=== PATIENT | female | born 1955 | race Caucasian/White ===

== ENCOUNTER → 2016-08-31 | Outpatient (CLI) | payer MEDICARE, OTHER ==
[2016-08-31 11:14] LABS: APPEARANCE,URINE SLIGHTLY-CLOUDY; BILIRUBIN,URINE NEGATIVE (NEGATIVE); GLUCOSE, URINE NEGATIVE (NEGATIVE); KETONES,URINE NEGATIVE (NEGATIVE); LEUKOCYTE ESTERASE,URINE NEGATIVE (NEGATIVE); NITRITE,URINE NEGATIVE (NEGATIVE); PROTEIN,URINE NEGATIVE (NEGATIVE); URINE SPECIFIC GRAVITY 1.025; UROBILINOGEN,URINE NEGATIVE mg/dL (<2.0)
--- NOTE | 2016-08-31 11:18 | EKG REPORT ---
SEVERITY:- NORMAL ECG - SINUS RHYTHM : Confirmed by: Ree Chacon 31-Aug-2016 11:17:39
[2016-08-31 11:36] LABS: ABSOLUTE BASOPHILS # (AUTO) 0.1 10^3/uL (0.0-0.2); ABSOLUTE EOSINOPHILS # (AUTO) 0.1 10^3/uL (0.0-0.6); ABSOLUTE LYMPHOCYTES (AUTO) 1.8 10^3/uL (0.5-4.7); ABSOLUTE MONOCYTES (AUTO) 0.6 10^3/uL (0.1-1.4); ABSOLUTE NEUT (AUTO) 3.6 10^3/uL (1.7-8.2); BASOPHILS % (AUTO) 0.9 % (0-2); HEMATOCRIT 46.4 % (36.0-47.0); HEMOGLOBIN 15.5 g/dL (12.0-15.5); HGB HCT DIFFERENCE 0.1; LYMPHOCYTES % (AUTO) 28.9 % (13-45); MEAN CORPUSCULAR HEMOGLOBIN 31.4 pg (27.0-33.4); MEAN CORPUSCULAR HGB CONC 33.5 g/dL (32.0-36.0); MEAN CORPUSCULAR VOLUME 94 fl (80-97); MONOCYTES % (AUTO) 9.1 % (3-13); RED BLOOD COUNT 4.95 10^6/uL (3.72-5.28); RED CELL DISTRIBUTION WIDTH 13.5 % (11.5-14.0); SEGMENTED NEUTROPHILS % (AUTO) 59.1 % (42-78); WHITE BLOOD COUNT 6.1 10^3/uL (4.0-10.5)
[2016-08-31 12:02] LABS: ANION GAP 9 (5-19); BLOOD UREA NITROGEN 18 mg/dL (7-20); CALCIUM 10.1 mg/dL (8.4-10.2); CARBON DIOXIDE 24 mmol/L (22-30); CHLORIDE 105 mmol/L (98-107); CREATININE RESULT 0.72 mg/dL (0.52-1.25); GLUCOSE 97 mg/dL (75-110); POTASSIUM 4.6 mmol/L (3.6-5.0)
[2016-08-31 12:04] LABS: C-REACTIVE PROTEIN < 5.0 mg/L (<10.0)
[2016-08-31 12:13] LABS: ERYTHROCYTE SEDIMENTATION RATE 11 mm/hr (0-30)
== END ==
LOC: OD 09:44
PROVIDERS: ATTEND Orthopaedic Surgery
DX: Z01.810 Encounter for preprocedural cardiovascular examination (principal); Z01.811 Encounter for preprocedural respiratory examination; Z01.818 Encounter for other preprocedural examination; Z79.899 Other long term (current) drug therapy; R70.0 Elevated erythrocyte sedimentation rate; R79.82 Elevated C-reactive protein (CRP); T84.498A Other mechanical complication of other internal orthopedic devices, implants and grafts, initial encounter
CPT/HCPCS: 36415; 71020; 80048; 81001; 85025; 85652; 86140; 93005; 93010

== ENCOUNTER 2016-09-06 22:16 | Emergency (ER) | payer MEDICARE, OTHER ==
[2016-09-06 22:24] VITALS: BP 142/68
[2016-09-06] MEDS ORDERED: ONDANSETRON 4 MG TAB.RAPDIS PO ONE (22:43)
[2016-09-06] MEDS ORDERED: ACETAMINOPHEN 325 MG TABLET PO ONE (22:43)
--- NOTE | 2016-09-06 22:43 | ER Document Report ---
ED Medical Screen (RME) - General Stated Complaint: FALL/HEAD, NECK, RIGHT SHOULDER PAIN Time seen by provider: 22:40 Mode of Arrival: Ambulatory Information source: Patient Notes: 61-year-old female presents to ED for headache right shoulder and arm pain and neck pain after falling around 2-3 PM today from a standing position anymore hardpacked dirt. She denies any loss of consciousness vomiting or change in orientation. She does have some dizziness and some nausea. She states she took ar Zanaflex 4 mg around 3 is not had any Tylenol. I have greeted and performed a rapid initial assessment of this patient. A comprehensive ED assessment and evaluation of the patient, analysis of test results and completion of medical decision making process will be conducted by an additional ED providers. TRAVEL OUTSIDE OF THE [place] IN LAST 30 DAYS: No - Related Data Allergies/Adverse Reactions: Penicillins Allergy (Severe, Verified 05/29/16 10:20) hives,throat swellling Iodinated Contrast Media - Oral and [IV Dye, Iodine Containing] Allergy (Unknown , Verified 05/29/16 10:20) Anaphylaxis adhesive tape Adverse Reaction (Intermediate, Verified 05/29/16 10:20) Generalized rash Past Medical History - Past Medical History Cardiac Medical History: Reports: Hx Hypercholesterolemia, Hx Hypertension Denies: Hx Coronary Artery Disease, Hx Heart Attack Pulmonary Medical History: Denies: Hx Asthma, Hx Bronchitis, Hx COPD, Hx Pneumonia Neurological Medical History: Denies: Hx Cerebrovascular Accident, Hx Seizures Endocrine Medical History: Reports: Hx Hypothyroidism Musculoskeltal Medical History: Reports Hx Arthritis Psychiatric Medical History: Reports: Hx Depression Past Surgical History: Reports: Hx Abdominal Surgery - hernia repair, bypass, Hx Breast Surgery - biopsy, Hx Cholecystectomy, Hx Hysterectomy, Hx Nose Surgery , Hx Orthopedic Surgery - multp - Immunizations Hx Diphtheria, Pertussis, Tetanus Vaccination: Yes Physical Exam - Vital signs Vitals: Temp Pulse Resp BP Pulse Ox 97.4 F 69 16 142/68 H 97 09/06/16 22:21 09/06/16 22:21 09/06/16 22:21 09/06/16 22:21 09/06/16 22:21 Course - Vital Signs Vital signs: Temp Pulse Resp BP Pulse Ox 97.4 F 69 16 142/68 H 97 09/06/16 22:21 09/06/16 22:21 09/06/16 22:21 09/06/16 22:21 09/06/16 22:21
== END 2016-09-07 02:31 | disposition left against medical advice (07) ==
LOC: ER 22:16
DX: Z53.9 Procedure and treatment not carried out, unspecified reason (principal); R51 Headache; M25.511 Pain in right shoulder; M79.601 Pain in right arm; R42 Dizziness and giddiness; R11.0 Nausea; Z79.899 Other long term (current) drug therapy
CPT/HCPCS: 99281; 73030; 70450; 72125; A9270 ×2; S0119

== ENCOUNTER 2016-09-25 06:35 | Inpatient (IN) | payer MEDICARE, OTHER ==
[~2016-09-25 06:35] MED LIST: BUPIVACAINE INJ/PF LIPOSOME/PF 266 MG/20 ML SDV IJ PRN; CLINDAMYCIN 600 MG/D5W RTU 600 MG/50 ML RTUPB IV PRN; IBUPROFEN 800 MG/NS 250 ML IV PRN; LACTATED RINGERS 1000 ML IV PRN; LANSOPRAZOLE 15 MG TAB.RAP.DR PO PRN; LIDOCAINE 0.5% INJ-PF (5 MG/ML) 50 ML SDV SUBCUT PRN; OXYCODONE HCL SR 10 MG TABLET PO PRN; SCOPOLAMINE HYDROBROMIDE 1.5 MG PATCH.TD72 TOP PRN; VANCOMYCIN HCL 1,000 MG in DEXTROSE 5%-WATER 250 ML IV PRN
[2016-09-25] MEDS ORDERED: THROMBIN (BOVINE) TOPICAL 20000 UNIT VIAL ONE (07:24)
[2016-09-25] MEDS ORDERED: THROMBIN (BOVINE) 5000 UNIT EPITAXIS KIT ONE (07:24)
[2016-09-25] MEDS ORDERED: BUPIVACAINE INJ/PF LIPOSOME/PF 266 MG/20 ML SDV ONE (07:25)
[2016-09-25] MEDS ORDERED: MIDAZOLAM 2 MG/2 ML INJ ONE (07:32)
[2016-09-25] MEDS ORDERED: FENTANYL CITRATE INJ/PF 100 MCG/2 ML AMPUL ONE ×2 (07:32→11:38)
[2016-09-25] MEDS ORDERED: PROPOFOL INJ 200 MG/20 ML VIAL IV ONE (07:33)
[2016-09-25] MEDS ORDERED: DEXMEDETOMIDINE INJ 80 MCG/20 ML VIAL IV ONE (07:33)
[2016-09-25] MEDS ORDERED: TRANEXAMIC ACID INJ/PF 1,000 MG/10 ML SDV IV ONE ×2 (07:44→12:30)
[2016-09-25] MEDS ORDERED: EPHEDRINE SULFATE INJ 50 MG/1 ML AMPULE ONE (09:26)
[2016-09-25] MEDS ORDERED: MORPHINE SULFATE 10 MG/ML INJ IV PRN ×3 (09:47→10:48)
[2016-09-25] MEDS ORDERED: DIPHENHYDRAMINE HCL 50 MG/ML VIAL IV PRN ×2 (09:47→10:48)
[2016-09-25] MEDS ORDERED: PROMETHAZINE HCL INJ 25 MG/1 ML VIAL IV PRN (09:47)
[2016-09-25] MEDS ORDERED: FENTANYL CITRATE INJ/PF 100 MCG/2 ML AMPUL IV PRN ×3 (09:47)
--- NOTE | 2016-09-25 10:46 | Operative Report ---
Operative Report DATE OF SURGERY: 09/25/16 PREOPERATIVE DIAGNOSIS: Unstable right knee arthroplasty OPERATION: Right revision knee arthroplasty SURGEON: MICHAELA BRAR ANESTHESIA: Spinal TISSUE REMOVED OR ALTERED: Cultures to microbiology, implant to pathology ESTIMATED BLOOD LOSS: 100 PROCEDURE: Implants used: Junior willis TS #4 femur., 19 x 100 mm stem, 5 mm posterior augments #3 tibia, 16 x 100 mm stem 13 mm TS insert Procedure with the patient supine on the operative table the right looks terms prepped and draped in sterile fashion. Limb was elevated for exsanguination tourniquet inflated 280 torr. A standard midline incision is made. There didn' t been a previous patellectomy and there were residual Ethibond sutures that were used to determine the previous retinacular exposure and this was used again. Once entering the capsule cultures were obtained and sent for culture and sensitivity. Clinical suspicion for infection slow. Using comminution of TPS saw and a disimpacted. The femoral component is removed with minimal bone loss. Likewise, the tibia was addressed through a TPS saw and then stacked osteotomes with removal and essentially no bone loss. The tibial canal was then reamed to 16 mm and the intramedullary reamer is then used for the proximal tibia recut measuring approximately 2 mm. Summary the femoral canal is reamed until 19 mm and this is used for the recut as well as for the TS box cut. A trial reduction was performed with the above implants and stability seems excellent. The trials were removed. The wound is lupe. Pulsed lavage. Polymethyl methacrylate is mixed and used to cement the above implants in place. Following adequate curing the cement excess cement was removed the wound is irrigated. The tourniquet was deflated. Hemostasis obtained. The final 13 mm TS insert is impacted into the tibia. Bone wax was used to seal off the anterior femoral surface with cancellus bone was exposed and bleeding. The wound is then closed in layers interrupted Vicryl followed by merna.
[2016-09-25] MEDS ORDERED: ZOLPIDEM TARTRATE 5 MG TABLET PO PRN (10:48)
[2016-09-25] MEDS ORDERED: ONDANSETRON HCL INJ/PF 4 MG/2 ML SDV IV PRN (10:48)
[2016-09-25] MEDS ORDERED: RINGERS SOLUTION,LACTATED 1,000 ML IV PRN (10:48)
[2016-09-25] MEDS ORDERED: MAG HYDROX/AL HYDROX/SIMETH SUSP 30 ML UDCUP PO PRN (10:48)
[2016-09-25] MEDS ORDERED: TIZANIDINE HCL 4 MG TABLET PO ONE (12:00)
[2016-09-25] MEDS ORDERED: LANSOPRAZOLE 30 MG TAB.RAP.DR PO ONE (13:00)
[2016-09-25] MEDS ORDERED: CHOLECALCIFEROL (D3) 1,000 UNIT TABLET PO ONE (13:00)
[2016-09-25] MEDS ORDERED: CALCIUM CARBONATE 500 MG TABLET PO ONE (13:00)
[2016-09-25] MEDS ORDERED: LEVOTHYROXINE SODIUM 0.05 MG TABLET PO ONE (13:00)
[2016-09-25] MEDS ORDERED: CYANOCOBALAMIN (VITAMIN B-12) 1,000 MCG TABLET PO ONE (13:00)
[2016-09-25] MEDS ORDERED: HYDROCHLOROTHIAZIDE 25 MG TABLET PO ONE (13:00)
[2016-09-25] MEDS: MORPHINE SULFATE 10 MG/ML INJ IV PRN ×3 (13:20→21:11)
[2016-09-25] MEDS ORDERED: ONDANSETRON HCL INJ/PF 4 MG/2 ML SDV ONE (13:29)
[2016-09-25] MEDS ORDERED: LIDOCAINE 2% INJ-PF (20 MG/ML) 10 ML AMPUL ONE (13:29)
[2016-09-25] MEDS ORDERED: DEXAMETHASONE SOD PHOSPHATE INJ 4 MG/1 ML VIAL ONE (13:29)
[2016-09-25] MEDS ORDERED: DULOXETINE HCL 20 MG CAPSULE.DR PO SCH (14:00)
[2016-09-25] MEDS ORDERED: LISINOPRIL 10 MG TABLET PO ONE (14:00)
[2016-09-25] MEDS: DULOXETINE HCL 30 MG CAPSULE.DR PO SCH ×3 (14:14→22:51)
[2016-09-25] MEDS: GABAPENTIN 300 MG CAPSULE PO SCH ×3 (14:14→22:52)
[2016-09-25] MEDS: ONDANSETRON 4 MG TAB.RAPDIS PO PRN (14:39)
[2016-09-25] MEDS: OXYCODONE HCL IR 5 MG TABLET PO PRN (16:20)
[2016-09-25] MEDS ORDERED: (PENDING PHARMACY ID) (Tizanidine Hcl [Zanaflex] 4 MG) PO SCH (18:00)
[2016-09-25] MEDS: IBUPROFEN 800 MG in NORMAL SALINE 250 ML IV SCH (19:40)
[2016-09-25] MEDS: SIMVASTATIN 40 MG TABLET PO SCH (19:41)
[2016-09-25] MEDS: TRAZODONE HCL 50 MG TABLET PO SCH (19:42)
[2016-09-25] MEDS: SENNOSIDES/DOCUSATE 8.6-50 MG 1 EACH TABLET PO SCH (19:42)
[2016-09-25] MEDS: RIVAROXABAN 10 MG TABLET PO SCH (22:51)
[2016-09-25] MEDS: TIZANIDINE HCL 4 MG TABLET PO SCH (22:51)
[2016-09-25] MEDS: OXYCODONE HCL SR 10 MG TABLET PO SCH (22:52)
[2016-09-25] MEDS: LORAZEPAM 0.5 MG TABLET PO SCH (22:52)
[2016-09-25] MEDS ORDERED: VANCOMYCIN HCL 1,000 MG in DEXTROSE 5%-WATER 250 ML IV ONE (23:00)
[2016-09-26] MEDS: MORPHINE SULFATE 10 MG/ML INJ IV PRN ×4 (00:09→07:34)
[2016-09-26] MEDS: IBUPROFEN 800 MG in NORMAL SALINE 250 ML IV SCH ×2 (01:40→11:04)
[2016-09-26] MEDS: LANSOPRAZOLE 30 MG TAB.RAP.DR PO SCH (05:28)
[2016-09-26] MEDS: DULOXETINE HCL 30 MG CAPSULE.DR PO SCH ×3 (05:28→21:11)
[2016-09-26] MEDS: GABAPENTIN 300 MG CAPSULE PO SCH ×3 (05:28→21:11)
[2016-09-26 06:27] LABS: HEMATOCRIT 37.7 % (36.0-47.0); HEMOGLOBIN 12.8 g/dL (12.0-15.5); HGB HCT DIFFERENCE 0.7; MEAN CORPUSCULAR HEMOGLOBIN 31.5 pg (27.0-33.4); MEAN CORPUSCULAR HGB CONC 33.8 g/dL (32.0-36.0); MEAN CORPUSCULAR VOLUME 93 fl (80-97); RED BLOOD COUNT 4.05 10^6/uL (3.72-5.28); RED CELL DISTRIBUTION WIDTH 13.4 % (11.5-14.0); WHITE BLOOD COUNT 11.6 10^3/uL (4.0-10.5)
[2016-09-26 06:53] LABS: ANION GAP 9 (5-19); BLOOD UREA NITROGEN 15 mg/dL (7-20); CALCIUM 9.7 mg/dL (8.4-10.2); CARBON DIOXIDE 27 mmol/L (22-30); CHLORIDE 98 mmol/L (98-107); CREATININE RESULT 0.69 mg/dL (0.52-1.25); GLUCOSE 104 mg/dL (75-110); POTASSIUM 3.8 mmol/L (3.6-5.0)
[2016-09-26] MEDS ORDERED: (PENDING PHARMACY ID) (Calcium Carbonate [Calcium] 1,200 MG) PO SCH (08:00)
[2016-09-26] MEDS ORDERED: LEVOTHYROXINE SODIUM 0.025 MG TABLET PO SCH (08:00)
[2016-09-26] MEDS: OXYCODONE HCL IR 5 MG TABLET PO PRN ×2 (08:33→15:26)
[2016-09-26] MEDS: ONDANSETRON 4 MG TAB.RAPDIS PO PRN (08:33)
[2016-09-26] MEDS: TIZANIDINE HCL 4 MG TABLET PO SCH ×2 (11:05→21:09)
[2016-09-26] MEDS: OXYCODONE HCL SR 10 MG TABLET PO SCH ×2 (11:06→21:11)
[2016-09-26] MEDS: HYDROCHLOROTHIAZIDE 25 MG TABLET PO SCH (11:07)
[2016-09-26] MEDS: SENNOSIDES/DOCUSATE 8.6-50 MG 1 EACH TABLET PO SCH ×2 (11:07→18:37)
[2016-09-26] MEDS: CALCIUM CARBONATE 500 MG TABLET PO SCH (11:08)
[2016-09-26] MEDS: LEVOTHYROXINE SODIUM 0.05 MG TABLET PO SCH (11:09)
[2016-09-26] MEDS: LORAZEPAM 0.5 MG TABLET PO SCH ×2 (11:09→21:11)
[2016-09-26] MEDS: PRENATAL VITAMIN W-O CA NO5/FE FUMARATE/FA CAPSULE PO SCH (11:09)
[2016-09-26] MEDS: LISINOPRIL 10 MG TABLET PO SCH (11:12)
[2016-09-26] MEDS: CYANOCOBALAMIN (VITAMIN B-12) 1,000 MCG TABLET PO SCH (11:15)
[2016-09-26] MEDS: CHOLECALCIFEROL (D3) 1,000 UNIT TABLET PO SCH (11:15)
[2016-09-26] MEDS: SIMVASTATIN 40 MG TABLET PO SCH (18:37)
[2016-09-26] MEDS: TRAZODONE HCL 50 MG TABLET PO SCH (18:37)
[2016-09-26] MEDS: RIVAROXABAN 10 MG TABLET PO SCH (21:12)
[2016-09-27] MEDS: OXYCODONE HCL IR 5 MG TABLET PO PRN ×3 (02:00→17:07)
[2016-09-27 05:40] LABS: HEMATOCRIT 33.2 % (36.0-47.0); HEMOGLOBIN 11.2 g/dL (12.0-15.5); HGB HCT DIFFERENCE 0.4; MEAN CORPUSCULAR HEMOGLOBIN 31.9 pg (27.0-33.4); MEAN CORPUSCULAR HGB CONC 33.8 g/dL (32.0-36.0); MEAN CORPUSCULAR VOLUME 95 fl (80-97); RED BLOOD COUNT 3.51 10^6/uL (3.72-5.28); WHITE BLOOD COUNT 8.4 10^3/uL (4.0-10.5)
[2016-09-27] MEDS: GABAPENTIN 300 MG CAPSULE PO SCH ×3 (06:07→21:09)
[2016-09-27] MEDS: DULOXETINE HCL 30 MG CAPSULE.DR PO SCH ×3 (06:07→21:09)
[2016-09-27] MEDS: LANSOPRAZOLE 30 MG TAB.RAP.DR PO SCH (06:07)
--- NOTE | 2016-09-27 07:22 | PDOC PROGRESS REPORT ---
Subjective Progress Note for:: 09/27/16 Subjective:: Patient states that she had good rest last night Physical Exam Vital Signs: Temp Pulse Resp BP Pulse Ox 37.3 C 68 18 94/49 L 94 09/26/16 23:00 09/26/16 23:00 09/26/16 23:00 09/26/16 23:00 09/26/16 23:00 Intake & Output 09/26/16 09/27/16 09/28/16 06:59 06:59 06:59 Intake Total 4388 1515 Output Total 4050 Balance 338 1515 Weight 104 kg General appearance: PRESENT: no acute distress Head exam: PRESENT: normocephalic Eye exam: PRESENT: EOMI Respiratory exam: PRESENT: unlabored Cardiovascular exam: PRESENT: RRR Pulses: PRESENT: +1 pedal pulses bilateral Vascular exam: PRESENT: normal capillary refill GI/Abdominal exam: PRESENT: soft Rectal exam: PRESENT: deferred Extremities exam: PRESENT: other - Right lower extremity dressing clean dry and intact. Distal neurovascular examinations intact. This minimal pedal edema. Neurological exam: PRESENT: alert, awake, oriented to person, oriented to place , oriented to time, oriented to situation, CN II-XII grossly intact. ABSENT: motor sensory deficit Psychiatric exam: PRESENT: appropriate affect, normal mood. ABSENT: homicidal ideation, suicidal ideation Skin exam: PRESENT: dry, intact, warm. ABSENT: cyanosis, rash Results Laboratory Results: 09/27/16 05:05 09/26/16 06:00 09/27/16 05:05 WBC 8.4 RBC 3.51 L Hgb 11.2 L Hct 33.2 L MCV 95 MCH 31.9 MCHC 33.8 RDW 13.0 Plt Count 224 Impressions: Knee X-Ray 09/25/16 10:49 IMPRESSION: SATISFACTORY POSTOPERATIVE RIGHT KNEE. Status: Imported from PACS Assessment & Plan - Diagnosis (1) Mechanical complication due to implant Is this a current diagnosis for this admission?: YesPlan: 61-year-old white female status post revision right knee arthroplasty for instability status post patellectomy . Patient made minimal progress with physical therapy yesterday. Presumably because of oversedation. Plan will be to decrease the patient's analgesic medications today. We'll continue physical therapy. Anticipate discharge home tomorrow with home health nursing and home health physical therapy. - Time Time Spent with patient: 15-24 minutes Anticipated discharge: Home with Homehealth Within: within 24 hours
[2016-09-27] MEDS: CYANOCOBALAMIN (VITAMIN B-12) 1,000 MCG TABLET PO SCH (09:35)
[2016-09-27] MEDS: CALCIUM CARBONATE 500 MG TABLET PO SCH (09:36)
[2016-09-27] MEDS: CHOLECALCIFEROL (D3) 1,000 UNIT TABLET PO SCH (09:36)
[2016-09-27] MEDS: PRENATAL VITAMIN W-O CA NO5/FE FUMARATE/FA CAPSULE PO SCH (09:36)
[2016-09-27] MEDS: SENNOSIDES/DOCUSATE 8.6-50 MG 1 EACH TABLET PO SCH ×2 (09:36→17:07)
[2016-09-27] MEDS: LEVOTHYROXINE SODIUM 0.05 MG TABLET PO SCH (09:37)
[2016-09-27] MEDS: LISINOPRIL 10 MG TABLET PO SCH (09:38)
[2016-09-27] MEDS: LORAZEPAM 0.5 MG TABLET PO SCH ×2 (09:38→21:09)
[2016-09-27] MEDS: HYDROCHLOROTHIAZIDE 25 MG TABLET PO SCH (09:38)
[2016-09-27] MEDS: TIZANIDINE HCL 4 MG TABLET PO SCH ×2 (09:38→21:09)
[2016-09-27] MEDS: MORPHINE SULFATE 10 MG/ML INJ IM PRN ×2 (11:59→21:09)
[2016-09-27] MEDS: ACETAMINOPHEN 325 MG TABLET PO PRN (14:36)
[2016-09-27] MEDS: SIMVASTATIN 40 MG TABLET PO SCH (17:07)
[2016-09-27] MEDS: TRAZODONE HCL 50 MG TABLET PO SCH (17:08)
[2016-09-27] MEDS: RIVAROXABAN 10 MG TABLET PO SCH (21:09)
[2016-09-28] MEDS: ACETAMINOPHEN 325 MG TABLET PO PRN (04:49)
[2016-09-28 06:05] LABS: HEMATOCRIT 30.4 % (36.0-47.0); HEMOGLOBIN 10.7 g/dL (12.0-15.5); HGB HCT DIFFERENCE 1.7; MEAN CORPUSCULAR HEMOGLOBIN 32.2 pg (27.0-33.4); MEAN CORPUSCULAR HGB CONC 35.1 g/dL (32.0-36.0); MEAN CORPUSCULAR VOLUME 92 fl (80-97); RED BLOOD COUNT 3.32 10^6/uL (3.72-5.28); WHITE BLOOD COUNT 5.1 10^3/uL (4.0-10.5)
[2016-09-28] MEDS: LANSOPRAZOLE 30 MG TAB.RAP.DR PO SCH (06:18)
[2016-09-28] MEDS: GABAPENTIN 300 MG CAPSULE PO SCH (06:19)
[2016-09-28] MEDS: DULOXETINE HCL 30 MG CAPSULE.DR PO SCH (06:19)
--- NOTE | 2016-09-28 07:01 | PDOC DISCHARGE SUMMARY ---
General - Admit/Disc Date/PCP Admission Date/Primary Care Provider: 09/25/16 06:35 MIGUEL FRYE, Discharge Date: 09/28/16 - Discharge Diagnosis (1) Mechanical complication due to implant Is this a current diagnosis for this admission?: YesSummary: 61-year-old white female status post right knee arthroplasty and subsequent patellectomy many with residual instability - Additional Information Resuscitation Status: Full Code Discharge Diet: As Tolerated, Regular Discharge Activity: Activity As Tolerated, Balance Activity w/Rest Home Medications: Calcium Carbonate [Calcium] 1,200 mg PO QAM 02/07/14 Hydrochlorothiazide [Hydrodiuril 25 mg Tablet] 25 mg PO QAM 02/07/14 Levothyroxine Sodium 50 mcg PO QAM 02/07/14 Lisinopril [Zestril] 10 mg PO QAM 02/07/14 Simvastatin 20 mg PO QPM 02/07/14 Trazodone HCl [Desyrel 50 mg Tablet] 50 mg PO QPM 02/07/14 Gabapentin [Neurontin 300 mg Capsule] 600 mg PO TID 09/09/14 Fluticasone Propionate [Flonase Nasal [place] 50 Mcg/[place] 16 gm] 1 spray NS DAILY 09/29/14 Cholecalciferol (Vitamin D3) [Vitamin D3 5000 unit Capsule] 5,000 unit PO QAM Lorazepam [Ativan 0.5 mg Tablet] 0.5 mg PO BID 05/23/16 Tizanidine HCl [Zanaflex] 4 mg PO BID 05/23/16 Cyanocobalamin (Vitamin B-12) [B-12] 1,000 mcg PO QAM 09/12/16 Duloxetine HCl [Cymbalta 20 mg Capsule.dr] 30 mg PO TID 09/12/16 Naproxen 500 mg PO BID 09/12/16 Rivaroxaban [Xarelto 10 mg Tablet] 10 mg PO QHS #0 tablet 09/28/16 History of Present Illness Patient complains of: Increasing right knee pain and giving way History of Present Illness: ANDREW ROJAS is a 61 year old female Hospital Course Hospital Course: Patient's admitted through the operating room where she undergoes uncomplicated revision knee arthroplasty. She's returned to floor in satisfactory condition. Analgesic medication has been problematic throughout her admission because of a hypersensitivity in her part. Analgesic medication was decreased several times during her stay. She makes excellent progress with physical therapy as analgesics are reduced. Physical Exam Vital Signs: Temp Pulse Resp BP Pulse Ox 36.8 C 73 19 115/50 L 97 09/28/16 03:00 09/28/16 03:00 09/28/16 03:00 09/28/16 03:00 09/28/16 03:00 Intake & Output 09/26/16 09/27/16 09/28/16 06:59 06:59 06:59 Intake Total 4388 1515 1385 Output Total 4050 4000 Balance 338 1515 -2615 Weight 104 kg 102.5 kg General appearance: PRESENT: no acute distress, well-developed, well-nourished Head exam: PRESENT: normocephalic Eye exam: PRESENT: EOMI Respiratory exam: PRESENT: unlabored Cardiovascular exam: PRESENT: RRR Pulses: PRESENT: +1 pedal pulses bilateral Vascular exam: PRESENT: normal capillary refill GI/Abdominal exam: PRESENT: soft Rectal exam: PRESENT: deferred Extremities exam: PRESENT: other - Right lower extremity dressing intact. Distal neurovascular examinations intact. There is minimal pedal edema. Neurological exam: PRESENT: alert, awake, oriented to person, oriented to place , oriented to time, oriented to situation, CN II-XII grossly intact. ABSENT: motor sensory deficit Psychiatric exam: PRESENT: appropriate affect, normal mood. ABSENT: homicidal ideation, suicidal ideation Skin exam: PRESENT: dry, intact, warm. ABSENT: cyanosis, rash Results Laboratory Results: 09/28/16 05:37 09/26/16 06:00 09/28/16 05:37 WBC 5.1 RBC 3.32 L Hgb 10.7 L Hct 30.4 L MCV 92 MCH 32.2 MCHC 35.1 RDW 13.0 Plt Count 212 Impressions: Knee X-Ray 09/25/16 10:49 IMPRESSION: SATISFACTORY POSTOPERATIVE RIGHT KNEE. Status: Imported from PACS Plan Discharge Plan: Patient be discharged home with home health nursing, home health physical therapy, we'll Walker, bedside commode. Discharge medications include Vicodin as opposed to oxycodone because of her sensitivity. Visiting nurse service to change her right lower extremity cleo dressing on postop day #7. Follow-up with Dr. Avila in the [facility] for surgery in 2 weeks for staple removal. Time Spent: Less than 30 Minutes
[2016-09-28] MEDS ORDERED: HYDROCODONE/ACETAMINOPHEN 5-325 MG TABLET PO PRN (08:16)
[2016-09-28 09:36] VITALS: BP 115/50
[2016-09-28] MEDS: TIZANIDINE HCL 4 MG TABLET PO SCH (09:46)
[2016-09-28] MEDS: SENNOSIDES/DOCUSATE 8.6-50 MG 1 EACH TABLET PO SCH (09:47)
[2016-09-28] MEDS: LORAZEPAM 0.5 MG TABLET PO SCH (09:47)
[2016-09-28] MEDS: PRENATAL VITAMIN W-O CA NO5/FE FUMARATE/FA CAPSULE PO SCH (09:48)
[2016-09-28] MEDS: LEVOTHYROXINE SODIUM 0.05 MG TABLET PO SCH (09:48)
[2016-09-28] MEDS: CALCIUM CARBONATE 500 MG TABLET PO SCH (09:48)
[2016-09-28] MEDS: HYDROCHLOROTHIAZIDE 25 MG TABLET PO SCH (09:48)
[2016-09-28] MEDS: CHOLECALCIFEROL (D3) 1,000 UNIT TABLET PO SCH (09:49)
[2016-09-28] MEDS: CYANOCOBALAMIN (VITAMIN B-12) 1,000 MCG TABLET PO SCH (09:49)
[2016-09-28] MEDS: LISINOPRIL 10 MG TABLET PO SCH (09:49)
== END 2016-09-28 10:20 | disposition home health service (06) | DRG 468 ==
LOC: INOR 06:35 → 4S 12:36
PROVIDERS: ADMIT Orthopaedic Surgery; ATTEND Orthopaedic Surgery
PROC: 0SPC09Z Removal of Liner from Right Knee Joint, Open Approach (ICD-10-PCS; 2016-09-25)
PROC: 0SPC0JZ Removal of Synthetic Substitute from Right Knee Joint, Open Approach (ICD-10-PCS; 2016-09-25)
PROC: 0SUC09Z Supplement Right Knee Joint with Liner, Open Approach (ICD-10-PCS; 2016-09-25)
PROC: 0SRC0J9 Replacement of Right Knee Joint with Synthetic Substitute, Cemented, Open Approach (ICD-10-PCS; principal; 2016-09-25 08:45)
DX: T84.89XA Other specified complication of internal orthopedic prosthetic devices, implants and grafts, initial encounter (principal); M23.51 Chronic instability of knee, right knee; M25.561 Pain in right knee; E03.9 Hypothyroidism, unspecified; E78.5 Hyperlipidemia, unspecified; F32.9 Major depressive disorder, single episode, unspecified; G89.4 Chronic pain syndrome; I10 Essential (primary) hypertension; M54.5 Low back pain; Z96.651 Presence of right artificial knee joint; Z88.0 Allergy status to penicillin; Z91.041 Radiographic dye allergy status; Z98.84 Bariatric surgery status
CPT/HCPCS: 01402; 36415; 80048; 84132; 85027; 87070; 87075; 87205; 94799; C9290; G8978-GP; G8979-GP; J1100; J1741; J2250; J2270; J2405; J2704; J3010; J3370; J3490; J7050; J7060; S0119

== ENCOUNTER 2016-10-23 10:13 | Emergency (ER) | payer MEDICARE, OTHER ==
[2016-10-23] MEDS ORDERED: OXYCODONE-ACETAMINOPHEN 5-325 MG TABLET PO ONE (10:49)
--- NOTE | 2016-10-23 10:58 | ER Document Report ---
HPI - HPI Patient complains to provider of: knee pain Pain Level: 5 Context: patient is a 61 year old female p/w knee pain. Patient is within post op week three after right TKA by Dr. Brar. She states yesterday she was in her bedroom cleaning when she almost tripped walking backwards and was startled. She states she twisted her right knee with immeiadte swelling and pain. She has been taking tramadol 50 mg q6h and 200mg motrin q6h for pain. She states her pain is not well controlled on this regimen after she hurt her knee yesterday. She has difficulty bearing weight fully on her right leg and difficulty ambulating. She is able to bend her knee but not past 90 degrees. She was previously bending past 90 in PT. Patient has a history of multiple knee surgeries on her right knee from a previous soft ball injury. She states she has underlying chronic pain previous to her surgery. She has been been complaint with PT and post op follow up. PMH: HTN, HLD, depression - CARDIOVASCULAR Cardiovascular: DENIES: Chest pain - REPRODUCTIVE Reproductive: DENIES: : - DERM Skin Color: Normal Past Medical History - Social History Smoking Status: Never Smoker Chew tobacco use (# tins/day): No Frequency of alcohol use: None Drug Abuse: None Family History: Reviewed & Not Pertinent Patient has suicidal ideation: No Patient has homicidal ideation: No - Past Medical History Cardiac Medical History: Reports: Hx Hypercholesterolemia - takes meds, Hx Hypertension - since 1982 (off and on) takes meds Denies: Hx Atrial Fibrillation, Hx Congestive Heart Failure, Hx Coronary Artery Disease, Hx Heart Attack, Hx Peripheral Vascular Disease, Hx Pulmonary Embolism, Hx Heart Murmur Pulmonary Medical History: Reports: Hx Bronchitis - 8-10 years ago/wheezing Denies: Hx Asthma, Hx COPD, Hx Pneumonia, Hx Respiratory Failure, Hx Sleep Apnea, Hx Tuberculosis Neurological Medical History: Denies: Hx Cerebrovascular Accident, Hx Seizures Endocrine Medical History: Reports: Hx Hypothyroidism. Denies: Hx Graves' Disease, Hx Hyperthyroidism Renal/ Medical History: Denies: Hx End Stage Renal Disease, Hx Kidney Stones, Hx Ovarian Cysts, Hx Peritoneal Dialysis, Hx Pelvic Inflammatory Disease Malignancy Medical History: Denies: Hx Breast Cancer, Hx Cervical Cancer, Hx Lung Cancer, Hx Ovarian Cancer GI Medical History: Reports: Hx Gastroesophageal Reflux Disease - rare. Denies : Hx Crohn's Disease, Hx Hiatal Hernia, Hx Irritable Bowel, Hx Liver Failure, Hx Ulcer Musculoskeltal Medical History: Reports Hx Arthritis, Reports Hx Fibromyalgia, Denies Hx Multiple Sclerosis, Denies Hx Muscular Dystrophy Psychiatric Medical History: Reports: Hx Depression Denies: Hx Bipolar Disorder, Hx Dementia, Hx Post Traumatic Stress Disorder, Hx Schizophrenia Traumatic Medical History: Reports: Hx Fractures - right wrist/right elbow r/t fall Past Surgical History: Reports: Hx Abdominal Surgery - hernia repair, bypass, Hx Breast Surgery - biopsy, Hx Cholecystectomy, Hx Gastric Bypass Surgery, Hx Herniorrhaphy - unbilical x2, Hx Hysterectomy, Hx Nose Surgery, Hx Orthopedic Surgery - multp. Denies: Hx Appendectomy, Hx Bowel Surgery, Hx Section , Hx Colostomy, Hx Coronary Artery Bypass Graft, Hx Mastectomy, Hx Pacemaker, Hx Tonsillectomy, Hx Tubal Ligation - Immunizations Hx Diphtheria, Pertussis, Tetanus Vaccination: Yes Hx Pneumococcal Vaccination: 07/16/16 Vertical Provider Document - CONSTITUTIONAL Agree With Documented VS: Yes Exam Limitations: No Limitations General Appearance: WD/WN, Mild Distress Notes: PHYSICAL EXAM GENERAL: Alert, interacts well. HEAD: Normocephalic, atraumatic. EYES: Pupils equal, round, and reactive to light. Extraocular movements intact. ENT: Oral mucosa moist, tongue midline. NECK: Full range of motion. Supple. Trachea midline. LUNGS: Clear to auscultation bilaterally, no wheezes, rales, or rhonchi. No respiratory distress. HEART: Regular rate and rhythm. No murmurs, gallops, or rubs. ABDOMEN: Soft, nondistended, nontender. No guarding, rebound, or rigidity.. Bowel sounds present in all 4 quadrants. EXTREMITIES: Moves all 4 extremities spontaneously with guarding in the right lower extremity. Patient able to flex her knee to about 45 with onset of pain. Pain on the medial aspect of the knee on the tibia. No pitting edema. No erythema. No evidence of a septic joint. dorsalis pedis pulses 2/4 bilaterally. No cyanosis. NEUROLOGICAL: Alert and oriented x4. Normal speech. PSYCH: Normal affect, normal mood. SKIN: Warm, dry, normal turgor. No rashes or lesions noted. - INFECTION CONTROL TRAVEL OUTSIDE OF THE [place] IN LAST 30 DAYS: No - RESPIRATORY O2 Sat by Pulse Oximetry: 94 Course - Re-evaluation Re-evalutation: 10/23/16 17:29 Patient is a 61-year-old female who presents emergency Department complaining of acute knee pain. Pain is consistent with a muscle strain around in a postop knee in the postop setting. Low index for suspicion for any evidence of septic joint, knee dislocation or unstable knee. Discussed with her that we can give her a few pain medications to tide her over until she follows up with Dr. Brar tomorrow. - Vital Signs Vital signs: Temp Pulse Resp BP Pulse Ox 98.2 F 86 18 112/83 94 10/23/16 10:15 10/23/16 10:15 10/23/16 10:15 10/23/16 10:15 10/23/16 10:15 - Diagnostic Test Radiology reviewed: Image reviewed, Reports reviewed Discharge - Discharge Clinical Impression: Knee pain, acute Condition: Good Disposition: HOME, SELF-CARE Instructions: Use of Crutches ([facility]), Ice & Elevation ([facility]), Oral Narcotic Medication ([facility]) Referrals: MIGUEL FRYE DO [Primary Care Provider] - Follow up as needed MICHAELA BRAR MD [ACTIVE STAFF] - Follow up tomorrow
[2016-10-23] MEDS ORDERED: HYDROCODONE/ACETAMINOPHEN 5-325 MG 6 TAB/DSPK PO PRN (11:36)
[2016-10-23 12:07] VITALS: BP 121/73
== END 2016-10-23 12:07 | disposition home or self-care (01) ==
LOC: ER 10:13
DX: M25.561 Pain in right knee (principal); Z98.890 Other specified postprocedural states; E78.00 Pure hypercholesterolemia, unspecified; I10 Essential (primary) hypertension; E03.9 Hypothyroidism, unspecified; K21.9 Gastro-esophageal reflux disease without esophagitis; Z95.1 Presence of aortocoronary bypass graft; Z90.49 Acquired absence of other specified parts of digestive tract; Z98.84 Bariatric surgery status
CPT/HCPCS: 99283; 73560; A9270 ×2

== ENCOUNTER → 2016-11-14 | Outpatient (CLI) | payer MEDICARE, OTHER ==
[2016-11-14 16:13] LABS: ABSOLUTE EOSINOPHILS # (AUTO) 0.1 10^3/uL (0.0-0.6); ABSOLUTE MONOCYTES (AUTO) 0.5 10^3/uL (0.1-1.4); ABSOLUTE NEUT (AUTO) 3.8 10^3/uL (1.7-8.2); BASOPHILS % (AUTO) 0.7 % (0-2); EOSINOPHILS % (AUTO) 2.1 % (0-6); HEMATOCRIT 41.9 % (36.0-47.0); HEMOGLOBIN 14.3 g/dL (12.0-15.5); LYMPHOCYTES % (AUTO) 31.2 % (13-45); MEAN CORPUSCULAR HEMOGLOBIN 31.1 pg (27.0-33.4); MEAN CORPUSCULAR HGB CONC 34.2 g/dL (32.0-36.0); MEAN CORPUSCULAR VOLUME 91 fl (80-97); MONOCYTES % (AUTO) 8.2 % (3-13); RED BLOOD COUNT 4.61 10^6/uL (3.72-5.28); RED CELL DISTRIBUTION WIDTH 13.5 % (11.5-14.0); SEGMENTED NEUTROPHILS % (AUTO) 57.8 % (42-78); WHITE BLOOD COUNT 6.5 10^3/uL (4.0-10.5)
[2016-11-14 16:40] LABS: ANION GAP 14 (5-19); BLOOD UREA NITROGEN 17 mg/dL (7-20); CALCIUM 9.8 mg/dL (8.4-10.2); CARBON DIOXIDE 25 mmol/L (22-30); CHLORIDE 103 mmol/L (98-107); CREATININE RESULT 0.85 mg/dL (0.52-1.25); GLUCOSE 155 mg/dL (75-110); POTASSIUM 4.1 mmol/L (3.6-5.0); SODIUM 141.8 mmol/L (137-145)
[2016-11-14 16:47] LABS: C-REACTIVE PROTEIN < 5.0 mg/L (<10.0); ERYTHROCYTE SEDIMENTATION RATE 18 mm/hr (0-30)
== END ==
LOC: OD 15:26
PROVIDERS: ATTEND Orthopaedic Surgery
DX: T84.53XA Infection and inflammatory reaction due to internal right knee prosthesis, initial encounter (principal)
CPT/HCPCS: 36415; 80048; 85025; 85652; 86140

== ENCOUNTER 2016-12-03 11:15 | Inpatient (IN) | payer MEDICARE, OTHER ==
[2016-12-03] MEDS ORDERED: NITROGLYCERIN 0.4 MG/TAB 25 TAB/BOTTLE SL PRN ×2 (12:06→15:53)
--- NOTE | 2016-12-03 12:06 | ER Document Report ---
ED Medical Screen (RME) - General Chief Complaint: Chest Pain Stated Complaint: CHEST PAIN, Time Seen by Provider: 12/03/16 11:53 Notes: Patient is a 61-year-old female, past medical history hypertension, presents with 20 minutes of substernal chest tightness and pressure without radiation. Also with SOB. Never had this before. Right knee surgery 1 month ago. PE: Uncomfortable, diaphoretic, strong distal pulses I have greeted and performed a rapid initial assessment of this patient. A comprehensive ED assessment and evaluation of the patient, analysis of test results and completion of the medical decision making process will be conducted by additional ED providers. TRAVEL OUTSIDE OF THE [place] IN LAST 30 DAYS: No - Related Data Allergies/Adverse Reactions: Penicillins Allergy (Severe, Verified 12/03/16 11:27) hives,throat swellling Iodinated Contrast Media - Oral and [IV Dye, Iodine Containing] Allergy (Unknown , Verified 12/03/16 11:27) Anaphylaxis adhesive tape Adverse Reaction (Intermediate, Verified 12/03/16 11:27) Generalized rash Past Medical History - Past Medical History Cardiac Medical History: Reports: Hx Hypercholesterolemia - takes meds, Hx Hypertension - since 1982 (off and on) takes meds Denies: Hx Atrial Fibrillation, Hx Congestive Heart Failure, Hx Coronary Artery Disease, Hx Heart Attack, Hx Peripheral Vascular Disease, Hx Pulmonary Embolism, Hx Heart Murmur Pulmonary Medical History: Reports: Hx Bronchitis - 8-10 years ago/wheezing Denies: Hx Asthma, Hx COPD, Hx Pneumonia, Hx Respiratory Failure, Hx Sleep Apnea, Hx Tuberculosis Neurological Medical History: Denies: Hx Cerebrovascular Accident, Hx Seizures Endocrine Medical History: Reports: Hx Hypothyroidism. Denies: Hx Graves' Disease, Hx Hyperthyroidism Renal/ Medical History: Denies: Hx End Stage Renal Disease, Hx Kidney Stones, Hx Ovarian Cysts, Hx Peritoneal Dialysis, Hx Pelvic Inflammatory Disease Malignancy Medical History: Denies: Hx Breast Cancer, Hx Cervical Cancer, Hx Lung Cancer, Hx Ovarian Cancer GI Medical History: Reports: Hx Gastroesophageal Reflux Disease - rare. Denies : Hx Crohn's Disease, Hx Hiatal Hernia, Hx Irritable Bowel, Hx Liver Failure, Hx Ulcer Musculoskeltal Medical History: Reports Hx Arthritis, Reports Hx Fibromyalgia, Denies Hx Multiple Sclerosis, Denies Hx Muscular Dystrophy Psychiatric Medical History: Reports: Hx Depression Denies: Hx Bipolar Disorder, Hx Dementia, Hx Post Traumatic Stress Disorder, Hx Schizophrenia Traumatic Medical History: Reports: Hx Fractures - right wrist/right elbow r/t fall Past Surgical History: Reports: Hx Abdominal Surgery - hernia repair, bypass, Hx Breast Surgery - biopsy, Hx Cholecystectomy, Hx Gastric Bypass Surgery, Hx Gynecologic Surgery - D&Cx4,, Hx Herniorrhaphy - unbilical x2, Hx Hysterectomy, Hx Nose Surgery, Hx Orthopedic Surgery - multp. Denies: Hx Appendectomy, Hx Bowel Surgery, Hx Section, Hx Colostomy, Hx Coronary Artery Bypass Graft, Hx Mastectomy, Hx Pacemaker, Hx Tonsillectomy, Hx Tubal Ligation - Immunizations Hx Diphtheria, Pertussis, Tetanus Vaccination: Yes Physical Exam - Vital signs Vitals: Temp Pulse Resp BP Pulse Ox 97.7 F 93 24 H 122/66 97 12/03/16 11:26 12/03/16 11:26 12/03/16 11:12/03/16 11:12/03/16 11:26 Course - Vital Signs Vital signs: Temp Pulse Resp BP Pulse Ox 97.7 F 93 24 H 122/66 97 12/03/16 11:26 12/03/16 11:26 12/03/16 11:26 12/03/16 11:12/03/16 11:26
[2016-12-03 12:33] LABS: ABSOLUTE EOSINOPHILS # (AUTO) 0.1 10^3/uL (0.0-0.6); ABSOLUTE LYMPHOCYTES (AUTO) 1.4 10^3/uL (0.5-4.7); ABSOLUTE MONOCYTES (AUTO) 0.3 10^3/uL (0.1-1.4); ABSOLUTE NEUT (AUTO) 2.6 10^3/uL (1.7-8.2); BASOPHILS % (AUTO) 0.9 % (0-2); EOSINOPHILS % (AUTO) 1.8 % (0-6); HEMATOCRIT 44.7 % (36.0-47.0); HEMOGLOBIN 14.9 g/dL (12.0-15.5); LYMPHOCYTES % (AUTO) 30.8 % (13-45); MEAN CORPUSCULAR HEMOGLOBIN 30.4 pg (27.0-33.4); MEAN CORPUSCULAR HGB CONC 33.4 g/dL (32.0-36.0); MEAN CORPUSCULAR VOLUME 91 fl (80-97); MONOCYTES % (AUTO) 7.4 % (3-13); RED BLOOD COUNT 4.91 10^6/uL (3.72-5.28); RED CELL DISTRIBUTION WIDTH 13.5 % (11.5-14.0); SEGMENTED NEUTROPHILS % (AUTO) 59.1 % (42-78); WHITE BLOOD COUNT 4.5 10^3/uL (4.0-10.5)
[2016-12-03] MEDS ORDERED: ASPIRIN 81 MG TABLET, CHEWABLE PO ONE (12:51)
[2016-12-03] MEDS ORDERED: ACETAMINOPHEN 325 MG TABLET PO ONE (12:51)
[2016-12-03 12:52] LABS: ALANINE AMINOTRANSFERASE 26 U/L (9-52); ALBUMIN 4.4 g/dL (3.5-5.0); ALKALINE PHOSPHATASE 115 U/L (38-126); ANION GAP 11 (5-19); ASPARTATE AMINO TRANSFERASE 24 U/L (14-36); BILIRUBIN,DIRECT 0.3 mg/dL (0.0-0.4); BILIRUBIN,TOTAL 0.6 mg/dL (0.2-1.3); BLOOD UREA NITROGEN 27 mg/dL (7-20); CALCIUM 10.5 mg/dL (8.4-10.2); CARBON DIOXIDE 25 mmol/L (22-30); CHLORIDE 106 mmol/L (98-107); CREATINE KINASE 64 U/L (30-135); CREATININE RESULT 0.77 mg/dL (0.52-1.25); GLUCOSE 91 mg/dL (75-110); LIPASE 73.8 U/L (23-300); POTASSIUM 4.2 mmol/L (3.6-5.0); TOTAL PROTEIN 7.3 g/dL (6.3-8.2)
[2016-12-03 13:06] LABS: TROPONIN I < 0.012 ng/mL
[2016-12-03] MEDS ORDERED: NITROGLYCERIN 0.4 MG/TAB 25 TAB/BOTTLE SL ONE (13:15)
[2016-12-03] MEDS ORDERED: LORAZEPAM INJ 2 MG/1 ML VIAL IV ONE (13:17)
[2016-12-03] MEDS ORDERED: NORMAL SALINE 500 ML IV ONE (13:17)
--- NOTE | 2016-12-03 13:24 | ER Document Report ---
ED General - General Chief Complaint: Chest Pain Stated Complaint: CHEST PAIN, Time Seen by Provider: 12/03/16 11:53 Mode of Arrival: Ambulatory Information source: Patient Notes: This is a 61-year-old female who presents to the ER for complaints of chest pain. She states that about 30 minutes prior to her arrival she was bathing her dog and she developed substernal chest pain which she describes as a "squeezing and clenching". This was associated with nausea and diaphoresis. She was also short of breath. No radiation of the pain. She states that she has never had similar symptoms before. This episode scared her and she drove herself to the ER. She received ASA and SL NTG by the provider in triage and she says she has had some relief of chest pain, but still reports 6/10 pain. Of note she states she has been under increased stress at home both financially and secondary to husbands recent CA diagnosis and medical bills, as well as marital strife. She becomes tearful when discussing this stress. No stress test in the past at least 7 years, although she believes she had a heart cath in [place] about 8 years ago, no stents. TRAVEL OUTSIDE OF THE [place] IN LAST 30 DAYS: No - Related Data Allergies/Adverse Reactions: Penicillins Allergy (Severe, Verified 12/03/16 11:27) hives,throat swellling Iodinated Contrast Media - Oral and [IV Dye, Iodine Containing] Allergy (Unknown , Verified 12/03/16 11:27) Anaphylaxis adhesive tape Adverse Reaction (Intermediate, Verified 12/03/16 11:27) Generalized rash Past Medical History - General Information source: Patient - Social History Smoking Status: Never Smoker Chew tobacco use (# tins/day): No Frequency of alcohol use: Rare Drug Abuse: None Family History: Reviewed & Not Pertinent Patient has suicidal ideation: No Patient has homicidal ideation: No - Past Medical History Cardiac Medical History: Reports: Hx Hypercholesterolemia - takes meds, Hx Hypertension - since 1982 (off and on) takes meds Denies: Hx Atrial Fibrillation, Hx Congestive Heart Failure, Hx Coronary Artery Disease, Hx Heart Attack, Hx Peripheral Vascular Disease, Hx Pulmonary Embolism, Hx Heart Murmur Pulmonary Medical History: Reports: Hx Bronchitis - 8-10 years ago/wheezing Denies: Hx Asthma, Hx COPD, Hx Pneumonia, Hx Respiratory Failure, Hx Sleep Apnea, Hx Tuberculosis Neurological Medical History: Denies: Hx Cerebrovascular Accident, Hx Seizures Endocrine Medical History: Reports: Hx Hypothyroidism. Denies: Hx Graves' Disease, Hx Hyperthyroidism Renal/ Medical History: Denies: Hx End Stage Renal Disease, Hx Kidney Stones, Hx Ovarian Cysts, Hx Peritoneal Dialysis, Hx Pelvic Inflammatory Disease Malignancy Medical History: Denies: Hx Breast Cancer, Hx Cervical Cancer, Hx Lung Cancer, Hx Ovarian Cancer GI Medical History: Reports: Hx Gastroesophageal Reflux Disease - rare. Denies : Hx Crohn's Disease, Hx Hiatal Hernia, Hx Irritable Bowel, Hx Liver Failure, Hx Ulcer Musculoskeltal Medical History: Reports Hx Arthritis, Reports Hx Fibromyalgia, Denies Hx Multiple Sclerosis, Denies Hx Muscular Dystrophy Psychiatric Medical History: Reports: Hx Depression Denies: Hx Bipolar Disorder, Hx Dementia, Hx Post Traumatic Stress Disorder, Hx Schizophrenia Traumatic Medical History: Reports: Hx Fractures - right wrist/right elbow r/t fall Past Surgical History: Reports: Hx Abdominal Surgery - hernia repair, bypass, Hx Breast Surgery - biopsy, Hx Cholecystectomy, Hx Gastric Bypass Surgery, Hx Gynecologic Surgery - D&Cx4,, Hx Herniorrhaphy - unbilical x2, Hx Hysterectomy, Hx Nose Surgery, Hx Orthopedic Surgery - multp. Denies: Hx Appendectomy, Hx Bowel Surgery, Hx Section, Hx Colostomy, Hx Coronary Artery Bypass Graft, Hx Mastectomy, Hx Pacemaker, Hx Tonsillectomy, Hx Tubal Ligation - Immunizations Hx Diphtheria, Pertussis, Tetanus Vaccination: Yes Hx Pneumococcal Vaccination: 07/16/16 Review of Systems - Review of Systems Constitutional: No symptoms reported. denies: Chills, Fever, Recent illness EENT: No symptoms reported Cardiovascular: See HPI Respiratory: See HPI. denies: Cough, Hurts to breathe Gastrointestinal: See HPI, Nausea. denies: Abdominal pain, Diarrhea, Vomiting Genitourinary: No symptoms reported Musculoskeletal: No symptoms reported Skin: No symptoms reported Hematologic/Lymphatic: No symptoms reported Neurological/Psychological: See HPI. denies: Headaches Physical Exam - Vital signs Vitals: Temp Pulse Resp BP Pulse Ox 97.7 F 93 24 H 122/66 97 12/03/16 11:26 12/03/16 11:26 12/03/16 11:26 12/03/16 11:26 12/03/16 11:26 - Notes Notes: PHYSICAL EXAMINATION: GENERAL: Well-appearing, well-nourished and in no acute distress, somewhat anxious affect. HEAD: Atraumatic, normocephalic. EYES: Pupils equal round and reactive to light, extraocular movements intact, sclera anicteric, conjunctiva are normal. ENT: nares patent, oropharynx clear without exudates. Moist mucous membranes. NECK: Normal range of motion, supple without lymphadenopathy LUNGS: Breath sounds clear to auscultation bilaterally and equal. No wheezes rales or rhonchi. HEART: Regular rate and rhythm without murmurs ABDOMEN: Soft, nontender, normoactive bowel sounds. No guarding, no rebound. No masses appreciated. EXTREMITIES: Normal range of motion, no pitting or edema. No cyanosis. NEUROLOGICAL: Cranial nerves grossly intact. Normal speech. No gross focal motor or sensory deficits appreciated PSYCH: Normal mood, somewhat anxious affect, at times tearful.. SKIN: Warm, Dry, normal turgor, no rashes or lesions noted. Course - Re-evaluation Re-evalutation: 12/03/16 14:32 Patient with chest pain relief after SL NTG x3, Morphine 2 mg,a nd Ativan 0.5 mg. Although I suspect some component of anxiety, pt does have risk factors and has a HEART score of 4. Will admit OBS TELE for chest pain. Patient comfortable with plan, questions answered. - Vital Signs Vital signs: Temp Pulse Resp BP Pulse Ox 97.7 F 93 15 115/67 98 12/03/16 11:26 12/03/16 11:26 12/03/16 13:01 12/03/16 13:00 12/03/16 13:01 - Laboratory Result Diagrams: 12/03/16 12:04 12/03/16 12:04 Laboratory results interpreted by me: 12/03/16 12:04 BUN 27 H Calcium 10.5 H - Diagnostic Test Radiology reviewed: Reports reviewed - cxr no acute process - EKG Interpretation by Ut EKG shows normal: Sinus rhythm Rate: Normal Rhythm: NSR [place]/QRS: Right axis deviation Discharge - Discharge Clinical Impression: Chest pain Qualifiers: Chest pain type: unspecified Qualified Code(s): R07.9 - Chest pain, unspecified Condition: Stable Disposition: ADMITTED OBSERVATION Admitting Provider: Hospitalist - Dr. Stevens Unit Admitted: Telemetry Referrals: OPOLINA LUI MD [Primary Care Provider] - Follow up as needed
[2016-12-03] MEDS ORDERED: ONDANSETRON HCL INJ/PF 4 MG/2 ML SDV IV ONE (14:00)
[2016-12-03] MEDS ORDERED: MORPHINE SULFATE 10 MG/ML INJ IV ONE (14:00)
[2016-12-03] MEDS ORDERED: ACETAMINOPHEN 325 MG TABLET PO PRN (15:11)
[2016-12-03] MEDS ORDERED: OXYCODONE-ACETAMINOPHEN 5-325 MG TABLET PO PRN (15:11)
[2016-12-03] MEDS ORDERED: MAGNESIUM HYDROXIDE SUSP 30 ML UDCUP PO PRN (15:11)
[2016-12-03] MEDS ORDERED: ATROPINE SULFATE INJ 1 MG/1 ML VIAL ONE (15:39)
[2016-12-03] MEDS ORDERED: NORMAL SALINE 1000 ML 1,000 ML IV ONE (15:53)
[2016-12-03] MEDS ORDERED: LANSOPRAZOLE 30 MG TAB.RAP.DR PO ONE (16:00)
[2016-12-03 16:03] LABS: PROTHROMBIN TIME 13.2 SEC (11.4-15.4)
[2016-12-03 16:05] LABS: D-DIMER 1.06 ug/mL (0.00-0.50)
[2016-12-03 16:25] LABS: CREATINE KINASE MB 0.38 ng/mL (<4.55)
[2016-12-03 16:30] LABS: TROPONIN I < 0.012 ng/mL
[2016-12-03] MEDS ORDERED: ENOXAPARIN SODIUM INJ 100 MG/1 ML DISP.SYRIN SUBCUT ONE (16:30)
[2016-12-03] MEDS: MORPHINE SULFATE 10 MG/ML INJ IV PRN ×2 (16:48→23:50)
--- NOTE | 2016-12-03 16:55 | PDOC H&P ---
History of Present Illness Admission Date/PCP: 12/03/16 14:46 POLINA MILLS MD Patient complains of: chest pain History of Present Illness: ANDREW ROJAS is a 61 year old female presents to the ED from home with sudden onset of stabbing, gripping substernal chest pain, non radiating and asct 'd with diaphoresis, weakness, dread, shaking chills but no fevers. she reports a great deal of stress in her life. she doesn't take ASA daily and has never smoked. she takes Rx for cholesterol and has strong family hx of CAD early in her parents. she's never had anything like this before but did have chest tightness about 8 years ago and underwent heart cath at that time but no lesions or obstructions identified. she's never had echo. she reports recent "major knee surgery" on the Rt in 09/2016 but denies swelling of her legs or calf pain or claudication and didn't become SOA until the chest pain started this afternoon. she is, however, sedentary due to severity of her arthritides. shortly after I completed my initial evaluation and had left the room she suddenly c/o sharp, stabbing chest pain, substernal as before then quickly became unresponsive witnessed by the EMT performing her ekg at the time. she was out only minutes but HR dropped steadily into the 30's before she aroused. by the time i returned to the ED she was awake, alert and oriented x3 and still c/o substernal chest pressure but HR now sinus yary with rate 60, BP 128/63 and O2 sat >95%. ekg during the episode seems to show a complete heart block, no ST elevation and no TWI. follow up 12 lead rhythm strip when I arrived shows just sinus yary. eval in ED otherwise unrevealing, cxr wnl, initial ecg shows NSR and enzymes negative. We are asked to admit for further eval and management. Past Medical History Cardiac Medical History: Reports: Hyperlipidema - takes meds, Hypertension - since 1982 (off and on) takes meds Denies: Atrial Fibrillation, Congestive Heart Failure, Coronary Artery Disease, Myocardial Infarction, Peripheral Vascular Disease, Pulmonary Embolism , Heart Murmur Pulmonary Medical History: Reports: Bronchitis - 8-10 years ago/wheezing Denies: Asthma, Chronic Obstructive Pulmonary Disease (COPD), Pneumonia, Respiratory Failure, Sleep Apnea, Tuberculosis Neurological Medical History: Denies: Seizures Endocrine Medical History: Reports: Hypothyroidism Denies: Hyperthyroidism Renal/ Medical History: Denies: End Stage Renal Disease Malignancy Medical History: Denies: Breast Cancer, Cervical Cancer, Lung Cancer, Ovarian Cancer GI Medical History: Reports: Gastroesophageal Reflux Disease - rare Denies: Crohn's Disease, Hiatal Hernia Musculoskeltal Medical History: Reports: Arthritis, Fibromyalgia Psychiatric Medical History: Reports: Depression Denies: Bipolar Disorder, Dementia, Post Traumatic Stress Disorder Hematology: Past Surgical History Past Surgical History: Reports: Cholecystectomy, Gastric Bypass Surgery, Herniorrhaphy - unbilical x2, Hysterectomy, Orthopedic Surgery - multp Denies: Amputation, Appendectomy, Section, Colostomy, Coronary Artery Bypass Graft, Mastectomy, Pacemaker, Tonsillectomy, Tubal Ligation Social History Information Source: Patient Smoking Status: Never Smoker Frequency of Alcohol Use: None Hx Recreational Drug Use: No Hx Prescription Drug Abuse: No - Advance Directive Resuscitation Status: Full Code Family History Family History: CAD - mom and dad in their 50-60's with AMI Parental Family History Reviewed: Yes Children Family History Reviewed: Yes Sibling(s) Family History Reviewed.: Yes Medication/Allergy Home Medications: Calcium Carbonate [Calcium] 1,200 mg PO DAILY 12/03/16 Cholecalciferol (Vitamin D3) [Vitamin D3 5000 unit Capsule] 5,000 unit PO DAILY 12/03/16 Cyanocobalamin (Vitamin B-12) [Vitamin B-12 1000 mcg Tablet] 1,000 mcg PO DAILY 12/03/16 Duloxetine HCl 30 mg PO TID 12/03/16 Fluticasone Propionate [Flonase Nasal [place] 50 Mcg/[place] 16 gm] 2 spray NASL DAILY 12/03/16 Gabapentin [Neurontin] 600 mg PO TID 12/03/16 Hydrochlorothiazide 25 mg PO DAILY 12/03/16 Levothyroxine Sodium [Synthroid 0.05 mg Tablet] 0.05 mg PO DAILY 12/03/16 Lisinopril [Prinivil 10 mg Tablet] 10 mg PO DAILY 12/03/16 Lorazepam [Ativan 0.5 mg Tablet] 0.5 mg PO Q12 12/03/16 Naproxen 500 mg PO DAILY 12/03/16 Simvastatin [Zocor 20 mg Tablet] 20 mg PO QHS 12/03/16 Tizanidine HCl [Zanaflex 4 mg Tablet] 4 mg PO Q12 12/03/16 Trazodone HCl [Desyrel 50 mg Tablet] 50 mg PO QHS 12/03/16 Allergies/Adverse Reactions: Penicillins Allergy (Severe, Verified 12/03/16 11:27) hives,throat swellling Iodinated Contrast Media - Oral and [IV Dye, Iodine Containing] Allergy (Unknown , Verified 12/03/16 11:27) Anaphylaxis adhesive tape Adverse Reaction (Intermediate, Verified 12/03/16 11:27) Generalized rash Review of Systems Constitutional: ABSENT: chills, fever(s), headache(s), weight gain, weight loss Eyes: ABSENT: visual disturbances Ears: ABSENT: hearing changes Cardiovascular: PRESENT: as per HPI, chest pain. ABSENT: edema, orthropnea, palpitations Respiratory: PRESENT: dyspnea. ABSENT: cough, hemoptysis Gastrointestinal: ABSENT: abdominal pain, constipation, diarrhea, hematemesis, hematochezia, nausea, vomiting Genitourinary: ABSENT: dysuria, hematuria Musculoskeletal: ABSENT: joint swelling Integumentary: ABSENT: rash, wounds Neurological: ABSENT: abnormal gait, abnormal speech, confusion, dizziness, focal weakness, syncope Psychiatric: ABSENT: anxiety, depression, homidical ideation, suicidal ideation Endocrine: ABSENT: cold intolerance, heat intolerance, polydipsia, polyuria Hematologic/Lymphatic: ABSENT: easy bleeding, easy bruising Physical Exam Vital Signs: Temp Pulse Resp BP Pulse Ox 97.7 F 93 15 115/67 98 12/03/16 11:26 12/03/16 11:26 12/03/16 13:01 12/03/16 13:00 12/03/16 13:01 General appearance: PRESENT: mild distress, obese, well-developed, well- nourished Head exam: PRESENT: atraumatic, normocephalic Eye exam: PRESENT: EOMI. ABSENT: conjunctival injection, scleral icterus Mouth exam: PRESENT: moist, neck supple Neck exam: ABSENT: carotid bruit, JVD, tenderness Respiratory exam: PRESENT: clear to auscultation rei. ABSENT: accessory muscle use, tachypnea, unlabored Cardiovascular exam: PRESENT: bradycardia. ABSENT: systolic murmur Pulses: PRESENT: normal carotid pulses, normal radial pulses Vascular exam: PRESENT: normal capillary refill GI/Abdominal exam: PRESENT: normal bowel sounds, soft. ABSENT: tenderness Extremities exam: ABSENT: calf tenderness, pedal edema Musculoskeletal exam: PRESENT: ambulatory, full ROM Neurological exam: PRESENT: alert, awake, oriented to person, oriented to time, oriented to situation Psychiatric exam: PRESENT: appropriate affect, normal mood Skin exam: PRESENT: normal color, warm Results Laboratory Results: labs reviewed, CMP, CBC, lipase, TpI, BNP, INR, CBC all normal; dimer elevated EKG Comments: initial ecg NSR nl QTc 456; repeat ecg during episode shows complete HB, QTc 405 and axis 45 Impressions: Chest X-Ray 12/03/16 11:29 IMPRESSION: NO SIGNIFICANT RADIOGRAPHIC FINDING IN THE CHEST. Status: Image reviewed by me Assessment & Plan - Diagnosis (2) Chest pain Qualifiers: Chest pain type: unspecified Qualified Code(s): R07.9 - Chest pain, unspecified Is this a current diagnosis for this admission?: YesPlan: possibly related to the above, other possibility is thromboembolic disease given recent orthopedic surgery, obesity and sedentary lifestyle. ck dopplers BLE and tx with full dose empiric lovenox. can't get CTA due to contrast allergy causing anaphylaxis. consider VQ scan but hold for now as she might need nuclear stress test. (3) Transient complete heart block Is this a current diagnosis for this admission?: YesPlan: admit to ICU for very close hemodynamic monitoring, cardiology consult, serial enzymes, stat echo, empiric full dose lovenox, ASA, high dose statin and hold beta gideon obviously; very concerning for acute ischemia. IVFs after bolus. ck Mg, Phos, ABG and repeat labs in am. case d/w dr mishra (4) HTN (hypertension) Qualifiers: Hypertension type: essential hypertension Qualified Code(s): I10 - Essential (primary) hypertension Is this a current diagnosis for this admission?: YesPlan: she isn't on any kwesi blocking agents, hold antiHTN for now until we can sort her out. (5) Hyperlipidemia Qualifiers: Hyperlipidemia type: unspecified Qualified Code(s): E78.5 - Hyperlipidemia, unspecified Is this a current diagnosis for this admission?: YesPlan: ck am lipid panel; empiric high dose steroids (6) D-dimer, elevated Is this a current diagnosis for this admission?: YesPlan: unclear etiology; treat with empiric full dose lovenox until workup completed as above - Time Time Spent: 50 to 70 Minutes Critical Time spent with patient: 25-34 minutes Medications reviewed and adjusted accordingly: Yes - Inpatient Certification Based on my medical assessment, after consideration of the patient's comorbidities, presenting symptoms, or acuity I expect that the services needed warrant INPATIENT care.: Yes I certify that my determination is in accordance with my understanding of Medicare's requirements for reasonable and necessary INPATIENT services [42 CFR 412.3e].: Yes Medical Necessity: Significant Comorbidiites Make Outpatient Treatment Too Risky , Need Close Monitoring Due to Risk of Patient Decompensation, Need For IV Fluids, Need For Continuous Telemetry Monitoring, Risk of Complication if Not Cared For in Hospital
[2016-12-03 16:57] LABS: PHOSPHORUS 2.7 mg/dL (2.5-4.5)
--- NOTE | 2016-12-03 17:10 | EKG REPORT ---
SEVERITY:- OTHERWISE NORMAL ECG - SINUS RHYTHM BORDERLINE RIGHT AXIS DEVIATION : Confirmed by: Daisy Major MD 03-Dec-2016 17:09:29
--- NOTE | 2016-12-03 17:10 | EKG REPORT ---
SEVERITY:- ABNORMAL ECG - ATRIAL FIBRILLATION BORDERLINE T ABNORMALITIES, ANT-LAT LEADS : Confirmed by: Daisy Major MD 03-Dec-2016 17:09:25
[2016-12-03 17:39] LABS: ARTERIAL BLOOD BASE EXCESS -1.3 mmol/L; ARTERIAL BLOOD O2 SATURATION 98.2 % (94-98)
--- NOTE | 2016-12-03 18:06 | PDOC CONSULTATION ---
Consultation Consult Date: 12/03/16 Attending physician:: CLEMENTE BARR Consult reason:: Chest pain and severe bradycardia History of Present Illness Admission Date/PCP: 12/03/16 16:03 POLINA MILLS MD Patient complains of: Chest pain History of Present Illness: ANDREW ROJAS is a 61 year old female presents to the ED from home with sudden onset of stabbing, gripping substernal chest pain, non radiating and asct 'd with diaphoresis, weakness, dread, shaking chills but no fevers. she reports a great deal of stress in her life. she doesn't take ASA daily and has never smoked. she takes Rx for cholesterol and has strong family hx of CAD early in her parents. she's never had anything like this before but did have chest tightness about 8 years ago and underwent heart cath at that time but no lesions or obstructions identified. she's never had echo. she reports recent "major knee surgery" on the knee month of September/2016 but denies swelling of her legs or calf pain or claudication. Patient activity is somewhat limited because of this. Patient denied any exertional component to the chest pain. Patient had a brief episode of chest pain on Mother's Day about 2 weeks ago but she claims this was related to anxiety. she is, however, sedentary due to severity of her arthritides. In the ER, patient suddenly c/o sharp, stabbing chest pain, substernal as before then quickly became unresponsive witnessed by the EMT performing her ekg at the time. she was out only minutes but HR dropped steadily into the 30's before she aroused. by the time Dr. Barr returned to the ED she was awake, alert and oriented x3 and still c/o substernal chest pressure but HR now sinus yary with rate 60, BP 128/63 and O2 sat >95%. ekg during the episode seems to show a kwesi escape rhythm and severe underlying bradycardia, no ST elevation and no TWI. follow up 12 lead rhythm strip when I arrived shows just sinus yary. eval in ED otherwise unrevealing, cxr wnl, initial ecg shows NSR and enzymes negative. This history was confirmed. This was also supplemented by talking to patient's . Patient does have allergy to IV contrast agent by way of having hives and respiratory difficulty but this was approximately 20 years ago.. Past Medical History Cardiac Medical History: Reports: Hyperlipidema - takes meds, Hypertension - since 1982 (off and on) takes meds Denies: Atrial Fibrillation, Congestive Heart Failure, Coronary Artery Disease, Myocardial Infarction, Peripheral Vascular Disease, Pulmonary Embolism , Heart Murmur Pulmonary Medical History: Reports: Bronchitis - 8-10 years ago/wheezing Denies: Asthma, Chronic Obstructive Pulmonary Disease (COPD), Pneumonia, Respiratory Failure, Sleep Apnea, Tuberculosis Neurological Medical History: Denies: Seizures Endocrine Medical History: Reports: Hypothyroidism Denies: Hyperthyroidism Renal/ Medical History: Denies: End Stage Renal Disease Malignancy Medical History: Denies: Breast Cancer, Cervical Cancer, Lung Cancer, Ovarian Cancer GI Medical History: Reports: Gastroesophageal Reflux Disease - rare Denies: Crohn's Disease, Hiatal Hernia Musculoskeltal Medical History: Reports: Arthritis, Fibromyalgia Psychiatric Medical History: Reports: Depression Denies: Bipolar Disorder, Dementia, Post Traumatic Stress Disorder Hematology: Past Surgical History Past Surgical History: Reports: Cholecystectomy, Gastric Bypass Surgery, Herniorrhaphy - unbilical x2, Hysterectomy, Orthopedic Surgery - multp Denies: Amputation, Appendectomy, Section, Colostomy, Coronary Artery Bypass Graft, Mastectomy, Pacemaker, Tonsillectomy, Tubal Ligation Social History Information Source: Patient Smoking Status: Never Smoker Frequency of Alcohol Use: None Hx Recreational Drug Use: No Hx Prescription Drug Abuse: No - Advance Directive Resuscitation Status: Full Code Surrogate healthcare decision maker:: Patient's is a surrogate decision maker Family History Family History: CAD - mom and dad in their 50-60's with AMI Parental Family History Reviewed: Yes Children Family History Reviewed: Yes Sibling(s) Family History Reviewed.: Yes Medication/Allergy Home Medications: Calcium Carbonate [Calcium] 1,200 mg PO DAILY 12/03/16 Cholecalciferol (Vitamin D3) [Vitamin D3 5000 unit Capsule] 5,000 unit PO DAILY 12/03/16 Cyanocobalamin (Vitamin B-12) [Vitamin B-12 1000 mcg Tablet] 1,000 mcg PO DAILY 12/03/16 Duloxetine HCl 30 mg PO TID 12/03/16 Fluticasone Propionate [Flonase Nasal [place] 50 Mcg/[place] 16 gm] 2 spray NASL DAILY 12/03/16 Gabapentin [Neurontin] 600 mg PO TID 12/03/16 Hydrochlorothiazide 25 mg PO DAILY 12/03/16 Levothyroxine Sodium [Synthroid 0.05 mg Tablet] 0.05 mg PO DAILY 12/03/16 Lisinopril [Prinivil 10 mg Tablet] 10 mg PO DAILY 12/03/16 Lorazepam [Ativan 0.5 mg Tablet] 0.5 mg PO Q12 12/03/16 Naproxen 500 mg PO DAILY 12/03/16 Simvastatin [Zocor 20 mg Tablet] 20 mg PO QHS 12/03/16 Tizanidine HCl [Zanaflex 4 mg Tablet] 4 mg PO Q12 12/03/16 Trazodone HCl [Desyrel 50 mg Tablet] 50 mg PO QHS 12/03/16 Allergies/Adverse Reactions: Penicillins Allergy (Severe, Verified 12/03/16 11:27) hives,throat swellling Iodinated Contrast Media - Oral and [IV Dye, Iodine Containing] Allergy (Unknown , Verified 12/03/16 11:27) Anaphylaxis adhesive tape Adverse Reaction (Intermediate, Verified 12/03/16 11:27) Generalized rash Review of Systems Review of Systems: Please see history of present illness and past medical history as wall. Constitutional: No fever or chills reported. Head : No recent chronic headaches, recent head injury. Eyes: No recent eye pain, diplopia, redness, discharge, acute visual changes. Ears: No recent chronic ear pain, acute hearing loss, ear discharge. Oral cavity: No recent ulcerations, bleeding, oral cavity discomfort. Neck: No recent acute neck pain reported. Hematologic: No recent easy bruising or bleeding or hematologic malignancy reported. Lymphatic: No recent lymphatic malignancy, chronic lymphadenopathy reported yet Cardiovascular system review: See history of present illness. Respiratory system review: No recent chronic cough, hemoptysis, blood clots in the lungs reported. Mild Shortness of breath on exertion Gastrointestinal system review: Negative for any recent acute or chronic abdominal pain, hematemesis, melena, recent change in bowel habits. History of acid reflux. Genitourinary system review: No recent acute or chronic hematuria, flank pain, UTI etc. reported. Skin system review: Negative for any recent abnormal bruising, no rash, no pruritus reported. Neurologic: No prior history of strokes, mini strokes, seizure disorder. Psychologic: No history of major psychosis or major depression reported. History of minor depression and anxiety problems Musculoskeletal: Minor aches and pains reported. No acute joint swelling reported. Chronic right knee swelling after knee replacement surgery. Endocrine: No recent polyuria, polydipsia, recent heat or cold intolerance. Physical Exam Vital Signs: Temp Pulse Resp BP Pulse Ox 97.7 F 93 16 114/59 L 98 12/03/16 11:26 12/03/16 11:26 12/03/16 17:16 12/03/16 17:16 12/03/16 13:01 Exam: GENERAL: well-nourished and in no acute distress. Alert and oriented x3 HEAD: Atraumatic, normocephalic. EYES: Pupils equal round and reactive to light, extraocular movements intact, sclera anicteric, conjunctiva are normal. ENT: TMs normal, nares patent, oropharynx clear without exudates. Moist mucous membranes. No oral ulcerations or bleeding gums noted NECK: supple without lymphadenopathy. Trachea is central. No cervical or axillary lymphadenopathy noted. Carotids are 2+, JVD WNL LUNGS: Respiration seems nonlabored, no significant accessory muscle action noted. Breath sounds clear to auscultation bilaterally and equal noted. No wheezes rales or rhonchi noted. No significant dullness noted on percussion. CHEST: Palpation of the chest wall shows no significant chest wall tenderness. No other significant abnormalities noted. HEART: [place] [employer], No PSH, 1/6 BRENDA aortic area, 1/6 ramey systolic murmur mitral area, no rubs, no gallops. ABDOMEN: Soft, no significant tenderness appreciated, normoactive bowel sounds. No guarding, no rebound. No rigidity noted . No masses appreciated. EXTREMITIES: Pedal pulses are 1-2+, no calf tenderness noted. No clubbing or cyanosis.trace to 1+ pedal edema noted NEUROLOGICAL: Focused neurological exam showed no significant neurologic deficit. Normal speech, no focal weakness appreciated. PSYCH: Normal mood, normal affect. Judgment and insight within normal limits. SKIN: No significant ecchymosis, rash, ulcerations or signs of pruritus noted. MUSCULOSKELETAL EXAM: No significant joint swelling noted. Mild swelling of the right knee noted. Results Laboratory Results: 12/03/16 17:04 Carbonic Acid 1.34 HCO3/H2CO3 Ratio 18:1 ABG pH 7.36 ABG pCO2 44.4 ABG pO2 119.6 H ABG HCO3 24.4 ABG O2 Saturation 98.2 H ABG Base Excess -1.3 FiO2 2L EKG Comments: Sinus arrest with kwesi escape and underlying severe sinus bradycardia at times Impressions: Venous Doppler Study 12/03/16 00:00 IMPRESSION: NO EVIDENCE DVT OR SVT IN EITHER LEG. Chest X-Ray 12/03/16 11:29 IMPRESSION: NO SIGNIFICANT RADIOGRAPHIC FINDING IN THE CHEST. Assessment & Plan - Diagnosis (1) Symptomatic bradycardia Is this a current diagnosis for this admission?: Yes (2) Chest pain Qualifiers: Chest pain type: unspecified Qualified Code(s): R07.9 - Chest pain, unspecified Is this a current diagnosis for this admission?: Yes (3) Sinus arrest Is this a current diagnosis for this admission?: Yes (4) HTN (hypertension) Qualifiers: Hypertension type: essential hypertension Qualified Code(s): I10 - Essential (primary) hypertension Is this a current diagnosis for this admission?: Yes (5) Hyperlipidemia Qualifiers: Hyperlipidemia type: unspecified Qualified Code(s): E78.5 - Hyperlipidemia, unspecified Is this a current diagnosis for this admission?: Yes - Notes Notes: Symptomatic bradycardia: Patient was noted to have severe symptomatic bradycardia with syncope. This was in response to intense chest pain therefore could well be a vagal stimulation. At this point agreed that patient would need to be closely monitored for further episodes. Agree with monitoring patient in the cardiac intensive care unit. Chest pain: There are multiple differential diagnosis. This includes cardiac ischemia, pulmonary embolism, esophageal spasm, gallbladder colic etc. Recommend ultrasound of the abdomen, VQ scan etc. Sinus arrest: This probably represent vagal stimulation patient may have underlying sick sinus syndrome. Need to be observed closely. Patient may need to react monitoring as an outpatient. Hypertension: Blood pressure currently stable. Dyslipidemia: Continue with statin therapy antilipid therapy. Patient will benefit from a stress testing. However I feel that ruling out pulmonary embolism take precedence. In this regard agree with scheduling VQ scan. Patient cardiac enzymes remain negative and also if EKG remain unremarkable without any ST segment changes, patient can have the stress test performed later on in the admission or as an outpatient. - Time Time Spent: 50 to 70 Minutes - CODE STATUS was discussed, patient remains full code. Surrogate decision-maker unchanged. Multiple medical problems were addressed. More than 50% of the time spent coordinating care, discussing management plans with involved caregivers. Management plans discussed with involved personnels. Medical decision making was of moderate to high complexity , patient's has multiple comorbidities. Medications reviewed and adjusted accordingly: Yes
[2016-12-03] MEDS ORDERED: ISOSORBIDE MONONITRATE 30 MG TAB.ER.24H PO ONE (18:15)
[2016-12-03 18:46] LABS: CREATINE KINASE MB 0.36 ng/mL (<4.55)
[2016-12-03 18:51] LABS: TROPONIN I < 0.012 ng/mL
--- NOTE | 2016-12-03 19:57 | XCELERA REPORT ---
[address] [address] Transthoracic Echocardiogram Report Name: ANDREW ROJAS Age: 61 yrs Gender: Female : 1955 Patient Status: Inpatient Patient Location: \S\17\S\A Study Date: 12/03/2016 04:01 PM Height: 68 in Weight: 215 lb BSA: 2.1 m2 Procedure: A complete two-dimensional transthoracic echocardiogram was performed (2D, M-mode, spectral and color flow Doppler). The study was technically difficult with many images being suboptimal in quality. Reason For Study: new bradycardia, chest pain Ordering Physician: CLEMENTE BARR Performed By: Amy Moise Interpretation Summary The left ventricular ejection fraction is normal. Doppler measurements suggest normal left ventricular diastolic function There is borderline concentric left ventricular hypertrophy. The left ventricle is grossly normal size. No regional wall motion abnormalities noted. The right ventricle is mildly dilated. The right ventricular systolic function is normal. The right atrium is normal. The left atrium is mildly dilated. There is no mitral valve stenosis. There is a trace to mild amount of mitral regurgitation There is no aortic valve stenosis No aortic regurgitation is present. There is a trace or physiologic amount of tricuspid regurgitation Right ventricular systolic pressure is at the upper limits of normal The aortic root is not well visualized but is probably normal size. The inferior vena cava was not well visualized There is no pericardial effusion. MMode/2D Measurements \T\ Calculations RVDd: 2.5 cm LVIDd: 4.3 cm FS: 31.9 % Ao root diam: 3.2 cm IVSd: 0.98 cm LVIDs: 2.9 cm EDV(Teich): 84.3 ml LVPWd: 1.00 cmESV(Teich): 33.5 ml Ao root area: 8.0 cm2 EF(Teich): 60.3 % LA dimension: 4.0 cm LVOT diam: 2.2 cm LVOT area: 3.8 cm2 Doppler Measurements \T\ Calculations MV E max alexander: MV P1/2t max alexander: Ao V2 max: LV V1 max P.0 cm/sec 86.7 cm/sec 141.2 cm/sec 7.0 mmHg MV A max alexander: MV P1/2t: 66.5 msec Ao max PG: LV V1 max: 70.6 cm/sec MVA(P1/2t): 3.3 cm2 8.0 mmHg 132.1 cm/sec MV E/A: 1.2 MV dec slope: FRAN(V,D): 3.5 cm2 381.8 cm/sec2 PA V2 max: TR max alexander: 66.2 cm/sec 229.8 cm/sec PA max PG: TR max P.1 mmHg 1.8 mmHg Left Ventricle The left ventricle is grossly normal size. There is borderline concentric left ventricular hypertrophy. The left ventricular ejection fraction is normal. Doppler measurements suggest normal left ventricular diastolic function. No regional wall motion abnormalities noted. Right Ventricle The right ventricle is mildly dilated. There is normal right ventricular wall thickness. The right ventricular systolic function is normal. Atria The right atrium is normal. The left atrium is mildly dilated. Interarterial septum not well visualized and not well dopplered. Cannot comment on ASD/PFO presence. Mitral Valve The mitral valve is grossly normal. There is no mitral valve stenosis. There is a trace to mild amount of mitral regurgitation. Aortic Valve The aortic valve is grossly normal. There is no aortic valve stenosis. No aortic regurgitation is present. Tricuspid Valve The tricuspid valve is not well visualized, but is grossly normal. There is no tricuspid stenosis. There is a trace or physiologic amount of tricuspid regurgitation. Right ventricular systolic pressure is at the upper limits of normal. Pulmonic Valve The pulmonic valve is not well visualized. Great Vessels The aortic root is not well visualized but is probably normal size. The inferior vena cava was not well visualized. Effusions There is no pericardial effusion. : CLEMENTE BARR > Ree Chacon
[2016-12-03] MEDS: NORMAL SALINE 1000 ML 1,000 ML IV PRN (20:46)
[2016-12-03] MEDS ORDERED: ATORVASTATIN CALCIUM 80 MG TABLET PO SCH (22:00)
[2016-12-03] MEDS: ENOXAPARIN SODIUM INJ 100 MG/1 ML DISP.SYRIN SUBCUT SCH (23:48)
[2016-12-04 00:55] LABS: CREATINE KINASE MB 0.31 ng/mL (<4.55)
[2016-12-04 01:09] LABS: TROPONIN I < 0.012 ng/mL
[2016-12-04] MEDS: MORPHINE SULFATE 10 MG/ML INJ IV PRN (04:33)
[2016-12-04 04:44] LABS: HEMATOCRIT 34.3 % (36.0-47.0); HGB HCT DIFFERENCE 0.8; MEAN CORPUSCULAR HEMOGLOBIN 31.3 pg (27.0-33.4); MEAN CORPUSCULAR HGB CONC 34.1 g/dL (32.0-36.0); MEAN CORPUSCULAR VOLUME 92 fl (80-97); RED BLOOD COUNT 3.74 10^6/uL (3.72-5.28); RED CELL DISTRIBUTION WIDTH 13.3 % (11.5-14.0); WHITE BLOOD COUNT 3.2 10^3/uL (4.0-10.5)
[2016-12-04 04:57] LABS: HEMOGLOBIN 11.7 g/dL (12.0-15.5)
[2016-12-04 05:04] LABS: CHOLESTEROL 142.19 mg/dL (0-200); Direct HDL 57 mg/dL (>40); TRIGLYCERIDES 61 mg/dL (<150)
[2016-12-04 05:15] LABS: DIRECT LDL 61 mg/dL (<100)
[2016-12-04] MEDS ORDERED: LANSOPRAZOLE 30 MG TAB.RAP.DR PO SCH ×2 (06:00)
[2016-12-04] MEDS: ONDANSETRON HCL INJ/PF 4 MG/2 ML SDV IV PRN ×2 (08:00→12:07)
[2016-12-04] MEDS ORDERED: ENOXAPARIN SODIUM INJ 40 MG/0.4 ML DISP.SYRIN SUBCUT SCH (08:00)
[2016-12-04] MEDS ORDERED: NORMAL SALINE 1000 ML 2,000 ML IV ONE (08:27)
[2016-12-04] MEDS ORDERED: NITROGLYCERIN/D5W 250 ML IV PRN (08:28)
--- NOTE | 2016-12-04 08:52 | PDOC TRANSFER SUMMARY ---
General Admission Date/PCP: 12/03/16 16:03 POLINA MILLS MD Accepting Facility: [facility] Accepting Physician: Dr Jones, cardio Resuscitation Status: Full Code - Transfer Diagnosis (1) Unstable angina Is this a current diagnosis for this admission?: YesDiagnosis Summary: Ruled out for acute PE with negative VQ scan (has anaphylaxis to IV contrast so no CTA), negative dopplers of lower extremities and no significant Aa gradient on ABG; ruled out for STEMI/NSTEMI with negative cardiac enzymes x4 and no ST segment changes on ECG x3. However, has persistent classic substernal chest pain associated with nausea and diaphoresis with no other GI complaints or GI history and is s/p remote cholecystectomy with normal LFTs and negative lipase. Her cardiac risk factors include female over 50, strong family hx of AMI in both parents ages 50-60's, HTN and hyperlipidemia and mild obesity. Treated with ASA, full dose lovenox, high dose statin, SL NTG and now NTG gtt awaiting transfer to [facility] for interventional cardio evaluation, Dr Jones accepting MD. she is stable for transfer at this time. (2) Symptomatic bradycardia Is this a current diagnosis for this admission?: YesDiagnosis Summary: experienced single witnessed syncopal episode 2/2 HR falling into 30's and possible complete heart block noted on ECG while hospitalized; no recurrence and remains in sinus yary with rate in 50's through the night and at present. BP's stable >100/60. echo report on chart but no significant wall motion or valvular abnls noted per DR Chacon. no beta gideon used at home or while hospitalized, no other kwesi blocking agents used at home or here. Awaiting invasive cardio evaluation at [facility]. (3) Transient complete heart block Is this a current diagnosis for this admission?: YesDiagnosis Summary: stable without recurrence, see treatment plan above (4) HTN (hypertension) Is this a current diagnosis for this admission?: YesDiagnosis Summary: treated only with ACEi at home, borderline hypotensive while here. see treatment plan noted above (5) Hyperlipidemia Is this a current diagnosis for this admission?: YesDiagnosis Summary: effectively treated as outpt with simvastatin, see lab reports. continue high dose statin awaiting further cardiac evaluation at [facility]. (6) D-dimer, elevated Is this a current diagnosis for this admission?: YesDiagnosis Summary: ruled out for DVT and PE with negative u/s dopplers of BLEs and negative VQ scan ; possibly related to the above. - Transfer Medications Home Medications: Calcium Carbonate [Calcium] 1,200 mg PO DAILY 12/03/16 Cholecalciferol (Vitamin D3) [Vitamin D3 5000 unit Capsule] 5,000 unit PO DAILY 12/03/16 Cyanocobalamin (Vitamin B-12) [Vitamin B-12 1000 mcg Tablet] 1,000 mcg PO DAILY 12/03/16 Duloxetine HCl 30 mg PO TID 12/03/16 Fluticasone Propionate [Flonase Nasal [place] 50 Mcg/[place] 16 gm] 2 spray NASL DAILY 12/03/16 Gabapentin [Neurontin] 600 mg PO TID 12/03/16 Hydrochlorothiazide 25 mg PO DAILY 12/03/16 Levothyroxine Sodium [Synthroid 0.05 mg Tablet] 0.05 mg PO DAILY 12/03/16 Lisinopril [Prinivil 10 mg Tablet] 10 mg PO DAILY 12/03/16 Lorazepam [Ativan 0.5 mg Tablet] 0.5 mg PO Q12 12/03/16 Naproxen 500 mg PO DAILY 12/03/16 Simvastatin [Zocor 20 mg Tablet] 20 mg PO QHS 12/03/16 Tizanidine HCl [Zanaflex 4 mg Tablet] 4 mg PO Q12 12/03/16 Trazodone HCl [Desyrel 50 mg Tablet] 50 mg PO QHS 12/03/16 Transfer Medications: Current Medications Acetaminophen (Tylenol 325 Mg Tablet) 650 mg PO Q4HP PRN PRN Reason: FOR PAIN OR TEMP Stop: 01/02/17 15:10 Aspirin (Ecotrin 325 Mg Ec Tablet) 325 mg PO DAILY [facility] Stop: 01/03/17 09:59 Atorvastatin Calcium (Lipitor 80 Mg Tablet) 80 mg PO QHS [facility] Stop: 01/02/17 21:59 Last Admin: 12/03/16 23:49 Dose: 80 mg Docusate Sodium (Colace 100 Mg Capsule) 100 mg PO DAILY [facility] Stop: 01/03/17 09:59 Enoxaparin Sodium (Lovenox Inj 100 Mg/1 Ml Disp.Syrin) 100 mg SUBCUT Q12 [facility] Stop: 01/02/17 21:59 Last Admin: 12/03/16 23:48 Dose: 100 mg Sodium Chloride (Nacl 0.9% 1000 Ml Iv Soln) 1,000 mls @ 150 mls/hr IV CONTINUOUS PRN PRN Reason: THIS MED IS NOT "PRN" Stop: 01/02/17 16:14 Last Admin: 12/03/16 20:46 Dose: 1,000 ml Sodium Chloride (Nacl 0.9% 1000 Ml Iv Soln) 2,000 mls @ 0 mls/hr IV BOLUS ONE PRN Reason: Wide Open Stop: 12/04/16 08:28 Nitroglycerin/Dextrose (Ntg Rtu 50 Mg/D5w 250 Ml Iv Premix Bottle) 250 mls @ 0 mls/hr IV CONTINUOUS PRN; Protocol; Titrate PRN Reason: THIS MED IS NOT "PRN" Stop: 01/03/17 08:27 Isosorbide Mononitrate (Imdur 30 Mg Tablet.Er) 30 mg PO DAILY CH[facility]IS Stop: 01/03/17 09:59 Magnesium Hydroxide (Milk Of Magnesia 30 Ml Udcup) 30 ml PO HSP PRN PRN Reason: FOR CONSTIPATION Stop: 01/02/17 15:10 Morphine Sulfate (Morphine 10 Mg/Ml Inj) 2 mg IV Q4HP PRN PRN Reason: FOR PAIN SCALE 4-5 Stop: 12/10/16 15:18 Last Admin: 12/04/16 04:33 Dose: 2 mg Nitroglycerin (Nitrostat 0.4 Mg (1/150 Gr) Tabs 25/Bottle) 1 tab SL ASDIR PRN Stop: 12/04/16 12:07 Last Admin: 12/03/16 12:57 Dose: 1 tab Nitroglycerin (Nitrostat 0.4 Mg (1/150 Gr) Tabs 25/Bottle) 1 tab SL Q5MP PRN PRN Reason: chest pain Stop: 12/05/16 15:54 Ondansetron HCl (Zofran Inj/Pf 4 Mg/2 Ml Sdv) 4 mg IV Q4HP PRN PRN Reason: FOR NAUSEA/VOMITING Stop: 01/02/17 15:10 Last Admin: 12/04/16 08:00 Dose: 4 mg Oxycodone/Acetaminophen (Percocet 5-325 Mg Tablet) 1 tab PO Q4HP PRN PRN Reason: FOR PAIN SCALE 2-3 Stop: 12/10/16 15:10 Pantoprazole Sodium (Protonix Iv Inj 40 Mg Vial) 40 mg IV Q12 [facility] Stop: 12/07/16 09:59 Sodium Chloride (Saline Flush 2.5 Ml Monoject Prefil Syrin) 2.5 ml IV Q8 [facility] Stop: 01/02/17 21:59 Last Admin: 12/04/16 06:18 Dose: Not Given - Allergies Allergies/Adverse Reactions: Penicillins Allergy (Severe, Verified 12/03/16 11:27) hives,throat swellling Iodinated Contrast Media - Oral and [IV Dye, Iodine Containing] Allergy (Unknown , Verified 12/03/16 11:27) Anaphylaxis adhesive tape Adverse Reaction (Intermediate, Verified 12/03/16 11:27) Generalized rash - Diet/Activity Discharge Diet: Other (Comments) - CLEAR LIQUID Hospital Course Hospital Course: ANDREW ROJAS is a 61 year old female presents to the ED from home with sudden onset of stabbing, gripping substernal chest pain, non radiating and asct 'd with diaphoresis, weakness, dread, shaking chills but no fevers. she reports a great deal of stress in her life. she doesn't take ASA daily and has never smoked. she takes Rx for cholesterol and has strong family hx of CAD early in her parents. she's never had anything like this before but did have chest tightness about 8 years ago and underwent heart cath at that time but no lesions or obstructions identified. she's never had echo. she reports recent "major knee surgery" on the Rt in 09/2016 but denies swelling of her legs or calf pain or claudication and didn't become SOA until the chest pain started this afternoon. she is, however, sedentary due to severity of her arthritides. shortly after I completed my initial evaluation and had left the room she suddenly c/o sharp, stabbing chest pain, substernal as before then quickly became unresponsive witnessed by the EMT performing her ekg at the time. she was out only minutes but HR dropped steadily into the 30's before she aroused. by the time i returned to the ED she was awake, alert and oriented x3 and still c/o substernal chest pressure but HR now sinus yary with rate 60, BP 128/63 and O2 sat >95%. ekg during the episode seems to show a complete heart block, no ST elevation and no TWI. follow up 12 lead rhythm strip when I arrived shows just sinus yary. eval in ED otherwise unrevealing, cxr wnl, initial ecg shows NSR and enzymes negative. We are asked to admit for further eval and management. she remained stable through the night without recurrence in her symptoms though she is still bradycardic it is sinus with rate in the 50's. she ruled out for acute ischemia with negative enzymes and no ST segment changes noted but her symptoms persist this morning with 3/5 substernal chest pain asct'd with nausea and diaphoresis. Given her risk factors, and after discussion with Dr Chacon cardiology, a call placed to [facility] who graciously accepted the patient in transfer pending bed availability to Dr Jones's service for further evaluation and management. She is currently hemodynamically stable for discharge on IVFs and appropriate cardiac meds including NTG gtt. she is agreeable to transfer at this time. Physical Exam Vital Signs: Temp Pulse Resp BP Pulse Ox 97.6 F 58 L 12 98/51 L 95 12/03/16 23:27 12/03/16 23:27 12/04/16 06:08 12/04/16 06:08 12/04/16 06:08 Intake & Output 12/03/16 12/04/16 12/05/16 06:59 06:59 06:59 Intake Total 525 Output Total 1700 Balance -1175 Weight 96.9 kg General appearance: PRESENT: mild distress, well-developed, well-nourished Head exam: PRESENT: atraumatic, normocephalic Eye exam: PRESENT: EOMI. ABSENT: conjunctival injection, scleral icterus Mouth exam: PRESENT: moist, neck supple Neck exam: ABSENT: carotid bruit, JVD, tenderness, tracheal deviation Respiratory exam: PRESENT: clear to auscultation rei. ABSENT: accessory muscle use, unlabored Cardiovascular exam: PRESENT: bradycardia. ABSENT: systolic murmur Pulses: PRESENT: normal carotid pulses, normal radial pulses, normal dorsalis pedis pul Vascular exam: PRESENT: normal capillary refill GI/Abdominal exam: PRESENT: normal bowel sounds, soft. ABSENT: distended, guarding, rebound, rigid, tenderness Extremities exam: ABSENT: calf tenderness - no palpable cords, pedal edema, tenderness Musculoskeletal exam: PRESENT: ambulatory, full ROM Neurological exam: PRESENT: alert, awake, oriented to person, oriented to place , oriented to time, oriented to situation Psychiatric exam: PRESENT: appropriate affect, normal mood Skin exam: PRESENT: warm. ABSENT: dry Results Laboratory Results: 12/04/16 04:31 12/03/16 12/04/16 12/04/16 17:04 04:31 04:31 WBC 3.2 L RBC 3.74 Hgb 11.7 L D Hct 34.3 L MCV 92 MCH 31.3 MCHC 34.1 RDW 13.3 Plt Count 193 Carbonic Acid 1.34 HCO3/H2CO3 Ratio 18:1 ABG pH 7.36 ABG pCO2 44.4 ABG pO2 119.6 H ABG HCO3 24.4 ABG O2 Saturation 98.2 H ABG Base Excess -1.3 FiO2 2L Triglycerides 61 Cholesterol 142.19 LDL Cholesterol Direct 61 VLDL Cholesterol 12.0 HDL Cholesterol 57 12/03/16 12/03/16 12/04/16 17:56 17:56 00:18 Creatine Kinase 53 41 CK-MB (CK-2) 0.36 Troponin I < 0.012 12/04/16 00:18 Creatine Kinase CK-MB (CK-2) 0.31 Troponin I < 0.012 Impressions: Venous Doppler Study 12/03/16 00:00 IMPRESSION: NO EVIDENCE DVT OR SVT IN EITHER LEG. Chest X-Ray 12/03/16 11:29 IMPRESSION: NO SIGNIFICANT RADIOGRAPHIC FINDING IN THE CHEST. [facility] 12/03/16 19:42 IMPRESSION: NORMAL VENTILATION-PERFUSION LUNG SCAN. NEGATIVE FOR PULMONARY EMBOLI. Plan Discharge Plan: transfer for interventional cardio evaluation Time Spent: Greater than 30 Minutes - case discussed with dr chacon and cardio fellow at [facility], and her son
--- NOTE | 2016-12-04 08:57 | EKG REPORT ---
SEVERITY:- NORMAL ECG - SINUS RHYTHM : Confirmed by: Kranthi Barbour MD 04-Dec-2016 08:56:11
[2016-12-04] MEDS: ENOXAPARIN SODIUM INJ 100 MG/1 ML DISP.SYRIN SUBCUT SCH (09:19)
[2016-12-04] MEDS ORDERED: DOCUSATE SODIUM 100 MG CAPSULE PO SCH (10:00)
[2016-12-04] MEDS ORDERED: ASPIRIN 325 MG TABLET, ENT COATED PO SCH (10:00)
[2016-12-04] MEDS ORDERED: ISOSORBIDE MONONITRATE 30 MG TAB.ER.24H PO SCH (10:00)
[2016-12-04] MEDS ORDERED: PANTOPRAZOLE SODIUM 40 MG VIAL IV SCH (10:00)
[2016-12-04 10:27] VITALS: BP 96/53
[2016-12-04] MEDS: NORMAL SALINE 1000 ML 1,000 ML IV PRN (11:27)
--- NOTE | 2016-12-04 13:44 | PDOC PROGRESS REPORT ---
Subjective Progress Note for:: 12/04/16 Subjective:: Patient was seen on morning rounds at around 9 AM. Patient continues with intermittent squeezing discomfort in the lower chest area associated with some nausea. Patient noted to have intermittent bradycardia. However there was no recurrence of sinus arrest or heart block or junctional rhythm. Patient has history of cholecystectomy. So far cardiac enzymes and EKGs have been negative. Patient has been treated with double dose proton pump inhibitor. Patient does give history of anxiety disorder and remote history of panic disorder. Patient also has difficulty falling asleep, staying asleep and feels fatigued and tired during the day. Exact etiology of chest pain not clear but in view of continuing chest pain without any cause, feel that patient will benefit from a heart catheterization. In this regard I agree with hospitalist decision for tertiary care transfer for heart catheterization. Physical Exam Vital Signs: Temp Pulse Resp BP Pulse Ox 97.4 F 65 15 96/53 L 95 12/04/16 10:00 12/04/16 07:22 12/04/16 10:08 12/04/16 10:08 12/04/16 10:08 Intake & Output 12/03/16 12/04/16 12/05/16 06:59 06:59 06:59 Intake Total 525 Output Total 1700 300 Balance -1175 -300 Weight 96.9 kg Exam: GENERAL: well-nourished and in no acute distress. Alert and oriented x3 HEAD: Atraumatic, normocephalic. EYES: Pupils equal round and reactive to light, extraocular movements intact, sclera anicteric, conjunctiva are normal. ENT: TMs normal, nares patent, oropharynx clear without exudates. Moist mucous membranes. No oral ulcerations or bleeding gums noted NECK: supple without lymphadenopathy. Trachea is central. No cervical or axillary lymphadenopathy noted. Carotids are 2+, JVD WNL LUNGS: Respiration seems nonlabored, no significant accessory muscle action noted. Breath sounds clear to auscultation bilaterally and equal noted. No wheezes rales or rhonchi noted. No significant dullness noted on percussion. CHEST: Palpation of the chest wall shows no significant chest wall tenderness. No other significant abnormalities noted. 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 ABDOMEN: Soft, no significant tenderness appreciated, normoactive bowel sounds. No guarding, no rebound. No rigidity noted . No masses appreciated. EXTREMITIES: Pedal pulses are 1-2+, no calf tenderness noted. No clubbing or cyanosis.trace to 1+ pedal edema noted NEUROLOGICAL: Focused neurological exam showed no significant neurologic deficit. Normal speech, no focal weakness appreciated. PSYCH: Normal mood, normal affect. Judgment and insight within normal limits. SKIN: No significant ecchymosis, rash, ulcerations or signs of pruritus noted. MUSCULOSKELETAL EXAM: No significant joint swelling noted. Results Laboratory Results: 12/04/16 04:31 12/03/16 12/04/16 12/04/16 17:04 04:31 04:31 WBC 3.2 L RBC 3.74 Hgb 11.7 L D Hct 34.3 L MCV 92 MCH 31.3 MCHC 34.1 RDW 13.3 Plt Count 193 Carbonic Acid 1.34 HCO3/H2CO3 Ratio 18:1 ABG pH 7.36 ABG pCO2 44.4 ABG pO2 119.6 H ABG HCO3 24.4 ABG O2 Saturation 98.2 H ABG Base Excess -1.3 FiO2 2L Triglycerides 61 Cholesterol 142.19 LDL Cholesterol Direct 61 VLDL Cholesterol 12.0 HDL Cholesterol 57 12/03/16 12/03/16 12/04/16 17:56 17:56 00:18 Creatine Kinase 53 41 CK-MB (CK-2) 0.36 Troponin I < 0.012 12/04/16 00:18 Creatine Kinase CK-MB (CK-2) 0.31 Troponin I < 0.012 EKG Comments: Sinus rhythm, no acute ST-T wave changes are noted. Impressions: Venous Doppler Study 12/03/16 00:00 IMPRESSION: NO EVIDENCE DVT OR SVT IN EITHER LEG. Chest X-Ray 12/03/16 11:29 IMPRESSION: NO SIGNIFICANT RADIOGRAPHIC FINDING IN THE CHEST. Lung Scan-[facility] 12/03/16 19:42 IMPRESSION: NORMAL VENTILATION-PERFUSION LUNG SCAN. NEGATIVE FOR PULMONARY EMBOLI. Assessment & Plan - Diagnosis (1) Symptomatic bradycardia Is this a current diagnosis for this admission?: Yes (2) Chest pain Qualifiers: Chest pain type: unspecified Qualified Code(s): R07.9 - Chest pain, unspecified Is this a current diagnosis for this admission?: Yes (3) Sinus arrest Is this a current diagnosis for this admission?: Yes (4) HTN (hypertension) Qualifiers: Hypertension type: essential hypertension Qualified Code(s): I10 - Essential (primary) hypertension Is this a current diagnosis for this admission?: Yes (5) Hyperlipidemia Qualifiers: Hyperlipidemia type: unspecified Qualified Code(s): E78.5 - Hyperlipidemia, unspecified Is this a current diagnosis for this admission?: Yes - Notes Notes: Symptomatic bradycardia: Improved patient still bradycardic but no symptoms related to bradycardia. Possible vagal stimulation causing sinus arrest, junctional rhythm but patient is at age where she can have sick sinus syndrome. Chest pain: So far cardiac enzymes and EKGs as well as further evaluation including ventilation/perfusion scan has been negative. Agree that patient will benefit from heart catheterization. Sinus arrest: No recurrence. Hypertension: Blood pressure on the low side but stable. Hyperlipidemia: LDL goal is less than 70. Recommend statin therapy at least intermediate or high dose, of high potency status. Periodic lipid panel and liver panel is indicated. Patient to report any significant muscle discomfort or other side effects. Anxiety/panic disorder: Patient has a history of it. Discussed that patient may need to get on some medications. Sleep disorder: Patient has possible insomnia as well as sleep apnea. Discussed that such an evaluation can be completed as an outpatient. Long discussion entered with patient's and patient. Approximately 40 minutes spent. Patient agreeable to follow-up with me as an outpatient. - Time Time with patient: Greater than 35 minutes - CODE STATUS was discussed, patient remains full code. Surrogate decision-maker unchanged. Multiple medical problems were addressed. More than 50% of the time spent coordinating care, discussing management plans with involved caregivers. Management plans discussed with involved personnels. Medical decision making was of moderate to high complexity, patient's has multiple comorbidities. Medications reviewed and adjusted accordingly: Yes
== END 2016-12-04 12:50 | disposition short-term general hospital (02) | DRG 311 ==
LOC: ER 11:15 → UNDOADMOB 14:46 → EH 14:46 → UNDOADMOB 15:21 → EH 15:21 → OBSVTOIN 16:03 → ICU 23:05
PROVIDERS: ADMIT Internal Medicine; ATTEND Internal Medicine
DX: I20.0 Unstable angina (principal); I44.2 Atrioventricular block, complete; F41.9 Anxiety disorder, unspecified; E66.9 Obesity, unspecified; R00.1 Bradycardia, unspecified; G47.00 Insomnia, unspecified; G47.30 Sleep apnea, unspecified; R79.1 Abnormal coagulation profile; I10 Essential (primary) hypertension; E78.2 Mixed hyperlipidemia; Z90.49 Acquired absence of other specified parts of digestive tract; Z98.84 Bariatric surgery status; Z79.899 Other long term (current) drug therapy; Z88.0 Allergy status to penicillin; Z91.041 Radiographic dye allergy status; Z82.49 Family history of ischemic heart disease and other diseases of the circulatory system
CPT/HCPCS: 36415; 71020; 78582; 80053; 80061; 82550; 82553; 82803; 83690; 83735; 83880; 84100; 84484; 85025; 85027; 85379; 85610; 93005; 93010; 93306; 93970; 96361; 96374; 96375; 99285; A9540; A9567; J1650; J2060; J2270; J2405; J3490; J7030; J7040; Q9969; S0164

== ENCOUNTER 2017-01-10 06:57 | Emergency (ER) | payer MEDICARE, OTHER ==
[2017-01-10] MEDS ORDERED: ASPIRIN 81 MG TABLET, CHEWABLE PO ONE (07:54)
--- NOTE | 2017-01-10 08:36 | ER Document Report ---
ED Cardiac - General Chief Complaint: Breathing Difficulty Stated Complaint: TROUBLE BREATHING Time Seen by Provider: 01/10/17 07:42 TRAVEL OUTSIDE OF THE [place] IN LAST 30 DAYS: No - HPI Notes: Pt is a 61yo female who presents to the ED c/o dry cough, fatigue, and chest heaviness x1-2 days. Pt c/o swelling to her feet, ankles, legs, and hands x5 days. Pt notes feeling a raspiness when she lays supine and finds that the position makes it hardest for breathing. Pt denies any 'pain.' She is still eating and drinking with no problems. Pt reports having a pacemaker placed 1mo ago by [facility] in [place]. Denies any headaches, dizziness, fever, changes in vision/speech/mentation, URI, sore throat, ear pain, dysphagia, palpitations, syncope, wheezing, abd pain, n/v/d, dysuria, hematuria, muscle weakness/ paralysis, numbness/tingling, or rash. - Related Data Allergies/Adverse Reactions: Penicillins Allergy (Severe, Verified 12/03/16 11:27) hives,throat swellling Iodinated Contrast- Oral and IV Dye [IV Dye, Iodine Containing] Allergy (Unknown , Verified 12/03/16 11:27) Anaphylaxis adhesive tape Adverse Reaction (Intermediate, Verified 12/03/16 11:27) Generalized rash Past Medical History - Social History Smoking Status: Former Smoker Chew tobacco use (# tins/day): No Frequency of alcohol use: None Drug Abuse: None Family History: Reviewed & Not Pertinent Patient has suicidal ideation: No Patient has homicidal ideation: No - Past Medical History Cardiac Medical History: Reports: Hx Hypercholesterolemia - takes meds, Hx Hypertension - since 1982 (off and on) takes meds Denies: Hx Atrial Fibrillation, Hx Congestive Heart Failure, Hx Coronary Artery Disease, Hx Heart Attack, Hx Peripheral Vascular Disease, Hx Pulmonary Embolism, Hx Heart Murmur Pulmonary Medical History: Reports: Hx Bronchitis - 8-10 years ago/wheezing Denies: Hx Asthma, Hx COPD, Hx Pneumonia, Hx Respiratory Failure, Hx Sleep Apnea, Hx Tuberculosis Neurological Medical History: Denies: Hx Cerebrovascular Accident, Hx Seizures Endocrine Medical History: Reports: Hx Hypothyroidism. Denies: Hx Graves' Disease, Hx Hyperthyroidism Renal/ Medical History: Denies: Hx End Stage Renal Disease, Hx Kidney Stones, Hx Ovarian Cysts, Hx Peritoneal Dialysis, Hx Pelvic Inflammatory Disease Malignancy Medical History: Denies: Hx Breast Cancer, Hx Cervical Cancer, Hx Lung Cancer, Hx Ovarian Cancer GI Medical History: Reports: Hx Gastroesophageal Reflux Disease - rare. Denies : Hx Crohn's Disease, Hx Hiatal Hernia, Hx Irritable Bowel, Hx Liver Failure, Hx Ulcer Musculoskeltal Medical History: Reports Hx Arthritis, Reports Hx Fibromyalgia, Denies Hx Multiple Sclerosis, Denies Hx Muscular Dystrophy Psychiatric Medical History: Reports: Hx Anxiety, Hx Depression Denies: Hx Bipolar Disorder, Hx Dementia, Hx Post Traumatic Stress Disorder, Hx Schizophrenia Traumatic Medical History: Reports: Hx Fractures - right wrist/right elbow r/t fall Past Surgical History: Reports: Hx Abdominal Surgery - hernia repair, bypass, Hx Breast Surgery - biopsy, Hx Cardiac Surgery - pacemaker, Hx Cholecystectomy, Hx Gastric Bypass Surgery, Hx Gynecologic Surgery - D&Cx4,, Hx Herniorrhaphy - unbilical x2, Hx Hysterectomy, Hx Nose Surgery, Hx Orthopedic Surgery - multp. Denies: Hx Appendectomy, Hx Bowel Surgery, Hx Section, Hx Colostomy, Hx Coronary Artery Bypass Graft, Hx Mastectomy, Hx Pacemaker, Hx Tonsillectomy, Hx Tubal Ligation - Immunizations Hx Diphtheria, Pertussis, Tetanus Vaccination: Yes Hx Pneumococcal Vaccination: 07/16/16 Review of Systems - Review of Systems Notes: REVIEW OF SYSTEMS: CONSTITUTIONAL : Denies fever, chills, or sweats. Denies recent illness. EENT: Denies eye, ear, throat, or mouth pain or symptoms. Denies nasal or sinus congestion or discharge. Denies throat, tongue, or mouth swelling or difficulty swallowing. CARDIOVASCULAR: see hpi RESPIRATORY: see hpi GASTROINTESTINAL: Denies abdominal pain or distention. Denies nausea, vomiting , or diarrhea. Denies blood in vomitus, stools, or per rectum. Denies black, tarry stools. Denies constipation. GENITOURINARY: Denies difficulty urinating, painful urination, burning, frequency, blood in urine, or discharge. MUSCULOSKELETAL: Denies back or neck pain or stiffness. Denies joint pain or swelling. SKIN: Denies rash, lesions or sores. HEMATOLOGIC : Denies easy bruising or bleeding. NEUROLOGICAL: Denies confusion or altered mental status. Denies passing out or loss of consciousness. Denies dizziness or lightheadedness. Denies headache. Denies weakness or paralysis or loss of use of either side. Denies problems with gait or speech. Denies sensory loss, numbness, or tingling. Denies seizures. ALL OTHER SYSTEMS REVIEWED AND NEGATIVE. Dictation was performed using [employer] voice recognition software Physical Exam - Vital signs Vitals: Temp Pulse Resp BP Pulse Ox 97.9 F 76 18 147/74 H 99 01/10/17 07:04 01/10/17 07:04 01/10/17 07:04 01/10/17 07:04 01/10/17 07:04 Notes: PHYSICAL EXAMINATION: GENERAL: Well-appearing, well-nourished and in no acute distress. HEAD: Atraumatic, normocephalic. EYES: Pupils round and reactive to light, extraocular movements intact, sclera anicteric, conjunctiva are normal. Left pupil slightly larger than Rt, known condition by patient (reports she had lasik and it has been that way ever since) . ENT: EAC clear b/l. TM's intact b/l without erythema, fluid, or perforation. Nares patent and without discharge. oropharynx clear without exudates. No tonsilar hypertrophy or erythema. Moist mucous membranes. No sinus tenderness. NECK: Normal range of motion, supple without lymphadenopathy. No rigidity/ meningismus. LUNGS: Breath sounds clear to auscultation bilaterally and equal. No wheezes rales or rhonchi. HEART: Regular rate and rhythm without murmurs, rubs, gallops. ABDOMEN: Soft, nontender, nondistended abdomen. No guarding, no rebound. No masses appreciated. Normal bowel sounds present. No CVA tenderness bilaterally. Musculoskeletal: FROM to passive/active. Strength 5+/5. No deficits noted Extremities: No cyanosis, clubbing, or pitting edema b/l. Peripheral pulses 2+ . Capillary refill less than 3 seconds. NEUROLOGICAL: Cranial nerves grossly intact. Normal speech, normal gait. Normal sensory, motor exams. reflexes 2+ peripherally. PSYCH: Normal mood, normal affect. SKIN: Warm, Dry, normal turgor, no rashes or lesions noted. Course - Re-evaluation Re-evalutation: 01/10/17 10:35 Patient is an afebrile, well-hydrated, 61yo female who presents with suspected pneumonia LLL on CXR. Reviewed case with Dr. Varghese. Vitals are stable (143/73, 61p, 15rr, 95% RA). CXR showed "borderline heart size with mild pulmonary vascular congestion but no ricardo CHF. Limited infiltrate in the left lower lobe cannot be ruled out." CBC unremarkable. CMP unremarkable. Cardiac enzymes negative. EKG with no acute changes from previous. BNP elevated at 1470 with no previous history of CHF. BNP was 449 1mo ago. Duoneb given today. Pt reports improvement in her overall symptoms since arrival. Pt does have a group home manager through [facility] and a new one starting in January she is to see through her PCM's [facility]. Her PCM is Dr. Frye ([facility]). She called while in the office today and is scheduled for a f/u tomorrow morning at 0830. Lasix 80mg given IV today. I will be sending her home with doxycycline 100mg PO BID x10 days and albuterol inhaler. Pt will also schedule a consult with her group home manager as soon as she is able. Return to the ED with any worsening symptoms or concerning symptoms otherwise. Pt in agreement. Low suspicion for any ACS, PE, Pneumothorax, dissection, pericarditis. - Vital Signs Vital signs: Temp Pulse Resp BP Pulse Ox 97.9 F 76 22 H 133/65 H 97 01/10/17 07:04 01/10/17 07:04 01/10/17 09:01 01/10/17 09:01 01/10/17 09:01 - Laboratory Result Diagrams: 01/10/17 08:30 01/10/17 08:30 Laboratory results interpreted by me: 01/10/17 01/10/17 01/10/17 08:30 08:30 08:30 RDW 14.3 H Chloride 110 H AST 44 H NT-Pro-B Natriuret Pep 1470 H Total Protein 5.8 L Albumin 3.3 L Discharge - Discharge Clinical Impression: Pneumonia Qualifiers: Pneumonia type: due to unspecified organism Laterality: left Lung location: lower lobe of lung Qualified Code(s): J18.1 - Lobar pneumonia, unspecified organism CHF (congestive heart failure) Qualifiers: Congestive heart failure type: unspecified congestive heart failure type Congestive heart failure chronicity: acute Qualified Code(s): I50.9 - Heart failure, unspecified Condition: Stable Disposition: HOME, SELF-CARE Additional Instructions: Take medications as directed Monitor BP at least twice daily and keep a log Use inhaler as needed Daily weight checks Recheck with your PCM as scheduled tomorrow morning. Schedule a f/u with your group home manager as soon as you are able Return to the ED with any worsening symptoms and/or development of fever, headache, chest pain, palpitations, syncope, shortness of breath, trouble breathing, abdominal pain, n/v/d, blood in stool/urine, urinary retention, muscle weakness/paralysis, or other worsening symptoms that are concerning to you. Pneumonia Your examination indicates that you have pneumonia. This is an infection of the lung tissue, usually caused by bacteria or a virus. Symptoms include cough, fever, shaking chills, chest pain, shortness of breath, and coughing up bloody sputum. Treatment for bacterial pneumonia includes rest, antibiotics for 10 to 14 days, increasing your clear liquid intake, a cool mist humidifier at your bedside, and fever medication. Often, a repeat chest X-ray is performed in a few weeks--even if you feel better--to ascertain whether the infection has completely resolved and no underlying lung problem is present. You should call the physician if you develop persistent vomiting, high fever that does not respond to fever medication, increasing shortness of breath , confusion, or lethargy. Also, failure to improve within two to three days is an indication for re-examination. Congestive Heart Failure You have been diagnosed as having congestive heart failure (CHF). CHF occurs when the heart is unable to pump blood efficiently, leading to fluid buildup in the veins and lungs. Typical symptoms are swelling of the legs, shortness of breath on minor exertion, and fatigue. CHF is treated with salt restriction, medicine to eliminate excess water and salt from the body, and medication to help the heart contract more efficiently. Eliminate added salt and salty foods in your diet. Decrease your activity until excess fluid has been eliminated. It will also be helpful to raise the head of your bed so you can sleep more easily. Keep a daily record of your weight. This will help your physician monitor your progress. Once extra water has been eliminated, light aerobic exercise daily -- such as walking -- will be helpful (unless your physician has told you to restrict activity for other reasons). Be sure to follow up with the physician as instructed. Contact the doctor at once if you worsen in any way. Prescriptions: Albuterol Sulfate [Proair HFA Inhalation Aerosol 8.5 gm MDI] 2 puff IH Q4H PRN # 1 mdi PRN Reason: Doxycycline Hyclate 100 mg PO BID #20 capsule Referrals: MIGUEL FRYE DO [Primary Care Provider] - Follow up as needed
--- NOTE | 2017-01-10 08:38 | RADIOLOGY REPORT (SQ) ---
EXAM DESCRIPTION: CHEST SINGLE VIEW COMPLETED DATE/TIME: 01/10/2017 8:18 am REASON FOR STUDY: cough, chest heaviness COMPARISON: 12/03/2016 EXAM PARAMETERS: NUMBER OF VIEWS: One view. TECHNIQUE: Single frontal radiographic view of the chest acquired. RADIATION DOSE: NA LIMITATIONS: None. FINDINGS: LUNGS AND PLEURA: There is slight haziness the left lung base. MEDIASTINUM AND HILAR STRUCTURES: No masses. Contour normal. HEART AND VASCULAR STRUCTURES: The heart size is larger. There is mild pulmonary vascular congestion . There is no ricardo pulmonary edema. BONES: No acute findings. HARDWARE: Pacemaker on the left. OTHER: No other significant finding. IMPRESSION: 1. Borderline heart size with mild pulmonary vascular congestion but no ricardo CHF. 2. A limited infiltrate in the left lower lobe cannot be ruled out. TECHNICAL DOCUMENTATION: JOB ID: [id number]
[2017-01-10] MEDS ORDERED: IPRATROPIUM/ALBUTEROL 0.5-2.5 MG/3 ML AMPUL NEB ONE (08:45)
--- NOTE | 2017-01-10 08:50 | EKG REPORT ---
SEVERITY:- ABNORMAL ECG - ATRIAL-PACED RHYTHM : Confirmed by: Ree Chacon 10-Jan-2017 08:49:38
[2017-01-10 08:53] LABS: ABSOLUTE EOSINOPHILS # (AUTO) 0.3 10^3/uL (0.0-0.6); ABSOLUTE LYMPHOCYTES (AUTO) 1.1 10^3/uL (0.5-4.7); ABSOLUTE MONOCYTES (AUTO) 0.5 10^3/uL (0.1-1.4); ABSOLUTE NEUT (AUTO) 2.7 10^3/uL (1.7-8.2); BASOPHILS % (AUTO) 0.7 % (0-2); EOSINOPHILS % (AUTO) 5.7 % (0-6); HEMATOCRIT 37.2 % (36.0-47.0); HEMOGLOBIN 12.2 g/dL (12.0-15.5); HGB HCT DIFFERENCE -0.6; LYMPHOCYTES % (AUTO) 23.6 % (13-45); MEAN CORPUSCULAR HEMOGLOBIN 30.5 pg (27.0-33.4); MEAN CORPUSCULAR HGB CONC 32.9 g/dL (32.0-36.0); MEAN CORPUSCULAR VOLUME 93 fl (80-97); MONOCYTES % (AUTO) 10.3 % (3-13); RED BLOOD COUNT 4.01 10^6/uL (3.72-5.28); RED CELL DISTRIBUTION WIDTH 14.3 % (11.5-14.0); SEGMENTED NEUTROPHILS % (AUTO) 59.7 % (42-78); WHITE BLOOD COUNT 4.5 10^3/uL (4.0-10.5)
[2017-01-10 09:10] LABS: ALANINE AMINOTRANSFERASE 44 U/L (9-52); ALBUMIN 3.3 g/dL (3.5-5.0); ALKALINE PHOSPHATASE 99 U/L (38-126); ANION GAP 7 (5-19); ASPARTATE AMINO TRANSFERASE 44 U/L (14-36); BILIRUBIN,DIRECT 0.4 mg/dL (0.0-0.4); BILIRUBIN,TOTAL 0.6 mg/dL (0.2-1.3); BLOOD UREA NITROGEN 16 mg/dL (7-20); CALCIUM 8.6 mg/dL (8.4-10.2); CARBON DIOXIDE 27 mmol/L (22-30); CHLORIDE 110 mmol/L (98-107); CREATINE KINASE 93 U/L (30-135); CREATININE RESULT 0.72 mg/dL (0.52-1.25); GLUCOSE 85 mg/dL (75-110); POTASSIUM 4.4 mmol/L (3.6-5.0); SODIUM 143.7 mmol/L (137-145); TOTAL PROTEIN 5.8 g/dL (6.3-8.2)
[2017-01-10 09:23] LABS: TROPONIN I < 0.012 ng/mL
[2017-01-10] MEDS ORDERED: FUROSEMIDE INJ/PF 40 MG/4 ML SDV IV ONE (09:54)
[2017-01-10 10:30] LABS: APPEARANCE,URINE CLEAR; BILIRUBIN,URINE NEGATIVE (NEGATIVE); GLUCOSE, URINE NEGATIVE (NEGATIVE); KETONES,URINE NEGATIVE (NEGATIVE); LEUKOCYTE ESTERASE,URINE NEGATIVE (NEGATIVE); NITRITE,URINE NEGATIVE (NEGATIVE); PROTEIN,URINE NEGATIVE (NEGATIVE); UROBILINOGEN,URINE NEGATIVE mg/dL (<2.0)
[2017-01-10 11:04] VITALS: BP 138/81
== END 2017-01-10 11:04 | disposition home or self-care (01) ==
LOC: ER 06:57
DX: J18.1 Lobar pneumonia, unspecified organism (principal); I50.9 Heart failure, unspecified; R06.02 Shortness of breath; R05 Cough; R53.83 Other fatigue; R07.9 Chest pain, unspecified; M79.89 Other specified soft tissue disorders
CPT/HCPCS: 93005; 94640; 99285; 96374; 36415; 82553; 82550; 85025; 80053; 81001; 84484; 83880; 71010; 93010; A9270 ×2; J1940; J7620

== ENCOUNTER → 2017-01-25 | Outpatient (CLI) | payer MEDICARE, OTHER ==
--- NOTE | 2017-01-25 13:39 | RADIOLOGY REPORT (SQ) ---
EXAM DESCRIPTION: CHEST PA/LATERAL COMPLETED DATE/TIME: 01/25/2017 1:23 pm REASON FOR STUDY: PNEUMONIA, UNSPECIFIED ORGANISM COMPARISON: None. EXAM PARAMETERS: NUMBER OF VIEWS: two views TECHNIQUE: Digital Frontal and Lateral radiographic views of the chest acquired. RADIATION DOSE: NA LIMITATIONS: none FINDINGS: LUNGS AND PLEURA: No opacities, masses or pneumothorax. No pleural effusion. MEDIASTINUM AND HILAR STRUCTURES: No masses or contour abnormalities. HEART AND VASCULAR STRUCTURES: Heart normal size. No evidence for failure. BONES: No acute findings. HARDWARE: Dual chamber transvenous pacemaker is unchanged in position OTHER: No other significant finding. IMPRESSION: NO SIGNIFICANT RADIOGRAPHIC FINDING IN THE CHEST. TECHNICAL DOCUMENTATION: JOB ID: [id number] [employer]- All Rights Reserved
== END ==
LOC: OD 13:11
PROVIDERS: ATTEND Student in an Organized Health Care Education/Training Program
DX: J18.9 Pneumonia, unspecified organism (principal)
CPT/HCPCS: 71020

== ENCOUNTER 2017-02-05 15:15 | Emergency (ER) | payer MEDICARE, OTHER ==
[2017-02-05] MEDS ORDERED: DIPHENHYDRAMINE HCL 50 MG/ML VIAL ONE (15:31)
[2017-02-05] MEDS ORDERED: FAMOTIDINE INJ/PF 20 MG/2 ML SDV IV ONE (15:32)
[2017-02-05] MEDS ORDERED: METHYLPREDNISOLONE INJ 125 MG/2 ML SDV ONE (15:32)
--- NOTE | 2017-02-05 15:32 | ER Document Report ---
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 Sudden onset. Severe. Partially relieved with epinephrine pen which she gave herself about 25 minutes ago. No trouble swallowing voice change or tongue or oral swelling. Denies true chest pain. No rash. TRAVEL OUTSIDE OF THE [place] IN LAST 30 DAYS: No - Related Data Allergies/Adverse Reactions: Penicillins Allergy (Severe, Verified 02/05/17 15:17) hives,throat swellling Iodinated Contrast- Oral and IV Dye [IV Dye, Iodine Containing] Allergy (Unknown , Verified 02/05/17 15:17) Anaphylaxis bee venom protein (honey bee) Allergy (Verified 02/05/17 15:17) adhesive tape Adverse Reaction (Intermediate, Verified 02/05/17 15:17) Generalized rash Past Medical History - General Information source: Patient - Social History Smoking Status: Never Smoker Family History: Reviewed & Not Pertinent - Past Medical History Cardiac Medical History: Reports: Hx Hypercholesterolemia - takes meds, Hx Hypertension - since 1982 (off and on) takes meds Denies: Hx Atrial Fibrillation, Hx Congestive Heart Failure, Hx Coronary Artery Disease, Hx Heart Attack, Hx Peripheral Vascular Disease, Hx Pulmonary Embolism, Hx Heart Murmur Pulmonary Medical History: Reports: Hx Bronchitis - 8-10 years ago/wheezing Denies: Hx Asthma, Hx COPD, Hx Pneumonia, Hx Respiratory Failure, Hx Sleep Apnea, Hx Tuberculosis Neurological Medical History: Denies: Hx Cerebrovascular Accident, Hx Seizures Endocrine Medical History: Reports: Hx Hypothyroidism. Denies: Hx Graves' Disease, Hx Hyperthyroidism Renal/ Medical History: Denies: Hx End Stage Renal Disease, Hx Kidney Stones, Hx Ovarian Cysts, Hx Peritoneal Dialysis, Hx Pelvic Inflammatory Disease Malignancy Medical History: Denies: Hx Breast Cancer, Hx Cervical Cancer, Hx Lung Cancer, Hx Ovarian Cancer GI Medical History: Reports: Hx Gastroesophageal Reflux Disease - rare. Denies : Hx Crohn's Disease, Hx Hiatal Hernia, Hx Irritable Bowel, Hx Liver Failure, Hx Ulcer Musculoskeltal Medical History: Reports Hx Arthritis, Reports Hx Fibromyalgia, Denies Hx Multiple Sclerosis, Denies Hx Muscular Dystrophy Psychiatric Medical History: Reports: Hx Anxiety, Hx Depression Denies: Hx Bipolar Disorder, Hx Dementia, Hx Post Traumatic Stress Disorder, Hx Schizophrenia Traumatic Medical History: Reports: Hx Fractures - right wrist/right elbow r/t fall Past Surgical History: Reports: Hx Abdominal Surgery - hernia repair, bypass, Hx Breast Surgery - biopsy, Hx Cardiac Surgery - pacemaker, Hx Cholecystectomy, Hx Gastric Bypass Surgery, Hx Gynecologic Surgery - D&Cx4,, Hx Herniorrhaphy - unbilical x2, Hx Hysterectomy, Hx Nose Surgery, Hx Orthopedic Surgery - multp. Denies: Hx Appendectomy, Hx Bowel Surgery, Hx Section, Hx Colostomy, Hx Coronary Artery Bypass Graft, Hx Mastectomy, Hx Pacemaker, Hx Tonsillectomy, Hx Tubal Ligation - Immunizations Hx Diphtheria, Pertussis, Tetanus Vaccination: Yes Hx Pneumococcal Vaccination: 07/16/16 Review of Systems - Review of Systems Notes: REVIEW OF SYSTEMS GEN: Denies fever, chills, weight loss ENT: Denies sore throat, nasal discharge, ear pain EYES: Denies blurry vision, eye pain, discharge CV: Denies chest pain, palpitations, edema RESP: This of breath GI: Denies abdominal pain, nausea, vomiting, diarrhea MSK: Denies joint pain/swelling, edema, SKIN: Denies rash, skin lesions LYMPH: Denies swollen glands/lymph nodes NEURO: Denies headache, focal weakness or numbness, dizziness PSYCH: Denies depression, suicidal or homicidal ideation PHYSICAL EXAMINATION General: No acute distress, well-nourished Head: Atraumatic, normocephalic ENT: Mouth normal, oropharynx moist, no exudates or tonsillar enlargement oral swelling. Normal voice. Eyes: Conjunctiva normal, pupils equal, lids normal Neck: No JVD, supple, no guarding CVS: Normal rate, regular rhythm, no murmurs Resp: No resp distress, tachypnea, equal and normal breath sounds bilaterally GI: Nondistended, soft, no tenderness to palpation, no rebound or guarding Ext: No deformities, no edema, normal range of motion in upper and lower ext Back: No CVA or midline TTP Skin: No rash, warm Lymphatic: No lymphadeopathy noted Neuro: Awake, alert. Face symmetric. GCS 15. Physical Exam - Vital signs Vitals: Temp Pulse Resp BP Pulse Ox 97.4 F 84 20 131/66 H 99 02/05/17 15:17 02/05/17 15:17 02/05/17 15:17 02/05/17 15:17 02/05/17 15:17 Course - Re-evaluation Re-evalutation: 02/05/17 15:31 Patient presents with signs and symptoms of anaphylaxis, treated with epinephrine prior to arrival but still moderate in severity. She is awake alert protecting her airway, and though is she is tachypneic she overall looks well. I will supplement her epinephrine with the rest of the anaphylaxis cocktail of medications including Benadryl Pepcid and steroid, give her a liter of fluid, and carefully observe her for signs of worsening anaphylaxis at which point I would reduce her with epinephrine. 02/05/17 16:44 Reassessed at 4:30 PM. Still has mild shortness of breath and feels "out of sorts but is not as dizzy has no oral swelling in her vitals are normal. I likely think that this is secondary to the medications rather than recurrent anaphylaxis I will continue to observe her up until the 4 hour bennie at which point she will be discharged with steroids [id number] Benadryl and Pepcid and follow-up with primary care as well as be given a refill on her EpiPen. Discharge I have discussed with the patient there likely diagnosis, aftercare plan, follow-up plans and my usual and customary return precautions. They verbalized understanding of this. 02/05/17 17:46 Patient feeling much better and asking to be discharged. She tolerated p.o. and will be discharged with medication as follows. - Vital Signs Vital signs: Temp Pulse Resp BP Pulse Ox 97.4 F 84 20 128/74 H 99 02/05/17 15:17 02/05/17 15:17 02/05/17 16:01 02/05/17 16:01 02/05/17 16:01 - Laboratory Result Diagrams: 02/05/17 16:28 02/05/17 16:28 Laboratory results interpreted by me: 02/05/17 16:28 AST 38 H Critical Care Note - Critical Care Note Total time excluding time spent on procedures (mins): 32 - The above patient is critically ill. Not including procedures, but including direct re-evaluations, speaking with patient and/or consultants, interpreting results, and documenting , I spent the total amount of minute listed listed above on critical care time Discharge - Discharge Clinical Impression: Anaphylaxis Qualifiers: Encounter type: initial encounter Qualified Code(s): T78.2XXA - Anaphylactic shock, unspecified, initial encounter Condition: Good Disposition: HOME, SELF-CARE Instructions: Anaphylaxis Kit ([facility]) Prescriptions: Diphenhydramine HCl [Benadryl Allergy] 25 mg PO Q6 #8 tablet Epinephrine [Epipen 2-Kayode] 0.3 mg IM ONCE PRN #2 ml PRN Reason: Prednisone [Deltasone 20 mg Tablet] 40 mg PO DAILY #10 tablet
[2017-02-05 16:41] LABS: ABSOLUTE BASOPHILS # (AUTO) 0.1 10^3/uL (0.0-0.2); ABSOLUTE EOSINOPHILS # (AUTO) 0.2 10^3/uL (0.0-0.6); ABSOLUTE LYMPHOCYTES (AUTO) 1.8 10^3/uL (0.5-4.7); ABSOLUTE MONOCYTES (AUTO) 0.5 10^3/uL (0.1-1.4); ABSOLUTE NEUT (AUTO) 2.2 10^3/uL (1.7-8.2); BASOPHILS % (AUTO) 1.1 % (0-2); EOSINOPHILS % (AUTO) 4.2 % (0-6); HEMOGLOBIN 13.8 g/dL (12.0-15.5); HGB HCT DIFFERENCE 0.4; LYMPHOCYTES % (AUTO) 38.4 % (13-45); MEAN CORPUSCULAR HEMOGLOBIN 30.6 pg (27.0-33.4); MEAN CORPUSCULAR HGB CONC 33.6 g/dL (32.0-36.0); MEAN CORPUSCULAR VOLUME 91 fl (80-97); MONOCYTES % (AUTO) 9.6 % (3-13); RED BLOOD COUNT 4.51 10^6/uL (3.72-5.28); RED CELL DISTRIBUTION WIDTH 13.7 % (11.5-14.0); SEGMENTED NEUTROPHILS % (AUTO) 46.7 % (42-78); WHITE BLOOD COUNT 4.7 10^3/uL (4.0-10.5)
[2017-02-05 16:51] LABS: ALANINE AMINOTRANSFERASE 32 U/L (9-52); ALBUMIN 3.8 g/dL (3.5-5.0); ALKALINE PHOSPHATASE 102 U/L (38-126); ANION GAP 7 (5-19); ASPARTATE AMINO TRANSFERASE 38 U/L (14-36); BILIRUBIN,DIRECT 0.3 mg/dL (0.0-0.4); BILIRUBIN,TOTAL 0.5 mg/dL (0.2-1.3); BLOOD UREA NITROGEN 20 mg/dL (7-20); CALCIUM 8.8 mg/dL (8.4-10.2); CARBON DIOXIDE 27 mmol/L (22-30); CHLORIDE 104 mmol/L (98-107); CREATININE RESULT 0.78 mg/dL (0.52-1.25); GLUCOSE 95 mg/dL (75-110); POTASSIUM 3.7 mmol/L (3.6-5.0); SODIUM 138.1 mmol/L (137-145); TOTAL PROTEIN 6.4 g/dL (6.3-8.2)
[2017-02-05 18:01] VITALS: BP 113/48
== END 2017-02-05 18:02 | disposition home or self-care (01) ==
LOC: ER 15:15
DX: T78.2XXA Anaphylactic shock, unspecified, initial encounter (principal); R07.89 Other chest pain; R06.02 Shortness of breath; R06.2 Wheezing; R42 Dizziness and giddiness; I10 Essential (primary) hypertension; Z95.0 Presence of cardiac pacemaker; Z88.0 Allergy status to penicillin; Z91.041 Radiographic dye allergy status; Z87.892 Personal history of anaphylaxis; Z91.030 Bee allergy status
CPT/HCPCS: 99291; 96374; 96375; 36415; 85025; 80053; J1200; J2930; S0028

== ENCOUNTER → 2017-02-14 | Outpatient (CLI) | payer MEDICARE, OTHER ==
[~2017-02-14] MED LIST changes: +AMINOPHYLLINE INJ/PF 250 MG/10 ML SDV IV ONE; -BUPIVACAINE INJ/PF LIPOSOME/PF 266 MG/20 ML SDV IJ PRN; -CLINDAMYCIN 600 MG/D5W RTU 600 MG/50 ML RTUPB IV PRN; -IBUPROFEN 800 MG/NS 250 ML IV PRN; -LACTATED RINGERS 1000 ML IV PRN; -LANSOPRAZOLE 15 MG TAB.RAP.DR PO PRN; -LIDOCAINE 0.5% INJ-PF (5 MG/ML) 50 ML SDV SUBCUT PRN; -OXYCODONE HCL SR 10 MG TABLET PO PRN; +REGADENOSON INJ 0.4 MG/5 ML DISP.SYRIN IV ONE; -SCOPOLAMINE HYDROBROMIDE 1.5 MG PATCH.TD72 TOP PRN; -VANCOMYCIN HCL 1,000 MG in DEXTROSE 5%-WATER 250 ML IV PRN
--- NOTE | 2017-02-14 13:00 | DRAGON STRESS TEST REPORT ---
INTRAVENOUS LEXISCAN CARDIOLITE STRESS TEST USING SINGLE PHOTON EMMISION COMPUTERIZED TOMOGRAPHIC. DATE OF PROCEDURE: February 14, 2017 INDICATION : Chest pain CARDIAC RISK FACTORS: Dyslipidemia, hypertension, family history of heart disease. RESTING EKG: Sinus rhythm without any baseline ST-T wave changes. STRESS EKG: No significant changes noted with LexiScan bolus REASON FOR TERMINATION: Protocol. PROCEDURE REPORT: Baseline heart rate 89 beats per minute with blood pressure of 121/72. Patient had no significant complaints. Heart rate at 2 minutes post bolus 122 with a blood pressure of 99/59. 3 minutes post bolus heart rate 106 with blood pressure of 120/62. No significant EKG changes were noted. Patient had no significant complaints during the procedure or postprocedure. Patient injected with Aminophyllin 75 mg at 3 minutes or later after Lexiscan bolus. CONCLUSIONS: Normal EKG and hemodynamic response to IV LexiScan. NUCLEAR DATA: At rest the patient was given 14.51 millicuries of technetium 99 sestamibi injected intravenously. As per protocol rest gated SPECT images were obtained. Subsequently the patient was given intravenous LexiScan at a dose of 0.4 mg in 5 mL intravenously, followed by flush with normal saline. Subsequently the stress dose of 40.7 millicuries of technetium 99 sestamibi was injected intravenously. As per protocol stress gated images were obtained. NUCLEAR INTERPRETATION: Both raw and processed data were used for interpretation. Visual, qualitative, computer-generated quantitative data was used. There was good myocardial uptake of technetium compound. Motion artifact and soft tissue attenuations were noted. Increased visceral uptake was noted. No definitive areas of transient perfusion defect noted. No definitive areas of fixed perfusion defect or scars noted. EKG gated imaging showed LV EF at 63 %, rest and stress gated EF similar visually. T. I D. ratio was 0.96. Lung heart ratio noted to be within normal limits 0.24. No significant extracardiac and abnormal radiotracer activities were noted. RV free wall uptake was noted to be []. IMPRESSION: Also refer to comments under nuclear interpretation. Also test results needs to be interpreted in the context of pretest probability. 1. There is no definitive scintigraphic evidence of LexiScan induced myocardial ischemia. 2. There is no definitive scintigraphic evidence of myocardial infarction/scar. 3. EKG gated imaging shows left ejection fraction of approximately 63 %. 4. Clinical correlation requested as occasionally single vessel disease or balanced ischemia could be missed. In approximately 10% of the cases Lexiscan may not cause adequate vasodilatory stress. RECOMMENDATIONS: Aggressive risk factor modification, medical therapy. Clinical correlation with echocardiogram derived ejection fraction. Inability to exercise by itself can lead to increased cardiovascular event risks. Consider cardiology consultation and or follow-up if clinically indicated. I AM AVAILABLE FOR CARDIOLOGY CONSULTATION AND FOLLOWUP IF REQUESTED BY PMD Ree Chacon M.D., [employer] Machine Operator port captain, Board certified in cardiovascular diseases, Nuclear cardiology, Echocardiography Cardiac CT and cardiac MRI Ph. [phone] [facility]
== END ==
LOC: RAD 06:40
PROVIDERS: ATTEND Hospitalist
DX: R07.9 Chest pain, unspecified (principal); I10 Essential (primary) hypertension; E78.5 Hyperlipidemia, unspecified
CPT/HCPCS: 93017; 78452; A9500; J2785; J0280; Q9969

== ENCOUNTER 2017-03-21 11:51 | Emergency (ER) | payer MEDICARE, OTHER ==
--- NOTE | 2017-03-21 12:25 | ER Document Report ---
ED Skin Rash/Insect Bite/Abscs - General Chief Complaint: Rash Stated Complaint: RASH/ITCHING, BURNING Time Seen by Provider: 03/21/17 12:14 Notes: 61 yo female c/o rash x 2 days. denies new contacts. no difficulty breathing or swallowing TRAVEL OUTSIDE OF THE [place] IN LAST 30 DAYS: No - HPI Patient complains to provider of: Skin rash/lesion Onset: Yesterday Onset/Duration: Sudden Skin Character: Rash Skin Temperature: Warm Quality of rash: Itchy Similar symptoms previously: No Recently seen / treated by doctor: No - Related Data Allergies/Adverse Reactions: Penicillins Allergy (Severe, Verified 03/21/17 12:00) hives,throat swellling Iodinated Contrast- Oral and IV Dye [IV Dye, Iodine Containing] Allergy (Unknown , Verified 03/21/17 12:00) Anaphylaxis bee venom protein (honey bee) Allergy (Verified 03/21/17 12:00) adhesive tape Adverse Reaction (Intermediate, Verified 03/21/17 12:00) Generalized rash Past Medical History - General Information source: Patient - Social History Smoking Status: Never Smoker Frequency of alcohol use: None Drug Abuse: None Lives with: Family Family History: Reviewed & Not Pertinent Patient has suicidal ideation: No Patient has homicidal ideation: No - Past Medical History Cardiac Medical History: Reports: Hx Hypercholesterolemia - takes meds, Hx Hypertension - since 1982 (off and on) takes meds Denies: Hx Atrial Fibrillation, Hx Congestive Heart Failure, Hx Coronary Artery Disease, Hx Heart Attack, Hx Peripheral Vascular Disease, Hx Pulmonary Embolism, Hx Heart Murmur Pulmonary Medical History: Reports: Hx Bronchitis - 8-10 years ago/wheezing Denies: Hx Asthma, Hx COPD, Hx Pneumonia, Hx Respiratory Failure, Hx Sleep Apnea, Hx Tuberculosis Neurological Medical History: Denies: Hx Cerebrovascular Accident, Hx Seizures Endocrine Medical History: Reports: Hx Hypothyroidism. Denies: Hx Graves' Disease, Hx Hyperthyroidism Renal/ Medical History: Denies: Hx End Stage Renal Disease, Hx Kidney Stones, Hx Ovarian Cysts, Hx Peritoneal Dialysis, Hx Pelvic Inflammatory Disease Malignancy Medical History: Denies: Hx Breast Cancer, Hx Cervical Cancer, Hx Lung Cancer, Hx Ovarian Cancer GI Medical History: Reports: Hx Gastroesophageal Reflux Disease - rare. Denies : Hx Crohn's Disease, Hx Hiatal Hernia, Hx Irritable Bowel, Hx Liver Failure, Hx Ulcer Musculoskeltal Medical History: Reports Hx Arthritis, Reports Hx Fibromyalgia, Denies Hx Multiple Sclerosis, Denies Hx Muscular Dystrophy Psychiatric Medical History: Reports: Hx Anxiety, Hx Depression Denies: Hx Bipolar Disorder, Hx Dementia, Hx Post Traumatic Stress Disorder, Hx Schizophrenia Traumatic Medical History: Reports: Hx Fractures - right wrist/right elbow r/t fall Past Surgical History: Reports: Hx Abdominal Surgery - hernia repair, bypass, Hx Breast Surgery - biopsy, Hx Cardiac Surgery - pacemaker, Hx Cholecystectomy, Hx Gastric Bypass Surgery, Hx Gynecologic Surgery - D&Cx4,, Hx Herniorrhaphy - unbilical x2, Hx Hysterectomy, Hx Nose Surgery, Hx Orthopedic Surgery - multp. Denies: Hx Appendectomy, Hx Bowel Surgery, Hx Section, Hx Colostomy, Hx Coronary Artery Bypass Graft, Hx Mastectomy, Hx Pacemaker, Hx Tonsillectomy, Hx Tubal Ligation - Immunizations Hx Diphtheria, Pertussis, Tetanus Vaccination: Yes Hx Pneumococcal Vaccination: 07/16/16 Review of Systems - Review of Systems Constitutional: No symptoms reported EENT: No symptoms reported Cardiovascular: No symptoms reported Respiratory: No symptoms reported Gastrointestinal: No symptoms reported Genitourinary: No symptoms reported Female Genitourinary: No symptoms reported Musculoskeletal: No symptoms reported Skin: See HPI, Rash Hematologic/Lymphatic: No symptoms reported Neurological/Psychological: No symptoms reported -: Yes All other systems reviewed and negative Physical Exam - Vital signs Interpretation: Normal - General General appearance: Appears well, Alert - HEENT Head: Normocephalic, Atraumatic Eyes: Normal Pupils: PERRL - Respiratory Respiratory status: No respiratory distress Chest status: Nontender Breath sounds: Normal Chest palpation: Normal - Cardiovascular Rhythm: Regular Heart sounds: Normal auscultation Murmur: No - Abdominal Inspection: Normal Distension: No distension Bowel sounds: Normal Tenderness: Nontender Organomegaly: No organomegaly - Back Back: Normal, Nontender - Extremities General upper extremity: Normal inspection, Nontender, Normal color, Normal ROM , Normal temperature General lower extremity: Normal inspection, Nontender, Normal color, Normal ROM , Normal temperature, Normal weight bearing. No: Gem's sign - Neurological Neuro grossly intact: Yes Cognition: Normal Orientation: AAOx4 [place] Coma Scale Eye Opening: Spontaneous [place] Coma Scale Verbal: Oriented [place] Coma Scale Motor: Obeys Commands [place] Coma Scale Total: 15 Speech: Normal Motor strength normal: LUE, RUE, LLE, RLE Sensory: Normal - Psychological Associated symptoms: Normal affect, Normal mood - Skin Skin Temperature: Warm Skin Moisture: Dry Skin Color: Normal Skin irregularity: Rash Location of irregularity: Face, Neck, Extremities Character of irregularity: Maculopapular, Erythematous Irregularity with: negative: Scaling, Crusting, Weeping Course - Re-evaluation Re-evalutation: 03/21/17 12:23 H&P c/w contact dermatitis. no petechia, no signs hernandez-pramod. pt stable for discharge Discharge - Discharge Clinical Impression: Rash Condition: Stable Disposition: HOME, SELF-CARE Instructions: Contact Dermatitis ([facility]), Topical Steroid Cream or Ointment ([facility]) , Steroid Medication Injection, Antihistamines ([facility]) Additional Instructions: Your history and physical are consistant with a contact dermatitis Make cool compress with [place]ome[place]'s solution, apply to affected area x 10-15min, then apply steroid cream Take antihistamine as prescribed Follow up with primary care if symptoms persist or worsen Prescriptions: Calcium Acetate/Aluminum Sulf [[place] Packet] 1 each TP TID #30 packet Hydroxyzine HCl [Atarax 25 mg Tablet] 1 - 2 tab PO QID PRN #20 tablet PRN Reason: Triamcinolone Acetonide [Aristocort 0.1% Ointment] 1 applic TP BID #30 gm
[2017-03-21] MEDS ORDERED: DEXAMETHASONE SOD PHOS INJ 10 MG/1 ML VIAL IM ONE (12:30)
[2017-03-21 12:36] VITALS: BP 116/96
== END 2017-03-21 12:45 | disposition home or self-care (01) ==
LOC: ER 11:51
DX: R21 Rash and other nonspecific skin eruption (principal)
CPT/HCPCS: 99282; 96372; J1100

== ENCOUNTER → 2017-03-22 | Outpatient (CLI) | payer MEDICARE, OTHER ==
--- NOTE | 2017-03-22 09:22 | WOMENS IMAGING REPORT ---
EXAM DESCRIPTION: BILAT SCREENING MAMMO W/CAD COMPLETED DATE/TIME: 03/22/2017 9:00 am REASON FOR STUDY: SCREENING MAMMO Z12.31 ENCNTR SCREEN MAMMOGRAM FOR MALIGNANT NEOPLASM OF VICKY COMPARISON: 03/21/2016 TECHNIQUE: Standard craniocaudal and mediolateral oblique views of each breast recorded using [employer] acquisition. LIMITATIONS: None. FINDINGS: Findings present which are benign by mammographic criteria. No suspicious masses, calcifi cations or architectural distortion. Pertinent benign findings: Benign right breast parenchymal calcifications Read with the assistance of CAD. .[facility] - R2 Cenova Version 1.3 .[facility] - R2 Cenova Version 1.3 .[facility] - R2 Cenova Version 2.4 .[facility] - R2 Cenova Version 2.4 .[facility] - R2 Anesthesiologist Physician Version 9.2 Benign mammographic findings may include one or more of the following: Smooth masses, popcorn/rim/co arse calcifications, asymmetries, post-procedure changes, and lesions with long-standing stability. IMPRESSION: BENIGN MAMMOGRAPHIC FINDINGS. BIRADS 2 BREAST DENSITY: c. The breasts are heterogeneously dense, which may obscure small masses. BIRAD: 2 BENIGN FINDING(S) RECOMMENDATION: ROUTINE SCREENING Please consider yearly bilateral screening tomosynthesis, given heterogeneously dense tissue COMMENT: The patient has been notified of the results by letter per SA requirements. Additional no tification policies are in place for contacting patient with suspicious or incomplete findings. Quality ID #[id number]: The [employer] recommends an annual screening mammogram for women aged 40 years or over. This facility utilizes a reminder system to ensure that all patients receive reminder letters, and/or direct phone calls for appointments. This includes reminders for routine scr eening mammograms, diagnostic mammograms, or other Breast Imaging Interventions when appropriate. Th is patient will be placed in the appropriate reminder system. The [employer] (ACR) has developed recommendations for screening MRI of the breast s in certain patient populations, to be used in conjunction with mammography. Breast MRI surveillanc e may be appropriate for women with more than 20% lifetime risk of developing breast cancer as deter mined by genetic testing, significant family history of the disease, or history of mantle radiation f or Hodgkins Disease. ACR Practice Guidelines 2008. TECHNICAL DOCUMENTATION: FINDING NUMBER: (1) ASSESSMENT: (1) JOB ID: [id number] [employer]- All Rights Reserved
== END ==
LOC: WI 08:00
PROVIDERS: ATTEND Student in an Organized Health Care Education/Training Program
DX: Z12.31 Encounter for screening mammogram for malignant neoplasm of breast (principal)
CPT/HCPCS: 77067; G0202

== ENCOUNTER 2017-04-15 03:39 | Emergency (ER) | payer MEDICARE, OTHER ==
[2017-04-15] MEDS ORDERED: FAMOTIDINE 20 MG TABLET PO ONE (04:28)
[2017-04-15] MEDS ORDERED: DIPHENHYDRAMINE HCL 50 MG CAPSULE PO ONE (04:28)
[2017-04-15] MEDS ORDERED: METHYLPREDNISOLONE INJ 40 MG/1 ML SDV IM ONE (04:28)
--- NOTE | 2017-04-15 04:30 | ER Document Report ---
HPI - HPI Patient complains to provider of: insect bite Onset: Just prior to arrival Onset/Duration: Sudden Quality of pain: Throbbing Pain Level: 4 Associated Symptoms: Other - swelling and redness of the left index finger Relieved by: Other - mild improvement with benadryl ointment Similar symptoms previously: No Recently seen / treated by doctor: No - REPRODUCTIVE Reproductive: DENIES: : - DERM Skin Color: Normal Past Medical History - Social History Smoking Status: Unknown if Ever Smoked Family History: Reviewed & Not Pertinent - Past Medical History Cardiac Medical History: Reports: Hx Hypercholesterolemia - takes meds, Hx Hypertension - since 1982 (off and on) takes meds Denies: Hx Atrial Fibrillation, Hx Congestive Heart Failure, Hx Coronary Artery Disease, Hx Heart Attack, Hx Peripheral Vascular Disease, Hx Pulmonary Embolism, Hx Heart Murmur Pulmonary Medical History: Reports: Hx Bronchitis - 8-10 years ago/wheezing Denies: Hx Asthma, Hx COPD, Hx Pneumonia, Hx Respiratory Failure, Hx Sleep Apnea, Hx Tuberculosis Neurological Medical History: Denies: Hx Cerebrovascular Accident, Hx Seizures Endocrine Medical History: Reports: Hx Hypothyroidism. Denies: Hx Graves' Disease, Hx Hyperthyroidism Renal/ Medical History: Denies: Hx End Stage Renal Disease, Hx Kidney Stones, Hx Ovarian Cysts, Hx Peritoneal Dialysis, Hx Pelvic Inflammatory Disease Malignancy Medical History: Denies: Hx Breast Cancer, Hx Cervical Cancer, Hx Lung Cancer, Hx Ovarian Cancer GI Medical History: Reports: Hx Gastroesophageal Reflux Disease - rare. Denies : Hx Crohn's Disease, Hx Hiatal Hernia, Hx Irritable Bowel, Hx Liver Failure, Hx Ulcer Musculoskeltal Medical History: Reports Hx Arthritis, Reports Hx Fibromyalgia, Denies Hx Multiple Sclerosis, Denies Hx Muscular Dystrophy Psychiatric Medical History: Reports: Hx Anxiety, Hx Depression Denies: Hx Bipolar Disorder, Hx Dementia, Hx Post Traumatic Stress Disorder, Hx Schizophrenia Traumatic Medical History: Reports: Hx Fractures - right wrist/right elbow r/t fall Past Surgical History: Reports: Hx Abdominal Surgery - hernia repair, bypass, Hx Breast Surgery - biopsy, Hx Cardiac Surgery - pacemaker, Hx Cholecystectomy, Hx Gastric Bypass Surgery, Hx Gynecologic Surgery - D&Cx4,, Hx Herniorrhaphy - unbilical x2, Hx Hysterectomy, Hx Nose Surgery, Hx Orthopedic Surgery - multp. Denies: Hx Appendectomy, Hx Bowel Surgery, Hx Section, Hx Colostomy, Hx Coronary Artery Bypass Graft, Hx Mastectomy, Hx Pacemaker, Hx Tonsillectomy, Hx Tubal Ligation - Immunizations Hx Diphtheria, Pertussis, Tetanus Vaccination: Yes Hx Pneumococcal Vaccination: 07/16/16 Vertical Provider Document - CONSTITUTIONAL Agree With Documented VS: Yes Exam Limitations: No Limitations General Appearance: WD/WN, No Apparent Distress - INFECTION CONTROL TRAVEL OUTSIDE OF THE [place] IN LAST 30 DAYS: No - RESPIRATORY O2 Sat by Pulse Oximetry: 98 - CARDIOVASCULAR Notes: capillary refill < 2 seconds - MUSCULOSKELETAL/EXTREMETIES Musculoskeletal/Extremeties: MAEW, FROM, Tender - over metacarpal and phalanx joint, Edema. negative: Eccymosis - NEURO Level of Consciousness: Awake, Alert, Appropriate Motor/Sensory: No Motor Deficit, No Sensory Deficit - DERM Integumentary: Warm, Dry, No Rash Notes: mild erythema and swelling of the left index finger Course - Re-evaluation Re-evalutation: 04/15/17 04:30 Patient is a 61-year-old female who was seen in stable, no acute distress and afebrile. Presentation is consistent with irritation from an insect bite of the left index finger. Patient otherwise does not show any signs of anaphylaxis , respiratory distress. Full range of motion of the joint without any concerns for infection at this time. Vital signs stable. Patient received antihistamines and steroids and stable for discharge home. - Vital Signs Vital signs: Temp Pulse Resp BP Pulse Ox 97.5 F 95 17 143/81 H 98 04/15/17 03:43 04/15/17 03:43 04/15/17 03:43 04/15/17 03:43 04/15/17 03:43 Discharge - Discharge Clinical Impression: Insect bite Qualifiers: Encounter type: initial encounter Qualified Code(s): W57.XXXA - Bitten or stung by nonvenomous insect and other nonvenomous arthropods, initial encounter Condition: Good Disposition: HOME, SELF-CARE Instructions: OTC Antihistamines ([facility]), Swollen Insect Bite or Sting ([facility]) Prescriptions: Methylprednisolone [Medrol Dosepack (4 mg/Tab) 21 Tab/Dosepak] 4 mg PO ASDIR PRN #21 tab.ds.pk PRN Reason: Referrals: MIGUEL FRYE DO [Primary Care Provider] - Follow up as needed
[2017-04-15 04:45] VITALS: BP 138/88
== END 2017-04-15 04:42 | disposition home or self-care (01) ==
LOC: ER 03:39
DX: S60.461A Insect bite (nonvenomous) of left index finger, initial encounter (principal); W57.XXXA Bitten or stung by nonvenomous insect and other nonvenomous arthropods, initial encounter; E78.00 Pure hypercholesterolemia, unspecified; I10 Essential (primary) hypertension; E03.9 Hypothyroidism, unspecified; Z95.1 Presence of aortocoronary bypass graft; Z90.49 Acquired absence of other specified parts of digestive tract; Z98.84 Bariatric surgery status
CPT/HCPCS: 99281; 96372; A9270 ×2; J2920

== ENCOUNTER 2017-06-17 08:38 | Emergency (ER) | payer MEDICARE, OTHER ==
[2017-06-17] MEDS ORDERED: HYDROCODONE/ACETAMINOPHEN 7.5-325 MG TABLET PO ONE (09:09)
--- NOTE | 2017-06-17 09:16 | ER Document Report ---
ED Fall - General Chief Complaint: Fall Stated Complaint: FALL/BACK PAIN Time Seen by Provider: 06/17/17 08:53 Mode of Arrival: Ambulatory Information source: Patient Notes: Patient is a 61-year-old morbidly obese white female comes emergency room today complaining of a fall. Patient states she was standing in her backyard last night and her dog came up behind her and a full run and hit her in the back of her knees. This caused patient's knees to buckle and she went into a sitting position on hard ground and then fell backwards onto her back. Patient has had multiple surgeries on her knees and the course it took to knock her down was minimal. She is complaining of severe low lumbar spine pain as well as sacral pain and bilateral hip pain. She also states his pain is running down both legs to the back of her knees. Patient denies any other injuries she did not hit her head so no loss of consciousness. She denies any abdominal pain or chest pain. TRAVEL OUTSIDE OF THE [place] IN LAST 30 DAYS: No - HPI Patient complains to provider of: Low back pain and bilateral hip pain with radiation down legs Occurred: Other - Last evening about 7 PM Where: Home Context: Fell from standing Associated symptoms: None Location of injury/pain: Back, Buttocks, Hip, Pelvic, Lower extremity Quality of pain: Achy, Sharp Severity: Moderate Pain Level: 3 - Related data Allergies/Adverse Reactions: Penicillins Allergy (Severe, Verified 04/15/17 03:43) hives,throat swellling Iodinated Contrast- Oral and IV Dye [IV Dye, Iodine Containing] Allergy (Unknown , Verified 04/15/17 03:43) Anaphylaxis bee venom protein (honey bee) Allergy (Verified 04/15/17 03:43) adhesive tape Adverse Reaction (Intermediate, Verified 04/15/17 03:43) Generalized rash Past Medical History - General Information source: Patient - Social History Smoking Status: Never Smoker Chew tobacco use (# tins/day): No Smoking Education Provided: No Frequency of alcohol use: None Drug Abuse: None Occupation: Retired Lives with: Spouse/Significant other Family History: Reviewed & Not Pertinent Patient has suicidal ideation: No Patient has homicidal ideation: No - Past Medical History Cardiac Medical History: Reports: Hx Hypercholesterolemia - takes meds, Hx Hypertension - since 1982 (off and on) takes meds Denies: Hx Atrial Fibrillation, Hx Congestive Heart Failure, Hx Coronary Artery Disease, Hx Heart Attack, Hx Peripheral Vascular Disease, Hx Pulmonary Embolism, Hx Heart Murmur Pulmonary Medical History: Reports: Hx Bronchitis - 8-10 years ago/wheezing Denies: Hx Asthma, Hx COPD, Hx Pneumonia, Hx Respiratory Failure, Hx Sleep Apnea, Hx Tuberculosis Neurological Medical History: Denies: Hx Cerebrovascular Accident, Hx Seizures Endocrine Medical History: Reports: Hx Hypothyroidism. Denies: Hx Graves' Disease, Hx Hyperthyroidism Renal/ Medical History: Denies: Hx End Stage Renal Disease, Hx Kidney Stones, Hx Ovarian Cysts, Hx Peritoneal Dialysis, Hx Pelvic Inflammatory Disease Malignancy Medical History: Denies: Hx Breast Cancer, Hx Cervical Cancer, Hx Lung Cancer, Hx Ovarian Cancer GI Medical History: Reports: Hx Gastroesophageal Reflux Disease - rare. Denies : Hx Crohn's Disease, Hx Hiatal Hernia, Hx Irritable Bowel, Hx Liver Failure, Hx Pancreatitis, Hx Ulcer Musculoskeltal Medical History: Reports Hx Arthritis, Reports Hx Fibromyalgia, Denies Hx Multiple Sclerosis, Denies Hx Muscular Dystrophy Psychiatric Medical History: Reports: Hx Anxiety, Hx Depression Denies: Hx Bipolar Disorder, Hx Dementia, Hx Post Traumatic Stress Disorder, Hx Schizophrenia Traumatic Medical History: Reports: Hx Fractures - right wrist/right elbow r/t fall Past Surgical History: Reports: Hx Abdominal Surgery - hernia repair, bypass, Hx Breast Surgery - biopsy, Hx Cardiac Surgery - pacemaker, Hx Cholecystectomy, Hx Gastric Bypass Surgery, Hx Gynecologic Surgery - D&Cx4,, Hx Herniorrhaphy - unbilical x2, Hx Hysterectomy, Hx Nose Surgery, Hx Orthopedic Surgery - multp. Denies: Hx Appendectomy, Hx Bowel Surgery, Hx Section, Hx Colostomy, Hx Coronary Artery Bypass Graft, Hx Mastectomy, Hx Pacemaker, Hx Tonsillectomy, Hx Tubal Ligation - Immunizations Hx Diphtheria, Pertussis, Tetanus Vaccination: Yes Hx Pneumococcal Vaccination: 07/16/16 Review of Systems - Review of Systems Constitutional: No symptoms reported EENT: No symptoms reported Cardiovascular: No symptoms reported Respiratory: No symptoms reported Gastrointestinal: No symptoms reported Genitourinary: No symptoms reported Female Genitourinary: No symptoms reported Musculoskeletal: Back pain, Joint pain, Muscle pain Skin: No symptoms reported Hematologic/Lymphatic: No symptoms reported Neurological/Psychological: No symptoms reported -: Yes All other systems reviewed and negative Physical Exam - Vital signs Vitals: Temp Pulse Resp BP Pulse Ox 97.5 F 89 18 136/72 H 99 06/17/17 08:44 06/17/17 08:44 06/17/17 08:44 06/17/17 08:44 06/17/17 08:44 Interpretation: Hypertensive - General General appearance: Alert, Other - Uncomfortable appearing, obvious pain In distress: Mild - Respiratory Respiratory status: No respiratory distress Chest status: Nontender Breath sounds: Normal Chest palpation: Normal - Cardiovascular Rhythm: Regular Heart sounds: Normal auscultation Murmur: No - Abdominal Inspection: Normal Distension: No distension Bowel sounds: Normal Tenderness: Nontender - Back Back: Tender, Vertebra tenderness, Other - Examination patient's area of complaint and pain focuses around the lower lumbar spine from about L2 through sacrum. There is moderate discomfort to palpation bilateral sides of the lumbar spine. There is increased pain and discomfort with pressure applied to the sacrum. Patient has increased discomfort with rotation of her hips at the lumbar spine area. There is no visual deformity no crepitus felt. Examination of the hips shows bilateral tenderness anteriorly in the groin area to palpation. There is no internal or external rotation of the feet and the legs while being examined and there is no shortening of one side versus the other. Patient displays good vascular examination with dorsalis pedis bilaterally 2+ she also displays good strength with her lower extremities against resistance.. No: Normal, Nontender, Deformity/step-off, CVA tenderness, Scars, Scoliosis, Wounds - Extremities General upper extremity: Normal inspection, Normal ROM General lower extremity: Normal strength Hip: Tender, Pain with ROM. No: Normal, Nontender, Abrasion, Deformity, Dislocation, Ecchymosis, Instability, Laceration, Unable to bear weight, Other Thigh: Normal - Neurological Neuro grossly intact: Yes Cognition: Normal Orientation: AAOx4 [place] Coma Scale Eye Opening: Spontaneous [place] Coma Scale Verbal: Oriented [place] Coma Scale Motor: Obeys Commands [place] Coma Scale Total: 15 Speech: Normal Course - Vital Signs Vital signs: Temp Pulse Resp BP Pulse Ox 97.5 F 89 18 136/72 H 99 06/17/17 08:44 06/17/17 08:44 06/17/17 08:44 06/17/17 08:44 06/17/17 08:44 - Transfer of Care Notes: 06/17/17 12:01 Patient fared well during her stay here at the emergency room. Pain was controlled somewhat with the hydrocodone. CT of the lumbar spine and x-rays of the hips were negative for any acute findings. There is an old transverse process fracture on the lumbar spine at L1. No other acute findings were seen no. She will be discharged home for follow-up with her primary care provider and possible referral for MRI if pain continues. Discharge - Discharge Clinical Impression: Sciatica Contusion of sacrum Qualifiers: Encounter type: initial encounter Qualified Code(s): S30.0XXA - Contusion of lower back and pelvis, initial encounter Condition: Good Disposition: HOME, SELF-CARE Instructions: Contusion ([facility]), Sciatica ([facility]) Additional Instructions: Home and rest. As we discussed ice 3 times a day for the next 48 hours and then after that you may use moist heat alternating with ice. He may also take Mason for pain greater than 5 out of 10. You may also take the steroid taper for 6 days as directed. As we discussed you may pain continues follow-up with her primary care for possible MRI however you must check to see if you can do that with a pacer. If he should have any concerns or problems if you start to have loss of urine or stool or any concerns at all return to ER for recheck. Prescriptions: Hydrocodone/Acetaminophen [Mason 7.5-325 Tablet] 1 each PO Q4A #15 tablet Methylprednisolone [Medrol Dosepack (4 mg/Tab) 21 Tab/Dosepak] 4 mg PO ASDIR PRN #21 tab.ds.pk PRN Reason: Forms: Elevated Blood Pressure
--- NOTE | 2017-06-17 10:16 | RADIOLOGY REPORT (SQ) ---
EXAM DESCRIPTION: HIP BILATERAL COMPLETED DATE/TIME: 06/17/2017 9:38 am REASON FOR STUDY: fall/ NEED PELIS VIEW COMPARISON: None. NUMBER OF VIEWS: Four views. TECHNIQUE: AP pelvis and additional frog-leg view of the right and left hip. LIMITATIONS: None. FINDINGS: MINERALIZATION: Normal. PRIMARY HIP: No fracture or dislocation. No worrisome bone lesions. OPPOSITE HIP: No fracture or dislocation. No worrisome bone lesions. PUBIS AND ISCHIUM: No fracture. PELVIS: No fracture. SACRUM: No fracture or dislocation. No worrisome bone lesions. LOWER LUMBAR SPINE: No fracture or dislocation. No worrisome bone lesions. No significant disc disea se. SOFT TISSUES: No findings. OTHER: No other significant finding. IMPRESSION: No fracture. TECHNICAL DOCUMENTATION: JOB ID: [id number] [employer]- All Rights Reserved
--- NOTE | 2017-06-17 11:41 | RADIOLOGY REPORT (SQ) ---
EXAM DESCRIPTION: CT LUMBAR SPINE WITHOUT COMPLETED DATE/TIME: 06/17/2017 9:57 am REASON FOR STUDY: fall/ very tender and sacrum very painful COMPARISON: None. TECHNIQUE: Axial images acquired through the lumbar spine without intravenous contrast. Images revi ewed with lung, soft tissue and bone windows. Reconstructed coronal and sagittal MPR images reviewed . All images stored on PACS. All CT scanners at this facility use dose modulation, iterative reconstruction, and/or weight based d osing when appropriate to reduce radiation dose to as low as reasonably achievable (ALARA). [facility]: Dose Right [facility]: CareDose [facility]: Dose Right [facility]: Teradose 4D [facility]: [employer] RADIATION DOSE: mGy. LIMITATIONS: None. FINDINGS: Bones are osteopenic. There is an old fracture of the right L1 transverse process. No ac [place] fracture is identified. Facet arthropathy. Mild spondylosis. Alignment is anatomic. IMPRESSION: No acute findings. TECHNICAL DOCUMENTATION: JOB ID: [id number] Quality ID # [id number]: Final reports with documentation of one or more dose reduction techniques (e.g., Au tomated exposure control, adjustment of the mA and/or kV according to patient size, use of iterative reconstruction technique) 2010 [employer]- All Rights Reserved
[2017-06-17 12:31] VITALS: BP 134/70
== END 2017-06-17 12:30 | disposition home or self-care (01) ==
LOC: ER 08:38
DX: S30.0XXA Contusion of lower back and pelvis, initial encounter (principal); M54.30 Sciatica, unspecified side; E66.01 Morbid (severe) obesity due to excess calories; M25.551 Pain in right hip; M25.552 Pain in left hip; M79.604 Pain in right leg; M79.605 Pain in left leg; W18.00XA Striking against unspecified object with subsequent fall, initial encounter
CPT/HCPCS: 99284; 73522; 72131; A9270

== ENCOUNTER → 2017-07-17 | Outpatient (CLI) | payer MEDICARE, OTHER ==
--- NOTE | 2017-07-17 12:21 | WOMENS IMAGING REPORT ---
EXAM DESCRIPTION: BONE DENSITY HIP/SPINE COMPLETED DATE/TIME: 07/17/2017 9:37 am REASON FOR STUDY: MISORDER OF BONE; M85.9 M85.9 DISORDER OF BONE DENSITY AND STRUCTURE, UNSPECIFIED COMPARISON: 05/13/2015. TECHNIQUE: Dual-Energy X-ray Absorptiometry (DEXA) of the AP Spine and Hip. LIMITATIONS: None. FINDINGS: LUMBAR SPINE: The bone mineral density (BMD) measured from L1-L4 in the AP projection correlates with a T-score of -2.0, which is osteopenia as defined by the World Health Organization. HIP: The bone mineral density (BMD) measured in the left hip correlates with a T-score of -2.3, which is o steopenia as defined by the World Health Organization. IMPRESSION: 1. LUMBAR SPINE: OSTEOPENIA. 2. HIP: OSTEOPENIA. COMMENT: The World Health Organization defines low BMD as follows: T-score: Normal: Greater than -1.0 Osteopenia: Between -1.0 and -2.5 Osteoporosis: Less than -2.5 without fractures Established osteoporosis: Less than -2.5 with fractures In general, you may wish to consider: Diagnosis Treatment Follow-up DEXA Normal BMD Prevention 2-3 years Osteopenia Prevention/Therapy 1-2 years Osteoporosis Therapy Yearly TECHNICAL DOCUMENTATION: JOB ID: [id number] [employer]- All Rights Reserved
== END ==
LOC: WI 09:17
PROVIDERS: ATTEND Student in an Organized Health Care Education/Training Program
DX: M85.88 Other specified disorders of bone density and structure, other site (principal)
CPT/HCPCS: 77080

== ENCOUNTER 2017-07-30 10:40 | Emergency (ER) | payer MEDICARE, OTHER ==
[2017-07-30] MEDS ORDERED: DEXAMETHASONE SOD PHOS INJ 10 MG/1 ML VIAL IM ONE (12:02)
[2017-07-30] MEDS ORDERED: LIDOCAINE 5% (700 MG) TRANSDERMAL ADH..PATCH TP ONE (12:03)
--- NOTE | 2017-07-30 12:08 | ER Document Report ---
ED Neck/Back Problem - General Chief Complaint: Back Pain Stated Complaint: BACK PAIN Time Seen by Provider: 07/30/17 11:41 Mode of Arrival: Ambulatory Information source: Patient Notes: 61-year-old female presented to ED for severe low back pain radiating to the right across the buttocks into the hip. She states she fell in June. She states she has had chronic back pain since 83. States she is on Eliquis so she cannot take ibuprofen TRAVEL OUTSIDE OF THE [place] IN LAST 30 DAYS: No - HPI Patient complains to provider of: Pain, Lower back. No: Injury Onset: Other - Worse for the last several weeks Onset: Chronic Timing: Waxing and waning Quality of pain: Burning, Sharp Severity: Severe Pain Level: 5 Context: Turning Recent injury: No Associated symptoms: Like prior neck/back pain, Radiation to leg, Lower back pain. denies: Constipation, Fever, Incontinence, Motor loss, Numbness/tingling , Sensory loss, Sweaty, Unable to urinate Exacerbated by: Sitting position, Other - Walking Relieved by: Nothing Similar symptoms previously: Yes Recently seen / treated by doctor: Yes - Related Data Allergies/Adverse Reactions: Penicillins Allergy (Severe, Verified 04/15/17 03:43) hives,throat swellling Iodinated Contrast- Oral and IV Dye [IV Dye, Iodine Containing] Allergy (Unknown , Verified 04/15/17 03:43) Anaphylaxis bee venom protein (honey bee) Allergy (Verified 04/15/17 03:43) adhesive tape Adverse Reaction (Intermediate, Verified 04/15/17 03:43) Generalized rash Past Medical History - General Information source: Patient - Social History Smoking Status: Never Smoker Cigarette use (# per day): No Chew tobacco use (# tins/day): No Smoking Education Provided: No Frequency of alcohol use: None Drug Abuse: None Occupation: Disabled Lives with: Family Family History: Arthritis, CAD, Hyperlipidemia, Hypertension, Malignancy, Thyroid Disfunction. 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 Pulmonary Medical History: Reports: Hx Bronchitis - 8-10 years ago/wheezing EENT Medical History: Reports: None Neurological Medical History: Reports: None Endocrine Medical History: Reports: Hx Hypothyroidism Renal/ Medical History: Reports: Hx Ovarian Cysts Malignancy Medical History: Reports: None GI Medical History: Reports: Hx Gastroesophageal Reflux Disease - rare, Hx Colonoscopy Musculoskeltal Medical History: Reports Hx Arthritis, Reports Hx Fibromyalgia, Reports Hx Musculoskeletal Deformity, Reports Hx Musculoskeletal Trauma Skin Medical History: Reports Hx Cellulitis, Reports Hx MRSA Psychiatric Medical History: Reports: Hx Anxiety, Hx Depression Traumatic Medical History: Reports: Hx Fractures - right wrist/right elbow r/t fall Infectious Medical History: Reports: Hx MRSA Past Surgical History: Reports: Hx Breast Surgery - biopsy, Hx Cholecystectomy, Hx Dilation and Curettage, Hx Gastric Bypass Surgery, Hx Hysterectomy, Hx Nose Surgery, Hx Orthopedic Surgery - multp, Hx Pacemaker, Hx Umbilical Hernia - Umbilical and incisional hernia - Immunizations Hx Diphtheria, Pertussis, Tetanus Vaccination: Yes Hx Pneumococcal Vaccination: 07/16/16 Review of Systems - Review of Systems Constitutional: No symptoms reported EENT: No symptoms reported Cardiovascular: No symptoms reported Respiratory: No symptoms reported Gastrointestinal: No symptoms reported Genitourinary: No symptoms reported Female Genitourinary: No symptoms reported Musculoskeletal: Back pain, Muscle pain, Muscle stiffness Skin: No symptoms reported Hematologic/Lymphatic: No symptoms reported Neurological/Psychological: No symptoms reported -: Yes All other systems reviewed and negative Physical Exam - Vital signs Vitals: Temp Pulse Resp BP Pulse Ox 98.0 F 80 14 105/61 97 07/30/17 11:26 07/30/17 11:26 07/30/17 11:26 07/30/17 11:26 07/30/17 11:26 Interpretation: Normal - General General appearance: Appears well, Alert - HEENT Head: Normocephalic, Atraumatic Eyes: Normal Pupils: PERRL - Respiratory Respiratory status: No respiratory distress Chest status: Nontender Breath sounds: Normal Chest palpation: Normal - Cardiovascular Rhythm: Regular Heart sounds: Normal auscultation Murmur: No - Abdominal Inspection: Healed incision Distension: No distension Bowel sounds: Normal Tenderness: Nontender Organomegaly: No organomegaly - Back Back: Normal, Tender, Vertebra tenderness - Sacral area. No: Deformity/step-off , CVA tenderness, Scars, Scoliosis, Wounds, Other Notes: Patient denies any signs or symptoms of cauda equina, denies any loss of sensation to th perineum, denies any loss of sensation to the legs, denies any loss of control of bowel bladder, denies any loss control of lower extremities. - Extremities General upper extremity: Normal inspection, Nontender, Normal color, Normal ROM , Normal temperature General lower extremity: Normal inspection, Nontender, Normal color, Normal ROM , Normal temperature, Normal weight bearing. No: Gem's sign - Neurological Neuro grossly intact: Yes Cognition: Normal Orientation: AAOx4 [place] Coma Scale Eye Opening: Spontaneous [place] Coma Scale Verbal: Oriented [place] Coma Scale Motor: Obeys Commands [place] Coma Scale Total: 15 Speech: Normal Motor strength normal: LUE, RUE, LLE, RLE Sensory: Normal - Psychological Associated symptoms: Normal affect, Normal mood - Skin Skin Temperature: Warm Skin Moisture: Dry Skin Color: Normal Course - Re-evaluation Re-evalutation: 07/30/17 12:09 Have ordered a low back x-ray, Decadron injection, and Lidoderm patch to the back. Will reassess after x-rays are back. 07/30/17 13:00 X-ray report discussed with patient and written report given to patient for follow-up with a spinal doctor. Patient was given a recommendation for with name and number for a spinal doctor. 07/30/17 21:03 - Vital Signs Vital signs: Temp Pulse Resp BP Pulse Ox 97.8 F 78 16 120/73 97 07/30/17 13:05 07/30/17 13:05 07/30/17 13:05 07/30/17 13:05 07/30/17 13:05 - Diagnostic Test Radiology reviewed: Image reviewed, Reports reviewed Discharge - Discharge Clinical Impression: Exacerbation of chronic back pain Condition: Stable Disposition: HOME, SELF-CARE Additional Instructions: Chronic Back Pain Chronic back pain (pain persisting longer than three months) is a common problem. A medical evaluation can look for herniated disc, arthritis, osteoporosis, tumors, and infections. But at least half the time, there's no obvious treatable cause. Anxiety and depression tend to worsen back pain. Ibuprofen or other anti-inflammatory medicine can help. A heating pad, used for 15-20 minutes at a time, can ease pain. For this type of back pain, narcotic medicines should be avoided. Muscle relaxers are rarely helpful unless you're having spasms. Activity is important. Find an aerobic exercise program that your back can tolerate. Too much rest makes back pain worse. Specific back exercises are usually prescribed to strengthen the back and abdominal muscles. Often, a physical therapist can help. Avoid heavy lifting, working while bent over, or standing with both knees straight. Most back pain patients do better with a firm mattress. If new symptoms of a "herniated disc" (radiation of pain, numbness, or tingling down the back of the leg or weakness in the leg) occur, you should be re-examined. Sciatica Your symptoms suggest "sciatica." The pain of sciatica typically radiates down the leg. Numbness in the foot or calf may also occur. Sciatica is caused by irritation of the sciatic nerve or its branches. The irritation can be due to a herniated disk in the spine, swelling and inflammation in the muscles surrounding the sciatic nerve, or direct injury of the nerve itself. Most cases of sciatica will resolve with medical treatment. Bed rest is usually recommended initially. Surgery is only necessary when the condition will not improve with rest and antiinflammatory medication. Muscle relaxers are often given if muscle soreness is present. A CAT scan of the back may be performed if a herniated disk is suspected. Re-examination is necessary if you develop increasing numbness, localized weakness in the foot or ankle, or if the pain does not respond to rest. Stretching Exercises for the Back The physician has recommended that you begin stretching exercises for your back. These are often used even while the back is painful. However, you should notify the physician if the activities seem to increase your pain. PELVIC TILT: Lie flat on your back with knees bent. Tighten your stomach and buttock muscles so it flattens your lower back against the floor. Hold 10 seconds. Repeat 10 times, twice daily. KNEE RAISE: Lying on the back with knees bent, raise one knee to your chest, then the other. Hold both knees against the chest 10 seconds, then lower one knee at a time. Repeat 10 times, twice daily. PARTIAL TRUNK RAISE: Lie face down, arms at your sides. Keeping your waist on the floor, use your arms raise your chest up. Support yourself on your elbows for 30 seconds. Repeat twice daily, increasing the time to two minutes as you recover. STEROID MEDICATION: You have been given an injection of medicine of the cortisone/steroid class. This medication is used to control inflammation or allergy. It is often continued as a pill for a short period of time, until the acute process subsides. There are usually no side effects from short-term use of cortisone-like medications. Some persons feel an increased sense of well-being and are not sleepy at bedtime. Long-term use of cortisone medications is best avoided, unless required for a severe condition. If your condition does not remit, or relapses after the course of corticosteroid medication, you should consult your physician. ICE PACKS: Apply ice packs frequently against the painful area. Many different schedules are recommended, such as "20 minutes on, 20 minutes off" or "one hour ice, two hours rest." If you need to work, you may need to go longer between ice treatments. You should plan to have the area ice packed AT LEAST one fourth of the time. The ice should be applied over the wrap, tape, or splint, or over a layer of cloth -- not directly against the skin. Some ice bags have a built-in cloth and can be put directly on the skin. WARM PACKS: After approximately two days, apply gentle heat (such as a heating pad or hot water bottle) for about 20 to 30 minutes about every two hours -- at least four times daily. Warmth and elevation will help you make a more rapid recovery , and will ease the pain considerably. Do not use HOT heat, and never apply heat for longer than 30 minutes. The continuous heat can invisibly damage skin and muscles -- even when no burn is seen on the surface. Damaged muscles can make you MORE sore. FOLLOW-UP CARE: If you have been referred to a physician for follow-up care, call the physician s office for an appointment as you were instructed or within the next two days. If you experience worsening or a significant change in your symptoms, notify the physician immediately or return to the Emergency Department at any time for re-evaluation. Referrals: MIGUEL FRYE DO [Primary Care Provider] - Follow up as needed ANA ALMEIDA MD [ASSOCIATE] - Follow up as needed
--- NOTE | 2017-07-30 12:44 | RADIOLOGY REPORT (SQ) ---
EXAM DESCRIPTION: L SPINE WHOLE COMPLETED DATE/TIME: 07/30/2017 12:32 pm REASON FOR STUDY: low back pian with radiation to right getting wors COMPARISON: 06/07/2015 NUMBER OF VIEWS: Five views including obliques. TECHNIQUE: AP, lateral, oblique, and sacral radiographic images acquired of the lumbar spine. LIMITATIONS: None. FINDINGS: MINERALIZATION: Normal. SEGMENTATION: Normal. ALIGNMENT: Stable alignment and curvature. VERTEBRAE: Maintained height. No fracture or worrisome bone lesion. DISCS: Multilevel disc space narrowing with osteophytes. POSTERIOR ELEMENTS: Pedicles and facets are intact. No pars defect or posterior arch defects. Facet arthropathy is present. HARDWARE: None in the spine. PARASPINAL SOFT TISSUES: Vascular calcifications. PELVIS: Intact as visualized. No fractures or worrisome bone lesions. SI joints intact. OTHER: No other significant finding. IMPRESSION: NO ACUTE OSSEOUS ABNORMALITY. NO SIGNIFICANT CHANGE FROM PRIOR STUDY. TECHNICAL DOCUMENTATION: JOB ID: [id number] [employer]- All Rights Reserved
[2017-07-30 13:05] VITALS: BP 120/73
== END 2017-07-30 13:10 | disposition home or self-care (01) ==
LOC: ER 10:40
DX: G89.29 Other chronic pain (principal); M54.5 Low back pain; I10 Essential (primary) hypertension; Z79.01 Long term (current) use of anticoagulants; Z88.0 Allergy status to penicillin; Z91.041 Radiographic dye allergy status; Z91.030 Bee allergy status; Z95.0 Presence of cardiac pacemaker; Z98.84 Bariatric surgery status
CPT/HCPCS: 99283; 96372; 72110; J1100

== ENCOUNTER 2017-12-19 11:13 | Emergency (ER) | payer MEDICARE, OTHER ==
[2017-12-19] MEDS ORDERED: EPINEPHRINE INJ/PF 1 MG/1 ML AMPULE IM PRN (11:19)
[2017-12-19] MEDS ORDERED: METHYLPREDNISOLONE INJ 125 MG/2 ML SDV IV ONE (11:20)
[2017-12-19] MEDS ORDERED: DIPHENHYDRAMINE HCL 50 MG/ML VIAL IV ONE (11:20)
[2017-12-19] MEDS ORDERED: FAMOTIDINE INJ/PF 20 MG/2 ML SDV IV ONE (11:20)
[2017-12-19] MEDS ORDERED: MAGNESIUM SULFATE/D5W 1 GM/100 ML RTUPB IV ONE (11:21)
--- NOTE | 2017-12-19 11:29 | ER Document Report ---
ED Medical Screen (RME) - General Mode of Arrival: Ambulatory Information source: Patient TRAVEL OUTSIDE OF THE [place] 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 Patient was out in the garden gardening when the bee sting occurred. Patient's has had epinephrine in the past and did not have any EpiPen with her because of cost. She denies any shortness of breath at this time but again she has a sensation around the throat. Past medical history: Symptomatic bradycardia with pacemaker, hypertension, chronic neck and back pain Medications: Coumadin, gabapentin, simvastatin, hydrochlorothiazide, metoprolol , trazodone and levothyroxine Allergies: Penicillin, IV dye and bee stings (RODRIGUEZ MENDOZA) - Related Data Allergies/Adverse Reactions: Penicillins Allergy (Severe, Verified 12/19/17 11:15) hives,throat swellling Iodinated Contrast- Oral and IV Dye [IV Dye, Iodine Containing] Allergy (Unknown , Verified 12/19/17 11:15) Anaphylaxis bee venom protein (honey bee) Allergy (Verified 12/19/17 11:15) adhesive tape Adverse Reaction (Intermediate, Verified 12/19/17 11:15) Generalized rash Past Medical History - Past Medical History Cardiac Medical History: Reports: Hx Hypercholesterolemia - takes meds, Hx Hypertension - since 1982 (off and on) takes meds Denies: Hx Atrial Fibrillation, Hx Congestive Heart Failure, Hx Heart Attack Pulmonary Medical History: Reports: Hx Bronchitis - 8-10 years ago/wheezing Denies: Hx Asthma, Hx COPD, Hx Pneumonia, Hx Tuberculosis Neurological Medical History: Denies: Hx Seizures Endocrine Medical History: Reports: Hx Hypothyroidism Renal/ Medical History: Reports: Hx Ovarian Cysts. Denies: Hx End Stage Renal Disease, Hx Kidney Stones, Hx Peritoneal Dialysis GI Medical History: Reports: Hx Gastroesophageal Reflux Disease - rare, Hx Colonoscopy. Denies: Hx Hiatal Hernia, Hx Ulcer Musculoskeltal Medical History: Reports Hx Arthritis, Reports Hx Fibromyalgia, Reports Hx Musculoskeletal Deformity, Reports Hx Musculoskeletal Trauma Skin Medical History: Reports Hx Cellulitis, Reports Hx MRSA Psychiatric Medical History: Reports: Hx Anxiety, Hx Depression Denies: Hx Bipolar Disorder, Hx Schizophrenia Traumatic Medical History: Reports: Hx Fractures - right wrist/right elbow r/t fall Infectious Medical History: Reports: Hx MRSA Past Surgical History: Reports: Hx Abdominal Surgery - hernia repair, bypass, Hx Breast Surgery - biopsy, Hx Cardiac Surgery - pacemaker, Hx Cholecystectomy, Hx Dilation and Curettage, Hx Gastric Bypass Surgery, Hx Gynecologic Surgery - D &Cx4,, Hx Hysterectomy, Hx Nose Surgery, Hx Orthopedic Surgery - multp, Hx Pacemaker, Hx Umbilical Hernia - Umbilical and incisional hernia. Denies: Hx Appendectomy, Hx Bowel Surgery, Hx Section, Hx Mastectomy, Hx Tonsillectomy, Hx Tubal Ligation - Immunizations Hx Diphtheria, Pertussis, Tetanus Vaccination: Yes Doctor's Discharge - Discharge Clinical Impression: Bee sting, Allergic reaction to bee sting Condition: Stable Additional Instructions: Insect Sting You've been stung by an insect. The venom can cause pain, redness, and swelling. Right after the sting, we sometimes use adrenaline to reduce the reaction to the venom. This also stops any allergic reaction. You should apply cold compresses, rest and elevate the affected part, and take antihistamines. A more severe, itchy red swelling sometimes develops the next day. This is a local allergic reaction to the venom. This local allergy isn't dangerous. We treat it with cortisone-type medicine and antihistamines. Sometimes we use antibiotics if we're worried about infection. If you develop a fever, chills, a red streak, or swollen glands in the area of the bite, infection may be starting. Return at once. Insect stings from the bee and hornet family may cause a severe allergic reaction. Symptoms include hoarseness, shortness of breath, general redness of the skin, general itching, or lightheadedness. If any of these symptoms occur, you'll be treated with adrenalin and cortisone-like steroids. You should carry an "Anaphylaxis Kit" with you in the summer months so you can administer these medications to yourself before getting emergency medical care. ACUTE ALLERGIC REACTION: Your symptoms are due to an allergic reaction. Allergy can cause hives, swelling of the hands, feet, and face, hoarseness, and difficulty swallowing or breathing. It may be due to exposure to medication, animal dander, foods, infection, or insect bites. Medication is a common cause, even when prior use of this same medication caused no problems. Acute treatment may include adrenalin and antihistamines. Usually, the specific allergic agent can't be identified unless repeated episodes occur. Home treatment includes the following: (1) Stop any suspicious medications. This will be discussed with you. (2) Oral antihistamines for the next four to five days. Example, diphenhydramine (Benadryl) every four hours. (3) You may also use cimetidine (Tagamet), ranitidine (Zantac), or famotidine ( Pepcid) every four hours if diphenhydramine is not controlling itching and hives. (4) Avoid aspirin until the hives completely disappear. (5) Avoid hot baths or showers until the hives are completely gone. Call the doctor if faintness, difficulty swallowing, tightness in the chest , or wheezing occurs. EPINEPHRINE: An injection of epinephrine (also called adrenalin) is used to treat allergic reactions, asthma, and some other medical conditions. It is a stimulant medication that consticts blood vessels, relaxes smooth muscles such as in the bronchioles of the lung, elevates blood pressure, and increases heart rate. It can temporarily make you feel very nervous and shakey, but it's affects last only a short time, about 15 to 30 minutes at most. STEROID MEDICATION INJECTION: You have been given an injection of medicine of the cortisone/steroid class. This medication is used to control inflammation or allergy. It is often continued as a pill for a short period of time, until the acute process subsides. There are usually no side effects from short-term use of cortisone-like medications. Some persons feel an increased sense of well-being and are not sleepy at bedtime. Long-term use of cortisone medications is best avoided, unless required for a severe condition. If your condition does not remit, or relapses after the course of corticosteroid medication, you should consult your physician. ACID-SUPPRESSING MEDICATION: You have a prescription for medicine which reduces the stomach's secretion of acid. Examples include Zantac, Tagament, and Pepcid. These drugs are often used to allow healing of ulcers or esophagitis. They may be needed to prevent recurrence of ulcers in some patients, or to prevent damage from acid reflux in the esophagus. Take all medication as prescribed, even after the pain is gone. Regular antacids may be added as needed if you have symptoms while taking this medicine. These medications sometimes are prescribed for allergic reactions because they have anti-histaminic effects and relieve the rash and itching of the reaction. There are usually no side effects from this medication. But, in rare cases and particularly in the elderly, serious problems can occur. Contact your doctor if there is fever, rash, hallucinations, confusion, or unusual bruising. Contact your doctor at once if you develop lightheadedness, black or bloody stool, or bloody vomitus. ANTIHISTAMINES: An antihistamine has been given and/or prescribed to control your symptoms. Antihistamines are used for many reasons, including itching, watering eyes, runny nose, allergic swelling, hives, and insect stings. Antihistamines may cause drowsiness, especially with the first dose. Do not operate machinery or drive while under the effects of the medication. Other common side effects include dry mouth and eyes. In older persons, antihistamines can occasionally cause urinary retention, constipation, and trouble focusing the eyes. Do not combine the medication with alcohol, or with any other medication without talking to your doctor. USE OF DIPHENHYDRAMINE: The use of diphenhydramine (Benadryl) has been recommended to control allergic symptoms. The 25 mg strength is available over- the-counter, as well as the elixir. This antihistamine is used for many symptoms. It's useful for itching, watering eyes and nose, allergic swelling, hives, and insect stings. The medication can be repeated four times daily. Age Elixir (12.5 mg/tsp) 25 mg pill adult 1-2 tabs Antihistamines may cause drowsiness, especially with the first dose. Do not operate machinery or drive while under the effects of the medication. Do not combine the medication with alcohol, or with any other medication without talking to your doctor. FOLLOW-UP CARE: If you have been referred to a physician for follow-up care, call the physician s office for an appointment as you were instructed or within the next two days. If you experience worsening or a significant change in your symptoms, notify the physician immediately or return to the Emergency Department at any time for re-evaluation. Referrals: MIGUEL FRYE, [Primary Care Provider] - Follow up as needed
[2017-12-19] MEDS ORDERED: ONDANSETRON HCL INJ/PF 4 MG/2 ML SDV IV ONE (11:51)
[2017-12-19 13:27] VITALS: BP 119/67
--- NOTE | 2017-12-19 18:58 | ER Document Report ---
ED General - General Chief Complaint: Bee Sting Stated Complaint: POSSIBLE BEE STING Time Seen by Provider: 12/19/17 11:18 Mode of Arrival: Ambulatory Notes: Patient was stung on her left ring finger about 11 AM today by a yellow jacket. She was only stung once. She did not develop a rash or itching, but she did feel some mild shortness of breath and nausea, but no wheezes and did not vomit.. She has had a history of anaphylactic reaction to bee stings. She usually has an EpiPen, but they have become too expensive for her to keep one handy. TRAVEL OUTSIDE OF THE [place] IN LAST 30 DAYS: No - Related Data Allergies/Adverse Reactions: Penicillins Allergy (Severe, Verified 12/19/17 11:15) hives,throat swellling Iodinated Contrast- Oral and IV Dye [IV Dye, Iodine Containing] Allergy (Unknown , Verified 12/19/17 11:15) Anaphylaxis bee venom protein (honey bee) Allergy (Verified 12/19/17 11:15) adhesive tape Adverse Reaction (Intermediate, Verified 12/19/17 11:15) Generalized rash Past Medical History - General Information source: Patient - Social History Smoking Status: Unknown if Ever Smoked Chew tobacco use (# tins/day): No Frequency of alcohol use: None Drug Abuse: None Family History: Arthritis, CAD, Hyperlipidemia, Hypertension, Malignancy, Thyroid Disfunction. denies: COPD, CVA, DM Patient has suicidal ideation: No Patient has homicidal ideation: No - Past Medical History Cardiac Medical History: Reports: Hx Hypercholesterolemia - takes meds, Hx Hypertension - since 1982 (off and on) takes meds Pulmonary Medical History: Reports: Hx Bronchitis - 8-10 years ago/wheezing Endocrine Medical History: Reports: Hx Hypothyroidism Renal/ Medical History: Reports: Hx Ovarian Cysts GI Medical History: Reports: Hx Gastroesophageal Reflux Disease - rare, Hx Colonoscopy Musculoskeltal Medical History: Reports Hx Arthritis, Reports Hx Fibromyalgia, Reports Hx Musculoskeletal Deformity, Reports Hx Musculoskeletal Trauma Skin Medical History: Reports Hx Cellulitis, Reports Hx MRSA Psychiatric Medical History: Reports: Hx Anxiety, Hx Depression Traumatic Medical History: Reports: Hx Fractures - right wrist/right elbow r/t fall Infectious Medical History: Reports: Hx MRSA Past Surgical History: Reports: Hx Abdominal Surgery - hernia repair, bypass, Hx Breast Surgery - biopsy, Hx Cardiac Surgery - pacemaker, Hx Cholecystectomy, Hx Dilation and Curettage, Hx Gastric Bypass Surgery, Hx Gynecologic Surgery - D &Cx4,, Hx Hysterectomy, Hx Nose Surgery, Hx Orthopedic Surgery - multp, Hx Pacemaker, Hx Umbilical Hernia - Umbilical and incisional hernia - Immunizations Hx Diphtheria, Pertussis, Tetanus Vaccination: Yes Hx Pneumococcal Vaccination: 07/16/16 Review of Systems - Review of Systems Notes: REVIEW OF SYSTEMS: CONSTITUTIONAL : Denies fever. EENT: Denies eye, ear, nose or mouth or throat pain or other symptoms. CARDIOVASCULAR: Denies chest pain. RESPIRATORY: See HPI. GASTROINTESTINAL: Nauseated, but denies abdominal pain or vomiting or diarrhea. GENITOURINARY: Denies difficulty or painful urinating, urinary frequency, blood in urine. MUSCULOSKELETAL: Denies back or neck pain. Denies joint pain or swelling. SKIN: Denies rash or skin lesions. Some swelling and slight tenderness of the proximal left ring finger where the bee stung the patient. NEUROLOGICAL: Denies LOC or altered mental status. Denies headache. Denies sensory loss or motor deficits. ALL OTHER SYSTEMS REVIEWED AND NEGATIVE. Physical Exam - Vital signs Vitals: Resp Pulse Ox 16 100 12/19/17 11:41 12/19/17 11:41 Interpretation: Normal - Notes Notes: PHYSICAL EXAMINATION: GENERAL: Well-appearing, in no acute distress. Anxious. Vital signs are all normal. HEAD: Atraumatic, normocephalic. EYES: Pupils equal round and reactive to light, extraocular movements intact. ENT: oropharynx clear without exudates. Moist mucous membranes. NECK: Normal range of motion, supple. LUNGS: Breath sounds clear and equal bilaterally. HEART: Regular rate and rhythm without murmurs. ABDOMEN: Soft, nontender. No guarding or rebound. No masses. BACK: No tenderness throughout entire back. EXTREMITIES: Normal range of motion without pain. Very slight swelling and tenderness of the proximal left fourth finger. NEUROLOGICAL: Normal speech, normal gait. Normal sensory, motor, and reflex exams. Awake, alert, and oriented x3. Cranial nerves normal. PSYCH: Normal mood, normal affect. SKIN: Warm, dry, no rashes. Course - Re-evaluation Re-evalutation: 12/19/17 19:04 Patient was given usual meds for allergic reaction. She was observed for over an hour without any recurrence or progression of symptoms. [place] much better and was discharged home. - Vital Signs Vital signs: Temp Pulse Resp BP Pulse Ox 15 119/67 99 12/19/17 13:22 12/19/17 13:23 12/19/17 13:23 Discharge - Discharge Clinical Impression: Bee sting, Allergic reaction to bee sting Condition: Stable Disposition: HOME, SELF-CARE Additional Instructions: Insect Sting You've been stung by an insect. The venom can cause pain, redness, and swelling. Right after the sting, we sometimes use adrenaline to reduce the reaction to the venom. This also stops any allergic reaction. You should apply cold compresses, rest and elevate the affected part, and take antihistamines. A more severe, itchy red swelling sometimes develops the next day. This is a local allergic reaction to the venom. This local allergy isn't dangerous. We treat it with cortisone-type medicine and antihistamines. Sometimes we use antibiotics if we're worried about infection. If you develop a fever, chills, a red streak, or swollen glands in the area of the bite, infection may be starting. Return at once. Insect stings from the bee and hornet family may cause a severe allergic reaction. Symptoms include hoarseness, shortness of breath, general redness of the skin, general itching, or lightheadedness. If any of these symptoms occur, you'll be treated with adrenalin and cortisone-like steroids. You should carry an "Anaphylaxis Kit" with you in the summer months so you can administer these medications to yourself before getting emergency medical care. ACUTE ALLERGIC REACTION: Your symptoms are due to an allergic reaction. Allergy can cause hives, swelling of the hands, feet, and face, hoarseness, and difficulty swallowing or breathing. It may be due to exposure to medication, animal dander, foods, infection, or insect bites. Medication is a common cause, even when prior use of this same medication caused no problems. Acute treatment may include adrenalin and antihistamines. Usually, the specific allergic agent can't be identified unless repeated episodes occur. Home treatment includes the following: (1) Stop any suspicious medications. This will be discussed with you. (2) Oral antihistamines for the next four to five days. Example, diphenhydramine (Benadryl) every four hours. (3) You may also use cimetidine (Tagamet), ranitidine (Zantac), or famotidine ( Pepcid) every four hours if diphenhydramine is not controlling itching and hives. (4) Avoid aspirin until the hives completely disappear. (5) Avoid hot baths or showers until the hives are completely gone. Call the doctor if faintness, difficulty swallowing, tightness in the chest , or wheezing occurs. EPINEPHRINE: An injection of epinephrine (also called adrenalin) is used to treat allergic reactions, asthma, and some other medical conditions. It is a stimulant medication that consticts blood vessels, relaxes smooth muscles such as in the bronchioles of the lung, elevates blood pressure, and increases heart rate. It can temporarily make you feel very nervous and shakey, but it's affects last only a short time, about 15 to 30 minutes at most. STEROID MEDICATION INJECTION: You have been given an injection of medicine of the cortisone/steroid class. This medication is used to control inflammation or allergy. It is often continued as a pill for a short period of time, until the acute process subsides. There are usually no side effects from short-term use of cortisone-like medications. Some persons feel an increased sense of well-being and are not sleepy at bedtime. Long-term use of cortisone medications is best avoided, unless required for a severe condition. If your condition does not remit, or relapses after the course of corticosteroid medication, you should consult your physician. ACID-SUPPRESSING MEDICATION: You have a prescription for medicine which reduces the stomach's secretion of acid. Examples include Zantac, Tagament, and Pepcid. These drugs are often used to allow healing of ulcers or esophagitis. They may be needed to prevent recurrence of ulcers in some patients, or to prevent damage from acid reflux in the esophagus. Take all medication as prescribed, even after the pain is gone. Regular antacids may be added as needed if you have symptoms while taking this medicine. These medications sometimes are prescribed for allergic reactions because they have anti-histaminic effects and relieve the rash and itching of the reaction. There are usually no side effects from this medication. But, in rare cases and particularly in the elderly, serious problems can occur. Contact your doctor if there is fever, rash, hallucinations, confusion, or unusual bruising. Contact your doctor at once if you develop lightheadedness, black or bloody stool, or bloody vomitus. ANTIHISTAMINES: An antihistamine has been given and/or prescribed to control your symptoms. Antihistamines are used for many reasons, including itching, watering eyes, runny nose, allergic swelling, hives, and insect stings. Antihistamines may cause drowsiness, especially with the first dose. Do not operate machinery or drive while under the effects of the medication. Other common side effects include dry mouth and eyes. In older persons, antihistamines can occasionally cause urinary retention, constipation, and trouble focusing the eyes. Do not combine the medication with alcohol, or with any other medication without talking to your doctor. USE OF DIPHENHYDRAMINE: The use of diphenhydramine (Benadryl) has been recommended to control allergic symptoms. The 25 mg strength is available over- the-counter, as well as the elixir. This antihistamine is used for many symptoms. It's useful for itching, watering eyes and nose, allergic swelling, hives, and insect stings. The medication can be repeated four times daily. Age Elixir (12.5 mg/tsp) 25 mg pill adult 1-2 tabs Antihistamines may cause drowsiness, especially with the first dose. Do not operate machinery or drive while under the effects of the medication. Do not combine the medication with alcohol, or with any other medication without talking to your doctor. FOLLOW-UP CARE: If you have been referred to a physician for follow-up care, call the physician s office for an appointment as you were instructed or within the next two days. If you experience worsening or a significant change in your symptoms, notify the physician immediately or return to the Emergency Department at any time for re-evaluation. Referrals: MIGUEL FRYE, [Primary Care Provider] - Follow up as needed
== END 2017-12-19 13:27 | disposition home or self-care (01) ==
LOC: ER 11:13
DX: T63.441A Toxic effect of venom of bees, accidental (unintentional), initial encounter (principal); R11.0 Nausea; R06.02 Shortness of breath; X58.XXXA Exposure to other specified factors, initial encounter; E78.00 Pure hypercholesterolemia, unspecified; I10 Essential (primary) hypertension; E03.9 Hypothyroidism, unspecified; Z88.0 Allergy status to penicillin; Z86.14 Personal history of Methicillin resistant Staphylococcus aureus infection; Z95.1 Presence of aortocoronary bypass graft; Z95.0 Presence of cardiac pacemaker; Z90.710 Acquired absence of both cervix and uterus; Z98.84 Bariatric surgery status
CPT/HCPCS: 99282; 96372; 96375; 96365; J1200; J0171; J2930; J3475; J2405; S0028

== ENCOUNTER 2018-03-08 07:45 | Emergency (ER) | payer MEDICARE, OTHER ==
--- NOTE | 2018-03-08 08:09 | ER Document Report ---
HPI - HPI Pain Level: 0 Notes: Patient is a 62-year-old female with a history of pacemaker placement, osteopenia, on Coumadin who presents to the ED complaining of right-sided body pain status post fall in the hospital hallway about 20 minutes ago. Patient states that she is walking when she tripped and landed on her knee, right arm, and right side of her chest/shoulder. Patient states that she has pain to these areas of the pain does not radiate. Patient states that it feels more like bruising and an actual fracture. Patient states that she has not noticed any bruise to her skin. She was on her way to the lab to get her PT/INR drawn. Patient states that she did not hit her head or lose consciousness. She otherwise feels well. She has been eating and drinking normally. She has been urinating normally and having normal bowel movements. She has no other concerns or complaints at this time. Denies any headache, fever, head injury, neck pain, changes in vision/speech/mentation/hearing, URI, sore throat, palpitations, syncope, cough, shortness of breath, wheeze, dyspnea, abdominal pain, nausea/vomiting/diarrhea, urinary retention, dysuria, hematuria, loss of control of bowel or bladder, numbness/tingling, saddle anesthesia, muscle paralysis/weakness, or rash. - ROS Systems Reviewed and Negative: Yes All other systems reviewed and negative - REPRODUCTIVE Reproductive: DENIES: : - DERM Skin Color: Normal, [place] Past Medical History - Social History Smoking Status: Unknown if Ever Smoked Family History: Arthritis, CAD, Hyperlipidemia, Hypertension, Malignancy, Thyroid Disfunction. denies: COPD, CVA, DM Patient has suicidal ideation: No Patient has homicidal ideation: No - Past Medical History Cardiac Medical History: Reports: Hx Hypercholesterolemia - takes meds, Hx Hypertension - since 1982 (off and on) takes meds Denies: Hx Atrial Fibrillation, Hx Congestive Heart Failure, Hx Heart Attack Pulmonary Medical History: Reports: Hx Bronchitis - 8-10 years ago/wheezing Denies: Hx Asthma, Hx COPD, Hx Pneumonia, Hx Tuberculosis Neurological Medical History: Denies: Hx Seizures Endocrine Medical History: Reports: Hx Hypothyroidism Renal/ Medical History: Reports: Hx Ovarian Cysts. Denies: Hx End Stage Renal Disease, Hx Kidney Stones, Hx Peritoneal Dialysis GI Medical History: Reports: Hx Gastroesophageal Reflux Disease - rare, Hx Colonoscopy. Denies: Hx Hiatal Hernia, Hx Ulcer Musculoskeletal Medical History: Reports Hx Arthritis, Reports Hx Fibromyalgia, Reports Hx Musculoskeletal Deformity, Reports Hx Musculoskeletal Trauma Skin Medical History: Reports Hx Cellulitis, Reports Hx MRSA Psychiatric Medical History: Reports: Hx Anxiety, Hx Depression Denies: Hx Bipolar Disorder, Hx Schizophrenia Traumatic Medical History: Reports: Hx Fractures - right wrist/right elbow r/t fall Infectious Medical History: Reports: Hx MRSA Past Surgical History: Reports: Hx Abdominal Surgery - hernia repair, bypass, Hx Breast Surgery - biopsy, Hx Cardiac Surgery - pacemaker, Hx Cholecystectomy, Hx Dilation and Curettage, Hx Gastric Bypass Surgery, Hx Gynecologic Surgery - D &Cx4,, Hx Hysterectomy, Hx Nose Surgery, Hx Orthopedic Surgery - multp, Hx Pacemaker, Hx Umbilical Hernia - Umbilical and incisional hernia. Denies: Hx Appendectomy, Hx Bowel Surgery, Hx Section, Hx Mastectomy, Hx Tonsillectomy, Hx Tubal Ligation - Immunizations Hx Diphtheria, Pertussis, Tetanus Vaccination: Yes Hx Pneumococcal Vaccination: 07/16/16 Vertical Provider Document - CONSTITUTIONAL Agree With Documented VS: Yes Notes: PHYSICAL EXAMINATION: GENERAL: Well-appearing, well-nourished and in no acute distress. A&Ox4. Answers questions appropriately. HEAD: Atraumatic, normocephalic. Non-tender. No rendon sign. No hematoma or bogginess. EYES: Pupils equal round and reactive to light, extraocular movements intact, sclera anicteric, conjunctiva are normal. No raccoon eyes/entrapment ENT: EAC clear b/l. TM's intact b/l without erythema, fluid, or perforation. Nares patent and without discharge. oropharynx clear without exudates. No tonsilar hypertrophy or erythema. Moist mucous membranes. No sinus tenderness. No hemotympanum/CSF discharge. NECK: Normal range of motion, supple without lymphadenopathy. No rigidity. No midline tenderness. Spurling negative. NEXUS negative. Chest: No ecchymosis or deformity. No flail chest. equal rise/fall. + mild tenderness to the rt lateral chest wall/ribs. LUNGS: Breath sounds clear to auscultation bilaterally and equal. No wheezes rales or rhonchi. HEART: Regular rate and rhythm without murmurs, rubs, gallops. ABDOMEN: Soft, nontender, nondistended abdomen. No guarding, no rebound. No masses appreciated. Normal bowel sounds present. No CVA tenderness bilaterally. No ecchymosis. Musculoskeletal: Ext b/l: FROM to passive/active. Strength 5+/5. No deficits noted. + tenderness to the rt shoulder anteriorly, rt knee anteromedially, and to the rt wrist. No obvious deformity, dislocation, or ecchymosis noted. Back: FROM to passive/active. Strength 5+/5. No vertebral point tenderness, stepoffs, or deformities. No other bony tenderness or ecchymosis. Extremities: No cyanosis, clubbing, or edema b/l. Peripheral pulses 2+. Capillary refill less than 2 seconds. NEUROLOGICAL: NIH 0. GCS 15. Cranial nerves grossly intact. Normal speech. Normal sensory, motor exams. Reflexes 2+ b/l. MADDIE's negative. Pronator drift negative. PSYCH: Normal mood, normal affect. SKIN: Warm, Dry, normal turgor, no rashes or lesions noted. - INFECTION CONTROL TRAVEL OUTSIDE OF THE [place] IN LAST 30 DAYS: No Course - Re-evaluation Re-evalutation: 03/08/18 09:54 Patient is an afebrile, well-hydrated, 62-year-old female who presents to the ED with Rt elbow, shoulder, rib, knee pain which I suspect to be mild contusions at this time. Vitals are acceptable without any significant tachycardia, tachypnea, or hypoxia. PE is otherwise unremarkable for any neurovascular compromise, obvious tendon/ligament rupture, obvious fracture/ dislocation, septic joint. X-ray's were unremarkable for any acute pathology. Pt given tylenol PO. Patient is nontoxic-appearing. Patient is able to ambulate and weight-bear w/o any difficulty. No other labs or imaging warranted at this time based on H&P. Conservative measures otherwise for symptoms. Recheck with your PCM in 3-5 days. Consider consult orthopedics. Return to the ED with any worsening/concerning symptoms otherwise as reviewed in discharge. Patient is in agreement. - Vital Signs Vital signs: Temp Pulse Resp BP Pulse Ox 97.3 F 71 18 118/49 L 03/08/18 07:54 03/08/18 07:54 03/08/18 07:54 03/08/18 07:54 Discharge - Discharge Clinical Impression: Pain of right side of body Fall Qualifiers: Encounter type: initial encounter Qualified Code(s): W19.XXXA - Unspecified fall, initial encounter Condition: Stable Disposition: HOME, SELF-CARE Additional Instructions: Rest, Ice, Compression, Elevation Tylenol/ibuprofen as needed Light stretches daily Strength exercises as able Moist heat and massage may help F/u with your PCP in 3-5 days for a recheck Consider consult(s) with Orthopedics/physical therapy for ongoing/worsening symptoms Return to the ED with any worsening symptoms and/or development of fever, headache, chest pain, palpitations, syncope, shortness of breath, trouble breathing, abdominal pain, n/v/d, muscle weakness/paralysis, numbness/tingling, swelling, redness, or other worsening symptoms that are concerning to you. Call your PCM and notify them about your PTINR test that was drawn in the ED. Referrals: MIGUEL FRYE DO [Primary Care Provider] - Follow up in 3-5 days [facility] [Provider Group] - Follow up as needed
[2018-03-08] MEDS ORDERED: ACETAMINOPHEN 325 MG TABLET PO ONE (08:40)
--- NOTE | 2018-03-08 08:46 | RADIOLOGY REPORT (SQ) ---
EXAM DESCRIPTION: ELBOW RIGHT OVER 2 VIEWS COMPLETED DATE/TIME: 03/08/2018 8:32 am REASON FOR STUDY: Rt side pain s/p fall in hallway COMPARISON: None. NUMBER OF VIEWS: Four views. TECHNIQUE: AP, lateral, and both oblique radiographic images acquired of the right elbow. LIMITATIONS: None. FINDINGS: MINERALIZATION: Normal. BONES: No acute fracture or dislocation. No worrisome bone lesions. JOINT: No effusion. SOFT TISSUES: No soft tissue swelling. No foreign body. OTHER: No other significant finding. IMPRESSION: NEGATIVE STUDY OF THE RIGHT ELBOW. NO RADIOGRAPHIC EVIDENCE OF ACUTE INJURY. TECHNICAL DOCUMENTATION: JOB ID: [id number] [employer]- All Rights Reserved Reading location - IP/workstation name: [email or web address]
--- NOTE | 2018-03-08 08:48 | RADIOLOGY REPORT (SQ) ---
EXAM DESCRIPTION: WRIST RIGHT 3 VIEWS COMPLETED DATE/TIME: 03/08/2018 8:32 am REASON FOR STUDY: Rt side pain s/p fall in hallway COMPARISON: 04/17/2016 NUMBER OF VIEWS: Three views. TECHNIQUE: AP, lateral, and oblique radiographic images acquired of the right wrist. LIMITATIONS: None. FINDINGS: MINERALIZATION: Normal. BONES: No acute fracture or dislocation. No worrisome bone lesions. Normal alignment. SOFT TISSUES: No soft tissue swelling. No foreign body. OTHER: No other significant finding. IMPRESSION: NEGATIVE STUDY OF THE RIGHT WRIST. NO RADIOGRAPHIC EVIDENCE OF ACUTE INJURY. TECHNICAL DOCUMENTATION: JOB ID: [id number] [employer]- All Rights Reserved Reading location - IP/workstation name: [email or web address]
--- NOTE | 2018-03-08 08:50 | RADIOLOGY REPORT (SQ) ---
EXAM DESCRIPTION: KNEE RIGHT 3 VIEWS COMPLETED DATE/TIME: 03/08/2018 8:32 am REASON FOR STUDY: Rt side pain s/p fall in hallway COMPARISON: None. NUMBER OF VIEWS: 10/23/2016 TECHNIQUE: AP, lateral, and sunrise patella radiographic images acquired of the right knee. LIMITATIONS: None. FINDINGS: Intact knee arthroplasty. No fracture identified. No effusion. IMPRESSION: Intact knee arthroplasty. TECHNICAL DOCUMENTATION: JOB ID: [id number] [employer]- All Rights Reserved Reading location - IP/workstation name: [email or web address]
--- NOTE | 2018-03-08 08:51 | RADIOLOGY REPORT (SQ) ---
EXAM DESCRIPTION: SHOULDER RIGHT 2 OR MORE VIEWS COMPLETED DATE/TIME: 03/08/2018 8:32 am REASON FOR STUDY: Rt side pain s/p fall in hallway COMPARISON: 09/07/2016 NUMBER OF VIEWS: Three views. TECHNIQUE: Internal rotation, external rotation, and Y view images acquired of the right shoulder. LIMITATIONS: None. FINDINGS: MINERALIZATION: Normal. BONES: No acute fracture or dislocation. No worrisome bone lesions. JOINTS: No dislocation. VISUALIZED LUNGS AND RIBS: No pneumothorax. No rib fracture. SOFT TISSUES: No radiopaque foreign body. OTHER: No other significant finding. IMPRESSION: NEGATIVE STUDY OF THE RIGHT SHOULDER. NO RADIOGRAPHIC EVIDENCE OF ACUTE INJURY. TECHNICAL DOCUMENTATION: JOB ID: [id number] [email or web address]- All Rights Reserved Reading location - IP/workstation name: [email or web address]
[2018-03-08 09:36] LABS: INTERNATIONAL RATION (INR) 1.58; PARTIAL THROMBOPLASTIN TIME 30.4 SEC (23.5-35.8); PROTHROMBIN TIME 19.6 SEC (11.4-15.4)
--- NOTE | 2018-03-08 09:43 | RADIOLOGY REPORT (SQ) ---
EXAM DESCRIPTION: RIBS RIGHT W/PA CHEST COMPLETED DATE/TIME: 03/08/2018 8:32 am REASON FOR STUDY: Rt side pain s/p fall in hallway COMPARISON: None. TECHNIQUE: Frontal view of the chest and additional views of the right ribs acquired. NUMBER OF VIEWS: Three view. LIMITATIONS: None. FINDINGS: FRONTAL CXR: No pneumothorax. No pleural effusion. No atelectasis or infiltrates. RIBS: No displaced rib fractures. No lytic or blastic bony lesions. OTHER: No other significant finding. IMPRESSION: NO PNEUMOTHORAX. NO DISPLACED RIB FRACTURES. COMMENT: SITE OF TRAUMA/COMPLAINT MARKED/STAMP COMPLETED: NO. TECHNICAL DOCUMENTATION: JOB ID: [id number] [employer]- All Rights Reserved Reading location - IP/workstation name: [email or web address]
[2018-03-08 10:04] VITALS: BP 137/65
== END 2018-03-08 10:04 | disposition home or self-care (01) ==
LOC: ER 07:45
DX: M25.561 Pain in right knee (principal); M25.521 Pain in right elbow; M25.511 Pain in right shoulder; M79.601 Pain in right arm; R07.9 Chest pain, unspecified; W19.XXXA Unspecified fall, initial encounter; Y93.89 Activity, other specified; Y92.238 Other place in hospital as the place of occurrence of the external cause; I10 Essential (primary) hypertension; Z95.0 Presence of cardiac pacemaker; Z79.01 Long term (current) use of anticoagulants
CPT/HCPCS: 99284; 36415; 82962; 85610; 85730; 73080; 73562; 71101; 73030; 73110; A9270

== ENCOUNTER 2018-04-01 06:40 | Emergency (ER) | payer MEDICARE, OTHER ==
--- NOTE | 2018-04-01 08:49 | RADIOLOGY REPORT (SQ) ---
EXAM DESCRIPTION: KNEE RIGHT 2 VIEWS COMPLETED DATE/TIME: 04/01/2018 8:33 am REASON FOR STUDY: pain in right leg COMPARISON: None. NUMBER OF VIEWS: Two views. TECHNIQUE: AP and lateral radiographic images acquired of the right knee. LIMITATIONS: None. FINDINGS: MINERALIZATION: Normal. BONES: No acute fracture or dislocation. No worrisome bone lesions. JOINT: There has been a total joint replacement. SOFT TISSUES: No soft tissue swelling. No radio-opaque foreign body. OTHER: No other significant finding. IMPRESSION: Postsurgical changes. Degenerative changes. No acute findings. TECHNICAL DOCUMENTATION: JOB ID: [id number] [email or web address]- All Rights Reserved Reading location - IP/workstation name: [email or web address]
[2018-04-01 09:10] LABS: INTERNATIONAL RATION (INR) 1.26; PROTHROMBIN TIME 16.4 SEC (11.4-15.4)
[2018-04-01] MEDS ORDERED: OXYCODONE HCL IR 5 MG TABLET PO ONE (09:22)
[2018-04-01] MEDS ORDERED: HYDROCODONE/ACETAMINOPHEN 10-325 MG TABLET PO ONE (10:26)
--- NOTE | 2018-04-01 12:31 | RADIOLOGY REPORT (SQ) ---
EXAM DESCRIPTION: VENOUS UNILATERAL LOWER COMPLETED DATE/TIME: 04/01/2018 12:20 pm REASON FOR STUDY: query clot COMPARISON: None. TECHNIQUE: Dynamic and static warner scale and color images acquired of the right leg venous system. S elected spectral images acquired with additional compression and augmentation maneuvers. The contrala teral common femoral vein and saphenofemoral junction were also imaged. Images stored on PACS. LIMITATIONS: None. FINDINGS: COMMON FEMORAL: Normal phasicity, compression and augmentation. No visualized echogenic ma terial on warner scale. No defects on color images. FEMORAL: Normal compression and augmentation. No visualized echogenic material on warner scale. No defe cts on color images. POPLITEAL: Normal compression, augmentation. No visualized echogenic material on warner scale. No defec ts on color images. CALF VESSELS: Normal compression, augmentation. No visualized echogenic material on warner scale. No de fects on color images. GSV and SSV: Normal compression, augmentation. No visualized echogenic material on warner scale. No def ects on color images. ANY DEEP VENOUS INSUFFICIENCY: Not evaluated. ANY EVIDENCE OF POPLITEAL CYST: No. OTHER: No other significant finding. CONTRALATERAL COMMON FEMORAL VEIN AND SAPHENOFEMORAL JUNCTION: Normal phasicity, compression and augmentation. No visualized echogenic material on warner scale. No de fects on color images. IMPRESSION: NO EVIDENCE DVT OR SVT IN THE RIGHT LEG. TECHNICAL DOCUMENTATION: JOB ID: [id number] [employer]- All Rights Reserved Reading location - IP/workstation name: [email or web address]
--- NOTE | 2018-04-01 12:45 | ER Document Report ---
ED Extremity Problem, Lower - General Chief Complaint: Knee Pain Stated Complaint: KNEE AND LEG PAIN Time Seen by Provider: 04/01/18 07:48 TRAVEL OUTSIDE OF THE [place] IN LAST 30 DAYS: No - HPI Patient complains to provider of: Other - 62-year-old female presents for evaluation of right leg pain which developed over the last day after attempting to step down a stair, notes that there is pain behind the right knee where she has had a fixation in the past as a result of a chronically subluxing patella. Denies any fevers or chills shortness of breath chest pain abdominal pain diarrhea constipation dysuria rashes, she is currently on a blood thinner for a previous DVT which she had she was concerned that this may represent a DVT. She denies any recent prolonged immobility or other injuries to this area. - Related Data Allergies/Adverse Reactions: Penicillins Allergy (Severe, Verified 04/01/18 06:41) hives,throat swellling Iodinated Contrast- Oral and IV Dye [IV Dye, Iodine Containing] Allergy (Unknown , Verified 04/01/18 06:41) Anaphylaxis bee venom protein (honey bee) Allergy (Verified 04/01/18 06:41) adhesive tape Adverse Reaction (Intermediate, Verified 04/01/18 06:41) Generalized rash Past Medical History - General Information source: Patient - Social History Smoking Status: Never Smoker Chew tobacco use (# tins/day): No Frequency of alcohol use: None Drug Abuse: None Family History: Arthritis, CAD, Hyperlipidemia, Hypertension, Malignancy, Thyroid Disfunction. denies: COPD, CVA, DM Patient has suicidal ideation: No Patient has homicidal ideation: No - Past Medical History Cardiac Medical History: Reports: Hx Hypercholesterolemia - takes meds, Hx Hypertension - since 1982 (off and on) takes meds Denies: Hx Atrial Fibrillation, Hx Congestive Heart Failure, Hx Heart Attack Pulmonary Medical History: Reports: Hx Bronchitis - 8-10 years ago/wheezing Denies: Hx Asthma, Hx COPD, Hx Pneumonia, Hx Tuberculosis Neurological Medical History: Denies: Hx Seizures Endocrine Medical History: Reports: Hx Hypothyroidism Renal/ Medical History: Reports: Hx Ovarian Cysts. Denies: Hx End Stage Renal Disease, Hx Kidney Stones, Hx Peritoneal Dialysis GI Medical History: Reports: Hx Gastroesophageal Reflux Disease - rare, Hx Colonoscopy. Denies: Hx Hiatal Hernia, Hx Ulcer Musculoskeletal Medical History: Reports Hx Arthritis, Reports Hx Fibromyalgia, Reports Hx Musculoskeletal Deformity, Reports Hx Musculoskeletal Trauma Skin Medical History: Reports Hx Cellulitis, Reports Hx MRSA Psychiatric Medical History: Reports: Hx Anxiety, Hx Depression Denies: Hx Bipolar Disorder, Hx Schizophrenia Traumatic Medical History: Reports: Hx Fractures - right wrist/right elbow r/t fall Infectious Medical History: Reports: Hx MRSA Past Surgical History: Reports: Hx Abdominal Surgery - hernia repair, bypass, Hx Breast Surgery - biopsy, Hx Cardiac Surgery - pacemaker, Hx Cholecystectomy, Hx Dilation and Curettage, Hx Gastric Bypass Surgery, Hx Gynecologic Surgery - D &Cx4,, Hx Hysterectomy, Hx Nose Surgery, Hx Orthopedic Surgery - multp, Hx Pacemaker, Hx Umbilical Hernia - Umbilical and incisional hernia. Denies: Hx Appendectomy, Hx Bowel Surgery, Hx Section, Hx Mastectomy, Hx Tonsillectomy, Hx Tubal Ligation - Immunizations Hx Diphtheria, Pertussis, Tetanus Vaccination: Yes Hx Pneumococcal Vaccination: 07/16/16 Review of Systems - Review of Systems -: Yes All other systems reviewed and negative Physical Exam - Vital signs Vitals: Temp Pulse Resp BP Pulse Ox 98.7 F 91 16 97/59 L 94 04/01/18 06:55 04/01/18 06:55 04/01/18 06:55 04/01/18 06:55 04/01/18 06:55 - General General appearance: Appears well In distress: None - HEENT Head: Normocephalic Eyes: Normal Conjunctiva: Normal Cornea: Normal Extraocular movements intact: Yes - Respiratory Respiratory status: No respiratory distress Chest status: Nontender Breath sounds: Normal Chest palpation: Normal - Cardiovascular Rhythm: Regular Heart sounds: Normal auscultation Murmur: No - Abdominal Inspection: Normal Distension: No distension Tenderness: Nontender - Back Back: Normal - Extremities General upper extremity: Normal inspection, Nontender, Normal ROM, Normal strength General lower extremity: Other - right knee demonstrates a scar from previous fixation, normal ROM bilaterally, stable, no effusions, no appreciable swelling or erythema - Neurological Neuro grossly intact: Yes Cognition: Normal Orientation: AAOx4 [place] Coma Scale Eye Opening: Spontaneous [place] Coma Scale Verbal: Oriented [place] Coma Scale Motor: Obeys Commands [place] Coma Scale Total: 15 Speech: Normal Cranial nerves: Normal Cerebellar coordination: Normal Motor strength normal: LUE, RUE, LLE, RLE - Psychological Associated symptoms: Normal affect Course - Re-evaluation Re-evalutation: 04/02/18 17:34 62-year-old female with pain in the right knee, is atraumatic while she was stepping down stairs, she does have a fixation in this knee in the past. We will obtain a PVL as well as an x-ray of the knee. X-ray PVL do not demonstrate any obvious acute abnormality in the pain and tenderness over the pedis anserine in the right knee suggestive of possible hamstring strain. We will administer analgesia and encouraged the use of crutches as needed. - Vital Signs Vital signs: Temp Pulse Resp BP Pulse Ox 98.1 F 61 18 102/49 L 97 04/01/18 12:55 04/01/18 12:55 04/01/18 12:55 04/01/18 12:55 04/01/18 12:55 - Laboratory Laboratory results interpreted by me: 04/01/18 08:50 PT 16.4 H Discharge - Discharge Clinical Impression: Arthritis Leg pain Qualifiers: Laterality: right Qualified Code(s): M79.604 - Pain in right leg Condition: Good Disposition: HOME, SELF-CARE Instructions: Use of Crutches ([facility]) Additional Instructions: You were seen today in the emergency department for your pain in the leg. You had an evaluation including an ultrasound as well as an x-ray, the ultrasound did not show a blood clot, the x-ray showed arthritis but no obvious fracture. Use the crutches as necessary to help to get around, uses pain medication only as needed for pain. Call your doctor tomorrow for an appointment related to today's visit. In case of worsening pain inability to walk davila shortness of breath please return to the emergency room as it may be a more serious condition. Prescriptions: Hydrocodone/Acetaminophen [Plato 5-325 mg Tablet] 1 tab PO Q6H PRN #8 tablet PRN Reason: Referrals: JANA WHITEHEAD MD [Primary Care Provider] - Follow up as needed
[2018-04-01] MEDS ORDERED: HYDROCODONE/ACETAMINOPHEN 5-325 MG (6 TAB/ER DISP) PO PRN (12:46)
[2018-04-01 12:56] VITALS: BP 102/49
== END 2018-04-01 13:13 | disposition home or self-care (01) ==
LOC: ER 06:40
DX: M79.604 Pain in right leg (principal)
CPT/HCPCS: 99284; 36415; 85610; 93971; 73560; A9270 ×3

== ENCOUNTER → 2018-04-18 | Outpatient (CLI) | payer MEDICARE, OTHER ==
[2018-04-18 10:19] LABS: INTERNATIONAL RATION (INR) 1.28; PROTHROMBIN TIME 16.6 SEC (11.4-15.4)
== END ==
LOC: LAB 09:57
PROVIDERS: ATTEND Family Medicine
DX: Z51.81 Encounter for therapeutic drug level monitoring (principal); Z79.01 Long term (current) use of anticoagulants
CPT/HCPCS: 36415; 85610

== ENCOUNTER → 2018-04-29 | Outpatient (CLI) | payer MEDICARE, OTHER ==
[2018-04-29 09:57] LABS: INTERNATIONAL RATION (INR) 2.34; PROTHROMBIN TIME 26.8 SEC (11.4-15.4)
== END ==
LOC: LAB 09:13
PROVIDERS: ATTEND Family Medicine
DX: D68.9 Coagulation defect, unspecified (principal); Z79.01 Long term (current) use of anticoagulants
CPT/HCPCS: 36415; 85610

== ENCOUNTER → 2018-05-13 | Outpatient (CLI) | payer MEDICARE, OTHER ==
[2018-05-13 14:33] LABS: INTERNATIONAL RATION (INR) 2.45; PROTHROMBIN TIME 27.7 SEC (11.4-15.4)
== END ==
LOC: LAB 14:12
PROVIDERS: ATTEND Family Medicine
DX: Z51.81 Encounter for therapeutic drug level monitoring (principal); Z79.01 Long term (current) use of anticoagulants
CPT/HCPCS: 36415; 85610

== ENCOUNTER → 2018-06-04 | Outpatient (CLI) | payer MEDICARE, OTHER ==
[2018-06-04 09:41] LABS: INTERNATIONAL RATION (INR) 3.35; PROTHROMBIN TIME 35.5 SEC (11.4-15.4)
== END ==
LOC: LAB 08:22
PROVIDERS: ATTEND Family Medicine
DX: D68.9 Coagulation defect, unspecified (principal)
CPT/HCPCS: 36415; 85610

== ENCOUNTER → 2018-06-17 | Outpatient (CLI) | payer MEDICARE, OTHER ==
[2018-06-17 11:34] LABS: INTERNATIONAL RATION (INR) 1.25; PROTHROMBIN TIME 16.4 SEC (11.4-15.4)
== END ==
LOC: LAB 11:04
PROVIDERS: ATTEND Family Medicine
DX: D68.9 Coagulation defect, unspecified (principal)
CPT/HCPCS: 36415; 85610

== ENCOUNTER → 2018-07-01 | Outpatient (CLI) | payer MEDICARE, OTHER ==
[2018-07-01 13:32] LABS: PROTHROMBIN TIME 29.9 SEC (11.4-15.4)
== END ==
LOC: OD 12:54
PROVIDERS: ATTEND Family Medicine
DX: Z51.81 Encounter for therapeutic drug level monitoring (principal); Z79.01 Long term (current) use of anticoagulants
CPT/HCPCS: 36415; 85610

== ENCOUNTER → 2018-07-15 | Outpatient (CLI) | payer MEDICARE, OTHER ==
[2018-07-15 10:07] LABS: INTERNATIONAL RATION (INR) 1.81; PROTHROMBIN TIME 21.9 SEC (11.4-15.4)
== END ==
LOC: OD 08:29
PROVIDERS: ATTEND Family Medicine
DX: D68.9 Coagulation defect, unspecified (principal)
CPT/HCPCS: 36415; 85610

== ENCOUNTER 2018-07-16 08:09 | Emergency (ER) | payer MEDICARE, OTHER ==
[2018-07-16] MEDS ORDERED: HYDROCODONE/ACETAMINOPHEN 5-325 MG TABLET PO ONE (08:38)
--- NOTE | 2018-07-16 09:27 | RADIOLOGY REPORT (SQ) ---
EXAM DESCRIPTION: FOREARM RIGHT COMPLETED DATE/TIME: 07/16/2018 9:01 am REASON FOR STUDY: fall injury COMPARISON: None. NUMBER OF VIEWS: Two views. TECHNIQUE: Two radiographic images acquired of the right forearm, including elbow and wrist in at le ast one projection. LIMITATIONS: None. FINDINGS: MINERALIZATION: Normal. BONES: No acute fracture. No worrisome bone lesions. SOFT TISSUES: No obvious swelling or foreign body. OTHER: No other significant finding. IMPRESSION: NEGATIVE STUDY OF THE RIGHT FOREARM. NO RADIOGRAPHIC EVIDENCE OF ACUTE INJURY. TECHNICAL DOCUMENTATION: JOB ID: [id number] [employer]- All Rights Reserved Reading location - IP/workstation name: [email or web address]
--- NOTE | 2018-07-16 09:35 | RADIOLOGY REPORT (SQ) ---
EXAM DESCRIPTION: HIP RIGHT AP/LATERAL COMPLETED DATE/TIME: 07/16/2018 9:01 am REASON FOR STUDY: fall injury COMPARISON: None. NUMBER OF VIEWS: Two views. TECHNIQUE: AP pelvis and additional frog-leg view of the right hip. LIMITATIONS: None. FINDINGS: MINERALIZATION: Normal. RIGHT HIP: No fracture or dislocation. No worrisome bone lesions. LEFT HIP: No fracture or dislocation. No worrisome bone lesions. PUBIS AND ISCHIUM: No fracture. PELVIS: No fracture. SACRUM: No fracture or dislocation. No worrisome bone lesions. LOWER LUMBAR SPINE: No fracture or dislocation. No worrisome bone lesions. No significant disc disea se. SOFT TISSUES: No findings. OTHER: No other significant finding. IMPRESSION: NEGATIVE STUDY OF THE RIGHT HIP. NO RADIOGRAPHIC EVIDENCE OF ACUTE INJURY. TECHNICAL DOCUMENTATION: JOB ID: [id number] [employer]- All Rights Reserved Reading location - IP/workstation name: [email or web address]
--- NOTE | 2018-07-16 09:37 | RADIOLOGY REPORT (SQ) ---
EXAM DESCRIPTION: KNEE RIGHT 4 VIEWS COMPLETED DATE/TIME: 07/16/2018 9:01 am REASON FOR STUDY: fall injury COMPARISON: None. NUMBER OF VIEWS: Four views. TECHNIQUE: AP, lateral, and both oblique radiographic images acquired of the right knee. LIMITATIONS: None. FINDINGS: MINERALIZATION: Normal. BONES: No acute fracture or dislocation. No worrisome bone lesions. JOINT: Status post articulating total knee arthroplasty. SOFT TISSUES: No soft tissue swelling. No radio-opaque foreign body. OTHER: No other significant finding. IMPRESSION: NEGATIVE STUDY OF THE RIGHT KNEE. NO RADIOGRAPHIC EVIDENCE OF ACUTE INJURY. TECHNICAL DOCUMENTATION: JOB ID: [id number] [employer]- All Rights Reserved Reading location - IP/workstation name: [email or web address]
--- NOTE | 2018-07-16 09:59 | ER Document Report ---
HPI - HPI Time Seen by Provider: 07/16/18 08:24 Pain Level: 3 Notes: Patient is a 62-year-old female presenting with chief complaint of fall injury. Patient reports she has a history of multiple knee surgeries and her knee gives out from time to time. She reports that at 3 AM this morning she fell after her knee buckled. She states she landed onto a hardwood floor. She reports pain to her right knee, right forearm and right hip. She is able to ambulate with a steady gait. She denies striking her head denies any loss of consciousness. - REPRODUCTIVE Reproductive: DENIES: : - MUSCULOSKELETAL Musculoskeletal: REPORTS: Extremity pain Past Medical History - General Information source: Patient - Social History Smoking Status: Never Smoker Frequency of alcohol use: None Drug Abuse: None Family History: Arthritis, CAD, Hyperlipidemia, Hypertension, Malignancy, Thyroid Disfunction. denies: COPD, CVA, DM Patient has suicidal ideation: No Patient has homicidal ideation: No - Past Medical History Cardiac Medical History: Reports: Hx Hypercholesterolemia, Hx Hypertension Denies: Hx Atrial Fibrillation, Hx Congestive Heart Failure, Hx Heart Attack Pulmonary Medical History: Reports: Hx Bronchitis Denies: Hx Asthma, Hx COPD, Hx Pneumonia, Hx Tuberculosis Neurological Medical History: Denies: Hx Seizures Endocrine Medical History: Reports: Hx Hypothyroidism Renal/ Medical History: Reports: Hx Ovarian Cysts. Denies: Hx End Stage Renal Disease, Hx Kidney Stones, Hx Peritoneal Dialysis GI Medical History: Reports: Hx Gastroesophageal Reflux Disease, Hx Colonoscopy. Denies: Hx Hiatal Hernia, Hx Ulcer Musculoskeletal Medical History: Reports Hx Arthritis, Reports Hx Fibromyalgia, Reports Hx Musculoskeletal Deformity, Reports Hx Musculoskeletal Trauma Skin Medical History: Reports Hx Cellulitis, Reports Hx MRSA Psychiatric Medical History: Reports: Hx Anxiety, Hx Depression Denies: Hx Bipolar Disorder, Hx Schizophrenia Traumatic Medical History: Reports: Hx Fractures - right wrist/right elbow r/t fall Infectious Medical History: Reports: Hx MRSA Past Surgical History: Reports: Hx Abdominal Surgery, Hx Breast Surgery, Hx Cardiac Surgery, Hx Cholecystectomy, Hx Dilation and Curettage, Hx Gastric Bypass Surgery, Hx Gynecologic Surgery, Hx Hysterectomy, Hx Nose Surgery, Hx Orthopedic Surgery, Hx Pacemaker, Hx Umbilical Hernia - Umbilical and incisional hernia. Denies: Hx Appendectomy, Hx Bowel Surgery, Hx Section, Hx Mastectomy, Hx Tonsillectomy, Hx Tubal Ligation - Immunizations Hx Diphtheria, Pertussis, Tetanus Vaccination: Yes Hx Pneumococcal Vaccination: 07/16/16 Vertical Provider Document - CONSTITUTIONAL Notes: PHYSICAL EXAMINATION: GENERAL: Well-appearing, well-nourished and in no acute distress. HEAD: Atraumatic, normocephalic. EYES: Pupils equal round and reactive to light, extraocular movements intact, conjunctiva are normal. ENT: Nares patent, oropharynx clear without exudates. Moist mucous membranes. NECK: Normal range of motion, supple without lymphadenopathy LUNGS: Breath sounds clear to auscultation bilaterally and equal. No wheezes rales or rhonchi. HEART: Regular rate and rhythm without murmurs ABDOMEN: Soft, nontender, nondistended abdomen. No guarding, no rebound. No masses appreciated. Female : deferred Musculoskeletal: Normal range of motion, no pitting or edema. No cyanosis. Abrasion noted to right knee, no swelling, erythema or ecchymosis noted. Normal pulses, motor and sensation to right arm, no erythema or ecchymosis noted. NEUROLOGICAL: Cranial nerves grossly intact. Normal speech, normal gait. Normal sensory, motor exams PSYCH: Normal mood, normal affect. SKIN: Warm, Dry, normal turgor, no rashes or lesions noted. - INFECTION CONTROL TRAVEL OUTSIDE OF THE [place] IN LAST 30 DAYS: No Course - Re-evaluation Re-evalutation: All x-rays are negative for any acute findings. Patient reports improvement of her symptoms after administration of medications in the emergency department. Patient is stable for discharge at this time. Follow-up with her primary care provider. - Vital Signs Vital signs: Temp Pulse Resp BP Pulse Ox 97.7 F 88 18 132/78 H 96 07/16/18 08:14 07/16/18 08:14 07/16/18 08:14 07/16/18 08:14 07/16/18 08:14 Discharge - Discharge Clinical Impression: Fall Condition: Stable Disposition: HOME, SELF-CARE Additional Instructions: Your x-rays today were negative for any acute findings. The pain you are experiencing is most likely being caused by bruising and contusions. Please ice the areas of concern in a couple of days switch to heat on the areas. Take ibuprofen 600 mg every 6 hours for pain and inflammation. Take the prescribed pain medication as directed for severe pain only. Please follow-up with your primary care provider if your pain is not improving over the next 3-5 days. Prescriptions: Hydrocodone Bit/Acetaminophen [Hydrocodon-Acetaminophen 5-325] 1 each PO Q4H #10 tablet Lidocaine [Lidoderm 5% (700 mg) Transdermal Patch] 1 patch TP DAILY #30 adh..patch Referrals: JANA WHITEHEAD MD [Primary Care Provider] - Follow up as needed
[2018-07-16 10:13] VITALS: BP 107/76
== END 2018-07-16 09:59 | disposition home or self-care (01) ==
LOC: ER 08:09
DX: S80.211A Abrasion, right knee, initial encounter (principal); M25.561 Pain in right knee; M79.631 Pain in right forearm; M25.551 Pain in right hip; W19.XXXA Unspecified fall, initial encounter; I10 Essential (primary) hypertension; Z96.651 Presence of right artificial knee joint; Z98.84 Bariatric surgery status
CPT/HCPCS: 99283; 73090; 73502; 73564; A9270

== ENCOUNTER → 2018-07-29 | Outpatient (CLI) | payer MEDICARE, OTHER ==
[2018-07-29 11:05] LABS: INTERNATIONAL RATION (INR) 2.32; PROTHROMBIN TIME 26.6 SEC (11.4-15.4)
== END ==
LOC: OD 09:59
PROVIDERS: ATTEND Family Medicine
DX: D68.9 Coagulation defect, unspecified (principal)
CPT/HCPCS: 36415; 85610

== ENCOUNTER → 2018-07-31 | Outpatient (CLI) | payer MEDICARE, OTHER ==
--- NOTE | 2018-07-31 10:05 | RADIOLOGY REPORT (SQ) ---
EXAM DESCRIPTION: SACROILIAC JOINTS 3 OR MORE COMPLETED DATE/TIME: 07/31/2018 8:35 am REASON FOR STUDY: LOW BACK PAIN COMPARISON: None. FINDINGS: Three views SI joints. Mild sclerosis along both SI joints, left greater than right. No ankylosis or aggressive erosions. Perhaps lower lumbar spondylosis. TECHNICAL DOCUMENTATION: JOB ID: [id number] Reading location - IP/workstation name: [email or web address]
--- NOTE | 2018-07-31 10:19 | RADIOLOGY REPORT (SQ) ---
EXAM DESCRIPTION: L SPINE WHOLE COMPLETED DATE/TIME: 07/31/2018 8:35 am REASON FOR STUDY: LOW BACK PAIN M54.5 LOW BACK PAIN COMPARISON: 2018. NUMBER OF VIEWS: Five views including obliques. TECHNIQUE: AP, lateral, oblique, and sacral radiographic images acquired of the lumbar spine. LIMITATIONS: None. FINDINGS: MINERALIZATION: Osteopenia. SEGMENTATION: Normal. No transitional anatomy. ALIGNMENT: Slight scoliosis. Grade 1 listhesis at L4-5. VERTEBRAE: Maintained height. No fracture or worrisome bone lesion. DISCS: Mild disc disease at multiple levels. No bulky osteophytes. POSTERIOR ELEMENTS: No pars defect. Mild facet arthropathy. HARDWARE: None in the spine. PARASPINAL SOFT TISSUES: Normal. PELVIS: Intact as visualized. No fractures or worrisome bone lesions. SI joints intact. OTHER: No other significant finding. IMPRESSION: Osteopenic. Spondylosis. No fracture or bone lesion. TECHNICAL DOCUMENTATION: JOB ID: [id number] [employer]- All Rights Reserved Reading location - IP/workstation name: [email or web address]
== END ==
LOC: RAD 08:11
PROVIDERS: ATTEND Pain Medicine Pain Medicine
DX: M54.5 Low back pain (principal); M47.896 Other spondylosis, lumbar region
CPT/HCPCS: 72110; 72202

== ENCOUNTER → 2018-08-12 | Outpatient (CLI) | payer MEDICARE, OTHER ==
[2018-08-12 09:53] LABS: INTERNATIONAL RATION (INR) 2.43; PROTHROMBIN TIME 27.6 SEC (11.4-15.4)
== END ==
LOC: OD 08:30
PROVIDERS: ATTEND Family Medicine
DX: D68.9 Coagulation defect, unspecified (principal)
CPT/HCPCS: 36415; 85610

== ENCOUNTER 2018-08-18 07:02 | Emergency (ER) | payer MEDICARE, OTHER ==
[2018-08-18] MEDS ORDERED: ACETAMINOPHEN 325 MG TABLET PO ONE (08:37)
--- NOTE | 2018-08-18 08:39 | ER Document Report ---
HPI - HPI Time Seen by Provider: 08/18/18 08:02 Pain Level: 5 Notes: Patient is a 62-year-old female with a history of pacemaker placement and on Coumadin who presents to the emergency department complaining of left upper arm pain status post fall last night. Patient states that she was going to sit down on her recliner when she missed and hit the chair with her left arm and then fell on the floor on that left arm. Patient states that she has had pain since then and it hurts worse when she moves it. The pain will radiate to the top of her shoulder and down towards her elbow, but the primary point of pain is to the left humerus. She has not noticed any obvious bruising or swelling. She is eating and drinking without difficulty. She did not hit her head or lose conscious. Patient is ambulating without difficulty. No other concerns or complaints. Denies any headache, fever, neck pain, changes in vision/speech/mentation/hearing, URI, sore throat, chest pain, palpitations, syncope, cough, shortness of breath, wheeze, dyspnea, abdominal pain, nausea/ vomiting/diarrhea, urinary retention, dysuria, hematuria, loss of control of bowel or bladder, numbness/tingling, saddle anesthesia, muscle paralysis, or rash. - ROS Systems Reviewed and Negative: Yes All other systems reviewed and negative - REPRODUCTIVE Reproductive: DENIES: : Past Medical History - Social History Smoking Status: Never Smoker Family History: Arthritis, CAD, Hyperlipidemia, Hypertension, Malignancy, Th yroid Disfunction. denies: COPD, CVA, DM - Past Medical History Cardiac Medical History: Reports: Hx Hypercholesterolemia, Hx Hypertension Denies: Hx Atrial Fibrillation, Hx Congestive Heart Failure, Hx Heart Attack Pulmonary Medical History: Reports: Hx Bronchitis Denies: Hx Asthma, Hx COPD, Hx Pneumonia, Hx Tuberculosis Neurological Medical History: Denies: Hx Seizures Endocrine Medical History: Reports: Hx Hypothyroidism Renal/ Medical History: Reports: Hx Ovarian Cysts. Denies: Hx End Stage Renal Disease, Hx Kidney Stones, Hx Peritoneal Dialysis GI Medical History: Reports: Hx Gastroesophageal Reflux Disease, Hx Colonoscopy. Denies: Hx Hiatal Hernia, Hx Ulcer Musculoskeletal Medical History: Reports Hx Arthritis, Reports Hx Fibromyalgia, Reports Hx Musculoskeletal Deformity, Reports Hx Musculoskeletal Trauma Skin Medical History: Reports Hx Cellulitis, Reports Hx MRSA Psychiatric Medical History: Reports: Hx Anxiety, Hx Depression Denies: Hx Bipolar Disorder, Hx Schizophrenia Traumatic Medical History: Reports: Hx Fractures - right wrist/right elbow r/t fall Infectious Medical History: Reports: Hx MRSA Past Surgical History: Reports: Hx Abdominal Surgery, Hx Breast Surgery, Hx Cardiac Surgery, Hx Cholecystectomy, Hx Dilation and Curettage, Hx Gastric Byp ass Surgery, Hx Gynecologic Surgery, Hx Hysterectomy, Hx Nose Surgery, Hx Orthopedic Surgery, Hx Pacemaker, Hx Umbilical Hernia - Umbilical and incisional hernia. Denies: Hx Appendectomy, Hx Bowel Surgery, Hx Section, Hx Mastectomy, Hx Tonsillectomy, Hx Tubal Ligation - Immunizations Hx Diphtheria, Pertussis, Tetanus Vaccination: Yes Hx Pneumococcal Vaccination: 07/16/16 Vertical Provider Document - CONSTITUTIONAL Agree With Documented VS: Yes Notes: PHYSICAL EXAMINATION: GENERAL: Well-appearing, well-nourished and in no acute distress. HEAD: Atraumatic, normocephalic. EYES: Pupils equal round and reactive to light, extraocular movements intact, sclera anicteric, conjunctiva are normal. ENT: EAC clear b/l. TM's intact b/l without erythema, fluid, or perforation. Nares patent and without discharge. oropharynx clear without exudates. No tonsilar hypertrophy or erythema. Moist mucous membranes. No sinus tenderness. NECK: Normal range of motion, supple without lymphadenopathy. No midline tenderness. LUNGS: Breath sounds clear to auscultation bilaterally and equal. No wheezes rales or rhonchi. HEART: Regular rate and rhythm without murmurs, rubs, gallops. ABDOMEN: Soft, nontender, nondistended abdomen. No guarding, no rebound. No masses appreciated. Normal bowel sounds present. No CVA tenderness bilaterally. no ecchymosis. Musculoskeletal: Lt arm: + tenderness to the left humerus midshaft/prox. LROM to passive/active. Strength 4+/5 due to pain. N/V intact distal. No obvious swelling, ecchymosis, erythema, warmth, or deformity. Extremities: No cyanosis, clubbing, or edema b/l. Peripheral pulses 2+. Capillary refill less than 3 seconds. NEUROLOGICAL: Cranial nerves grossly intact. Normal speech, normal gait. Normal sensory, motor exams PSYCH: Normal mood, normal affect. SKIN: Warm, Dry, normal turgor, no rashes or lesions noted. - INFECTION CONTROL TRAVEL OUTSIDE OF THE [place] IN LAST 30 DAYS: No Course - Re-evaluation Re-evalutation: 08/18/18 09:20 Patient is an afebrile, well-hydrated, 62-year-old female who presents to the ED with left arm pain which I suspect to be contusion. Vitals are acceptable without any significant tachycardia, tachypnea, or hypoxia. PE is otherwise unremarkable for any neurovascular compromise, obvious tendon/ligament rupture, obvious fracture/dislocation, septic joint. X-ray was unremarkable for any acute pathology. Sling provided today. Tylenol given PO. Patient is nontoxic- appearing. No other labs or imaging warranted at this time based on H&P. Conservative measures otherwise for symptoms. Recheck with your PCM in 3-5 days. Consider consult orthopedics. Return to the ED with any worsening/concerning symptoms otherwise as reviewed in discharge. Patient is in agreement. - Vital Signs Vital signs: Temp Pulse Resp BP Pulse Ox 97.6 F 70 16 139/79 H 98 08/18/18 07:19 08/18/18 07:19 08/18/18 07:19 08/18/18 07:19 08/18/18 07:19 Discharge - Discharge Clinical Impression: Left arm pain Condition: Stable Disposition: HOME, SELF-CARE Additional Instructions: Rest, Ice, Compression, Elevation Use sling as directed Tylenol/ibuprofen as needed Light stretches daily Strength exercises as able Moist heat and massage may help F/u with your PCP in 3-5 days for a recheck Consider consult(s) with Orthopedics/physical therapy for ongoing/worsening symptoms Return to the ED with any worsening symptoms and/or development of fever, headache, chest pain, palpitations, syncope, shortness of breath, trouble giovanna athing, abdominal pain, n/v/d, muscle weakness/paralysis, numbness/tingling, swelling, redness, or other worsening symptoms that are concerning to you. Forms: Elevated Blood Pressure Referrals: JANA WHITEHEAD MD [Primary Care Provider] - Follow up as needed [facility] [Provider Group] - Follow up as needed
[2018-08-18] MEDS ORDERED: HYDROCODONE/ACETAMINOPHEN 5-325 MG (6 TAB/ER DISP) PO PRN (09:17)
--- NOTE | 2018-08-18 09:24 | RADIOLOGY REPORT (SQ) ---
EXAM DESCRIPTION: HUMERUS LEFT COMPLETED DATE/TIME: 08/18/2018 9:11 am REASON FOR STUDY: pain s/p fall COMPARISON: None. NUMBER OF VIEWS: Two views. TECHNIQUE: Two radiographic images were acquired of the left humerus to include elbow and shoulder i n at least one projection. LIMITATIONS: None. FINDINGS: MINERALIZATION: Normal. BONES: No acute fracture or dislocation. No worrisome bone lesions. SOFT TISSUES: No obvious swelling or foreign body. OTHER: No other significant finding. IMPRESSION: NEGATIVE STUDY OF THE LEFT HUMERUS. NO RADIOGRAPHIC EVIDENCE OF ACUTE INJURY. TECHNICAL DOCUMENTATION: JOB ID: [id number] [employer]- All Rights Reserved Reading location - IP/workstation name: [email or web address]
[2018-08-18 09:51] VITALS: BP 107/53
== END 2018-08-18 09:58 | disposition home or self-care (01) ==
LOC: ER 07:02
DX: M79.622 Pain in left upper arm (principal); W07.XXXA Fall from chair, initial encounter; Y92.009 Unspecified place in unspecified non-institutional (private) residence as the place of occurrence of the external cause; E03.9 Hypothyroidism, unspecified; E78.00 Pure hypercholesterolemia, unspecified; I10 Essential (primary) hypertension; Z86.14 Personal history of Methicillin resistant Staphylococcus aureus infection; Z90.49 Acquired absence of other specified parts of digestive tract; Z98.84 Bariatric surgery status; Z95.0 Presence of cardiac pacemaker
CPT/HCPCS: 99283; 73060; A9270 ×2

== ENCOUNTER → 2018-08-26 | Outpatient (CLI) | payer MEDICARE, OTHER ==
[2018-08-26 12:53] LABS: INTERNATIONAL RATION (INR) 3.13; PROTHROMBIN TIME 33.7 SEC (11.4-15.4)
== END ==
LOC: OD 11:04
PROVIDERS: ATTEND Family Medicine
DX: Z51.81 Encounter for therapeutic drug level monitoring (principal); Z79.01 Long term (current) use of anticoagulants
CPT/HCPCS: 36415; 85610

== ENCOUNTER → 2018-09-09 | Outpatient (CLI) | payer MEDICARE, OTHER | LOC: OD 09:00 | PROVIDERS: ATTEND Family Medicine | DX: D68.9 Coagulation defect, unspecified (principal); Z53.8 Procedure and treatment not carried out for other reasons ==

== ENCOUNTER → 2018-09-16 | Outpatient (CLI) | payer MEDICARE, OTHER ==
[2018-09-16 12:51] LABS: INTERNATIONAL RATION (INR) 1.11; PROTHROMBIN TIME 14.9 SEC (11.4-15.4)
== END ==
LOC: OD 11:53
PROVIDERS: ATTEND Family Medicine
DX: D68.9 Coagulation defect, unspecified (principal)
CPT/HCPCS: 36415; 85610

== ENCOUNTER → 2018-09-20 | Day surgery (SDC) | payer MEDICARE, OTHER ==
--- NOTE | 2018-09-20 14:45 | RADIOLOGY REPORT (SQ) ---
EXAM DESCRIPTION: CT LT UPPER EXTREMITY WITH COMPLETED DATE/TIME: 09/20/2018 2:08 pm REASON FOR STUDY: PAIN IN LEFT SHOULDER M25.512 PAIN IN LEFT SHOULDER COMPARISON: None. TECHNIQUE: Axial imaging performed through the leftshoulder with reformatted oblique coronal and obl ique sagittal imaging windowed for bone and soft tissues. All CT scanners at this facility use dose modulation, iterative reconstruction, and/or weight based d osing when appropriate to reduce radiation dose to as low as reasonably achievable (ALARA). [facility]: Dose Right [facility]: CareDose [facility]: Dose Right [facility]: Teradose 4D [facility]: Audiam RADIATION DOSE: CT Rad equipment meets quality standard of care and radiation dose reduction techniq ues were employed. CTDIvol: 11.4 mGy. DLP: 281 mGy-cm. mGy. LIMITATIONS: None. FINDINGS: SOFT TISSUES: No soft tissue nodules or axillary adenopathy. Pacemaker present on the lef t. Left lung apex clear. BONY ARCHITECTURE: Normal bone density. No lytic or blastic lesions. Small subcortical cyst anterio r left humeral head axial image 23. GLENOHUMERAL JOINT: Normal alignment. Normal cartilage thickness ACROMION AND AC JOINT: Type 2 acromion with very mild acromioclavicular joint bony spurring and very mild narrowing of the subacromial space. ROTATOR CUFF: Normal supra and infraspinatus tendon thickness. No leakage of contrast into the subac romial/ subdeltoid bursa. GLENOID, LABRUM AND BICEPS: Intact OTHER: No other significant finding. IMPRESSION: Mild acromioclavicular joint hypertrophy. Otherwise unremarkable study TECHNICAL DOCUMENTATION: JOB ID: [id number] Quality ID # [id number]: Final reports with documentation of one or more dose reduction techniques (e.g., Au tomated exposure control, adjustment of the mA and/or kV according to patient size, use of iterative reconstruction technique) 2010 [employer]- All Rights Reserved Reading location - IP/workstation name: [email or web address]
--- NOTE | 2018-09-20 14:48 | RADIOLOGY REPORT (SQ) ---
EXAM DESCRIPTION: ARTHRO SHOULDER INJECTION; FLUORO/NEEDLE PLACEMENT COMPLETED DATE/TIME: 09/20/2018 2:14 pm REASON FOR STUDY: PAIN IN LEFT SHOULDER M25.512 PAIN IN LEFT SHOULDER COMPARISON: None. FLUOROSCOPY TIME: 13 seconds 1 digital fluoroscopic image saved to PACS. LIMITATIONS: None. PROCEDURE: Procedure, risks, benefits and alternative explained to patient who then gave written con sent. The posterior left knee humeral joint at the shoulder was marked and a time-out was called for correct marking verification. Posterior entry site marked using fluoroscopic guidance. Shoulder pr epped and draped using CHLORAPREP sterile technique. Local anesthesia achieved using 10 mL of 1% lid ocaine injection. 22 gauge spinal needle introduced into the joint space under direct fluoroscopic vi sualization. Gadolinium contrast instilled to confirm intra-articular position. Additional 10 mL of gadolinium contrast instilled. Needle removed and entry site covered with sterile bandage. No imme diate complications noted. TECHNIQUE: Digital images acquired during fluoroscopy and stored on PACS. Patient immediately take n to the CT suite for additional imaging. INJECTION LOCATION: Posterior left glenohumeral joint CONTRAST TYPE AND AMOUNT: 10 mL of Dotarem gadolinium IMPRESSION: SUCCESSFUL NEEDLE PLACEMENT AND INJECTION FOR LEFT SHOULDER CT ARTHROGRAM USING POSTERIO R APPROACH. IODINE ALLERGY, DOTAREM GADOLINIUM WAS USED FOR CONTRAST COMMENT: Quality ID [id number]: Final reports for procedures using fluoroscopy that document radiation exp osure indices, or exposure time and number of fluorographic images (if radiation exposure indices are not available) TECHNICAL DOCUMENTATION: JOB ID: [id number] [employer]- All Rights Reserved Reading location - IP/workstation name: [email or web address]
== END ==
LOC: RAD 13:05
PROVIDERS: ATTEND Orthopaedic Surgery
DX: M25.512 Pain in left shoulder (principal)
CPT/HCPCS: 77002; 23350; 73201; A9576

== ENCOUNTER 2018-09-21 10:06 | Emergency (ER) | payer MEDICARE, OTHER ==
[2018-09-21] MEDS ORDERED: ASPIRIN 81 MG TABLET, CHEWABLE PO ONE ×2 (10:08→13:00)
--- NOTE | 2018-09-21 10:33 | ER Document Report ---
ED Dizziness/Weakness - General Chief Complaint: Dizziness Stated Complaint: DIZINESS Time Seen by Provider: 09/21/18 10:25 Primary Care Provider: MICHAELA BRAR MD [ACTIVE STAFF] - Follow up as needed Mode of Arrival: Ambulatory Information source: Patient Notes: Patient is a 63-year-old female with a pacemaker who presents to the ER today for waking up this morning, getting up out of the bed and feeling lightheaded like she was going to pass out. She states that this was not a dizzy feeling but more of just a weak feeling all over. She denies any chest pain until just prior to arrival when she started having some "mild discomfort" under her left breast. Patient has a pacemaker due to a heart block, has not had a heart attack or stroke. She denies any shortness of breath, nausea, vomiting, sick symptoms lately. TRAVEL OUTSIDE OF THE [place] IN LAST 30 DAYS: No - Related Data Allergies/Adverse Reactions: Penicillins Allergy (Severe, Verified 04/01/18 06:41) hives,throat swellling Iodinated Contrast- Oral and IV Dye [IV Dye, Iodine Containing] Allergy (Unknown, Verified 04/01/18 06:41) Anaphylaxis bee venom protein (honey bee) Allergy (Verified 04/01/18 06:41) adhesive tape Adverse Reaction (Intermediate, Verified 04/01/18 06:41) Generalized rash Past Medical History - General Information source: Patient - Social History Smoking Status: Never Smoker Chew tobacco use (# tins/day): No Frequency of alcohol use: None Drug Abuse: None Family History: Arthritis, CAD, Hyperlipidemia, Hypertension, Malignancy, Thyroid Disfunction. denies: COPD, CVA, DM Patient has suicidal ideation: No Patient has homicidal ideation: No - Past Medical History Cardiac Medical History: Reports: Hx Hypercholesterolemia, Hx Hypertension Denies: Hx Atrial Fibrillation, Hx Congestive Heart Failure, Hx Heart Attack Pulmonary Medical History: Reports: Hx Bronchitis Denies: Hx Asthma, Hx COPD, Hx Pneumonia, Hx Tuberculosis Neurological Medical History: Denies: Hx Seizures Endocrine Medical History: Reports: Hx Hypothyroidism Renal/ Medical History: Reports: Hx Ovarian Cysts. Denies: Hx End Stage Renal Disease, Hx Kidney Stones, Hx Peritoneal Dialysis GI Medical History: Reports: Hx Gastroesophageal Reflux Disease, Hx Colonoscopy. Denies: Hx Hiatal Hernia, Hx Ulcer Musculoskeletal Medical History: Reports Hx Arthritis, Reports Hx Fibromyalgia, Reports Hx Musculoskeletal Deformity, Reports Hx Musculoskeletal Trauma Skin Medical History: Reports Hx Cellulitis, Reports Hx MRSA Psychiatric Medical History: Reports: Hx Anxiety, Hx Depression Denies: Hx Bipolar Disorder, Hx Schizophrenia Traumatic Medical History: Reports: Hx Fractures - right wrist/right elbow r/t fall Infectious Medical History: Reports: Hx MRSA Past Surgical History: Reports: Hx Abdominal Surgery, Hx Breast Surgery, Hx Cardiac Surgery, Hx Cholecystectomy, Hx Dilation and Curettage, Hx Gastric Bypass Surgery, Hx Gynecologic Surgery, Hx Hysterectomy, Hx Nose Surgery, Hx Orthopedic Surgery, Hx Pacemaker, Hx Umbilical Hernia - Umbilical and incisional hernia. Denies: Hx Appendectomy, Hx Bowel Surgery, Hx Section, Hx Mastectomy, Hx Tonsillectomy, Hx Tubal Ligation - Immunizations Hx Diphtheria, Pertussis, Tetanus Vaccination: Yes Hx Pneumococcal Vaccination: 07/16/16 Review of Systems - Review of Systems Constitutional: No symptoms reported EENT: No symptoms reported Cardiovascular: See HPI Respiratory: No symptoms reported Gastrointestinal: No symptoms reported Genitourinary: No symptoms reported Female Genitourinary: No symptoms reported Musculoskeletal: No symptoms reported Skin: No symptoms reported Hematologic/Lymphatic: No symptoms reported Neurological/Psychological: See HPI Physical Exam - Vital signs Vitals: Resp 11 L 09/21/18 10:18 - Notes Notes: PHYSICAL EXAMINATION: GENERAL: Well-appearing and in no acute distress. HEAD: Atraumatic, normocephalic. EYES: Pupils equal round and reactive to light, extraocular movements intact, sclera anicteric, conjunctiva are normal. ENT: ear canals without erythema or foreign body, TMs pearly jaramillo with good bony landmarks, nares patent, oropharynx clear without exudates. Moist mucous membranes. NECK: Normal range of motion, supple without lymphadenopathy LUNGS: CTAB and equal. No wheezes rales or rhonchi. HEART: Regular rate and rhythm without murmurs ABDOMEN: Soft, no tenderness. No guarding, no rebound BACK: no vertebral tenderness, normal ROM GI/: no CVA tenderness EXTREMITIES: Normal range of motion, no pitting edema. No cyanosis. NEUROLOGICAL: Cranial nerves grossly intact. Normal sensory/motor exams. PSYCH: Normal mood, normal affect. SKIN: Warm, Dry, normal turgor, no rashes or lesions noted Course - Re-evaluation Re-evalutation: 09/21/18 19:16 Patient has positive orthostatic vital signs, her lightheadedness and generalized weakness did improve after IV fluids, patient admits that she drinks nothing but sweet tea at home. Patient is no longer having chest pain during ER visit here, 2 troponins more than 3 hours apart are negative, EKG without any ev idence of ischemia or abnormality. Patient states it is very easy to get in with her journalism teacher and she will call first thing Sunday morning, today is Sunday. Patient happy to go home at this time and is stable for discharge. - Vital Signs Vital signs: Temp Pulse Resp BP Pulse Ox 97.9 F 78 16 128/65 H 98 09/21/18 16:27 09/21/18 16:27 09/21/18 16:27 09/21/18 16:27 09/21/18 16:27 - Laboratory Result Diagrams: 09/21/18 11:00 09/21/18 11:00 Laboratory results interpreted by me: 09/21/18 09/21/18 11:00 11:00 RDW 14.1 H Sodium 132.3 L Chloride 96 L Discharge - Discharge Clinical Impression: Dizziness, Dehydration Condition: Stable Disposition: HOME, SELF-CARE Additional Instructions: Return immediately for any new or worsening symptoms. Follow up with journalism teacher, call tomorrow to make followup appointment. Referrals: MICHAELA BRAR MD [ACTIVE STAFF] - Follow up as needed
--- NOTE | 2018-09-21 11:09 | RADIOLOGY REPORT (SQ) ---
EXAM DESCRIPTION: CHEST SINGLE VIEW COMPLETED DATE/TIME: 09/21/2018 10:44 am REASON FOR STUDY: bed 8 cp COMPARISON: 12/03/2016 EXAM PARAMETERS: NUMBER OF VIEWS: One view. TECHNIQUE: Single frontal radiographic view of the chest acquired. RADIATION DOSE: NA LIMITATIONS: None. FINDINGS: LUNGS AND PLEURA: No opacities, masses or pneumothorax. No pleural effusion. MEDIASTINUM AND HILAR STRUCTURES: No masses. Contour normal. HEART AND VASCULAR STRUCTURES: Heart normal in size. Normal vasculature. BONES: No acute findings. HARDWARE: Left dual lead pacemaker. OTHER: No other significant finding. IMPRESSION: NO ACUTE RADIOGRAPHIC FINDING IN THE CHEST. TECHNICAL DOCUMENTATION: JOB ID: [id number] [employer]- All Rights Reserved Reading location - IP/workstation name: [email or web address]
[2018-09-21 11:18] LABS: ABSOLUTE EOSINOPHILS # (AUTO) 0.1 10^3/uL (0.0-0.6); ABSOLUTE LYMPHOCYTES (AUTO) 1.5 10^3/uL (0.5-4.7); ABSOLUTE MONOCYTES (AUTO) 0.6 10^3/uL (0.1-1.4); ABSOLUTE NEUT (AUTO) 2.3 10^3/uL (1.7-8.2); BASOPHILS % (AUTO) 0.7 % (0-2); EOSINOPHILS % (AUTO) 2.6 % (0-6); HEMATOCRIT 40.8 % (36.0-47.0); HEMOGLOBIN 14.2 g/dL (12.0-15.5); LYMPHOCYTES % (AUTO) 32.4 % (13-45); MEAN CORPUSCULAR HEMOGLOBIN 31.2 pg (27.0-33.4); MEAN CORPUSCULAR HGB CONC 34.8 g/dL (32.0-36.0); MEAN CORPUSCULAR VOLUME 89 fl (80-97); MONOCYTES % (AUTO) 12.5 % (3-13); PLATELET COUNT 299 10^3/uL (150-450); RED BLOOD COUNT 4.56 10^6/uL (3.72-5.28); RED CELL DISTRIBUTION WIDTH 14.1 % (11.5-14.0); SEGMENTED NEUTROPHILS % (AUTO) 51.8 % (42-78); TOTAL CELLS COUNTED % (AUTO) 100 %; WHITE BLOOD COUNT 4.5 10^3/uL (4.0-10.5)
[2018-09-21 11:39] LABS: ALANINE AMINOTRANSFERASE 22 U/L (9-52); ALKALINE PHOSPHATASE 74 U/L (38-126); ANION GAP 9 (5-19); ASPARTATE AMINO TRANSFERASE 22 U/L (14-36); BILIRUBIN,DIRECT 0.2 mg/dL (0.0-0.4); BILIRUBIN,TOTAL 0.3 mg/dL (0.2-1.3); BLOOD UREA NITROGEN 12 mg/dL (7-20); CALCIUM 9.6 mg/dL (8.4-10.2); CARBON DIOXIDE 27 mmol/L (22-30); CHLORIDE 96 mmol/L (98-107); CREATINE KINASE 51 U/L (30-135); GLUCOSE 96 mg/dL (75-110); SODIUM 132.3 mmol/L (137-145); TOTAL PROTEIN 6.5 g/dL (6.3-8.2)
[2018-09-21 11:56] LABS: CREATINE KINASE MB < 0.22 ng/mL (<4.55); TROPONIN I < 0.012 ng/mL
--- NOTE | 2018-09-21 12:36 | EKG REPORT ---
SEVERITY:- ABNORMAL ECG - ATRIAL-PACED COMPLEXES PROBABLE LEFT ATRIAL ABNORMALITY : Confirmed by: Daisy Major MD 21-Sep-2018 12:34:58
[2018-09-21] MEDS ORDERED: NORMAL SALINE 1000 ML 1,000 ML IV ONE (12:49)
[2018-09-21 16:30] VITALS: BP 128/65
== END 2018-09-21 16:30 | disposition home or self-care (01) ==
LOC: ER 10:06
DX: E86.0 Dehydration (principal); R42 Dizziness and giddiness; R53.1 Weakness; I10 Essential (primary) hypertension; I45.9 Conduction disorder, unspecified; Z95.0 Presence of cardiac pacemaker; Z88.0 Allergy status to penicillin; Z91.041 Radiographic dye allergy status; Z91.030 Bee allergy status
CPT/HCPCS: 93005; 99284; 96360; 36415; 82553; 82550; 85025; 80053; 84484; 71045; 93010; J7030

== ENCOUNTER → 2018-10-04 | Outpatient (CLI) | payer MEDICARE, OTHER ==
[2018-10-04 09:21] LABS: INTERNATIONAL RATION (INR) 3.27; PROTHROMBIN TIME 34.8 SEC (11.4-15.4)
== END ==
LOC: OD 08:29
PROVIDERS: ATTEND Family Medicine
DX: D68.9 Coagulation defect, unspecified (principal)
CPT/HCPCS: 36415; 85610

== ENCOUNTER → 2018-10-18 | Outpatient (CLI) | payer MEDICARE, OTHER ==
[2018-10-18 09:52] LABS: INTERNATIONAL RATION (INR) 2.73; PROTHROMBIN TIME 30.2 SEC (11.4-15.4)
== END ==
LOC: OD 09:02
PROVIDERS: ATTEND Family Medicine
DX: D68.9 Coagulation defect, unspecified (principal)
CPT/HCPCS: 36415; 85610

== ENCOUNTER 2018-11-02 07:02 | Emergency (ER) | payer MEDICARE, OTHER ==
[2018-11-02 07:30] VITALS: BP 124/75
[2018-11-02] MEDS ORDERED: METHYLPREDNISOLONE INJ 125 MG/2 ML SDV IM ONE (07:50)
--- NOTE | 2018-11-02 15:08 | ER Document Report ---
Entered by RUBY BACA SCRIBE 11/02/18 0750 Acting as scribe for:JESUS BOYER DO ED Skin Rash/Insect Bite/Abscs - General Chief Complaint: Rash Stated Complaint: SKIN ISSUE Time Seen by Provider: 11/02/18 07:42 Primary Care Provider: JANA WHITEHEAD MD [Primary Care Provider] - Follow up as needed Mode of Arrival: Ambulatory Information source: Patient Notes: 63-year-old female who presents to the emergency department today with complaints of a rash that began yesterday. Patient states the rash became more itchy overnight and it seemed to spread over more areas as well. Patient states she has tried hydrocortisone cream, Benadryl, and Benadryl lotion with little to no relief. Patient states she thinks it could possibly be poison william. Patient states she has not come into contact with any poison william to her knowledge. However, the patient then goes on to propose the idea that her dog could have come into contact with it and she could have contracted it from the dog. Patient states the rash is spread across her arms bilaterally, around her eyes, right cheek, and scalp. Patient states she has not been on any steroids recently. Patient denies a history of anxiety but does mention that she has some trouble with insomnia. Patient denies any recent medicine changes, new lotions/soaps, or shortness of breath. Patient denies a history of diabetes. TRAVEL OUTSIDE OF THE [place] IN LAST 30 DAYS: No - Related Data Allergies/Adverse Reactions: Penicillins Allergy (Severe, Verified 04/01/18 06:41) hives,throat swellling Iodinated Contrast- Oral and IV Dye [IV Dye, Iodine Containing] Allergy (Unknown, Verified 04/01/18 06:41) Anaphylaxis bee venom protein (honey bee) Allergy (Verified 04/01/18 06:41) adhesive tape Adverse Reaction (Intermediate, Verified 04/01/18 06:41) Generalized rash Past Medical History - General Information source: Patient, [facility] Records - Social History Smoking Status: Never Smoker Cigarette use (# per day): No Frequency of alcohol use: None Drug Abuse: None Lives with: Spouse/Significant other Family History: Arthritis, CAD, Hyperlipidemia, Hypertension, Malignancy, Thyroid Disfunction - Past Medical History Cardiac Medical History: Reports: Hx Hypercholesterolemia, Hx Hypertension Pulmonary Medical History: Reports: Hx Bronchitis Endocrine Medical History: Reports: Hx Hypothyroidism Renal/ Medical History: Reports: Hx Ovarian Cysts GI Medical History: Reports: Hx Gastroesophageal Reflux Disease, Hx Colonoscopy Musculoskeletal Medical History: Reports Hx Arthritis, Reports Hx Fibromyalgia, Reports Hx Musculoskeletal Deformity, Reports Hx Musculoskeletal Trauma Skin Medical History: Reports Hx Cellulitis, Reports Hx MRSA Psychiatric Medical History: Reports: Hx Depression Traumatic Medical History: Reports: Hx Fractures - right wrist/right elbow r/t fall Infectious Medical History: Reports: Hx MRSA Past Surgical History: Reports: Hx Abdominal Surgery, Hx Breast Surgery, Hx Cardiac Surgery, Hx Cholecystectomy, Hx Dilation and Curettage, Hx Gastric Bypass Surgery, Hx Gynecologic Surgery, Hx Hysterectomy, Hx Nose Surgery, Hx Orthopedic Surgery, Hx Pacemaker, Hx Umbilical Hernia - Umbilical and incisional hernia - Immunizations Hx Diphtheria, Pertussis, Tetanus Vaccination: Yes Hx Pneumococcal Vaccination: 07/16/16 Review of Systems - Review of Systems Constitutional: No symptoms reported EENT: No symptoms reported Cardiovascular: No symptoms reported Respiratory: denies: Short of breath Gastrointestinal: No symptoms reported Genitourinary: No symptoms reported Female Genitourinary: No symptoms reported Musculoskeletal: No symptoms reported Skin: See HPI, Rash Hematologic/Lymphatic: No symptoms reported Neurological/Psychological: No symptoms reported -: Yes All other systems reviewed and negative Physical Exam - Vital signs Vitals: Temp Pulse Resp BP Pulse Ox 98.0 F 70 16 124/75 96 11/02/18 07:29 11/02/18 07:29 11/02/18 07:29 11/02/18 07:29 11/02/18 07:29 - Notes Notes: PHYSICAL EXAM GENERAL: Alert, interacts well. No acute distress. HEAD: Normocephalic, atraumatic. EYES: Pupils equal, round, and reactive to light. Extraocular movements intact. ENT: Oral mucosa moist, tongue midline. No stridor. NECK: Full range of motion. Supple. Trachea midline. LUNGS: No respiratory distress. EXTREMITIES: Moves all 4 extremities spontaneously. No edema, radial and dorsalis pedis pulses 2/4 bilaterally. No cyanosis. NEUROLOGICAL: Alert and oriented x3. Normal speech. PSYCH: Normal affect, normal mood. SKIN: Warm and dry. Raised erythematous areas across bilateral AC's, left upper arm, under the chin, right face and neck, and between the eyebrows. There is no peeling or sloughing of the skin. There are a few small vesicles. All erythematous areas birdie well. Course - Re-evaluation Re-evalutation: 11/02/18 07:50 Rash does not have any concerning features such as hives, Nikolsky sign/sloughing, blisters. It does not fit classic poison william distribution as it is not in lines however the patient thinks she may have gotten this from her dog. Distribution could account for exposure on her hands that she then distributed the oil to her head and antecubital fossae. Patient will be treated with Benadryl and steroids. Discharged home. 11/02/18 15:08 Patient was warned of risk of increasing anxiety or insomnia on steroids. Patient willing to accept this risk. - Vital Signs Vital signs: Temp Pulse Resp BP Pulse Ox 98.0 F 70 16 124/75 96 11/02/18 07:29 11/02/18 07:29 11/02/18 07:29 11/02/18 07:29 11/02/18 07:29 Discharge - Discharge Clinical Impression: Contact dermatitis Qualifiers: Contact dermatitis type: irritant Contact dermatitis trigger: non-food plants Qualified Code(s): L24.7 - Irritant contact dermatitis due to plants, except food Condition: Stable Disposition: HOME, SELF-CARE Additional Instructions: I am not entirely certain what is causing your rash. I agree that it is quite possibly poison william that your dog carried inside. Please wash your dog. Please continue to use calamine lotion, Benadryl as directed on the box and take the steroids as directed until they are gone. Please return to the emergency department for worsening of the rash, development of large blisters, peeling of the skin or any new or concerning symptoms. Prescriptions: Prednisone [Deltasone 10 mg Tablet] 10 mg PO ASDIR PRN #21 tablet PRN Reason: Referrals: JANA WHITEHEAD MD [Primary Care Provider] - Follow up as needed I personally performed the services described in the documentation, reviewed and edited the documentation which was dictated to the scribe in my presence, and it accurately records my words and actions.
== END 2018-11-02 08:20 | disposition home or self-care (01) ==
LOC: ER 07:02
DX: L24.7 Irritant contact dermatitis due to plants, except food (principal); I10 Essential (primary) hypertension; Z88.0 Allergy status to penicillin; Z91.041 Radiographic dye allergy status; Z91.030 Bee allergy status
CPT/HCPCS: 99282; 96372; J2930

== ENCOUNTER → 2018-11-04 | Outpatient (CLI) | payer MEDICARE, OTHER ==
[2018-11-04 09:35] LABS: INTERNATIONAL RATION (INR) 2.61; PROTHROMBIN TIME 29.1 SEC (11.4-15.4)
== END ==
LOC: OD 08:04
PROVIDERS: ATTEND Family Medicine
DX: D68.9 Coagulation defect, unspecified (principal)
CPT/HCPCS: 36415; 85610

== ENCOUNTER 2018-11-18 08:47 | Emergency (ER) | payer MEDICARE, OTHER ==
--- NOTE | 2018-11-18 09:41 | RADIOLOGY REPORT (SQ) ---
EXAM DESCRIPTION: HIP RIGHT AP/LATERAL COMPLETED DATE/TIME: 11/18/2018 9:28 am REASON FOR STUDY: fall, pain COMPARISON: Right hip two views 07/16/2018 NUMBER OF VIEWS: Two views. TECHNIQUE: AP pelvis and additional frog-leg view of the right hip. LIMITATIONS: None. FINDINGS: MINERALIZATION: Normal. RIGHT HIP: No fracture or dislocation. No worrisome bone lesions. LEFT HIP: No fracture or dislocation. No worrisome bone lesions. PUBIS AND ISCHIUM: No fracture. PELVIS: No fracture. SACRUM: No fracture or dislocation. No worrisome bone lesions. SOFT TISSUES: No findings. OTHER: No other significant finding. IMPRESSION: NEGATIVE STUDY OF THE RIGHT HIP. NO RADIOGRAPHIC EVIDENCE OF ACUTE INJURY. TECHNICAL DOCUMENTATION: JOB ID: [id number] [employer]- All Rights Reserved Reading location - IP/workstation name: [email or web address]
--- NOTE | 2018-11-18 10:04 | ER Document Report ---
ED General - General Chief Complaint: Knee Injury Stated Complaint: FALL/HIP PAIN Time Seen by Provider: 11/18/18 09:04 Primary Care Provider: JANA WHITEHEAD MD [Primary Care Provider] - Follow up as needed TRAVEL OUTSIDE OF THE [place] IN LAST 30 DAYS: No - HPI Notes: Patient is a 63-year-old female who presents to the emergency department for evaluation. She was at [facility] getting testing, when her knee buckled from underneath her. She fell, straight onto her right hip. She denies hitting her head or losing consciousness. No neck pain. She is already had pain in that right hip secondary to bursitis. She has been able to bear weight, but it does increase pain. - Related Data Allergies/Adverse Reactions: Penicillins Allergy (Severe, Verified 11/18/18 08:50) hives,throat swellling Iodinated Contrast- Oral and IV Dye [IV Dye, Iodine Containing] Allergy (Unknown, Verified 11/18/18 08:50) Anaphylaxis bee venom protein (honey bee) Allergy (Verified 11/18/18 08:50) adhesive tape Adverse Reaction (Intermediate, Verified 11/18/18 08:50) Generalized rash Past Medical History - General Information source: Patient - Social History Smoking Status: Never Smoker Family History: Arthritis, CAD, Hyperlipidemia, Hypertension, Malignancy, Thyroid Disfunction Patient has suicidal ideation: No Patient has homicidal ideation: No - Past Medical History Cardiac Medical History: Reports: Hx Hypercholesterolemia, Hx Hypertension Denies: Hx Atrial Fibrillation, Hx Congestive Heart Failure, Hx Heart Attack Pulmonary Medical History: Reports: Hx Bronchitis Denies: Hx Asthma, Hx COPD, Hx Pneumonia, Hx Tuberculosis Neurological Medical History: Denies: Hx Seizures Endocrine Medical History: Reports: Hx Hypothyroidism Renal/ Medical History: Reports: Hx Ovarian Cysts. Denies: Hx End Stage Renal Disease, Hx Kidney Stones, Hx Peritoneal Dialysis GI Medical History: Reports: Hx Gastroesophageal Reflux Disease, Hx Colonoscopy. Denies: Hx Hiatal Hernia, Hx Ulcer Musculoskeletal Medical History: Reports Hx Arthritis, Reports Hx Fibromyalgia, Reports Hx Musculoskeletal Deformity, Reports Hx Musculoskeletal Trauma Skin Medical History: Reports Hx Cellulitis, Reports Hx MRSA Psychiatric Medical History: Reports: Hx Anxiety, Hx Depression Denies: Hx Bipolar Disorder, Hx Schizophrenia Traumatic Medical History: Reports: Hx Fractures - right wrist/right elbow r/t fall Infectious Medical History: Reports: Hx MRSA Past Surgical History: Reports: Hx Abdominal Surgery, Hx Breast Surgery, Hx Cardiac Surgery, Hx Cholecystectomy, Hx Dilation and Curettage, Hx Gastric Bypass Surgery, Hx Gynecologic Surgery, Hx Hysterectomy, Hx Nose Surgery, Hx Orthopedic Surgery, Hx Pacemaker, Hx Umbilical Hernia - Umbilical and incisional hernia. Denies: Hx Appendectomy, Hx Bowel Surgery, Hx Section, Hx Mastectomy, Hx Tonsillectomy, Hx Tubal Ligation - Immunizations Hx Diphtheria, Pertussis, Tetanus Vaccination: Yes Hx Pneumococcal Vaccination: 07/16/16 Review of Systems - Review of Systems Constitutional: No symptoms reported EENT: No symptoms reported Cardiovascular: No symptoms reported Respiratory: No symptoms reported Gastrointestinal: No symptoms reported Genitourinary: No symptoms reported Musculoskeletal: See HPI Skin: No symptoms reported Neurological/Psychological: No symptoms reported Physical Exam - Vital signs Vitals: Temp Pulse Resp BP Pulse Ox 97.7 F 67 16 124/72 96 11/18/18 08:51 11/18/18 08:51 11/18/18 08:51 11/18/18 08:51 11/18/18 08:51 - Notes Notes: 63-year-old female appears stated age, no acute distress. Head is normocephalic and atraumatic. Pupils are equal round, reactive to light. Heart is regular rate and rhythm, lungs are clear to auscultation bilaterally. Examination of the right lower extremity the patient hold it in an internally rotated and flexed location of the hip. 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 She is tender to palpation over the greater trochanter. She has full passive and active range of motion without significant pain of the hip, knee, ankle. Dorsalis pedis pulses 2+. Sensation is intact. Course - Re-evaluation Re-evalutation: 11/18/18 10:04 Patient presents to the emergency department for evaluation after a fall. She was actually trying to get physical therapy for her knee already. Her hip feels to show any signs of acute fracture. We will discharge the patient home. She is to follow-up with primary care and return to the ED with worsening or new concerning symptoms. - Vital Signs Vital signs: Temp Pulse Resp BP Pulse Ox 97.7 F 67 16 124/72 96 11/18/18 08:51 11/18/18 08:51 11/18/18 08:51 11/18/18 08:51 11/18/18 08:51 - Diagnostic Test Radiology reviewed: Reports reviewed Radiology results interpreted by me: 11/18/18 10:03 Hip/Pelvis X-Ray 11/18/18 09:15 IMPRESSION: NEGATIVE STUDY OF THE RIGHT HIP. NO RADIOGRAPHIC EVIDENCE OF ACUTE INJURY. Discharge - Discharge Clinical Impression: Contusion, hip Qualifiers: Encounter type: initial encounter Laterality: right Qualified Code(s): S70.01XA - Contusion of right hip, initial encounter Fall Qualifiers: Encounter type: initial encounter Qualified Code(s): W19.XXXA - Unspecified fall, initial encounter Condition: Stable Disposition: HOME, SELF-CARE Instructions: Contusion ([facility]) Additional Instructions: No significant fracture was seen on your x-rays today. Follow-up with primary care in 1 to 2 weeks. If your pain persists you may need further imaging. Return to the emergency department with worsening or new concerning symptoms of any sort. Referrals: JANA WHITEHEAD MD [Primary Care Provider] - Follow up as needed
[2018-11-18 10:11] VITALS: BP 119/67
== END 2018-11-18 10:35 | disposition home or self-care (01) ==
LOC: ER 08:47
DX: S70.01XA Contusion of right hip, initial encounter (principal); W19.XXXA Unspecified fall, initial encounter; Y93.89 Activity, other specified; Y92.531 Health care provider office as the place of occurrence of the external cause; M70.71 Other bursitis of hip, right hip; I10 Essential (primary) hypertension; Z96.651 Presence of right artificial knee joint; Z98.84 Bariatric surgery status; Z88.0 Allergy status to penicillin; Z91.030 Bee allergy status; Z91.041 Radiographic dye allergy status; Z87.892 Personal history of anaphylaxis
CPT/HCPCS: 36415; 85610; 99283

== ENCOUNTER → 2018-11-18 | Outpatient (CLI) | payer MEDICARE, OTHER ==
[2018-11-18 08:38] LABS: INTERNATIONAL RATION (INR) 2.42; PROTHROMBIN TIME 27.5 SEC (11.4-15.4)
== END ==
LOC: OD 07:47
PROVIDERS: ATTEND Family Medicine
DX: D68.9 Coagulation defect, unspecified (principal)
CPT/HCPCS: 36415; 85610

== ENCOUNTER 2018-11-28 05:35 | Observation (INO) | payer MEDICARE, OTHER ==
[2018-11-28] MEDS ORDERED: ONDANSETRON HCL INJ/PF 4 MG/2 ML SDV IV ONE ×2 (06:24→08:53)
[2018-11-28] MEDS ORDERED: NORMAL SALINE 1000 ML 1,000 ML IV ONE (06:24)
[2018-11-28 06:31] LABS: ABSOLUTE BASOPHILS # (AUTO) 0.1 10^3/uL (0.0-0.2); ABSOLUTE EOSINOPHILS # (AUTO) 0.1 10^3/uL (0.0-0.6); ABSOLUTE MONOCYTES (AUTO) 0.5 10^3/uL (0.1-1.4); ABSOLUTE NEUT (AUTO) 1.5 10^3/uL (1.7-8.2); BASOPHILS % (AUTO) 1.3 % (0-2); EOSINOPHILS % (AUTO) 1.8 % (0-6); HEMATOCRIT 41.6 % (36.0-47.0); HEMOGLOBIN 14.4 g/dL (12.0-15.5); LYMPHOCYTES % (AUTO) 47.4 % (13-45); MEAN CORPUSCULAR HEMOGLOBIN 31.4 pg (27.0-33.4); MEAN CORPUSCULAR HGB CONC 34.7 g/dL (32.0-36.0); MEAN CORPUSCULAR VOLUME 91 fl (80-97); MONOCYTES % (AUTO) 12.6 % (3-13); PLATELET COUNT 310 10^3/uL (150-450); RED BLOOD COUNT 4.59 10^6/uL (3.72-5.28); RED CELL DISTRIBUTION WIDTH 14.2 % (11.5-14.0); SEGMENTED NEUTROPHILS % (AUTO) 36.9 % (42-78); TOTAL CELLS COUNTED % (AUTO) 100 %; WHITE BLOOD COUNT 4.2 10^3/uL (4.0-10.5)
[2018-11-28 06:45] LABS: ALANINE AMINOTRANSFERASE 24 U/L (9-52); ALBUMIN 4.1 g/dL (3.5-5.0); ALKALINE PHOSPHATASE 68 U/L (38-126); ANION GAP 11 (5-19); ASPARTATE AMINO TRANSFERASE 27 U/L (14-36); BILIRUBIN,DIRECT 0.2 mg/dL (0.0-0.4); BILIRUBIN,TOTAL 0.9 mg/dL (0.2-1.3); BLOOD UREA NITROGEN 9 mg/dL (7-20); CALCIUM 9.5 mg/dL (8.4-10.2); CARBON DIOXIDE 29 mmol/L (22-30); CHLORIDE 93 mmol/L (98-107); CREATINE KINASE 88 U/L (30-135); GLUCOSE 98 mg/dL (75-110); LIPASE 116.4 U/L (23-300); POTASSIUM 3.1 mmol/L (3.6-5.0); SODIUM 132.8 mmol/L (137-145); TOTAL PROTEIN 6.7 g/dL (6.3-8.2)
[2018-11-28 06:58] LABS: TROPONIN I < 0.012 ng/mL
--- NOTE | 2018-11-28 07:22 | RADIOLOGY REPORT (SQ) ---
EXAM DESCRIPTION: X-ray single view chest. CLINICAL HISTORY: 63 years Female, Chest pain COMPARISON: Prior portable chest performed on 05/16/2017 TECHNIQUE: Single portable x-ray view of the chest performed on 11/28/2018 at 6:42 AM FINDINGS: The lungs are well expanded and are clear. There is no evidence of a pneumothorax. The cardiac silhouette is normal in size and configuration. The mediastinal contours are normal. No acute osseous abnormality is identified. There are mild degenerative changes of the thoracic spine. No focal soft tissue abnormalities are seen. Lines and tubes: There is a stable left subclavian bipolar transvenous pacemaker. IMPRESSION: No evidence of acute intrathoracic disease. No significant change since the prior study.
[2018-11-28 07:23] LABS: APPEARANCE,URINE SLIGHTLY-CLOUDY; BILIRUBIN,URINE NEGATIVE (NEGATIVE); COLOR,URINE YELLOW; GLUCOSE, URINE NEGATIVE (NEGATIVE); KETONES,URINE NEGATIVE (NEGATIVE)
[2018-11-28 07:24] LABS: CALCIUM OXALATE CRYSTALS,URINE FEW /HPF; LEUKOCYTE ESTERASE,URINE SMALL (NEGATIVE); NITRITE,URINE NEGATIVE (NEGATIVE); PROTEIN,URINE NEGATIVE (NEGATIVE); URINE SPECIFIC GRAVITY 1.014; UROBILINOGEN,URINE NEGATIVE mg/dL (<2.0)
[2018-11-28] MEDS ORDERED: POTASSI CL 20 MEQ/50 ML RIDER 20 MEQ/50 ML RTUPB IV ONE (07:27)
--- NOTE | 2018-11-28 11:18 | ER Document Report ---
Entered by SILVESTRE ARIZMENDI SCRIBE 11/28/18 0623 Acting as scribe for:SERA WILSON MD ED Cardiac - General Chief Complaint: Chest Pain > 30 Stated Complaint: CHEST PAIN Time Seen by Provider: 11/28/18 06:13 Primary Care Provider: JANA WHITEHEAD MD [Primary Care Provider] - Follow up as needed Notes: Patient is a 63-year-old female presenting to the emergency department complaining of chest pain. Patient states the chest pain began yesterday and she claims "it hurts in the middle of my chest". Patient states her last meal was at 21:30 last night and she took Zantac before going to bed last night but woke up at 01:00 due to pain. Patient reports that after she woke up and tried to get up and walk without, she felt weak, dizzy, and had trouble walking or standing up. Patient states that she felt nauseated on the way here but does not currently. Patient denies radiation of chest pain and denies pain with coughing. The triage she reports a blood pressure of 64/48, however the charge nurse tells me that is not accurate that her blood pressure was in the 80s systolic, which is still hypotensive for her. At this time in the room her blood pressure is 125 systolic with her laying down receiving IV fluids. TRAVEL OUTSIDE OF THE [place] IN LAST 30 DAYS: No - Related Data Allergies/Adverse Reactions: Penicillins Allergy (Severe, Verified 11/18/18 08:50) hives,throat swellling Iodinated Contrast- Oral and IV Dye [IV Dye, Iodine Containing] Allergy (Unknown, Verified 11/18/18 08:50) Anaphylaxis bee venom protein (honey bee) Allergy (Verified 11/18/18 08:50) adhesive tape Adverse Reaction (Intermediate, Verified 11/18/18 08:50) Generalized rash Past Medical History - General Information source: Patient - Social History Smoking Status: Never Smoker Frequency of alcohol use: None Drug Abuse: None Family History: Arthritis, CAD, Hyperlipidemia, Hypertension, Malignancy, Thyroid Disfunction - Past Medical History Cardiac Medical History: Reports: Hx Hypercholesterolemia, Hx Hypertension Pulmonary Medical History: Reports: Hx Bronchitis Endocrine Medical History: Reports: Hx Hypothyroidism Renal/ Medical History: Reports: Hx Ovarian Cysts GI Medical History: Reports: Hx Gastroesophageal Reflux Disease, Hx Colonoscopy Musculoskeletal Medical History: Reports Hx Arthritis, Reports Hx Fibromyalgia, Reports Hx Musculoskeletal Deformity, Reports Hx Musculoskeletal Trauma Skin Medical History: Reports Hx Cellulitis, Reports Hx MRSA Psychiatric Medical History: Reports: Hx Anxiety, Hx Depression Traumatic Medical History: Reports: Hx Fractures - right wrist/right elbow r/t fall Infectious Medical History: Reports: Hx MRSA Past Surgical History: Reports: Hx Abdominal Surgery, Hx Breast Surgery, Hx Cardiac Surgery, Hx Cholecystectomy, Hx Dilation and Curettage, Hx Gastric Bypass Surgery, Hx Gynecologic Surgery, Hx Hysterectomy, Hx Nose Surgery, Hx Orthopedic Surgery, Hx Pacemaker, Hx Umbilical Hernia - Umbilical and incisional hernia - Immunizations Hx Diphtheria, Pertussis, Tetanus Vaccination: Yes Hx Pneumococcal Vaccination: 07/16/16 Review of Systems - Review of Systems Constitutional: No symptoms reported EENT: No symptoms reported Cardiovascular: See HPI, Chest pain Respiratory: No symptoms reported Gastrointestinal: Nausea Genitourinary: No symptoms reported Female Genitourinary: No symptoms reported Musculoskeletal: No symptoms reported Skin: No symptoms reported Hematologic/Lymphatic: No symptoms reported Neurological/Psychological: No symptoms reported -: Yes All other systems reviewed and negative Physical Exam - Vital signs Vitals: Resp Pulse Ox 14 96 11/28/18 06:08 11/28/18 06:08 - Notes Notes: Physical Exam: General: Alert, obese. HEENT: Normocephalic. Atraumatic. PERRL. Extraocular movements intact. Oropharynx clear. Neck: Supple. Non-tender. Respiratory: No respiratory distress. Clear and equal breath sounds bilaterally. Cardiovascular: Regular rate and rhythm. Chest: Lower sternum tenderness to palpation. Different pain than her chief complaint. Abdominal: Normal Inspection. Non-tender. No distension. Normal Bowel Sounds. Back: Non-tender. No deformity or step off. Extremities: Moves all four extremities. Upper extremities: Normal inspection. Normal ROM. Lower extremities: Trace edema. Normal ROM. Neurological: Normal cognition. AAOx4. Normal speech. Psychological: Normal affect. Normal Mood. Skin: Warm. Dry. Normal color. Course - Re-evaluation Re-evalutation: 11/28/18 11:18 After IV fluids and IV potassium, the patient's blood pressure was in the 115 120 range. I had the nurse get her up to walk and do orthostatic checking. When the patient stood up her pressure did drop some and she became symptomatic feeling dizzy and lightheaded. The blood pressure readings were documented by the nurse. The patient is on warfarin, hydrochlorothiazide, and potassium supplements. Reports she is on Coumadin because of her pacemaker. - Vital Signs Vital signs: Temp Pulse Resp BP Pulse Ox 13 100/66 95 11/28/18 11:01 11/28/18 11:01 11/28/18 11:00 - Laboratory Result Diagrams: 11/28/18 06:17 11/28/18 06:17 Laboratory results interpreted by me: 11/28/18 11/28/18 11/28/18 06:17 06:17 06:49 RDW 14.2 H Seg Neutrophils % 36.9 L Lymphocytes % 47.4 H Absolute Neutrophils 1.5 L Sodium 132.8 L Potassium 3.1 L Chloride 93 L Ur Leukocyte Esterase SMALL H - Diagnostic Test Radiology reviewed: Image reviewed, Reports reviewed - Chest x-ray does not show any acute process. - EKG Interpretation by Me EKG shows normal: [place], Intervals, QRS Complexes. abnormal: ST-T Waves - Nonspecific inferior T abnormalities Rate: Normal - 77 Rhythm: Other - Atrial paced rhythm Voltage: Consistant with [facility] - Consults Dr. Golden Time consulted: 11:19 Consulted provider: will come to ER Discharge - Discharge Clinical Impression: Hypokalemia Chest pain Qualifiers: Chest pain type: unspecified Qualified Code(s): R07.9 - Chest pain, unspecified Hypotension Qualifiers: Hypotension type: unspecified hypotension type Qualified Code(s): I95.9 - Hypotension, unspecified Condition: Stable Disposition: ADMITTED OBSERVATION Admitting Provider: Chantel (Hospitalist) Unit Admitted: IMCU Referrals: JANA WHITEHEAD MD [Primary Care Provider] - Follow up as needed Scribe Attestation: 11/28/18 07:40 I personally performed the services described in the documentation, reviewed and edited the documentation which was dictated to the scribe in my presence, and it accurately records my words and actions. I personally performed the services described in the documentation, reviewed and edited the documentation which was dictated to the scribe in my presence, and it accurately records my words and actions.
[2018-11-28 11:57] LABS: INTERNATIONAL RATION (INR) 1.75; PROTHROMBIN TIME 21.3 SEC (11.4-15.4)
--- NOTE | 2018-11-28 12:33 | PDOC H&P ---
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 Rodarte at [facility]. Pacemaker interrogated biannually. PT presented to ED complaining of squeezing chest pain started yesterday at 5 PM, at rest, nonradiating, no alleviating or exacerbating factor identified, associated with generalized weakness and dizziness. Denies any syncope, nausea, vomiting, diarrhea, shortness of breath, abdominal pain, numbness, dysuria, hesitancy, urgency, or any constipation. Patient is compliant with her medications and keeps well-hydrated. In triage SBP was found to be in the 80s, after receiving IV fluids BP has been [id number]. In ED troponins were negative x1, EKG sinus rhythm atrial paced, CXR no acute changes, CBC wnl, CMP (Na 132, K 3.1) Patient stated 2 years ago when she had a complete heart block and got her pacemaker she had a LHC and echo which were both reported as normal. Past Medical History Cardiac Medical History: Reports: Hyperlipidema, Hypertension Denies: Atrial Fibrillation, Congestive Heart Failure, Myocardial Infarction Pulmonary Medical History: Reports: Bronchitis Denies: Asthma, Chronic Obstructive Pulmonary Disease (COPD), Pneumonia, Tuberculosis Neurological Medical History: Denies: Seizures Endocrine Medical History: Reports: Hypothyroidism Renal/ Medical History: Denies: End Stage Renal Disease GI Medical History: Reports: Gastroesophageal Reflux Disease Denies: Hiatal Hernia Musculoskeltal Medical History: Reports: Arthritis, Fibromyalgia Psychiatric Medical History: Reports: Depression Denies: Bipolar Disorder Hematology: Infectious Medical History: Reports: Methicillin-Resistant Staph Aureus Past Surgical History Past Surgical History: Reports: Cholecystectomy, Gastric Bypass Surgery, Hysterectomy, Orthopedic Surgery, Pacemaker Denies: Amputation, Appendectomy, Section, Mastectomy, Tonsillectomy, Tubal Ligation Social History Smoking Status: Never Smoker Frequency of Alcohol Use: None Hx Recreational Drug Use: No Drugs: None Hx Prescription Drug Abuse: No Family History Family History: Arthritis, CAD, Hyperlipidemia, Hypertension, Malignancy, Thyro id Disfunction Parental Family History Reviewed: Yes Children Family History Reviewed: Yes Sibling(s) Family History Reviewed.: Yes Medication/Allergy Home Medications: Calcium Carbonate [Calcium] 1,200 mg PO DAILY 11/28/18 Cholecalciferol (Vitamin D3) [Vitamin D3 1000 Unit Tablet] 2,000 unit PO DAILY 11/28/18 Cyanocobalamin (Vitamin B-12) [Vitamin B-12 1000 Mcg Tablet] 1 tab PO DAILY 11/28/18 Fluticasone Propionate [Flonase Nasal [place] 50 Mcg/[place] 16 gm] 2 sprays NASL DAILY 11/28/18 Gabapentin [Neurontin] 600 mg PO Q12 11/28/18 Hydrochlorothiazide [Hydrodiuril 25 mg Tablet] 25 mg PO DAILY 11/28/18 Hydrocodone/Acetaminophen [Hydrocodone-Acetamin 5-300 mg] 1 each PO Q6HP PRN 11/28/18 Levothyroxine Sodium 50 mcg PO Q6AM 11/28/18 Melatonin [Melatonin 5 mg Tablet] 10 mg PO QHS 11/28/18 Metoprolol Tartrate [Lopressor 25 mg Tablet] 37.5 mg PO Q12 11/28/18 Potassium Chloride [Klor-Con 10 Meq Capsule ER] 10 meq PO Q12 11/28/18 Simvastatin [Zocor 20 mg Tablet] 20 mg PO QHS 11/28/18 Tizanidine HCl [Zanaflex 4 Mg Tablet] 4 mg PO Q12 11/28/18 Trazodone HCl 100 mg PO QHS 11/28/18 Warfarin Sodium [Jantoven] 7.5 mg PO DAILY 11/28/18 Zinc [Zinc Chelated] 50 mg PO DAILY 11/28/18 Allergies/Adverse Reactions: Penicillins Allergy (Severe, Verified 11/18/18 08:50) hives,throat swellling Iodinated Contrast- Oral and IV Dye [IV Dye, Iodine Containing] Allergy (Unknown, Verified 11/18/18 08:50) Anaphylaxis bee venom protein (honey bee) Allergy (Verified 11/18/18 08:50) adhesive tape Adverse Reaction (Intermediate, Verified 11/18/18 08:50) Generalized rash Review of Systems Review of Systems: as per hpi Physical Exam Vital Signs: Temp Pulse Resp BP Pulse Ox 13 100/66 95 11/28/18 11:01 11/28/18 11:01 11/28/18 11:00 Intake & Output 05/11/28/18 11/29/18 06:59 06:59 06:59 Intake Total 1050 Balance 1050 Weight 81.6 kg General appearance: PRESENT: no acute distress, well-developed, well-nourished Head exam: PRESENT: atraumatic, normocephalic Eye exam: PRESENT: conjunctiva pink, EOMI, PERRLA. ABSENT: scleral icterus Ear exam: PRESENT: normal external ear exam Mouth exam: PRESENT: moist, tongue midline Neck exam: ABSENT: carotid bruit, JVD, lymphadenopathy, thyromegaly Respiratory exam: PRESENT: clear to auscultation rei. ABSENT: rales, rhonchi, wheezes Cardiovascular exam: PRESENT: RRR. ABSENT: diastolic murmur, rubs, systolic murmur Pulses: PRESENT: normal dorsalis pedis pul Vascular exam: PRESENT: normal capillary refill GI/Abdominal exam: PRESENT: normal bowel sounds, soft. ABSENT: distended, guarding, mass, organolmegaly, rebound, tenderness Rectal exam: PRESENT: deferred Extremities exam: PRESENT: full ROM. ABSENT: calf tenderness, clubbing, pedal edema Neurological exam: PRESENT: alert, awake, oriented to person, oriented to place, oriented to time, oriented to situation, CN II-XII grossly intact. ABSENT: motor sensory deficit Psychiatric exam: PRESENT: appropriate affect, normal mood. ABSENT: homicidal ideation, suicidal ideation Skin exam: PRESENT: dry, intact, warm. ABSENT: cyanosis, rash Results Laboratory Results: 11/28/18 06:17 11/28/18 06:17 11/28/18 11/28/18 11/28/18 06:17 06:17 06:17 WBC 4.2 RBC 4.59 Hgb 14.4 Hct 41.6 MCV 91 MCH 31.4 MCHC 34.7 RDW 14.2 H Plt Count 310 Seg Neutrophils % 36.9 L Lymphocytes % 47.4 H Monocytes % 12.6 Eosinophils % 1.8 Basophils % 1.3 Absolute Neutrophils 1.5 L Absolute Lymphocytes 2.0 Absolute Monocytes 0.5 Absolute Eosinophils 0.1 Absolute Basophils 0.1 Sodium 132.8 L Potassium 3.1 L Chloride 93 L Carbon Dioxide 29 Anion Gap 11 BUN 9 Creatinine 0.72 Est GFR ( Amer) > 60 Est GFR (Non-Af Amer) > 60 Glucose 98 Calcium 9.5 Magnesium 2.4 H Total Bilirubin 0.9 AST 27 ALT 24 Alkaline Phosphatase 68 Total Protein 6.7 Albumin 4.1 Lipase 116.4 Urine Color Urine Appearance Urine pH Ur Specific [place] Urine Protein Urine Glucose (UA) Urine Ketones Urine Blood Urine Nitrite Ur Leukocyte Esterase Urine WBC (Auto) Urine RBC (Auto) 11/28/18 06:49 WBC RBC Hgb Hct MCV MCH MCHC RDW Plt Count Seg Neutrophils % Lymphocytes % Monocytes % Eosinophils % Basophils % Absolute Neutrophils Absolute Lymphocytes Absolute Monocytes Absolute Eosinophils Absolute Basophils Sodium Potassium Chloride Carbon Dioxide Anion Gap BUN Creatinine Est GFR ( Amer) Est GFR (Non-Af Amer) Glucose Calcium Magnesium Total Bilirubin AST ALT Alkaline Phosphatase Total Protein Albumin Lipase Urine Color YELLOW Urine Appearance SLIGHTLY-CLOUDY Urine pH 8.0 Ur Specific [place] 1.014 Urine Protein NEGATIVE Urine Glucose (UA) NEGATIVE Urine Ketones NEGATIVE Urine Blood NEGATIVE Urine Nitrite NEGATIVE Ur Leukocyte Esterase SMALL H Urine WBC (Auto) 2 Urine RBC (Auto) 2 11/28/18 11/28/18 06:17 06:17 Creatine Kinase 88 CK-MB (CK-2) 0.90 Troponin I < 0.012 Impressions: Chest X-Ray 11/28/18 06:24 IMPRESSION: No evidence of acute intrathoracic disease. No significant change since the prior study. Assessment and Plan - Diagnosis (1) Chest pain Qualifiers: Chest pain type: unspecified Qualified Code(s): R07.9 - Chest pain, unspecified Is this a current diagnosis for this admission?: Yes Plan: Likely noncardiac. Troponins negative x2, EKG no acute changes. Admit to IMCU, trend troponins, start on aspirin, beta-blockers, TERRELL, statins, morphine and nitro as needed. Patient reports a normal left heart cath and echo x2 years ago at [facility]. Will obtain records. Will order stress test (2) Paroxysmal A-fib Is this a current diagnosis for this admission?: Yes Plan: Unfortunately pacemaker could not be interrogated but the primary nurse had called community outreach worker and they stated that patient had one episode of A. fib RVR yesterday evening which explains her dizziness. Currently not in A. fib, EKG and telemetry shows that she is atrial paced. Continue metoprolol, Coumadin. Goal of INR 2-2.5. Note: Patient unsure if she has history of A. fib. Contacted her supervisor network control operators Dr. Moya at [facility] who stated that patient does have history of A. fib and advised for patient to be continued on her metoprolol and Coumadin and follow-up with him as an outpatient as soon as possible. No need to transfer at this point. (3) Hypotension Qualifiers: Hypotension type: unspecified hypotension type Qualified Code(s): I95.9 - Hypotension, unspecified Is this a current diagnosis for this admission?: Yes Plan: One episode of hypotension in triage SBP in 80s. Normotensive after 1 L of volume resuscitation. Patient is well-hydrated, EKG paced, no arrhythmia, denies any diarrhea, vomiting or any fluid losses. As per patient pacemaker was interrogated 6 months ago which was reported as normal. Will obtain records. Interrogate pacemaker. Monitor vitals, IV fluids guided by volume status and vitals. Orthostatic vitals, hold hydrochlorthiazide. Restart once appropriate. Note: I have mentioned to the patient that hydrochlorothiazide be the reason she is hyponatremic and hypokalemic without any other obvious causes. She said that hydrochlorothiazide could be stopped but patient states she would like to take it until seen by her supervisor network control operators Dr Rodarte. She has an appointment with him 12/12/2018. (4) HTN (hypertension) Qualifiers: (5) Hyperlipidemia Qualifiers: Is this a current diagnosis for this admission?: No Plan: Diet and lifestyle modification. Restart statins. (6) Hypokalemia Is this a current diagnosis for this admission?: No Plan: Chronic. Likely due to HCTZ. Denies vomiting or diarrhea. Obtain magnesium level. Continue telemetry and supplemental potassium. Note: I have mentioned to the patient that hydrochlorothiazide could be the reason for her chronic hyponatremia and hypokalemia without any other obvious causes. I suggested for HCTZ to be switched to aother med, but she would like to take it until seen by her supervisor network control operators Dr Rodarte. She has an appointment with him 12/12/2018. (7) Hyponatremia Is this a current diagnosis for this admission?: No Plan: Chronic. Likely due to HCTZ. Denies vomiting or diarrhea. Continue NS guided by volume status. BMP tomorrow. Hold HCTZ. Note: I have mentioned to the patient that hydrochlorothiazide could be the reason for her chronic hyponatremia and hypokalemia without any other obvious causes. I suggested for HCTZ to be switched to aother med, but she would like to take it until seen by her supervisor network control operators Dr Rodarte. She has an appointment with him 12/12/2018.
[2018-11-28] MEDS ORDERED: ACETAMINOPHEN 325 MG TABLET PO PRN (12:35)
[2018-11-28] MEDS ORDERED: PROMETHAZINE HCL 25 MG TABLET PO PRN (12:35)
[2018-11-28] MEDS ORDERED: MAG HYDROX/AL HYDROX/SIMETH SUSP 30 ML UDCUP PO PRN (12:35)
[2018-11-28] MEDS ORDERED: MORPHINE SULFATE 10 MG/ML INJ IV PRN (12:40)
[2018-11-28] MEDS ORDERED: NITROGLYCERIN 0.4 MG/TAB 25 TAB/BOTTLE SL PRN (12:40)
[2018-11-28 15:34] LABS: INTERNATIONAL RATION (INR) 1.76; PROTHROMBIN TIME 21.4 SEC (11.4-15.4)
[2018-11-28] MEDS ORDERED: IPRATROPIUM/ALBUTEROL 0.5-2.5 MG/3 ML AMPUL NEB SCH (16:00)
[2018-11-28] MEDS ORDERED: IPRATROPIUM/ALBUTEROL 0.5-2.5 MG/3 ML AMPUL NEB PRN (16:30)
[2018-11-28] MEDS: NORMAL SALINE 1000 ML 1,000 ML IV PRN (18:30)
[2018-11-28] MEDS: TIZANIDINE HCL 4 MG TABLET PO SCH ×2 (18:30→21:42)
[2018-11-28] MEDS: POTASSIUM CHLORIDE 10 MEQ CAPSULE.ER PO SCH (21:42)
[2018-11-28] MEDS: FAMOTIDINE 20 MG TABLET PO SCH (21:42)
[2018-11-28] MEDS ORDERED: MELATONIN 5 MG TABLET PO SCH (22:00)
[2018-11-28] MEDS ORDERED: TRAZODONE HCL 50 MG TABLET PO SCH (22:00)
[2018-11-28] MEDS ORDERED: WARFARIN SODIUM 7.5 MG TABLET PO SCH (22:00)
[2018-11-28] MEDS ORDERED: SIMVASTATIN 10 MG TABLET PO SCH (22:00)
--- NOTE | 2018-11-28 22:55 | EKG REPORT ---
SEVERITY:- ABNORMAL ECG - ATRIAL-PACED RHYTHM LEFT VENTRICULAR HYPERTROPHY NONSPECIFIC T ABNORMALITIES, INFERIOR LEADS : Confirmed by: Kranthi Barbour MD 28-Nov-2018 22:54:19
[2018-11-29] MEDS: OXYCODONE-ACETAMINOPHEN 5-325 MG TABLET PO PRN ×2 (03:12→14:56)
[2018-11-29] MEDS ORDERED: LEVOTHYROXINE SODIUM 0.05 MG TABLET PO SCH (06:00)
[2018-11-29 06:41] LABS: HEMATOCRIT 35.8 % (36.0-47.0); MEAN CORPUSCULAR HEMOGLOBIN 31.6 pg (27.0-33.4); MEAN CORPUSCULAR HGB CONC 34.5 g/dL (32.0-36.0); MEAN CORPUSCULAR VOLUME 92 fl (80-97); PLATELET COUNT 216 10^3/uL (150-450); RED BLOOD COUNT 3.91 10^6/uL (3.72-5.28); RED CELL DISTRIBUTION WIDTH 14.2 % (11.5-14.0); WHITE BLOOD COUNT 3.9 10^3/uL (4.0-10.5)
[2018-11-29 06:46] LABS: INTERNATIONAL RATION (INR) 2.09; PROTHROMBIN TIME 24.4 SEC (11.4-15.4)
[2018-11-29 06:59] LABS: HEMOGLOBIN 12.3 g/dL (12.0-15.5)
[2018-11-29 07:04] LABS: ANION GAP 7 (5-19); BLOOD UREA NITROGEN 8 mg/dL (7-20); CALCIUM 8.9 mg/dL (8.4-10.2); CARBON DIOXIDE 27 mmol/L (22-30); CHLORIDE 99 mmol/L (98-107); GLUCOSE 83 mg/dL (75-110); POTASSIUM 3.3 mmol/L (3.6-5.0); SODIUM 133.3 mmol/L (137-145)
[2018-11-29] MEDS: NORMAL SALINE 1000 ML 1,000 ML IV PRN (07:16)
[2018-11-29 07:17] LABS: FREE T3 4.47 pg/mL (2.77-5.27); FREE T4 (FREE THYROXINE) 1.26 ng/dL (0.78-2.19)
[2018-11-29 07:30] LABS: THYROID STIMULATING HORMONE 2.52 uIU/mL (0.47-4.68)
[2018-11-29] MEDS ORDERED: [UNRECOGNIZED DRUG - OTHER] PO PRN (07:42)
[2018-11-29] MEDS ORDERED: HYDROCODONE PO PRN (07:42)
[2018-11-29] MEDS ORDERED: ACETAMINOPHEN PO PRN (07:42)
[2018-11-29] MEDS ORDERED: NORMAL SALINE 1000 ML 1,000 ML IV PRN (07:43)
[2018-11-29] MEDS ORDERED: CALCIUM CARBONATE 500 MG TABLET PO SCH (10:00)
[2018-11-29] MEDS ORDERED: (PENDING PHARMACY ID) (Calcium Carbonate [Calcium] 1,200 MG) PO SCH (10:00)
[2018-11-29] MEDS ORDERED: ENOXAPARIN SODIUM INJ 40 MG/0.4 ML DISP.SYRIN SUBCUT SCH (10:00)
[2018-11-29] MEDS ORDERED: (PENDING PHARMACY ID) (Warfarin Sodium 7.5 MG) PO SCH (10:00)
[2018-11-29] MEDS ORDERED: FLUTICASONE NASAL SPRAY 50 MCG/SPRY 120 SPRAY/16 GM NASL SCH (10:00)
[2018-11-29] MEDS ORDERED: METOPROLOL TARTRATE 25 MG TABLET PO SCH (10:00)
[2018-11-29] MEDS ORDERED: GABAPENTIN 300 MG CAPSULE PO SCH (10:00)
[2018-11-29] MEDS ORDERED: ZINC 50 MG PO SCH (10:00)
[2018-11-29] MEDS ORDERED: ZINC SULFATE 220 MG CAPSULE PO SCH (10:00)
[2018-11-29] MEDS ORDERED: REGADENOSON INJ 0.4 MG/5 ML DISP.SYRIN IV ONE (10:42)
[2018-11-29] MEDS: TIZANIDINE HCL 4 MG TABLET PO SCH ×3 (11:23→15:03)
[2018-11-29] MEDS: FAMOTIDINE 20 MG TABLET PO SCH (11:24)
[2018-11-29] MEDS: POTASSIUM CHLORIDE 10 MEQ CAPSULE.ER PO SCH (11:24)
--- NOTE | 2018-11-29 15:39 | PDOC DISCHARGE SUMMARY ---
General - Admit/Disc Date/PCP Admission Date/Primary Care Provider: 11/28/18 11:55 JANA WHITEHEAD MD Discharge Date: 11/29/18 - Discharge Diagnosis (1) Chest pain Is this a current diagnosis for this admission?: Yes Summary: Likely noncardiac. Troponins negative x2, EKG no acute changes. Admit to IMCU, trend troponins, start on aspirin, beta-blockers, TERRELL, statins, morphine and nitro as needed. Patient reports a normal left heart cath and echo x2 years ago at [facility]. Will obtain records. Will order stress test 11/29/2018-patient came in with chest pain stress test was negative. Troponins are negative EKGs are negative for acute changes. Initially she is in A. fib converted to sinus rhythm. Investigation of the pacemaker i episode of A. fib. Patient has a history of atrial fibrillation. (2) Paroxysmal A-fib Is this a current diagnosis for this admission?: Yes Summary: nfortunately pacemaker could not be interrogated but the primary nurse had called dry clipper tender and they stated that patient had one episode of A. fib RVR yesterday evening which explains her dizziness. Currently not in A. fib, EKG and telemetry shows that she is atrial paced. Continue metoprolol, Coumadin. Goal of INR 2-2.5. Note: Patient unsure if she has history of A. fib. Contacted her foreign correspondent Kati Moya at [facility] who stated that patient does have history of A. fib and advised for patient to be continued on her metoprolol and Coumadin and follow-up with him as an outpatient as soon as possible. No need to transfer at this point. 11/29/2018-patient's heart rate is 68 today. Sinus rhythm. Presently on Coumadin INR is 2.09. Patient advised to continue Coumadin at home. (3) Hypotension Is this a current diagnosis for this admission?: Yes Summary: One episode of hypotension in triage SBP in 80s. Normotensive after 1 L of volume resuscitation. Patient is well-hydrated, EKG paced, no arrhythmia, denies any diarrhea, vomiting or any fluid losses. As per patient pacemaker was interrogated 6 months ago which was reported as normal. Will obtain records. Interrogate pacemaker. Monitor vitals, IV fluids guided by volume status and vitals. Orthostatic vitals, hold hydrochlorthiazide. Restart once appropriate. Note: I have mentioned to the patient that hydrochlorothiazide be the reason she is hyponatremic and hypokalemic without any other obvious causes. She said that hydrochlorothiazide could be stopped but patient states she would like to take it until seen by her foreign correspondent Dr Rodarte. She has an appointment with him 12/12/2018. 11/29/2018-blood pressure today is 08/10/1969. Stable. Patient advised not to take hydrochlorothiazide. Patient is also advised to follow-up with his foreign correspondent next week. (4) Hypokalemia Is this a current diagnosis for this admission?: No Summary: Chronic. Likely due to HCTZ. Denies vomiting or diarrhea. Obtain magnesium level. Continue telemetry and supplemental potassium. Note: I have mentioned to the patient that hydrochlorothiazide could be the reason for her chronic hyponatremia and hypokalemia without any other obvious causes. I suggested for HCTZ to be switched to aother med, but she would like to take it until seen by her foreign correspondent Dr Rodarte. She has an appointment with him 12/12/2018. 11/29/2018-patient came with hypokalemia resolved with potassium supplementation patient advised to hold hydrochlorothiazide. (5) Hyponatremia Is this a current diagnosis for this admission?: No Summary: Chronic. Likely due to HCTZ. Denies vomiting or diarrhea. Continue NS guided by volume status. BMP tomorrow. Hold HCTZ. Note: I have mentioned to the patient that hydrochlorothiazide could be the reas on for her chronic hyponatremia and hypokalemia without any other obvious causes. I suggested for HCTZ to be switched to aother med, but she would like to take it until seen by her foreign correspondent Dr Rodatre. She has an appointment with him 12/12/2018. 11/29/2018 hyponatremia most likely is secondary to hydrochlorothiazide. Patient advised to continue to hold hydrochlorothiazide and advised to follow-up with foreign correspondent in 1 week. pt is also received IV fluids during the hospital stay here. - Additional Information Discharge Diet: Cardiac Discharge Activity: Activity As Tolerated Home Medications: Calcium Carbonate [Calcium] 1,200 mg PO DAILY 11/28/18 Cholecalciferol (Vitamin D3) [Vitamin D3 1000 Unit Tablet] 2,000 unit PO DAILY 11/28/18 Cyanocobalamin (Vitamin B-12) [Vitamin B-12 1000 mcg Tablet] 1 tab PO DAILY 11/28/18 Fluticasone Propionate [Flonase Nasal [place] 50 Mcg/[place] 16 gm] 2 sprays NASL DAILY 11/28/18 Gabapentin [Neurontin] 600 mg PO Q12 11/28/18 Hydrocodone/Acetaminophen [Hydrocodone-Acetamin 5-300 mg] 1 each PO Q6HP PRN 11/28/18 Levothyroxine Sodium 50 mcg PO Q6AM 11/28/18 Melatonin [Melatonin 5 mg Tablet] 10 mg PO QHS 11/28/18 Metoprolol Tartrate [Lopressor 25 mg Tablet] 37.5 mg PO Q12 11/28/18 Potassium Chloride [Klor-Con 10 Meq Capsule ER] 10 meq PO Q12 11/28/18 Simvastatin [Zocor 20 mg Tablet] 20 mg PO QHS 11/28/18 Tizanidine HCl [Zanaflex 4 mg Tablet] 4 mg PO Q12 11/28/18 Warfarin Sodium [Jantoven] 7.5 mg PO DAILY 11/28/18 Zinc [Zinc Chelated] 50 mg PO DAILY 11/28/18 History of Present Illness History of Present Illness: ANDREW ROJAS is a 63 year old female 63 year old female past medical history of hypothyroidism, chronic neuropathic pain due to neck surgery, hypertension, hyperlipidemia, hypokalemia, complete heart block s/p pacemaker placement x2 years at [facility], foreign correspondent Dr. Rodarte at [facility]. Pacemaker interrogated biannually. PT presented to ED complaining of squeezing chest pain started yesterday at 5 PM, at rest, nonradiating, no alleviating or exacerbating factor identified, associated with generalized weakness and dizziness. Denies any syncope, nausea, vomiting, diarrhea, shortness of breath, abdominal pain, numbness, dysuria, hesitancy, urgency, or any constipation. Patient is compliant with her medications and keeps well-hydrated. In triage SBP was found to be in the 80s, after receiving IV fluids BP has been [id number]. In ED troponins were negative x1, EKG sinus rhythm atrial paced, CXR no acute changes, CBC wnl, CMP (Na 132, K 3.1) Patient stated 2 years ago when she had a complete heart block and got her pacemaker she had a [facility] and echo which were both reported as normal. Physical Exam Vital Signs: Temp Pulse Resp BP Pulse Ox 98.3 F 63 16 117/58 L 98 11/29/18 11:49 11/29/18 11:49 11/29/18 11:49 11/29/18 11:49 11/29/18 11:49 Intake & Output 11/28/18 11/29/18 11/30/18 06:59 06:59 06:59 Intake Total 1404 1237 Balance 1404 1237 Weight 81.6 kg 83.4 kg General appearance: PRESENT: no acute distress Head exam: PRESENT: atraumatic Eye exam: PRESENT: PERRLA Mouth exam: PRESENT: moist, tongue midline Neck exam: ABSENT: carotid bruit, JVD, lymphadenopathy, thyromegaly Respiratory exam: PRESENT: decreased breath sounds Cardiovascular exam: PRESENT: other - Pacemaker present GI/Abdominal exam: PRESENT: normal bowel sounds, soft. ABSENT: distended, guarding, mass, organolmegaly, rebound, tenderness Rectal exam: PRESENT: deferred Neurological exam: PRESENT: alert, awake, oriented to person, oriented to place, oriented to time, oriented to situation, CN II-XII grossly intact. ABSENT: motor sensory deficit Psychiatric exam: PRESENT: appropriate affect, normal mood. ABSENT: homicidal ideation, suicidal ideation Results Laboratory Results: 11/29/18 06:24 11/29/18 06:24 11/29/18 11/29/18 11/29/18 06:24 06:24 06:24 WBC 3.9 L RBC 3.91 Hgb 12.3 D Hct 35.8 L MCV 92 MCH 31.6 MCHC 34.5 RDW 14.2 H Plt Count 216 Sodium 133.3 L Potassium 3.3 L Chloride 99 Carbon Dioxide 27 Anion Gap 7 BUN 8 Creatinine 0.63 Est GFR ( Amer) > 60 Est GFR (Non-Af Amer) > 60 Glucose 83 Calcium 8.9 Magnesium 2.1 TSH 2.52 Free T4 1.26 Free T3 pg/mL 4.47 11/28/18 11/28/18 11/28/18 06:17 06:17 15:09 Creatine Kinase 88 CK-MB (CK-2) 0.90 Troponin I < 0.012 < 0.012 11/29/18 07:15 Creatine Kinase CK-MB (CK-2) Troponin I < 0.012 Impressions: Chest X-Ray 11/28/18 06:24 IMPRESSION: No evidence of acute intrathoracic disease. No significant change since the prior study. Qualifiers - * PATIENT BEING DISCHARGED WITH ANY OF THE FOLLOWING DIAGNOSIS: No VTE patient discharged on overlapping Therapy?: No Acute Heart Failure Is this a Heart Failure Patient?: No Plan Discharge Plan: Patient can be discharged home today. Time Spent: Greater than 30 Minutes
[2018-11-29 16:23] VITALS: BP 113/56
--- NOTE | 2018-11-29 20:00 | DRAGON STRESS TEST REPORT ---
Intravenous Lexiscan Cardiolite stress test using single photon emmision computerized tomography. Date of procedure: 11/29/2018. Ordering Provider: Dr. Golden. Patient's status: In Patient Out Patient Stripper Apprentice: Dr. Rodarte. Indication: Chest pain. Coronary risk factors: Age, hypertension, dyslipidemia, and family history of coronary artery disease. Resting EKG: Sinus Rhythm. Minor diffuse T changes. Stress EKG: No changes of ischemia. The patient had no chest pain or discomfort, and there were no arrhythmias seen. Reason for termination: Protocol. Conclusions: Normal EKG and hemodynamic response to IV Lexiscan. Nuclear data: At rest the patient was given 12.86 millicuries of technetium 99m sestamibi injected intravenously. As per protocol rest non gated SPECT images were obtained. Subsequently the patient was given intravenous Lexiscan at a dose of 0.4 mg in 5 mL intravenously, followed by flush with normal saline. Subsequently the stress dose of 37.9 millicuries of technetium 99m sestamibi was injected intravenously. As per protocol stress gated images were obtained. Nuclear interpretation: Review of images showed that all segments of the myocardium had normal perfusion at rest, and normal perfusion post stress with IV Lexiscan. All segments of the myocardium had normal motion, contraction, and thickening by gated study. T. I D. ratio was normal at 1.05. There was no transient ischemic dilatation of the left ventricle. Computer read rest, and stress left ventricular ejection fraction were 64 %, and 66 %, respectively. Conclusion: 1. There is no scintigraphic evidence of Lexiscan induced myocardial ischemia. 2. There is no scintigraphic evidence of myocardial infarction/scar. Recommendations: Aggressive risk factor modification, and treating the underlying co- morbidities. [facility]
== END 2018-11-29 18:43 | disposition home or self-care (01) ==
LOC: ER 05:35 → EH 11:55 → 3S 13:31
PROVIDERS: ADMIT Internal Medicine; ATTEND Internal Medicine
DX: R07.9 Chest pain, unspecified (principal); I48.0 Paroxysmal atrial fibrillation; I95.9 Hypotension, unspecified; E87.6 Hypokalemia; E87.1 Hypo-osmolality and hyponatremia; Z79.899 Other long term (current) drug therapy; E03.9 Hypothyroidism, unspecified; M54.2 Cervicalgia; G89.29 Other chronic pain; I10 Essential (primary) hypertension; E78.5 Hyperlipidemia, unspecified; K21.9 Gastro-esophageal reflux disease without esophagitis; M19.90 Unspecified osteoarthritis, unspecified site; M79.7 Fibromyalgia; F32.9 Major depressive disorder, single episode, unspecified; Z79.01 Long term (current) use of anticoagulants; Z95.0 Presence of cardiac pacemaker; Z88.0 Allergy status to penicillin; Z86.14 Personal history of Methicillin resistant Staphylococcus aureus infection; Z90.49 Acquired absence of other specified parts of digestive tract; Z98.84 Bariatric surgery status; Z90.710 Acquired absence of both cervix and uterus; Z91.041 Radiographic dye allergy status; Z91.030 Bee allergy status
CPT/HCPCS: 93005; 96376; 99285; 96361; 96375; 96365; 36415 ×2; 84439; 82553; 82550; 83690; 83735 ×2; 84443; 85025; 85027; 85610 ×2; 80048; 80053; 81001; 84484 ×2; 84481; 93017; 71045; 78452; 93010; G0378 ×2; A9500; J2785; A9270 ×17; J2405; J3480; J7030 ×2; Q9969; J3490

== ENCOUNTER → 2018-12-06 | Outpatient (CLI) | payer MEDICARE, OTHER ==
[2018-12-06 09:50] LABS: INTERNATIONAL RATION (INR) 2.19; PROTHROMBIN TIME 25.4 SEC (11.4-15.4)
== END ==
LOC: OD 08:35
PROVIDERS: ATTEND Family Medicine
DX: D68.9 Coagulation defect, unspecified (principal)
CPT/HCPCS: 36415; 85610

== ENCOUNTER → 2018-12-19 | Day surgery (SDC) | payer MEDICARE, OTHER ==
--- NOTE | 2018-12-19 15:10 | RADIOLOGY REPORT (SQ) ---
EXAM DESCRIPTION: CT RT LOWER EXTREMITY WITH COMPLETED DATE/TIME: 12/19/2018 2:23 pm REASON FOR STUDY: M25.551 PAIN IN RIGHT HIP M25.551 PAIN IN RIGHT HIP COMPARISON: None. TECHNIQUE: CT scan of the right hip performed with intra-articular contrast. Images reviewed with s oft tissue and bone windows. Reconstructed coronal and sagittal MPR images reviewed. All images sto red on PACS. All CT scanners at this facility use dose modulation, iterative reconstruction, and/or weight based d osing when appropriate to reduce radiation dose to as low as reasonably achievable (ALARA). [facility]: Dose Right [facility]: CareDose [facility]: Dose Right [facility]: Teradose 4D [facility]: Smart [employer] RADIATION DOSE: CT Rad equipment meets quality standard of care and radiation dose reduction techniq ues were employed. CTDIvol: 14.4 mGy. DLP: 545 mGy-cm. mGy. LIMITATIONS: None. FINDINGS: PELVIC BONES: Limited visualization. No fractures. No worrisome bone lesions. SYMPTOMATIC HIP: Cartilage is preserved. No evidence for labral tear. No significant osteophytes. No worrisome bone lesions. OPPOSITE HIP: No worrisome bone lesions. No obvious effusion. PELVIC SOFT TISSUES: Limited visualization. No masses. EXTRAPELVIC SOFT TISSUES: No obvious masses. OTHER: No other significant finding. IMPRESSION: NO SIGNIFICANT FINDING IDENTIFIED. TECHNICAL DOCUMENTATION: JOB ID: [id number] Quality ID # [id number]: Final reports with documentation of one or more dose reduction techniques (e.g., Au tomated exposure control, adjustment of the mA and/or kV according to patient size, use of iterative reconstruction technique) 2010 [employer]- All Rights Reserved Reading location - IP/workstation name: [email or web address]
--- NOTE | 2018-12-19 15:15 | RADIOLOGY REPORT (SQ) ---
EXAM DESCRIPTION: ARTHRO HIP INJ W/ANESTHESIA; FLUORO/NEEDLE PLACEMENT COMPLETED DATE/TIME: 12/19/2018 2:44 pm; 12/19/2018 2:55 pm REASON FOR STUDY: M25.551 PAIN IN RIGHT HIP M25.551 PAIN IN RIGHT HIP COMPARISON: None. FLUOROSCOPY TIME: 14 seconds. 1 images saved to PACS. LIMITATIONS: None. PROCEDURE: Procedure, risks, benefits and alternatives explained to patient who then gave written co nsent. The right hip was marked and a time-out was called for correct marking verification. Entry s ite marked using fluoroscopic guidance. Hip prepped and draped using sterile technique. Local anest hesia achieved . Hypodermic needle introduced into the joint space under direct fluoroscopic visuali zation. Non-ionic contrast instilled to confirm intra-articular position. Additional dilute non-ion ic contrast instilled. Needle removed and entry site covered with sterile bandage. No immediate com plications noted. TECHNIQUE: Digital images acquired during fluoroscopy and stored on PACS. Patient immediately take n to the CT suite for additional imaging. INJECTION LOCATION: Right hip. CONTRAST TYPE AND AMOUNT: 10 mL Dotarem. IMPRESSION: SUCCESSFUL NEEDLE PLACEMENT AND INJECTION FOR RIGHT HIP CT ARTHROGRAM. COMMENT: Quality ID [id number]: Final reports for procedures using fluoroscopy that document radiation exp osure indices, or exposure time and number of fluorographic images (if radiation exposure indices are not available) TECHNICAL DOCUMENTATION: JOB ID: [id number] [employer]- All Rights Reserved Reading location - IP/workstation name: [email or web address]
== END ==
LOC: RAD 13:16
PROVIDERS: ATTEND Orthopaedic Surgery
DX: M25.551 Pain in right hip (principal)
CPT/HCPCS: 77002; 27095; 73701; A9576

== ENCOUNTER → 2019-01-06 | Outpatient (CLI) | payer MEDICARE, OTHER ==
[2019-01-06 11:24] LABS: INTERNATIONAL RATION (INR) 2.12; PROTHROMBIN TIME 24.8 SEC (11.4-15.4)
== END ==
LOC: OD 10:30
PROVIDERS: ATTEND Family Medicine
DX: D68.9 Coagulation defect, unspecified (principal)
CPT/HCPCS: 36415; 85610

== ENCOUNTER 2019-01-09 13:25 | Emergency (ER) | payer MEDICARE, OTHER ==
--- NOTE | 2019-01-09 14:33 | ER Document Report ---
ED NIH Stroke Scale - NIH Stroke Scale *: 1. NIH scale should be completed with appropriate accompanying assessment tools. *: 2. The NIH should reflect what the patient is capable of doing and should not be coached by the clinician. 1a. Level of Consciousness: 0=Alert;keenly responsive -: 1=Drowsy -: 2=Obtunded -: 3=Coma/unresponsive or reflex to noxious stimuli. 1a. Responses: 0 1b. Orientation Questions: a. What month is it? -: b. How old are you? -: 0=Answers both questions correctly. -: 1=Answers one question correctly or patient is intubated or has orotracheal trauma. -: 2=Answers neither question correctly. 1b. Responses: 0 1c. Response to commands: a. Open and close eyes? -: b. Payer Specialist and release hand? -: Credit is given despite weakness. Demonstration of task is permitted. Substitute command if hands cannot be used. -: 0=Performs both tasks correctly -: 1=Performs one task correctly -: 2=Performs neither task correctly 1c. Responses: 0 2. Gaze: Establish eye contact and instruct patient to "Follow my finger" -: 0=Normal -: 1=Partial gaze palsy. Gaze is abnormal in one or both eyes, but where forced deviation or total gaze paresis is not present. -: 2=Forced deviation or total gaze paresis. 2. Responses: 0 3. Visual Batres: Sees fingers in all four quadrants. -: 0=No visual loss. -: 1=Partial hemianopsia. -: 2=Complete hemianopsia. -: 3=Bilateral hemianopsia (including Cortical blindness) 3. Responses: 0 4. Facial Movement: Instruct patient to: -: a. Show me your teeth -: b. Raise your eyebrows -: c. Close your eyes -: d. Smile -: 0=Normal symmetrical movement -: 1=Minor paralysis (flattened nasolabial fold, asymmetry on smiling). -: 2=Partial paralysis (total or near total paralysis of lower face). -: 3=Complete paralysis of upper and lower face 4. Responses: 0 5. Motor functions (left arm): Alternate sides and extend each arm with palms down (90 degrees if sitting or 45 degrees for supine). -: 0=No drift;limb holds for full 10 seconds. -: 1=Drift; limb holds but drifts down before full 10 seconds, but does not hit bed. -: 2=Some effort against gravity; limb cannot get to or maintain position. -: 3=No effort against gravity; limb falls. -: 4=No movement. -: UN=Amputation, joint fusion, explain in comments. 5. Responses (left arm): 0 5. Motor Functions (right arm): Alternate sides and extend each arm with palms down (90 degrees if sitting or 45 degrees for supine). -: 0=No drift;limb holds for full 10 seconds. -: 1=Drift; limb holds but drifts down before full 10 seconds, but does not hit bed. -: 2=Some effort against gravity; limb cannot get to or maintain position. -: 3=No effort against gravity; limb falls. -: 4=No movement. -: UN=Amputation, joint fusion, explain in comments. 5. Responses (right arm): 0 6. Motor Functions (left leg): With patient lying supine, alternate sides and extend each leg (30 degrees always while supine). -: 0=No drift, leg holds position for full 5 seconds -: 1=Drift; leg falls before full 5 seconds but does not hit bed. -: 2=Some effort against gravity, leg falls to bed but some effort against gravity. -: 3=No effort against gravity, leg falls to bed immediately. -: 4=No movement. -: UN=Amputation, joint fusion; explain in comments. 6. Responses (left leg): 0 6. Motor Functions (right leg): With patient lying supine, alternate sides and extend each leg (30 degrees always while supine). -: 0=No drift, leg holds position for full 5 seconds -: 1=Drift; leg falls before full 5 seconds but does not hit bed. -: 2=Some effort against gravity, leg falls to bed but some effort against gravity. -: 3=No effort against gravity, leg falls to bed immediately. -: 4=No movement. -: UN=Amputation, joint fusion; explain in comments. 6. Responses (right leg): 0 7. Limb Ataxia: With eyes open instruct patient to: -: a. "Touch your finger to your nose". -: b. "Touch your heel to your zapata" -: 0=Absent -: 1=Present in one limb. -: 2=Present in two limbs. -: UN=Amputation or joint fusion; explain in comments. 7. Responses: 0 8. Sensory: Test sensation using pinprick or noxious stimuli. Test as many body parts as possible. -: 0=Normal;no sensory loss -: 1=Mile to moderate sensory loss (patient feels pin prick but is less sharp on affected side). -: 2=Severe or total sensory loss. 8. Responses: 0 9. Best Language: Instruct patient to: -: a. "Describe what you see in this picture." -: b. "Name the items in this picture." -: c. "Read these sentences." -: 0=No aphasia, normal -: 1=Mild to moderate aphasia. -: 2=Severe aphasia -: 3=Mute, global aphasia, no usable speech or auditory comprehension. 9. Responses: 0 10. Articulation, Dysarthia: Instruct patient to: -: "Read these words" or "Repeat these words" -: 0=Normal -: 1=Mild to moderate; patient may slur some words but can be understood without difficulty. -: 2=Severe; patients speech so slurred as to be unintelligible in the absence of dysphasia. -: UN=Intubated or other physical barrier, explain in comments. 10. Responses: 0 11. Extinction or inattention: 0=No abnormality -: 1= Visual, tactile, auditory, spatial, or personal inattention or extinction to bilateral simulation in one or the sensory modalities. -: 2=Profound ruperto-inattention or ruperto-inattention to more than one modality; does not recognize own hand. 11. Responses: 0 Total Score: 0
--- NOTE | 2019-01-09 14:34 | ER Document Report ---
ED Medical Screen (RME) - General Chief Complaint: Weakness Stated Complaint: WEAKNESS Time Seen by Provider: 01/09/19 14:28 Primary Care Provider: JANA WHITEHEAD MD [Primary Care Provider] - Follow up as needed Mode of Arrival: Wheelchair Information source: Patient Notes: 63-year-old female presents to ED for complaint of weakness dizziness and nausea. She has a history of A. fib flutter. She also has a history of chronic pain with multiple surgeries to her left knee and leg. She is NIH 0. Patient is alert oriented respirations regular and unlabored speaking in full sentences. I have greeted and performed a rapid initial assessment of this patient. A comprehensive ED assessment and evaluation of the patient, analysis of test results and completion of medical decision making process will be conducted by an additional ED providers. Dictation of this chart was performed using voice recognition software; therefore, there may be some unintended grammatical errors. TRAVEL OUTSIDE OF THE [place] IN LAST 30 DAYS: No - Related Data Allergies/Adverse Reactions: Penicillins Allergy (Severe, Verified 01/09/19 13:26) hives,throat swellling Iodinated Contrast- Oral and IV Dye [IV Dye, Iodine Containing] Allergy (Unknown, Verified 01/09/19 13:26) Anaphylaxis bee venom protein (honey bee) Allergy (Verified 01/09/19 13:26) adhesive tape Adverse Reaction (Intermediate, Verified 01/09/19 13:26) Generalized rash Past Medical History - Social History Chew tobacco use (# tins/day): No Frequency of alcohol use: None Drug Abuse: None - Past Medical History Cardiac Medical History: Reports: Hx Hypercholesterolemia, Hx Hypertension Denies: Hx Atrial Fibrillation, Hx Congestive Heart Failure, Hx Heart Attack Pulmonary Medical History: Reports: Hx Bronchitis Denies: Hx Asthma, Hx COPD, Hx Pneumonia, Hx Tuberculosis Neurological Medical History: Denies: Hx Seizures Endocrine Medical History: Reports: Hx Hypothyroidism Renal/ Medical History: Reports: Hx Ovarian Cysts. Denies: Hx End Stage Renal Disease, Hx Kidney Stones, Hx Peritoneal Dialysis GI Medical History: Reports: Hx Gastroesophageal Reflux Disease, Hx Colonoscopy. Denies: Hx Hiatal Hernia, Hx Ulcer Musculoskeltal Medical History: Reports Hx Arthritis, Reports Hx Fibromyalgia, Reports Hx Musculoskeletal Deformity, Reports Hx Musculoskeletal Trauma, Denies Hx Systemic Lupus Erythematosus Skin Medical History: Reports Hx Cellulitis, Reports Hx MRSA Psychiatric Medical History: Reports: Hx Anxiety, Hx Depression Denies: Hx Bipolar Disorder, Hx Schizophrenia Traumatic Medical History: Reports: Hx Fractures - right wrist/right elbow r/t fall Infectious Medical History: Reports: Hx MRSA Past Surgical History: Reports: Hx Abdominal Surgery, Hx Breast Surgery, Hx Cardiac Surgery, Hx Cholecystectomy, Hx Dilation and Curettage, Hx Gastric Bypass Surgery, Hx Gynecologic Surgery, Hx Hysterectomy, Hx Nose Surgery, Hx Orthopedic Surgery, Hx Pacemaker, Hx Umbilical Hernia - Umbilical and incisional hernia. Denies: Hx Appendectomy, Hx Bowel Surgery, Hx Section, Hx Ma stectomy, Hx Tonsillectomy, Hx Tubal Ligation - Immunizations Hx Diphtheria, Pertussis, Tetanus Vaccination: Yes Physical Exam - Vital signs Vitals: Temp Pulse Resp BP Pulse Ox 97.9 F 74 16 122/72 96 01/09/19 13:39 01/09/19 13:39 01/09/19 13:39 01/09/19 13:39 01/09/19 13:39 Course - Vital Signs Vital signs: Temp Pulse Resp BP Pulse Ox 97.9 F 74 16 122/72 96 01/09/19 13:39 01/09/19 13:39 01/09/19 13:39 01/09/19 13:39 01/09/19 13:39 Doctor's Discharge - Discharge Referrals: JANA WHITEHEAD MD [Primary Care Provider] - Follow up as needed
[2019-01-09 15:12] LABS: ABSOLUTE BASOPHILS # (AUTO) 0.1 10^3/uL (0.0-0.2); ABSOLUTE EOSINOPHILS # (AUTO) 0.1 10^3/uL (0.0-0.6); ABSOLUTE LYMPHOCYTES (AUTO) 1.8 10^3/uL (0.5-4.7); ABSOLUTE MONOCYTES (AUTO) 0.7 10^3/uL (0.1-1.4); ABSOLUTE NEUT (AUTO) 3.8 10^3/uL (1.7-8.2); BASOPHILS % (AUTO) 0.9 % (0-2); EOSINOPHILS % (AUTO) 1.7 % (0-6); HEMATOCRIT 41.8 % (36.0-47.0); HEMOGLOBIN 14.1 g/dL (12.0-15.5); INTERNATIONAL RATION (INR) 1.94; LYMPHOCYTES % (AUTO) 28.4 % (13-45); MEAN CORPUSCULAR HEMOGLOBIN 31.3 pg (27.0-33.4); MEAN CORPUSCULAR HGB CONC 33.8 g/dL (32.0-36.0); MEAN CORPUSCULAR VOLUME 93 fl (80-97); MONOCYTES % (AUTO) 10.3 % (3-13); PLATELET COUNT 280 10^3/uL (150-450); RED BLOOD COUNT 4.51 10^6/uL (3.72-5.28); RED CELL DISTRIBUTION WIDTH 14.7 % (11.5-14.0); SEGMENTED NEUTROPHILS % (AUTO) 58.7 % (42-78); TOTAL CELLS COUNTED % (AUTO) 100 %; WHITE BLOOD COUNT 6.5 10^3/uL (4.0-10.5)
--- NOTE | 2019-01-09 15:13 | RADIOLOGY REPORT (SQ) ---
EXAM DESCRIPTION: CT HEAD WITHOUT COMPLETED DATE/TIME: 01/09/2019 3:02 pm REASON FOR STUDY: Confusion weakness, NIH 0 COMPARISON: CT brain 09/07/2016, 02/14/2015 TECHNIQUE: Axial images acquired through the brain without intravenous contrast. Images reviewed wi th bone, brain and subdural windows. Additional sagittal and coronal reconstructions were generated. Images stored on PACS. All CT scanners at this facility use dose modulation, iterative reconstruction, and/or weight based d osing when appropriate to reduce radiation dose to as low as reasonably achievable (ALARA). [facility]: Dose Right [facility]: CareDose [facility]: Dose Right [facility]: Teradose 4D [facility]: Plasmonix RADIATION DOSE: CT Rad equipment meets quality standard of care and radiation dose reduction techniq ues were employed. CTDIvol: 53.2 mGy. DLP: 991 mGy-cm. mGy. LIMITATIONS: None. FINDINGS: VENTRICLES: Normal size and contour. CEREBRUM: No masses. No hemorrhage. No midline shift. No evidence for acute infarction. Normal gra y/white matter differentiation. No areas of low density in the white matter. CEREBELLUM: No masses. No hemorrhage. No alteration of density. No evidence for acute infarction. EXTRAAXIAL SPACES: No fluid collections. No masses. ORBITS AND GLOBE: No intra- or extraconal masses. Normal contour of globe without masses. CALVARIUM: No fracture. PARANASAL SINUSES: No fluid or mucosal thickening. SOFT TISSUES: No mass or hematoma. OTHER: No other significant finding. IMPRESSION: NORMAL BRAIN CT WITHOUT CONTRAST. EVIDENCE OF ACUTE STROKE: NO. COMMENT: Quality ID # [id number]: Final reports with documentation of one or more dose reduction techniques (e.g., Automated exposure control, adjustment of the mA and/or kV according to patient size, use of iterative reconstruction technique) TECHNICAL DOCUMENTATION: JOB ID: [id number] [employer]- All Rights Reserved Reading location - IP/workstation name: [email or web address]
[2019-01-09 15:14] LABS: PROTHROMBIN TIME 22.4 SEC (11.4-15.4)
[2019-01-09 15:30] LABS: ALANINE AMINOTRANSFERASE 33 U/L (9-52); ALBUMIN 4.1 g/dL (3.5-5.0); ALKALINE PHOSPHATASE 56 U/L (38-126); ANION GAP 6 (5-19); ASPARTATE AMINO TRANSFERASE 22 U/L (14-36); BILIRUBIN,DIRECT 0.3 mg/dL (0.0-0.4); BILIRUBIN,TOTAL 0.5 mg/dL (0.2-1.3); BLOOD UREA NITROGEN 8 mg/dL (7-20); CALCIUM 9.4 mg/dL (8.4-10.2); CARBON DIOXIDE 26 mmol/L (22-30); CHLORIDE 108 mmol/L (98-107); CREATINE KINASE 82 U/L (30-135); GLUCOSE 74 mg/dL (75-110); POTASSIUM 4.1 mmol/L (3.6-5.0); SODIUM 140.4 mmol/L (137-145); TOTAL PROTEIN 6.6 g/dL (6.3-8.2)
[2019-01-09 15:42] LABS: TROPONIN I < 0.012 ng/mL
[2019-01-09 18:58] LABS: APPEARANCE,URINE CLEAR; BILIRUBIN,URINE NEGATIVE (NEGATIVE); COLOR,URINE STRAW; GLUCOSE, URINE NEGATIVE (NEGATIVE); KETONES,URINE NEGATIVE (NEGATIVE); LEUKOCYTE ESTERASE,URINE NEGATIVE (NEGATIVE); NITRITE,URINE NEGATIVE (NEGATIVE); PROTEIN,URINE NEGATIVE (NEGATIVE); URINE SPECIFIC GRAVITY 1.003; UROBILINOGEN,URINE NEGATIVE mg/dL (<2.0)
--- NOTE | 2019-01-09 19:27 | ER Document Report ---
ED General - General Chief Complaint: Weakness Stated Complaint: WEAKNESS Time Seen by Provider: 01/09/19 14:28 Primary Care Provider: JANA WHITEHEAD MD [Primary Care Provider] - Follow up as needed Mode of Arrival: Wheelchair TRAVEL OUTSIDE OF THE [place] IN LAST 30 DAYS: No - HPI Notes: Patient is a 63-year-old female presents emergency department for evaluation of dizziness, feeling as if she is going to pass out. She states that seems to be mostly positional. She has had similar symptoms in the past, but states that seemed worse today. She just feels weak all over. She denies any difficulty seeing, speaking, swallowing. She was recently admitted to the hospital with similar symptoms. She states she had a left heart catheterization and stress test which were found to be unremarkable. She is currently awaiting an ablation for significant atrial fibrillation. Her pacemaker is interrogated by annually. The patient denies any associated chest pain. She is breathing without difficulty. She states that since her discharge she has discontinued her hydrochlorothiazide, but denies any other recent medication changes. Is been eating and drinking normally. - Related Data Allergies/Adverse Reactions: Penicillins Allergy (Severe, Verified 01/09/19 13:26) hives,throat swellling Iodinated Contrast- Oral and IV Dye [IV Dye, Iodine Containing] Allergy (Unknown, Verified 01/09/19 13:26) Anaphylaxis bee venom protein (honey bee) Allergy (Verified 01/09/19 13:26) adhesive tape Adverse Reaction (Intermediate, Verified 01/09/19 13:26) Generalized rash Past Medical History - General Information source: Patient - Social History Smoking Status: Never Smoker Chew tobacco use (# tins/day): No Frequency of alcohol use: None Drug Abuse: None Family History: Arthritis, CAD, Hyperlipidemia, Hypertension, Malignancy, Thyroid Disfunction Patient has suicidal ideation: No Patient has homicidal ideation: No - Past Medical History Cardiac Medical History: Reports: Hx Atrial Fibrillation, Hx Hyper cholesterolemia, Hx Hypertension Denies: Hx Congestive Heart Failure, Hx Heart Attack Pulmonary Medical History: Reports: Hx Bronchitis Denies: Hx Asthma, Hx COPD, Hx Pneumonia, Hx Tuberculosis Neurological Medical History: Denies: Hx Seizures Endocrine Medical History: Reports: Hx Hypothyroidism Renal/ Medical History: Reports: Hx Ovarian Cysts. Denies: Hx End Stage Renal Disease, Hx Kidney Stones, Hx Peritoneal Dialysis GI Medical History: Reports: Hx Gastroesophageal Reflux Disease, Hx Colonoscopy. Denies: Hx Hiatal Hernia, Hx Ulcer Musculoskeletal Medical History: Reports Hx Arthritis, Reports Hx Fibromyalgia, Reports Hx Musculoskeletal Deformity, Reports Hx Musculoskeletal Trauma, Denies Hx Systemic Lupus Erythematosus Skin Medical History: Reports Hx Cellulitis, Reports Hx MRSA Psychiatric Medical History: Reports: Hx Anxiety, Hx Depression Denies: Hx Bipolar Disorder, Hx Schizophrenia Traumatic Medical History: Reports: Hx Fractures - right wrist/right elbow r/t fall Infectious Medical History: Reports: Hx MRSA Past Surgical History: Reports: Hx Abdominal Surgery, Hx Breast Surgery, Hx Cardiac Surgery, Hx Cholecystectomy, Hx Dilation and Curettage, Hx Gastric Bypass Surgery, Hx Gynecologic Surgery, Hx Hysterectomy, Hx Nose Surgery, Hx Orthopedic Surgery, Hx Pacemaker, Hx Umbilical Hernia - Umbilical and incisional hernia. Denies: Hx Appendectomy, Hx Bowel Surgery, Hx Section, Hx Mastectomy, Hx Tonsillectomy, Hx Tubal Ligation - Immunizations Hx Diphtheria, Pertussis, Tetanus Vaccination: Yes Hx Pneumococcal Vaccination: 07/16/16 Review of Systems - Review of Systems Constitutional: No symptoms reported EENT: No symptoms reported Cardiovascular: See HPI Respiratory: No symptoms reported Gastrointestinal: No symptoms reported Genitourinary: No symptoms reported Musculoskeletal: No symptoms reported Skin: No symptoms reported Neurological/Psychological: No symptoms reported Physical Exam - Vital signs Vitals: Temp Pulse Resp BP Pulse Ox 97.9 F 74 16 122/72 96 01/09/19 13:39 01/09/19 13:39 01/09/19 13:39 01/09/19 13:39 01/09/19 13:39 - Notes Notes: Vital signs reviewed, please refer to chart. Head is normocephalic, atraumatic. Pupils equal round, reactive to light. Neck is supple without meningismus. Heart is regular rate and rhythm. Lungs are clear to auscultation bilaterally. Abdomen is soft, nontender, normoactive bowel sounds throughout. Extremities without cyanosis, clubbing. Posterior calves are nontender. Peripheral pulses are equal. Skin is warm and dry. Patient is awake, alert, oriented x3. Cranial nerves II - XII are grossly intact without focal neurological deficits. Strength is plus 5 out of 5 bilateral lower extremities. Sensation is intact. Reflexes symmetrical. Intact [id number], rapid alternating movements, [id number]. Course - Re-evaluation Re-evalutation: 01/09/19 19:28 Patient presented to the emergency department for evaluation of dizziness. She had initial laboratory investigations as ordered through triage. She remained on the monitor, her heart rate remained normal. Her blood pressure remained normal. I did do bedside orthostatic vital signs. Her blood pressure did not drop from lying, sitting, standing. Her heart rate remained steadily in the 70s and 80s. This did somewhat worsen the patient's symptoms. At this point, I reviewed her recent medical admission. At that point she had been hyponatremic, hypokalemic. She was hypotensive. She was also having chest pain. She has none of these issues today. The patient feels comfortable being discharged h ome. Patient's is concerned that it may be stress secondary to possible comp occasions from the upcoming ablation. Patient admits that she has been significantly anxious regarding this. 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 She voiced understanding. - Vital Signs Vital signs: Temp Pulse Resp BP Pulse Ox 97.9 F 74 14 118/63 96 01/09/19 13:39 01/09/19 13:39 01/09/19 19:01 01/09/19 19:01 01/09/19 19:01 - Laboratory Result Diagrams: 01/09/19 14:53 01/09/19 14:53 Laboratory results interpreted by me: 01/09/19 01/09/19 01/09/19 14:53 14:53 14:53 RDW 14.7 H PT 22.4 H Chloride 108 H Glucose 74 L - Diagnostic Test Radiology reviewed: Reports reviewed Radiology results interpreted by me: 01/09/19 19:[address] 01/09/19 14:35 IMPRESSION: NORMAL BRAIN CT WITHOUT CONTRAST. EVIDENCE OF ACUTE STROKE: NO. - EKG Interpretation by Me Additional EKG results interpreted by me: 01/09/19 19:27 Atrial paced with a rate of 76 bpm. Incomplete right bundle branch block. No acute ST changes concerning for ischemia or infarction. No significant change when compared to prior study of November 28, 2018. Discharge - Discharge Clinical Impression: Dizziness Condition: Stable Disposition: HOME, SELF-CARE Instructions: Dizziness ([facility]) Additional Instructions: No clear cause was found for your dizziness today. Follow-up with your primary care physician and your pipe stem aligner next week. Continue your home medications as prescribed. If you develop worsening or new concerning symptoms of any sort, return immediately to the emergency department for reevaluation. Referrals: JANA WHITEHEAD MD [Primary Care Provider] - Follow up as needed
[2019-01-09 19:33] VITALS: BP 132/67
--- NOTE | 2019-01-09 23:07 | EKG REPORT ---
SEVERITY:- ABNORMAL ECG - ATRIAL-PACED RHYTHM : Confirmed by: Ree Chacon 09-Jan-2019 23:06:22
== END 2019-01-09 19:35 | disposition home or self-care (01) ==
LOC: ER 13:25
DX: R42 Dizziness and giddiness (principal); R53.1 Weakness; E87.1 Hypo-osmolality and hyponatremia; E87.5 Hyperkalemia; R07.9 Chest pain, unspecified; I10 Essential (primary) hypertension; I45.10 Unspecified right bundle-branch block; Z95.0 Presence of cardiac pacemaker; Z88.0 Allergy status to penicillin; Z91.030 Bee allergy status; Z87.892 Personal history of anaphylaxis; Z91.041 Radiographic dye allergy status
CPT/HCPCS: 36415; 70450; 80053; 81001; 82550; 82553; 84484; 85025; 85610; 85730; 93005; 93010; 99284

== ENCOUNTER → 2019-02-12 | Outpatient (CLI) | payer MEDICARE, OTHER ==
[2019-02-12 10:27] LABS: PROTHROMBIN TIME 24.8 SEC (11.4-15.4)
== END ==
LOC: OD 09:53
PROVIDERS: ATTEND Family Medicine
DX: D68.9 Coagulation defect, unspecified (principal)
CPT/HCPCS: 36415; 85610

== ENCOUNTER 2019-02-27 12:42 | Emergency (ER) | payer MEDICARE, OTHER ==
[2019-02-27 12:56] VITALS: BP 144/87
== END 2019-02-27 14:25 | disposition left against medical advice (07) ==
LOC: ER 12:42
DX: Z53.21 Procedure and treatment not carried out due to patient leaving prior to being seen by health care provider (principal)

== ENCOUNTER → 2019-03-11 | Outpatient (CLI) | payer MEDICARE, OTHER ==
[2019-03-11 16:39] LABS: INTERNATIONAL RATION (INR) 2.53; PROTHROMBIN TIME 27.7 SEC (11.4-15.4)
== END ==
LOC: OD 15:07
PROVIDERS: ATTEND Family Medicine
DX: D68.9 Coagulation defect, unspecified (principal)
CPT/HCPCS: 36415; 85610

== ENCOUNTER 2019-03-16 19:59 | Emergency (ER) | payer MEDICARE, OTHER ==
--- NOTE | 2019-03-16 20:54 | ER Document Report ---
ED Medical Screen (RME) - General Chief Complaint: Chest Pain > 30 Stated Complaint: CHEST PAIN Time Seen by Provider: 03/16/19 20:38 Primary Care Provider: JANA WHITEHEAD MD [Primary Care Provider] - Follow up as needed Notes: Patient is a 63-year-old female with a history of chronic back pain, atrial fib with a pacemaker who presents to the emergency department with a chief complaint of chest pain. Patient states a few days ago she developed a runny nose with congestion. Patient states she has had a productive cough with thick white sputum. Patient states that at times she does not feel short of breath. Patient reports she is having pain underneath both of her breasts and in the center of her chest. Patient denies fever. Patient states she was recently placed on sotalol 1 month ago for uncontrollable A. fib. Patient states they have attempted to do an ablation in the past without success. Patient states she is currently on Coumadin. Patient states about 1 week ago she was walking down the hallway in her house when she had an episode of syncope with loss of consciousness. Patient states she did fall and hit the back of her head on a door frame. Patient states she did see her publications inspector and her back doctor the day after. Patient states she did not have a scan of her head or any imaging. Patient states she has not had any headaches or additional episodes of syncope with loss of consciousness since then. Patient has had no vomiting. states patient has been acting herself over the past week. TRAVEL OUTSIDE OF THE [place] IN LAST 30 DAYS: No - Related Data Allergies/Adverse Reactions: Penicillins Allergy (Severe, Verified 01/09/19 13:26) hives,throat swellling Iodinated Contrast Media [IV Dye, Iodine Containing] Allergy (Unknown, Verified 01/09/19 13:26) Anaphylaxis bee venom protein (honey bee) Allergy (Verified 01/09/19 13:26) adhesive tape Adverse Reaction (Intermediate, Verified 01/09/19 13:26) Generalized rash Past Medical History - Past Medical History Cardiac Medical History: Reports: Hx Atrial Fibrillation, Hx Hy percholesterolemia, Hx Hypertension Denies: Hx Congestive Heart Failure, Hx Heart Attack Pulmonary Medical History: Reports: Hx Bronchitis Denies: Hx Asthma, Hx COPD, Hx Pneumonia, Hx Tuberculosis Neurological Medical History: Denies: Hx Seizures Endocrine Medical History: Reports: Hx Hypothyroidism Renal/ Medical History: Reports: Hx Ovarian Cysts. Denies: Hx End Stage Renal Disease, Hx Kidney Stones, Hx Peritoneal Dialysis GI Medical History: Reports: Hx Gastroesophageal Reflux Disease, Hx Colonoscopy. Denies: Hx Hiatal Hernia, Hx Ulcer Musculoskeltal Medical History: Reports Hx Arthritis, Reports Hx Fibromyalgia, Reports Hx Musculoskeletal Deformity, Reports Hx Musculoskeletal Trauma, Denies Hx Systemic Lupus Erythematosus Skin Medical History: Reports Hx Cellulitis, Reports Hx MRSA Psychiatric Medical History: Reports: Hx Anxiety, Hx Depression Denies: Hx Bipolar Disorder, Hx Schizophrenia Traumatic Medical History: Reports: Hx Fractures - right wrist/right elbow r/t fall Infectious Medical History: Reports: Hx MRSA Past Surgical History: Reports: Hx Abdominal Surgery, Hx Breast Surgery, Hx Cardiac Surgery, Hx Cholecystectomy, Hx Dilation and Curettage, Hx Gastric Bypass Surgery, Hx Gynecologic Surgery, Hx Hysterectomy, Hx Nose Surgery, Hx Orthopedic Surgery, Hx Pacemaker, Hx Umbilical Hernia - Umbilical and incisional hernia. Denies: Hx Appendectomy, Hx Bowel Surgery, Hx Section, Hx Mastectomy, Hx Tonsillectomy, Hx Tubal Ligation - Immunizations Hx Diphtheria, Pertussis, Tetanus Vaccination: Yes Physical Exam - Vital signs Vitals: Temp Pulse Resp BP Pulse Ox 97.9 F 78 15 141/77 H 100 03/16/19 20:15 03/16/19 20:15 03/16/19 20:15 03/16/19 20:15 03/16/19 20:15 - HEENT Head: Normocephalic Eyes: Normal Conjunctiva: Normal Cornea: Normal Extraocular movements intact: Yes Eyelashes: Normal -: right: Pupils uneven - Left slightly>than right, pt. reports this is normal for her after lasix eye surgery, pupils are reactive Neck: Normal Notes: There is no ecchymosis, laceration or edema noted to the head. There is no crepitus or indentation noted in the skull. Negative rendon sign. - Respiratory Respiratory status: No respiratory distress Chest status: Nontender Breath sounds: Normal Chest palpation: Normal - Cardiovascular Rhythm: Regular Course - Re-evaluation Re-evalutation: 03/16/19 20:54 I have greeted and performed a rapid initial assessment of this patient. A comprehensive ED assessment and evaluation of the patient, analysis of test results and completion of the medical decision making process will be conducted by additional ED providers. - Vital Signs Vital signs: Temp Pulse Resp BP Pulse Ox 97.9 F 78 15 141/77 H 100 03/16/19 20:15 03/16/19 20:15 03/16/19 20:15 03/16/19 20:15 03/16/19 20:15 Doctor's Discharge - Discharge Referrals: JANA WHITEHEAD MD [Primary Care Provider] - Follow up as needed
[2019-03-16 21:32] LABS: ABSOLUTE BASOPHILS # (AUTO) 0.1 10^3/uL (0.0-0.2); ABSOLUTE EOSINOPHILS # (AUTO) 0.1 10^3/uL (0.0-0.6); ABSOLUTE LYMPHOCYTES (AUTO) 2.2 10^3/uL (0.5-4.7); ABSOLUTE MONOCYTES (AUTO) 0.6 10^3/uL (0.1-1.4); ABSOLUTE NEUT (AUTO) 3.5 10^3/uL (1.7-8.2); HEMATOCRIT 40.9 % (36.0-47.0); HEMOGLOBIN 13.8 g/dL (12.0-15.5); LYMPHOCYTES % (AUTO) 34.4 % (13-45); MEAN CORPUSCULAR HEMOGLOBIN 31.6 pg (27.0-33.4); MEAN CORPUSCULAR HGB CONC 33.8 g/dL (32.0-36.0); MEAN CORPUSCULAR VOLUME 94 fl (80-97); MONOCYTES % (AUTO) 9.8 % (3-13); PLATELET COUNT 332 10^3/uL (150-450); RED BLOOD COUNT 4.38 10^6/uL (3.72-5.28); RED CELL DISTRIBUTION WIDTH 13.9 % (11.5-14.0); SEGMENTED NEUTROPHILS % (AUTO) 53.8 % (42-78); TOTAL CELLS COUNTED % (AUTO) 100 %; WHITE BLOOD COUNT 6.5 10^3/uL (4.0-10.5)
--- NOTE | 2019-03-16 21:32 | RADIOLOGY REPORT (SQ) ---
EXAM DESCRIPTION: [facility]: XR CHEST 2 VIEWS Views: 2 CLINICAL HISTORY: 63 years Female, Shortness of breath, + productive cough COMPARISON: 11/28/2018 FINDINGS: The lungs are clear. No pneumothorax or significant pleural effusion. Pacemaker remains in place with intact leads. There is mild aortic calcification. Heart size is normal. Bony structures are unremarkable for age. Right upper quadrant surgical clips are noted. IMPRESSION: 1. No acute cardiothoracic abnormality. 2. Pacemaker
[2019-03-16 21:49] LABS: INTERNATIONAL RATION (INR) 3.23; PARTIAL THROMBOPLASTIN TIME 32.3 SEC (23.5-35.8); PROTHROMBIN TIME 33.7 SEC (11.4-15.4)
[2019-03-16 21:51] LABS: ALBUMIN 3.9 g/dL (3.5-5.0); ALKALINE PHOSPHATASE 96 U/L (38-126); ANION GAP 7 (5-19); ASPARTATE AMINO TRANSFERASE 20 U/L (14-36); BILIRUBIN,DIRECT 0.2 mg/dL (0.0-0.4); BILIRUBIN,TOTAL 0.2 mg/dL (0.2-1.3); BLOOD UREA NITROGEN 13 mg/dL (7-20); CALCIUM 9.2 mg/dL (8.4-10.2); CARBON DIOXIDE 25 mmol/L (22-30); CHLORIDE 104 mmol/L (98-107); GLUCOSE 77 mg/dL (75-110); POTASSIUM 4.1 mmol/L (3.6-5.0); TOTAL PROTEIN 6.2 g/dL (6.3-8.2)
[2019-03-16] MEDS ORDERED: IPRATROPIUM/ALBUTEROL 0.5-2.5 MG/3 ML AMPUL NEB ONE (22:53)
[2019-03-16] MEDS ORDERED: OXYCODONE HCL IR 5 MG TABLET PO ONE (23:05)
[2019-03-16] MEDS ORDERED: METHYLPREDNISOLONE INJ 125 MG/2 ML SDV IV ONE (23:56)
[2019-03-16] MEDS ORDERED: MORPHINE SULFATE 10 MG/ML INJ IV ONE (23:56)
[2019-03-17] MEDS ORDERED: ONDANSETRON HCL INJ/PF 4 MG/2 ML SDV IV ONE (00:08)
--- NOTE | 2019-03-17 00:12 | ER Document Report ---
ED General - General Chief Complaint: Chest Pain > 30 Stated Complaint: CHEST PAIN Time Seen by Provider: 03/16/19 20:38 Primary Care Provider: JANA WHITEHEAD MD [Primary Care Provider] - Follow up in 3-5 days Mode of Arrival: Ambulatory Information source: Patient Notes: Patient is a 63-year-old female with a history of chronic back pain, atrial fib with a pacemaker who presents to the emergency department with a chief complaint of chest pain. Patient states a few days ago she developed a runny nose with congestion. Patient states she has had a productive cough with thick white sputum. Patient states that at times she does not feel short of breath. Ginna kim reports she is having pain underneath both of her breasts and in the center of her chest that started 3 hours prior to arrival while at rest. Patient describes the pain as aching, throbbing and constant. Patient denies fever. Patient states she was recently placed on sotalol 1 month ago for uncontrollable A. fib. Patient states they have attempted to do an ablation in the past without success. Patient states she is currently on Coumadin. Patient states about 1 week ago she was walking down the hallway in her house when she had an episode of syncope with loss of consciousness. Patient states she did fall and hit the back of her head on a door frame. Patient states she did see her supervisor contingents and her back doctor the day after. Patient states she did not have a scan of her head or any imaging. Patient states she has not had any headaches or additional episodes of syncope with loss of consciousness since then. Patient has had no vomiting. states patient has been acting herself over the past week. TRAVEL OUTSIDE OF THE [place] IN LAST 30 DAYS: No - HPI Onset: Other Onset/Duration: Gradual, Persistent Quality of pain: Achy, Pressure Severity: Moderate Pain Level: 2 Associated symptoms: Chest pain, Productive cough, Shortness of breath. denies: Fever, Headache, Nausea, Vomiting, Weakness Exacerbated by: Denies Relieved by: Denies Similar symptoms previously: Yes Recently seen / treated by doctor: No - Related Data Allergies/Adverse Reactions: Penicillins Allergy (Severe, Verified 01/09/19 13:26) hives,throat swellling Iodinated Contrast Media [IV Dye, Iodine Containing] Allergy (Unknown, Verified 01/09/19 13:26) Anaphylaxis bee venom protein (honey bee) Allergy (Verified 01/09/19 13:26) adhesive tape Adverse Reaction (Intermediate, Verified 01/09/19 13:26) Generalized rash Past Medical History - General Information source: Patient - Social History Smoking Status: Never Smoker Chew tobacco use (# tins/day): No Frequency of alcohol use: None Drug Abuse: None Lives with: Spouse/Significant other Family History: Arthritis, CAD, Hyperlipidemia, Hypertension, Malignancy, Thyroid Disfunction Patient has suicidal ideation: No Patient has homicidal ideation: No - Past Medical History Cardiac Medical History: Reports: Hx Atrial Fibrillation, Hx Hypercholesterolemia, Hx Hypertension Denies: Hx Congestive Heart Failure, Hx Heart Attack Pulmonary Medical History: Reports: Hx Bronchitis Denies: Hx Asthma, Hx COPD, Hx Pneumonia, Hx Tuberculosis Neurological Medical History: Denies: Hx Seizures Endocrine Medical History: Reports: Hx Hypothyroidism Renal/ Medical History: Reports: Hx Ovarian Cysts. Denies: Hx End Stage Renal Disease, Hx Kidney Stones, Hx Peritoneal Dialysis GI Medical History: Reports: Hx Gastroesophageal Reflux Disease, Hx Colonoscopy. Denies: Hx Hiatal Hernia, Hx Ulcer Musculoskeletal Medical History: Reports Hx Arthritis, Reports Hx Fibromyalgia, Reports Hx Musculoskeletal Deformity, Reports Hx Musculoskeletal Trauma, Denies Hx Systemic Lupus Erythematosus Skin Medical History: Reports Hx Cellulitis, Reports Hx MRSA Psychiatric Medical History: Reports: Hx Anxiety, Hx Depression Denies: Hx Bipolar Disorder, Hx Schizophrenia Traumatic Medical History: Reports: Hx Fractures - right wrist/right elbow r/t fall Infectious Medical History: Reports: Hx MRSA Past Surgical History: Reports: Hx Abdominal Surgery, Hx Breast Surgery, Hx Cardiac Surgery, Hx Cholecystectomy, Hx Dilation and Curettage, Hx Gastric Bypass Surgery, Hx Gynecologic Surgery, Hx Hysterectomy, Hx Nose Surgery, Hx O rthopedic Surgery, Hx Pacemaker, Hx Umbilical Hernia - Umbilical and incisional hernia. Denies: Hx Appendectomy, Hx Bowel Surgery, Hx Section, Hx Mastectomy, Hx Tonsillectomy, Hx Tubal Ligation - Immunizations Hx Diphtheria, Pertussis, Tetanus Vaccination: Yes Hx Pneumococcal Vaccination: 07/16/16 Review of Systems - Review of Systems Notes: REVIEW OF SYSTEMS: CONSTITUTIONAL : Denies fever, chills, or sweats. Denies recent illness. Denies weight loss, recent hospitalizations. EENT: Denies visual changes, eye pain. Denies sore throat, oral lesions, difficulty swallowing. CARDIOVASCULAR: +chest pain. Denies palpitations. Denies lower extremity edema. RESPIRATORY: + cough. + shortness of breath, denies wheezing. GASTROINTESTINAL: Denies abdominal pain or distention. Denies nausea, vomiting, or diarrhea. Denies blood in vomitus, stools, or per rectum. Denies black, tarry stools. Denies constipation. GENITOURINARY: Denies difficulty urinating, painful urination, frequency, blood in urine, or vaginal discharge. MUSCULOSKELETAL: Denies back or neck pain or stiffness. Denies joint pain or swelling. SKIN: Denies rash, lesions or sores. HEMATOLOGIC : Denies easy bruising or bleeding. LYMPHATIC: Denies swollen glands. NEUROLOGICAL: Denies confusion or altered mental status. Denies loss of consciousness. Denies dizziness or lightheadedness. Denies headache. Denies weakness or paralysis. Denies problems difficulty with ambulation, slurred speech. Denies sensory loss, numbness, or tingling. Denies seizures. PSYCHIATRIC: Denies anxiety or stress. Denies depression, suicidal ideation, or homicidal ideation. Denies visual or auditory hallucinations. Physical Exam - Vital signs Vitals: Temp Pulse Resp BP Pulse Ox 97.9 F 78 15 141/77 H 100 03/16/19 20:15 03/16/19 20:15 03/16/19 20:15 03/16/19 20:15 03/16/19 20:15 - Notes Notes: PHYSICAL EXAMINATION: GENERAL: Well-appearing, well-nourished and in no acute distress. HEAD: Atraumatic, normocephalic. EYES: Pupils equal round and reactive to light, extraocular movements intact, conjunctiva are normal. ENT: Nares patent, oropharynx clear without exudates. Moist mucous membranes. NECK: Normal range of motion, supple without lymphadenopathy LUNGS: Coarse breath sounds in the left lower lung field. No wheezes rales or rhonchi. No increased work of breathing, no accessory muscle use HEART: Regular rate and rhythm without murmurs ABDOMEN: Soft, nontender, nondistended abdomen. No guarding, no rebound. No masses appreciated. Female : deferred Musculoskeletal: Normal range of motion, no pitting or edema. No cyanosis. NEUROLOGICAL: Cranial nerves grossly intact. Normal speech, normal gait. Normal sensory, motor exams PSYCH: Normal mood, normal affect. SKIN: Warm, Dry, normal turgor, no rashes or lesions noted. Course - Re-evaluation Re-evalutation: 03/17/19 23:41 Laboratory 03/16/19 03/16/19 03/16/19 21:10 21:10 21:10 WBC 6.5 RBC 4.38 Hgb 13.8 Hct 40.9 MCV 94 MCH 31.6 MCHC 33.8 RDW 13.9 Plt Count 332 Lymph % (Auto) 34.4 [place] % (Auto) 9.8 Eos % (Auto) 1.0 Baso % (Auto) 1.0 Absolute Neuts (auto) 3.5 Absolute Lymphs (auto) 2.2 Absolute Monos (auto) 0.6 Absolute Eos (auto) 0.1 Absolute Basos (auto) 0.1 Seg Neutrophils % 53.8 PT INR APTT Sodium 136.3 L Potassium 4.1 Chloride 104 Carbon Dioxide 25 Anion Gap 7 BUN 13 Creatinine 0.78 Est GFR ( Amer) > 60 Est GFR (MDRD) Non-Af > 60 Glucose 77 Calcium 9.2 Total Bilirubin 0.2 Direct Bilirubin 0.2 Neonat Total Bilirubin Not Reportable Neonat Direct Bilirubin Not Reportable Neonat Indirect Bili Not Reportable AST 20 ALT 14 Alkaline Phosphatase 96 Troponin I < 0.012 Total Protein 6.2 L Albumin 3.9 03/16/19 03/17/19 21:10 00:23 WBC RBC Hgb Hct MCV MCH MCHC RDW Plt Count Lymph % (Auto) [place] % (Auto) Eos % (Auto) Baso % (Auto) Absolute Neuts (auto) Absolute Lymphs (auto) Absolute Monos (auto) Absolute Eos (auto) Absolute Basos (auto) Seg Neutrophils % PT 33.7 H INR 3.23 APTT 32.3 Sodium Potassium Chloride Carbon Dioxide Anion Gap BUN Creatinine Est GFR ( Amer) Est GFR (MDRD) Non-Af Glucose Calcium Total Bilirubin Direct Bilirubin Neonat Total Bilirubin Neonat Direct Bilirubin Neonat Indirect Bili AST ALT Alkaline Phosphatase Troponin I < 0.012 Total Protein Albumin Chest X-Ray 03/16/19 20:49 IMPRESSION: 1. No acute cardiothoracic abnormality. 2. Pacemaker Temp Pulse Resp BP Pulse Ox 97.8 F 78 20 142/70 H 99 03/16/19 22:38 03/16/19 20:15 03/17/19 01:01 03/17/19 01:00 03/17/19 01:01 Is presentation of chest pain in an otherwise well appearing patient. Low clinical suspicion for ACS given clinical history, exam, EKG without ST elevations or depressions, and negative initial troponin. HEART score less than or equal to 3. PE also seems unlikely given clinical history, absence of tachycardia or dyspnea. Patient is PERC criteria negative. CXR without evidence of pneumothorax or pneumonia. No widened mediastinum. Aortic dissection also seems unlikely given history, symmetric pulses, CXR, and vitals. HEART Score: History-0 ECG-1 Age-1 Risk Factors-1 Troponin-0 Total: 3 Chest pain in a patient without evidence of cardiac or other serious etiology on workup today. I discussed with patient that, based on their age, risk factors and emergency department testing today, the likelihood that their symptoms are related to a heart attack is very low (estimated risk of heart attack or over the next 30 days of less than 1%). The patient demonstrates decision making capacity and has verbalized an understanding of these risks to me. Based on this, the patient has chosen to follow-up as an outpatient. Usual chest pain return precautions reviewed. The patient states understanding and agreement with this plan. - Vital Signs Vital signs: Temp Pulse Resp BP Pulse Ox 97.8 F 78 20 142/70 H 99 03/16/19 22:38 03/16/19 20:15 03/17/19 01:01 03/17/19 01:00 03/17/19 01:01 - Laboratory Result Diagrams: 03/16/19 21:10 03/16/19 21:10 Laboratory results interpreted by me: 03/16/19 03/16/19 21:10 21:10 PT 33.7 H Sodium 136.3 L Total Protein 6.2 L - Diagnostic Test Radiology reviewed: Image reviewed, Reports reviewed - EKG Interpretation by Me Rate: Normal Rhythm: Other - Patient atrially paced Discharge - Discharge Clinical Impression: Cough, Nasal congestion Chest pain Qualifiers: Chest pain type: unspecified Qualified Code(s): R07.9 - Chest pain, unspecified A-fib Qualifiers: Atrial fibrillation type: chronic Qualified Code(s): I48.2 - Chronic atrial fibrillation URI (upper respiratory infection) Qualifiers: URI type: unspecified URI Qualified Code(s): J06.9 - Acute upper respiratory infection, unspecified Condition: Good Disposition: HOME, SELF-CARE Instructions: Upper Respiratory Illness ([facility]), Viral Syndrome ([facility]) Additional Instructions: You were seen today for chest pain. The exact cause of your pain is unclear. However, based on your cardiac enzyme testing, chest x-ray, and EKG it does not appear that it is from an immediately life-threatening cause at this time. Although your testing here is normal is critical that you follow-up with your primary care physician for continued evaluation of this chest pain and possible stress testing. I recommended you see your physician within the next 24-48 hours to be evaluated for consideration of a stress test. Please return to emergency department immediately if you have worsening of your chest pain, shortness of breath, vomiting, become unable to exert yourself due to pain or difficulty breathing, you pass out, or have any pain that radiates into your arms, jaw, or back. Please also return if you have any additional symptoms that are concerning to you. Prescriptions: Acetaminophen/Chlorpheniramine [Coricidin Cold & Flu Tablet] 1 tab PO ASDIR PRN #1 pkg PRN Reason: Azithromycin [Zithromax 250 mg Tablet] 250 mg PO DAILY 4 Days #4 tablet Forms: Elevated Blood Pressure Referrals: JANA WHITEHEAD MD [Primary Care Provider] - Follow up in 3-5 days
[2019-03-17] MEDS ORDERED: FENTANYL CITRATE INJ/PF 100 MCG/2 ML AMPUL IV ONE (01:21)
[2019-03-17] MEDS ORDERED: IPRATROPIUM/ALBUTEROL 0.5-2.5 MG/3 ML AMPUL NEB ONE (01:21)
[2019-03-17] MEDS ORDERED: OXYMETAZOLINE HCL 0.05% NASAL SPRAY 15 ML BOTTLE NASL ONE (01:52)
[2019-03-17] MEDS ORDERED: AZITHROMYCIN 250 MG TABLET PO ONE (01:53)
[2019-03-17 02:00] VITALS: BP 142/70
--- NOTE | 2019-03-18 23:14 | EKG REPORT ---
SEVERITY:- ABNORMAL ECG - ATRIAL-PACED COMPLEXES BORDERLINE ST ELEVATION, INFERIOR LEADS : Confirmed by: Ree Chacon 18-Mar-2019 23:13:31
== END 2019-03-17 02:09 | disposition home or self-care (01) ==
LOC: ER 19:59
DX: R07.9 Chest pain, unspecified (principal); J06.9 Acute upper respiratory infection, unspecified; R09.81 Nasal congestion; R05 Cough; R06.02 Shortness of breath; R09.89 Other specified symptoms and signs involving the circulatory and respiratory systems; I48.2 Chronic atrial fibrillation; I10 Essential (primary) hypertension; Z79.899 Other long term (current) drug therapy; Z79.01 Long term (current) use of anticoagulants; Z95.810 Presence of automatic (implantable) cardiac defibrillator; Z88.0 Allergy status to penicillin; Z91.041 Radiographic dye allergy status; Z91.030 Bee allergy status
CPT/HCPCS: 93005; 94640 ×2; 99285; 96374; 96375; 36415; 85025; 85610; 85730; 80053; 84484; 71046; 93010; A9270 ×4; J3010; J2930; J2270; J3490; J2405; J7620

== ENCOUNTER → 2019-04-04 | Outpatient (CLI) | payer MEDICARE, OTHER ==
--- NOTE | 2019-04-04 12:23 | RADIOLOGY REPORT (SQ) ---
EXAM DESCRIPTION: NM 3 PHASE BONE SCAN COMPLETED DATE/TIME: 04/04/2019 11:36 am REASON FOR STUDY: PELVIC AND PERINEAL PAIN (R10.2) R10.2 PELVIC AND PERINEAL PAIN COMPARISON: Conventional ir grafts and CT of the right hip dated 12/19/2018, conventional radiographs dated 11/18/2018 RADIONUCLIDE AND DOSE: 21.7 millicuries Tc99m HDP. The route of agent administration: Intravenous. ADDITIONAL DRUGS AND DOSES: None. TECHNIQUE: Following injection of the radiopharmaceutical, serial blood flow images acquired. Equil ibrium blood pool images then acquired. Routine delayed images at 3 hour acquired of the areas of cl inical concern with additional focused images as needed. AREA OF INTEREST: Pelvis LIMITATIONS: None. FINDINGS: VASCULAR FLOW IMAGES: No asymmetry or focal areas of hyperemia. BLOOD POOL IMAGES: No asymmetry or focal areas of soft-tissue hyper-perfusion. BONES: There is increased activity in the body of L2. Correlation with plain films is recommended. Compression deformity cannot be excluded. There is asymmetric uptake in the right inferior pubic kizzy us as well. Review of recent CT reveals no displaced fractures or focal lesions. KIDNEYS: Symmetric excretion without obstruction. OTHER: No other significant finding. IMPRESSION: Abnormal uptake is limited to delayed images in the body of L2 and the right inferior pu bic ramus. Recommend repeat CT of the lumbar spine and pelvis to exclude fracture. The patient may be a candidate for kyphoplasty. COMMENT: Quality measure 147: Current bone scan is compared with any available plain radiographs, p rior bone scans, and CT/MRI. TECHNICAL DOCUMENTATION: JOB ID: [id number] [employer]- All Rights Reserved Reading location - IP/workstation name: [email or web address]
== END ==
LOC: RAD 07:41
PROVIDERS: ATTEND Family Medicine
DX: R10.2 Pelvic and perineal pain (principal)
CPT/HCPCS: 78315; A9561; Q9969

== ENCOUNTER → 2019-04-07 | Outpatient (CLI) | payer MEDICARE, OTHER ==
--- NOTE | 2019-04-07 11:20 | WOMENS IMAGING REPORT ---
EXAM DESCRIPTION: 3D SCREENING MAMMO BILAT COMPLETED DATE/TIME: 04/07/2019 9:12 am REASON FOR STUDY: Z12.39 SCREENING MAMMO Z12.31 ENCNTR SCREEN MAMMOGRAM FOR MALIGNANT NEOPLASM OF B RE COMPARISON: 03/20/2018 and 03/22/2017. EXAM PARAMETERS: Views: Standard craniocaudal and mediolateral oblique views of each breast recorded using digital acquisition and breast tomosynthesis. Read with the assistance of CAD. .[facility] - R2 Multiple Coil Winder Version 9.2 LIMITATIONS: None. FINDINGS: No suspicious masses, suspicious calcifications or architectural distortion. No areas of c oncern. IMPRESSION: NEGATIVE MAMMOGRAM. BIRADS 1. BREAST DENSITY: c. The breasts are heterogeneously dense, which may obscure small masses. BIRAD: ASSESSMENT: 1 NEGATIVE RECOMMENDATION: ROUTINE SCREENING COMMENT: The patient has been notified of the results by letter per MQSA requirements. Additional no tification policies are in place for contacting patient with suspicious or incomplete findings. Quality ID #[id number]: The [employer] recommends an annual screening mammogram for women aged 40 years or over. This facility utilizes a reminder system to ensure that all patients receive reminder letters, and/or direct phone calls for appointments. This includes reminders for routine scr eening mammograms, diagnostic mammograms, or other Breast Imaging Interventions when appropriate. Th is patient will be placed in the appropriate reminder system. TECHNICAL DOCUMENTATION: FINDING NUMBER: (1) ASSESSMENT: (1) JOB ID: [id number] [employer]- All Rights Reserved Reading location - IP/workstation name: [email or web address]
== END ==
LOC: WI 08:45
PROVIDERS: ATTEND Family Medicine
DX: Z12.31 Encounter for screening mammogram for malignant neoplasm of breast (principal)
CPT/HCPCS: 77063; 77067

== ENCOUNTER → 2019-04-12 | Outpatient (CLI) | payer MEDICARE, OTHER ==
--- NOTE | 2019-04-13 09:01 | RADIOLOGY REPORT (SQ) ---
EXAM DESCRIPTION: CT LUMBAR SPINE WITHOUT COMPLETED DATE/TIME: 04/12/2019 10:15 am REASON FOR STUDY: (M80.00XA)AGE-REL OSTEOPOR W CURRENT PATH FRACTURE, UNSP SITE, INIT R10.2 PELVIC AND PERINEAL PAIN M80.00XA AGE-REL OSTEOPOR W CURRENT PATH FRACTURE, UNSP SITE M84.350A STRESS FRAC TURE, PELVIS, INITIAL ENCOUNTER FOR FRAC COMPARISON: 07/31/2018, bone scan 04/04/2019 TECHNIQUE: Axial images acquired through the lumbar spine without intravenous contrast. Images revi ewed with lung, soft tissue and bone windows. Reconstructed coronal and sagittal MPR images reviewed . All images stored on PACS. All CT scanners at this facility use dose modulation, iterative reconstruction, and/or weight based d osing when appropriate to reduce radiation dose to as low as reasonably achievable (ALARA). [facility]: Dose Right [facility]: CareDose [facility]: Dose Right [facility]: Teradose 4D [facility]: [employer] RADIATION DOSE: CT Rad equipment meets quality standard of care and radiation dose reduction techniq ues were employed. CTDIvol: 8.8 mGy. DLP: 262 mGy-cm. mGy. LIMITATIONS: None. FINDINGS: SEGMENTATION: Normal. No transitional anatomy. ALIGNMENT: Normal. VERTEBRAL BODIES: There is inferior compression of the L2 vertebral body. This was not present on pl ain radiographs 07/31/2018 and was positive on bone scan. Acute inferior compression fracture. DISCS: Generalized degenerative disc. Most prominent L5-S1. PEDICLES, TRANSVERSE PROCESSES: No fractures. No dislocation. No acute findings. FACETS, POSTERIOR ELEMENTS: No fractures. No dislocation. No spinal stenosis. Facet arthropathy. HARDWARE: None in the spine. VISUALIZED RIBS: No fractures. SOFT TISSUES: No significant or acute finding in adjacent soft tissues. OTHER: Osteopenia. IMPRESSION: Inferior endplate compression fracture at L2. Based on prior imaging this is acute. TECHNICAL DOCUMENTATION: JOB ID: [id number] Quality ID # [id number]: Final reports with documentation of one or more dose reduction techniques (e.g., Au tomated exposure control, adjustment of the mA and/or kV according to patient size, use of iterative reconstruction technique) 2010 [employer]- All Rights Reserved Reading location - IP/workstation name: [email or web address]
--- NOTE | 2019-04-13 09:04 | RADIOLOGY REPORT (SQ) ---
EXAM DESCRIPTION: CT PELVIS WITHOUT COMPLETED DATE/TIME: 04/12/2019 10:15 am REASON FOR STUDY: (M80.00XA)AGE-REL OSTEOPOR W CURRENT PATH FRACTURE, UNSP SITE, INIT R10.2 PELVIC AND PERINEAL PAIN M80.00XA AGE-REL OSTEOPOR W CURRENT PATH FRACTURE, UNSP SITE M84.350A STRESS FRAC TURE, PELVIS, INITIAL ENCOUNTER FOR FRAC COMPARISON: Bone scan 04/04/2019 TECHNIQUE: CT scan of the pelvis performed without intravenous or oral contrast. Images reviewed wi th soft tissue and bone windows. Reconstructed coronal and sagittal MPR images reviewed. All images stored on PACS. All CT scanners at this facility use dose modulation, iterative reconstruction, and/or weight based d osing when appropriate to reduce radiation dose to as low as reasonably achievable (ALARA). [facility]: Dose Right [facility]: CareDose [facility]: Dose Right [facility]: Teradose 4D [facility]: [employer] RADIATION DOSE: mGy. LIMITATIONS: None. FINDINGS: PELVIC BONES: No acute fracture. No worrisome bone lesions. Specifically no fractures see n of the pubic rami. VISUALIZED SPINE: No acute findings. HIP(S): No acute fracture or dislocation. No worrisome bone lesions. PELVIC SOFT TISSUES: No significant findings. EXTRAPELVIC SOFT TISSUES: No significant findings. OTHER: No other significant finding. IMPRESSION: NO ACUTE OR SIGNIFICANT FINDINGS. No pubic ramus fracture. TECHNICAL DOCUMENTATION: JOB ID: [id number] Quality ID # [id number]: Final reports with documentation of one or more dose reduction techniques (e.g., Au tomated exposure control, adjustment of the mA and/or kV according to patient size, use of iterative reconstruction technique) 2010 [employer]- All Rights Reserved Reading location - IP/workstation name: [email or web address]
== END ==
LOC: RAD 09:46
PROVIDERS: ATTEND Family Medicine
DX: M80.08XA Age-related osteoporosis with current pathological fracture, vertebra(e), initial encounter for fracture (principal); M54.5 Low back pain
CPT/HCPCS: 36415; 72131; 72192; 85610

== ENCOUNTER → 2019-04-12 | Outpatient (CLI) | payer MEDICARE, OTHER ==
[2019-04-12 12:00] LABS: INTERNATIONAL RATION (INR) 2.22
== END ==
LOC: OD 10:31
PROVIDERS: ATTEND Family Medicine
DX: D68.9 Coagulation defect, unspecified (principal)
CPT/HCPCS: 36415; 85610

== ENCOUNTER → 2019-04-19 | Outpatient (CLI) | payer MEDICARE, OTHER ==
[2019-04-19 10:46] LABS: ALBUMIN 3.7 g/dL (3.5-5.0); ALKALINE PHOSPHATASE 65 U/L (38-126); ASPARTATE AMINO TRANSFERASE 33 U/L (14-36); BILIRUBIN,DIRECT 0.2 mg/dL (0.0-0.4); BILIRUBIN,TOTAL 0.4 mg/dL (0.2-1.3); BLOOD UREA NITROGEN 6 mg/dL (7-20); CALCIUM 9.5 mg/dL (8.4-10.2); CARBON DIOXIDE 33 mmol/L (22-30); CHLORIDE 103 mmol/L (98-107); GLUCOSE 89 mg/dL (75-110); POTASSIUM 4.4 mmol/L (3.6-5.0); TOTAL PROTEIN 6.2 g/dL (6.3-8.2)
[2019-04-19 11:52] LABS: ANION GAP 4 (5-19)
[2019-04-21 12:09] LABS: ABSOLUTE EOSINOPHILS # (AUTO) 0.1 10^3/uL (0.0-0.6); ABSOLUTE LYMPHOCYTES (AUTO) 1.5 10^3/uL (0.5-4.7); ABSOLUTE MONOCYTES (AUTO) 0.6 10^3/uL (0.1-1.4); ABSOLUTE NEUT (AUTO) 3.3 10^3/uL (1.7-8.2); BASOPHILS % (AUTO) 0.7 % (0-2); EOSINOPHILS % (AUTO) 1.5 % (0-6); HEMATOCRIT 44.1 % (36.0-47.0); HEMOGLOBIN 14.9 g/dL (12.0-15.5); LYMPHOCYTES % (AUTO) 27.7 % (13-45); MEAN CORPUSCULAR HEMOGLOBIN 31.8 pg (27.0-33.4); MEAN CORPUSCULAR HGB CONC 33.8 g/dL (32.0-36.0); MEAN CORPUSCULAR VOLUME 94 fl (80-97); MONOCYTES % (AUTO) 10.6 % (3-13); PLATELET COUNT 270 10^3/uL (150-450); RED BLOOD COUNT 4.69 10^6/uL (3.72-5.28); RED CELL DISTRIBUTION WIDTH 13.8 % (11.5-14.0); SEGMENTED NEUTROPHILS % (AUTO) 59.5 % (42-78); TOTAL CELLS COUNTED % (AUTO) 100 %; WHITE BLOOD COUNT 5.6 10^3/uL (4.0-10.5)
[2019-04-21 14:26] LABS: CHOLESTEROL 166.57 mg/dL (0-200); IRON 41.9 ug/dL (37-170); TRIGLYCERIDES 146 mg/dL (<150)
[2019-04-21 14:37] LABS: DIRECT LDL 91 mg/dL (<100)
== END ==
LOC: OD 09:19
PROVIDERS: ATTEND Family Medicine
DX: E78.5 Hyperlipidemia, unspecified (principal); D68.9 Coagulation defect, unspecified; I48.91 Unspecified atrial fibrillation; Z79.01 Long term (current) use of anticoagulants; Z79.899 Other long term (current) drug therapy; Z98.84 Bariatric surgery status
CPT/HCPCS: 36415; 80053; 80061; 82306; 82525; 82728; 83036; 83540; 84255; 84630; 85025

== ENCOUNTER 2019-05-07 05:24 | Day surgery (SDC) | payer MEDICARE, OTHER ==
[~2019-05-07 05:24] MED LIST changes: -AMINOPHYLLINE INJ/PF 250 MG/10 ML SDV IV ONE; +CEFAZOLIN SODIUM 2 GM in DEXTROSE 5%-WATER 100 ML IV PRN; +CLINDAMYCIN 600 MG/D5W RTU 600 MG/50 ML RTUPB IV PRN; +LIDOCAINE 0.5% INJ-PF (5 MG/ML) 50 ML SDV SUBCUT PRN; -REGADENOSON INJ 0.4 MG/5 ML DISP.SYRIN IV ONE
[2019-05-07] MEDS ORDERED: FENTANYL CITRATE INJ/PF 100 MCG/2 ML AMPUL ONE (07:02)
[2019-05-07] MEDS ORDERED: KETAMINE HCL INJ 500 MG/10 ML VIAL ONE (07:02)
[2019-05-07] MEDS ORDERED: MIDAZOLAM 2 MG/2 ML INJ ONE (07:02)
[2019-05-07] MEDS ORDERED: PROPOFOL INJ 200 MG/20 ML VIAL IV ONE (07:03)
[2019-05-07] MEDS ORDERED: BUPIVACAINE HCL 0.5 % INJ/PF 30 ML SDV ONE (07:09)
[2019-05-07] MEDS ORDERED: LIDOCAINE 1% INJ-PF (10 MG/ML) 30 ML SDV ONE (07:10)
[2019-05-07] MEDS ORDERED: CLINDAMYCIN 600 MG/D5W RTU 600 MG/50 ML RTUPB IV ONE (07:23)
[2019-05-07 07:30] LABS: INTERNATIONAL RATION (INR) 1.03; PROTHROMBIN TIME 13.5 SEC (11.4-15.4)
[2019-05-07] MEDS ORDERED: MEPERIDINE HCL/PF INJ 25 MG/1 ML DISP.SYRIN IV PRN (07:48)
[2019-05-07] MEDS ORDERED: FENTANYL CITRATE INJ/PF 100 MCG/2 ML AMPUL IV PRN ×3 (07:48)
[2019-05-07] MEDS ORDERED: PROMETHAZINE HCL INJ 25 MG/1 ML VIAL IV PRN (07:48)
[2019-05-07] MEDS ORDERED: MORPHINE SULFATE 10 MG/ML INJ IV PRN (07:48)
[2019-05-07] MEDS ORDERED: DIPHENHYDRAMINE HCL 50 MG/ML VIAL IV PRN (07:48)
--- NOTE | 2019-05-07 08:43 | Operative Report ---
Operative Report DATE OF SURGERY: 05/07/19 PREOPERATIVE DIAGNOSIS: L2 osteoporotic compression fracture POSTOPERATIVE DIAGNOSIS: L2 osteoporotic compression fracture status post kyphoplasty OPERATION: L2 kyphoplasty and biopsy SURGEON: ANA ALMEIDA 1ST RETAIL SALES ADVISOR: None 2ND Public Aid Eligibility Assistant: None ANESTHESIA: LMAC TISSUE REMOVED OR ALTERED: L2 vertebral body biopsy permanent specimen COMPLICATIONS: None PROCEDURE: Patient was brought into the room and placed under anesthesia. Patient was placed in the prone position on the radiolucent table with Gelfoam bolsters underneath the chest and iliac crest. Patient received clindamycin 600 mg within 1 hour of cut time. After appropriate surgical timeout under C-arm fluoroscopy in AP and lateral position the appropriate level is verified on both views. The L2 level is verified and visualised. After completion of prepping and draping, the subcuticular tissue was infiltrated with 0.5% Marcaine 1% lidocaine combination. Small stab incisions are made lateral to the pedicle. Under C arm fluoroscopy, a transpedicular is utilized into the vertebral body using the Jamshidi needle. A biopsy is obtained from the vertebral body and sent off to pathology for permanent specimen. The balloons were then inserted by particularly and expanded. The balloons were then deflated and removed. The cement is mixed and allowed to harden to a putty-like consistency. The cavity that was created was then filled with the bone cement. Cement is found to have good fill and good interdigitation. Cannulas are then removed. The sites are cleansed and dressed with benzoin and Steri-Strips. Gauze and coverall tape is used to dress the wound. The patient tolerated the procedure well. The patient was brought to the supine position and brought to the recovery room. The patient's condition is stable.
--- NOTE | 2019-05-07 09:17 | RADIOLOGY REPORT (SQ) ---
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 TECHNIQUE: Intra-operative images acquired during surgical procedure to evaluate progress. NUMBER OF IMAGES: 4 LIMITATIONS: None. FINDINGS: Fluoroscopy was provided for intraoperative procedure. Please refer to the operative repo rt for further discussion. IMPRESSION: IMAGE(S) OBTAINED DURING PROCEDURE. COMMENT: Quality ID 145: Final reports for procedures using fluoroscopy that document radiation exp osure indices, or exposure time and number of fluorographic images (if radiation exposure indices are not available) Please consult full operative report of the attending physician for description of the procedure. TECHNICAL DOCUMENTATION: JOB ID: [id number] [employer]- All Rights Reserved Reading location - IP/workstation name: [email or web address]
--- NOTE | 2019-05-07 09:17 | RADIOLOGY REPORT (SQ) ---
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 TECHNIQUE: Intra-operative images acquired during surgical procedure to evaluate progress. NUMBER OF IMAGES: 4 LIMITATIONS: None. FINDINGS: Fluoroscopy was provided for intraoperative procedure. Please refer to the operative repo rt for further discussion. IMPRESSION: IMAGE(S) OBTAINED DURING PROCEDURE. COMMENT: Quality ID 145: Final reports for procedures using fluoroscopy that document radiation exp osure indices, or exposure time and number of fluorographic images (if radiation exposure indices are not available) Please consult full operative report of the attending physician for description of the procedure. TECHNICAL DOCUMENTATION: JOB ID: [id number] [employer]- All Rights Reserved Reading location - IP/workstation name: [email or web address]
[2019-05-07] MEDS ORDERED: ONDANSETRON HCL INJ/PF 4 MG/2 ML SDV ONE (09:36)
[2019-05-07 15:22] VITALS: BP 108/50
== END 2019-05-07 10:40 | disposition home or self-care (01) ==
LOC: OROUT 05:24
PROVIDERS: ATTEND Orthopaedic Surgery
DX: M80.08XA Age-related osteoporosis with current pathological fracture, vertebra(e), initial encounter for fracture (principal); X58.XXXA Exposure to other specified factors, initial encounter; M54.5 Low back pain; E03.9 Hypothyroidism, unspecified; E78.00 Pure hypercholesterolemia, unspecified; I10 Essential (primary) hypertension; I48.91 Unspecified atrial fibrillation; G89.4 Chronic pain syndrome; Z95.0 Presence of cardiac pacemaker; Z79.01 Long term (current) use of anticoagulants
CPT/HCPCS: 36415; 85610; 88342 ×2; 88305 ×2; 88311; 72100; 01936; 22514; J2250; J3490 ×3; J2405; J2704; 1936; C1713; J3010

== ENCOUNTER 2019-07-22 06:54 | Emergency (ER) | payer MEDICARE, OTHER ==
--- NOTE | 2019-07-22 07:59 | ER Document Report ---
ED Respiratory Problem - General Chief Complaint: Cough Stated Complaint: COUGH,CONGESTION,SINUS PRESSURE Time Seen by Provider: 07/22/19 07:59 Primary Care Provider: JANA WHITEHEAD MD [Primary Care Provider] - Follow up as needed Notes: CHIEF COMPLAINT: Cough with sinus drainage for 1 week HPI: 63-year-old female presenting to the emergency department complaining of productive cough with sinus drainage for 1 week. Low-grade fever yesterday. Reports chest pain with coughing only. No shortness of breath. States she is coughing up yellow sputum. Believes that it started as a head cold with sinus congestion and then moved to the chest. Has not had nausea or vomiting. ROS: See HPI - all other systems were reviewed and are otherwise negative Constitutional:+ fever Eyes: no drainage, no blurred vision ENT: + runny nose, no sore throat, + sinus congestion Cardiovascular: + chest pain with cough only Resp: no SOB, + cough GI: no vomiting, no diarrhea : no dysuria Integumentary: no rash Allergy: no hives Musculoskeletal: no extremity pain or swelling Neurological: no numbness/tingling, no weakness MEDICATIONS: I agree with the patient medications as charted by the RN. ALLERGIES: I agree with the allergies as charted by the RN. PAST MEDICAL HISTORY/PAST SURGICAL HISTORY: Reviewed and agree as charted by RN. SOCIAL HISTORY: Reviewed and agree as charted by RN. FAMILY HISTORY: No significant familial comorbid conditions directly related to patient complaint EXAM: Reviewed vital signs as charted by RN. CONSTITUTIONAL: Alert and oriented and responds appropriately to questions. Well -appearing; well-nourished HEAD: Normocephalic; atraumatic EYES: PERRL; Conjunctivae clear, sclerae non-icteric ENT: normal nose; + clear rhinorrhea; moist mucous membranes; pharynx without lesions noted NECK: Supple without meningismus; non-tender; no cervical lymphadenopathy, no masses CARD: RRR; no murmurs, no clicks, no rubs, no gallops; symmetric distal pulses RESP: Normal chest excursion without splinting or tachypnea; breath sounds clear and equal bilaterally; no wheezes, no rhonchi, no rales, pulse oximetry 98% on room air not hypoxic ABD/GI: Normal bowel sounds; non-distended; soft, non-tender, no rebound, no guarding; no palpable organomegaly or masses. BACK: The back appears normal and is non-tender to palpation, there is no CVA tenderness EXT: Normal ROM in all joints; non-tender to palpation; no cyanosis, no effusions, no edema SKIN: Normal color for age and race; warm; dry; good turgor; no acute lesions noted NEURO: Moves all extremities equally; Motor and sensory function intact PSYCH: The patient's mood and manner are appropriate. Grooming and personal hygiene are appropriate. TRAVEL OUTSIDE OF THE [place] IN LAST 30 DAYS: No - Related Data Allergies/Adverse Reactions: Penicillins Allergy (Severe, Verified 07/22/19 07:20) hives,throat swellling Iodinated Contrast Media [IV Dye, Iodine Containing] Allergy (Unknown, Verified 07/22/19 07:20) Anaphylaxis bee venom protein (honey bee) Allergy (Verified 07/22/19 07:20) adhesive tape Adverse Reaction (Intermediate, Verified 07/22/19 07:20) Generalized rash Home Medications: [address] Past Medical History - Social History Smoking Status: Never Smoker Cigarette use (# per day): No Chew tobacco use (# tins/day): No Smoking Education Provided: No Frequency of alcohol use: None Drug Abuse: None Family History: Arthritis, CAD, Hyperlipidemia, Hypertension, Malignancy, Thyroid Disfunction Patient has suicidal ideation: No Patient has homicidal ideation: No - Past Medical History Cardiac Medical History: Reports: Hx Atrial Fibrillation, Hx Hypercholesterolemia, Hx Hypertension Denies: Hx Congestive Heart Failure, Hx Coronary Artery Disease, Hx Heart Attack Pulmonary Medical History: Reports: Hx Bronchitis Denies: Hx Asthma, Hx COPD, Hx Pneumonia, Hx Tuberculosis Neurological Medical History: Denies: Hx Cerebrovascular Accident, Hx Seizures, Hx Parkinson's Disease Endocrine Medical History: Reports: Hx Hypothyroidism Renal/ Medical History: Reports: Hx Ovarian Cysts. Denies: Hx End Stage Renal Disease, Hx Kidney Stones, Hx Peritoneal Dialysis GI Medical History: Reports: Hx Gastroesophageal Reflux Disease, Hx Colonoscopy. Denies: Hx Hiatal Hernia, Hx Ulcer Musculoskeletal Medical History: Reports Hx Arthritis, Reports Hx Fibromyalgia, Reports Hx Musculoskeletal Deformity, Reports Hx Musculoskeletal Trauma, Denies Hx Systemic Lupus Erythematosus Skin Medical History: Reports Hx Cellulitis, Reports Hx MRSA Psychiatric Medical History: Reports: Hx Anxiety, Hx Depression Denies: Hx Bipolar Disorder, Hx Schizophrenia Traumatic Medical History: Reports: Hx Fractures - right wrist/right elbow r/t fall Infectious Medical History: Reports: Hx MRSA Past Surgical History: Reports: Hx Abdominal Surgery, Hx Breast Surgery, Hx Cardiac Surgery - pacemaker, Hx Cholecystectomy, Hx Dilation and Curettage, Hx Gastric Bypass Surgery, Hx Gynecologic Surgery, Hx Hysterectomy, Hx Nose Surgery, Hx Orthopedic Surgery - back, Hx Pacemaker, Hx Umbilical Hernia - Umbilical and incisional hernia. Denies: Hx Appendectomy, Hx Bowel Surgery, Hx Section, Hx Mastectomy, Hx Tonsillectomy, Hx Tubal Ligation - Immunizations Hx Diphtheria, Pertussis, Tetanus Vaccination: Yes Hx Pneumococcal Vaccination: 07/16/16 Physical Exam - Vital signs Vitals: Temp Pulse Resp BP Pulse Ox 97.7 F 79 18 149/81 H 98 07/22/19 07:05 07/22/19 07:05 07/22/19 07:05 07/22/19 07:05 07/22/19 07:05 Course - Re-evaluation Re-evalutation: 07/22/19 08:40 63-year-old female with upper respiratory symptoms for 1 week. Patient states it began in the sinuses moved to the chest. She is not hypoxic. Has no adventitious lung sounds at this time will treat for bronchitis with Zithromax, albuterol inhaler, follow-up PCP. She has no history of CHF, chest x-ray does not suggest vascular congestion, she has not had weight gain or extremity swelling. Low suspicion for ACS at this time. - Vital Signs Vital signs: Temp Pulse Resp BP Pulse Ox 97.7 F 79 18 149/81 H 98 07/22/19 07:05 07/22/19 07:05 07/22/19 07:05 07/22/19 07:05 07/22/19 07:05 Discharge - Discharge Clinical Impression: Acute bronchitis Qualifiers: Bronchitis organism: unspecified organism Qualified Code(s): J20.9 - Acute bronchitis, unspecified Condition: Good Disposition: HOME, SELF-CARE Instructions: Bronchitis ([facility]) Additional Instructions: Continue to take Mucinex to help break up the cough. Use the albuterol inhaler 2 puffs every 4 hours as needed for coughing or shortness of breath. Take the Zithromax as prescribed. Follow-up with your primary care provider for reevaluation, chest x-ray did not show evidence of infiltrate or pneumonia today. Influenza swab was negative Prescriptions: Albuterol Sulfate [Proair HFA Inhalation Aerosol 8.5 gm MDI] 2 puff IH Q4H PRN #1 mdi PRN Reason: Azithromycin [Zithromax 250 mg Tablet] 250 mg PO ASDIR PRN #6 tablet PRN Reason: Referrals: JANA WHITEHEAD MD [Primary Care Provider] - Follow up as needed
[2019-07-22 08:09] LABS: A TYPE INFLUENZA AG NEGATIVE (NEGATIVE); B INFLUENZA AG NEGATIVE (NEGATIVE)
--- NOTE | 2019-07-22 08:27 | RADIOLOGY REPORT (SQ) ---
EXAM DESCRIPTION: CHEST 2 VIEWS COMPLETED DATE/TIME: 07/22/2019 7:57 am REASON FOR STUDY: cough x 1 wk COMPARISON: 03/16/2019. EXAM PARAMETERS: NUMBER OF VIEWS: two views TECHNIQUE: Digital Frontal and Lateral radiographic views of the chest acquired. RADIATION DOSE: NA LIMITATIONS: none FINDINGS: LUNGS AND PLEURA: No opacities, masses or pneumothorax. No pleural effusion. MEDIASTINUM AND HILAR STRUCTURES: No masses or contour abnormalities. HEART AND VASCULAR STRUCTURES: Heart normal size. No evidence for failure. BONES: No acute findings. Degenerative changes in the spine. Kyphoplasty cement. HARDWARE: Pacemaker. Clips in the upper abdomen. OTHER: No other significant finding. IMPRESSION: NO ACUTE RADIOGRAPHIC FINDING IN THE CHEST. TECHNICAL DOCUMENTATION: JOB ID: [id number] 1998 [employer]- All Rights Reserved Reading location - IP/workstation name: [email or web address]
[2019-07-22 09:06] VITALS: BP 142/82
== END 2019-07-22 09:06 | disposition home or self-care (01) ==
LOC: ER 06:54
DX: J20.9 Acute bronchitis, unspecified (principal); R05 Cough; R07.9 Chest pain, unspecified; I10 Essential (primary) hypertension; Z88.0 Allergy status to penicillin; Z91.041 Radiographic dye allergy status; Z91.030 Bee allergy status
CPT/HCPCS: 71046; 87804; 99283

== ENCOUNTER → 2019-09-02 | Outpatient (CLI) | payer MEDICARE, OTHER ==
[2019-09-02 09:54] LABS: INTERNATIONAL RATION (INR) 3.19; PROTHROMBIN TIME 33.4 SEC (11.4-15.4)
== END ==
LOC: OD 08:37
PROVIDERS: ATTEND Family Medicine
DX: D68.9 Coagulation defect, unspecified (principal); Z79.01 Long term (current) use of anticoagulants
CPT/HCPCS: 36415; 85610

== ENCOUNTER → 2019-09-09 | Outpatient (CLI) | payer MEDICARE, OTHER ==
[2019-09-09 08:09] LABS: PROTHROMBIN TIME 21.1 SEC (11.4-15.4)
== END ==
LOC: OD 07:33
PROVIDERS: ATTEND Family Medicine
DX: Z79.01 Long term (current) use of anticoagulants (principal); D68.9 Coagulation defect, unspecified
CPT/HCPCS: 36415; 85610

== ENCOUNTER → 2019-09-16 | Outpatient (CLI) | payer MEDICARE, OTHER ==
[2019-09-16 09:49] LABS: INTERNATIONAL RATION (INR) 3.24; PROTHROMBIN TIME 33.8 SEC (11.4-15.4)
[2019-09-16 10:36] LABS: ANION GAP 6 (5-19); BLOOD UREA NITROGEN 12 mg/dL (7-20); CARBON DIOXIDE 30 mmol/L (22-30); CHLORIDE 104 mmol/L (98-107); GLUCOSE 76 mg/dL (75-110); POTASSIUM 3.7 mmol/L (3.6-5.0)
== END ==
LOC: OD 08:53
PROVIDERS: ATTEND Family Medicine
DX: D68.9 Coagulation defect, unspecified (principal); R94.4 Abnormal results of kidney function studies; Z79.01 Long term (current) use of anticoagulants
CPT/HCPCS: 36415; 80048; 85610

== ENCOUNTER → 2019-10-01 | Outpatient (CLI) | payer MEDICARE, OTHER ==
[2019-10-01 08:57] LABS: INTERNATIONAL RATION (INR) 2.91
[2019-10-03 09:05] LABS: ABSOLUTE LYMPHOCYTES (AUTO) 1.2 10^3/uL (0.5-4.7); ABSOLUTE MONOCYTES (AUTO) 0.4 10^3/uL (0.1-1.4); ABSOLUTE NEUT (AUTO) 3.5 10^3/uL (1.7-8.2); BASOPHILS % (AUTO) 0.4 % (0-2); EOSINOPHILS % (AUTO) 0.2 % (0-6); HEMATOCRIT 39.9 % (36.0-47.0); HEMOGLOBIN 13.5 g/dL (12.0-15.5); LYMPHOCYTES % (AUTO) 22.7 % (13-45); MEAN CORPUSCULAR HEMOGLOBIN 31.8 pg (27.0-33.4); MEAN CORPUSCULAR HGB CONC 33.9 g/dL (32.0-36.0); MEAN CORPUSCULAR VOLUME 94 fl (80-97); MONOCYTES % (AUTO) 7.8 % (3-13); PLATELET COUNT 359 10^3/uL (150-450); RED BLOOD COUNT 4.26 10^6/uL (3.72-5.28); RED CELL DISTRIBUTION WIDTH 14.1 % (11.5-14.0); SEGMENTED NEUTROPHILS % (AUTO) 68.9 % (42-78); TOTAL CELLS COUNTED % (AUTO) 100 %; WHITE BLOOD COUNT 5.1 10^3/uL (4.0-10.5)
[2019-10-03 09:31] LABS: ALBUMIN 3.8 g/dL (3.5-5.0); ALKALINE PHOSPHATASE 51 U/L (38-126); ANION GAP 9 (5-19); ASPARTATE AMINO TRANSFERASE 31 U/L (14-36); BILIRUBIN,DIRECT 0.2 mg/dL (0.0-0.4); BILIRUBIN,TOTAL 0.3 mg/dL (0.2-1.3); BLOOD UREA NITROGEN 14 mg/dL (7-20); CALCIUM 9.4 mg/dL (8.4-10.2); CARBON DIOXIDE 27 mmol/L (22-30); CHLORIDE 102 mmol/L (98-107); GLUCOSE 115 mg/dL (75-110); POTASSIUM 4.2 mmol/L (3.6-5.0); TOTAL PROTEIN 6.5 g/dL (6.3-8.2)
[2019-10-03 09:41] LABS: ERYTHROCYTE SEDIMENTATION RATE 17 mm/hr (0-30)
[2019-10-04 05:37] LABS: HEPATITIS C VIRUS AB <0.1 s/co ratio (0.0-0.9)
== END ==
LOC: OD 07:51
PROVIDERS: ATTEND Family Medicine
DX: D68.9 Coagulation defect, unspecified (principal); E11.9 Type 2 diabetes mellitus without complications; R63.4 Abnormal weight loss; Z79.01 Long term (current) use of anticoagulants
CPT/HCPCS: 36415; 80053; 83036; 83615; 84443; 85025; 85610; 85652; 86701; 86803; 86804

== ENCOUNTER → 2019-10-17 | Outpatient (CLI) | payer MEDICARE, OTHER ==
--- NOTE | 2019-10-17 13:56 | RADIOLOGY REPORT (SQ) ---
EXAM DESCRIPTION: CT ABD/PELVIS NO ORAL OR IV IMAGES COMPLETED DATE/TIME: 10/17/2019 1:31 pm REASON FOR STUDY: R63.4 ABNORMAL WEIGHT LOSS R63.4 ABNORMAL WEIGHT LOSS COMPARISON: None. TECHNIQUE: CT scan of the abdomen and pelvis performed without intravenous or oral contrast. Images reviewed with lung, soft tissue, and bone windows. Reconstructed coronal and sagittal MPR images revi ewed. All images stored on PACS. All CT scanners at this facility use dose modulation, iterative reconstruction, and/or weight based d osing when appropriate to reduce radiation dose to as low as reasonably achievable (ALARA). [facility]: Dose Right [facility]: CareDose [facility]: Dose Right [facility]: Teradose 4D [facility]: Smart [employer] RADIATION DOSE: CT Rad equipment meets quality standard of care and radiation dose reduction techniq ues were employed. CTDIvol: 4.7 mGy. DLP: 255 mGy-cm.mGy. LIMITATIONS: None. FINDINGS: LOWER CHEST: No significant findings. No nodules or infiltrates. Partially visualized pac er leads. NON-CONTRASTED LIVER, SPLEEN, ADRENALS: Evaluation limited by lack of IV contrast. No identified sign ificant masses. PANCREAS: No masses. No peripancreatic inflammatory changes. GALLBLADDER: Surgically absent. RIGHT KIDNEY AND URETER: No suspicious masses. Assessment limited by lack of IV contrast. No signif icant calcifications. No hydronephrosis or hydroureter. LEFT KIDNEY AND URETER: No suspicious masses. Assessment limited by lack of IV contrast. No signifi cant calcifications. No hydronephrosis or hydroureter. AORTA AND RETROPERITONEUM: Scattered atherosclerosis without aneurysm. No retroperitoneal masses or a denopathy. BOWEL AND PERITONEAL CAVITY: Postsurgical changes from prior gastric bypass. No evidence of intestin al obstruction. No identified focal bowel wall thickening. APPENDIX: Normal. PELVIS, BLADDER, AND ABDOMINAL WALL:Decompressed urinary bladder. No free fluid or adenopathy. BONES: No acute bony abnormality. No suspicious osseous lesions. Evidence of prior L2 kyphoplasty. OTHER: No other significant finding. IMPRESSION: 1. No evidence of acute intra-abdominal/pelvic process. No findings to explain patient 's weight loss. 2. Chronic findings as above. COMMENT: Quality ID # [id number]: Final reports with documentation of one or more dose reduction techniques (e.g., Automated exposure control, adjustment of the mA and/or kV according to patient size, use of iterative reconstruction technique) TECHNICAL DOCUMENTATION: JOB ID: [id number] 2010 [employer]- All Rights Reserved Reading location - IP/workstation name: [email or web address]
== END ==
LOC: RAD 12:56
PROVIDERS: ATTEND Family Medicine
DX: R63.4 Abnormal weight loss (principal)
CPT/HCPCS: 74176

== ENCOUNTER → 2019-11-11 | Outpatient (CLI) | payer MEDICARE, OTHER ==
[2019-11-11 08:56] LABS: INTERNATIONAL RATION (INR) 2.23; PROTHROMBIN TIME 25.1 SEC (11.4-15.4)
== END ==
LOC: OD 07:50
PROVIDERS: ATTEND Family Medicine
DX: D68.9 Coagulation defect, unspecified (principal); Z79.01 Long term (current) use of anticoagulants
CPT/HCPCS: 36415; 85610

== ENCOUNTER 2019-11-16 11:13 | Emergency (ER) | payer MEDICARE, OTHER ==
--- NOTE | 2019-11-16 11:32 | ER Document Report ---
ED Medical Screen (RME) - General Chief Complaint: Near Syncope Stated Complaint: FALL/HEAD PAIN/SHOULDER AND NECK PAIN Time Seen by Provider: 11/16/19 11:27 Primary Care Provider: JANA WHITEHEAD MD [Primary Care Provider] - Follow up as needed Mode of Arrival: Wheelchair Information source: Patient Notes: 64-year-old female presented to ED for dizziness when she fell. She states she hit her head now she has had neck and right shoulder pain. She states after the fall she took a [place] 11/15/2024. She states she is on Coumadin and has a severe headache still. She has been ordered a CT of the head neck and a shoulder x- ray. She will be seen by another provider. I have greeted and performed a rapid initial assessment of this patient. A comprehensive ED assessment and evaluation of the patient, analysis of test results and completion of medical decision making process will be conducted by an additional ED providers. TRAVEL OUTSIDE OF THE [place] IN LAST 30 DAYS: No - Related Data Allergies/Adverse Reactions: Penicillins Allergy (Severe, Verified 11/16/19 11:19) hives,throat swellling Iodinated Contrast Media [IV Dye, Iodine Containing] Allergy (Unknown, Verified 11/16/19 11:19) Anaphylaxis bee venom protein (honey bee) Allergy (Verified 11/16/19 11:19) adhesive tape Adverse Reaction (Intermediate, Verified 11/16/19 11:19) Generalized rash Past Medical History - Social History Chew tobacco use (# tins/day): No Frequency of alcohol use: None Drug Abuse: None - Past Medical History Cardiac Medical History: Reports: Hx Atrial Fibrillation, Hx Hypercholesterolemia, Hx Hypertension Denies: Hx Congestive Heart Failure, Hx Coronary Artery Disease, Hx Heart Attack Pulmonary Medical History: Reports: Hx Bronchitis Denies: Hx Asthma, Hx COPD, Hx Pneumonia, Hx Tuberculosis Neurological Medical History: Denies: Hx Cerebrovascular Accident, Hx Seizures, Hx Parkinson's Disease Endocrine Medical History: Reports: Hx Hypothyroidism Renal/ Medical History: Reports: Hx Ovarian Cysts. Denies: Hx End Stage Renal Disease, Hx Kidney Stones, Hx Peritoneal Dialysis GI Medical History: Reports: Hx Gastroesophageal Reflux Disease, Hx Colonoscopy. Denies: Hx Hiatal Hernia, Hx Ulcer Musculoskeltal Medical History: Reports Hx Arthritis, Reports Hx Fibromyalgia, Reports Hx Musculoskeletal Deformity, Reports Hx Musculoskeletal Trauma, Denies Hx Systemic Lupus Erythematosus Skin Medical History: Reports Hx Cellulitis, Reports Hx MRSA Psychiatric Medical History: Reports: Hx Anxiety, Hx Depression Denies: Hx Bipolar Disorder, Hx Schizophrenia Traumatic Medical History: Reports: Hx Fractures - right wrist/right elbow r/t fall Infectious Medical History: Reports: Hx MRSA Past Surgical History: Reports: Hx Abdominal Surgery, Hx Breast Surgery, Hx Cardiac Surgery - pacemaker, Hx Cholecystectomy, Hx Dilation and Curettage, Hx Gastric Bypass Surgery, Hx Gynecologic Surgery, Hx Hysterectomy, Hx Nose Surgery, Hx Orthopedic Surgery - back, Hx Pacemaker, Hx Umbilical Hernia - Umbilical and incisional hernia. Denies: Hx Appendectomy, Hx Bowel Surgery, Hx Section, Hx Mastectomy, Hx Tonsillectomy, Hx Tubal Ligation - Immunizations Hx Diphtheria, Pertussis, Tetanus Vaccination: Yes Physical Exam - Vital signs Vitals: Temp Pulse Resp BP Pulse Ox 97.9 F 68 16 123/90 H 97 11/16/19 11:17 11/16/19 11:17 11/16/19 11:17 11/16/19 11:17 11/16/19 11:17 Course - Vital Signs Vital signs: Temp Pulse Resp BP Pulse Ox 97.9 F 68 16 123/90 H 97 11/16/19 11:21 11/16/19 11:17 11/16/19 11:17 11/16/19 11:17 11/16/19 11:17 Doctor's Discharge - Discharge Referrals: JANA WHITEHEAD MD [Primary Care Provider] - Follow up as needed
--- NOTE | 2019-11-16 12:06 | ER Document Report ---
Entered by RUBY BACA SCRIBE 11/16/19 1137 Acting as scribe for:SERA WILSON MD ED General - General Chief Complaint: Near Syncope Stated Complaint: FALL/HEAD PAIN/SHOULDER AND NECK PAIN Time Seen by Provider: 11/16/19 11:27 Primary Care Provider: JANA WHITEHEAD MD [Primary Care Provider] - Mode of Arrival: Wheelchair Information source: Patient Notes: Patient is a 64 year old female patient that presents to the emergency dep artment today with complaints of falling over today as she was bending over, trying to plant a plant. Patient states she was bending over today, felt dizzy, and then fell forward. Patient's right head and RUE hit the grass/dirt. Patient states her last INR was 2.3 about a week ago. Patient complaints of right sided neck and shoulder pain. TRAVEL OUTSIDE OF THE [place] IN LAST 30 DAYS: No - Related Data Allergies/Adverse Reactions: Penicillins Allergy (Severe, Verified 11/16/19 11:19) hives,throat swellling Iodinated Contrast Media [IV Dye, Iodine Containing] Allergy (Unknown, Verified 11/16/19 11:19) Anaphylaxis bee venom protein (honey bee) Allergy (Verified 11/16/19 11:19) adhesive tape Adverse Reaction (Intermediate, Verified 11/16/19 11:19) Generalized rash Past Medical History - General Information source: Patient - Social History Smoking Status: Never Smoker Cigarette use (# per day): No Chew tobacco use (# tins/day): No Frequency of alcohol use: None Drug Abuse: None Lives with: Family Family History: Arthritis, CAD, Hyperlipidemia, Hypertension, Malignancy, Thyroid Disfunction Patient has homicidal ideation: No - Past Medical History Cardiac Medical History: Reports: Hx Atrial Fibrillation, Hx Hypercholesterolemia, Hx Hypertension Pulmonary Medical History: Reports: Hx Bronchitis Endocrine Medical History: Reports: Hx Hypothyroidism Renal/ Medical History: Reports: Hx Ovarian Cysts GI Medical History: Reports: Hx Gastroesophageal Reflux Disease, Hx Colonoscopy Musculoskeletal Medical History: Reports Hx Arthritis, Reports Hx Fibromyalgia, Reports Hx Musculoskeletal Deformity, Reports Hx Musculoskeletal Trauma Skin Medical History: Reports Hx Cellulitis, Reports Hx MRSA Psychiatric Medical History: Reports: Hx Anxiety, Hx Depression Traumatic Medical History: Reports: Hx Fractures - right wrist/right elbow r/t fall Infectious Medical History: Reports: Hx MRSA Past Surgical History: Reports: Hx Abdominal Surgery, Hx Breast Surgery, Hx Cholecystectomy, Hx Dilation and Curettage, Hx Gastric Bypass Surgery, Hx Hyster ectomy, Hx Nose Surgery, Hx Orthopedic Surgery - back, Hx Pacemaker, Hx Umbilical Hernia - Umbilical and incisional hernia - Immunizations Hx Diphtheria, Pertussis, Tetanus Vaccination: Yes Hx Pneumococcal Vaccination: 07/16/16 Review of Systems - Review of Systems Constitutional: No symptoms reported EENT: No symptoms reported Cardiovascular: No symptoms reported Respiratory: No symptoms reported Gastrointestinal: No symptoms reported Genitourinary: No symptoms reported Female Genitourinary: No symptoms reported Musculoskeletal: See HPI, Other - right shoulder, right neck Skin: See HPI, Other - lacerations Hematologic/Lymphatic: No symptoms reported Neurological/Psychological: No symptoms reported -: Yes All other systems reviewed and negative Physical Exam - Vital signs Vitals: Temp Pulse Resp BP Pulse Ox 97.9 F 68 16 123/90 H 97 11/16/19 11:17 11/16/19 11:17 11/16/19 11:17 11/16/19 11:17 11/16/19 11:17 - General General appearance: Appears well, Alert In distress: None - HEENT Head: Normocephalic, Other - Right forehead abrasion about 3 x 3 cm Eyes: Normal Pupils: PERRL Nasal: Other - Minor abrasion to bridge of nose with some swelling, no bleeding in the nostrils Pharynx: Normal Neck: Supple - There is some tenderness to palpate the upper cervical spinous processes., Other - There is some tenderness in the right trapezius muscle extending out to the clavicle. - Respiratory Respiratory status: No respiratory distress Chest status: Nontender Breath sounds: Normal - Cardiovascular Rhythm: Regular Heart sounds: Normal auscultation Murmur: No - Abdominal Inspection: Normal Bowel sounds: Normal - Back Back: Normal - Extremities General upper extremity: Normal inspection, Other - Right shoulder is not tender to palpate. General lower extremity: Normal inspection - Neurological Neuro grossly intact: Yes - Psychological Associated symptoms: Normal affect, Normal mood - Skin Skin Temperature: Warm Skin Moisture: Dry Skin Color: Normal Course - Vital Signs Vital signs: Temp Pulse Resp BP Pulse Ox 97.9 F 68 13 136/70 H 96 11/16/19 11:21 11/16/19 11:17 11/16/19 13:01 11/16/19 13:01 11/16/19 13:01 - Laboratory Result Diagrams: 11/16/19 12:24 11/16/19 12:24 Laboratory results interpreted by me: 11/16/19 11/16/19 12:24 12:24 PT 37.8 H D Carbon Dioxide 32 H Anion Gap 2 L AST 39 H Total Protein 5.6 L Albumin 3.2 L - Diagnostic Test Radiology reviewed: Image reviewed, Reports reviewed - X-ray of the right shoulder is unremarkable. CT scan of the head shows bilateral maxillary sinus disease without acute injuries. The cervical spine CT scan shows chronic degenerative changes, fusion across the disc space at C5-6 and 6 7, no fractures or acute changes. - EKG Interpretation by Me EKG shows normal: [place], Intervals, QRS Complexes, ST-T Waves Rate: Normal - 66 Rhythm: Other - Atrial paced complexes Discharge - Discharge Clinical Impression: Excessive anticoagulation Fall Qualifiers: Encounter type: initial encounter Qualified Code(s): W19.XXXA - Unspecified fall, initial encounter Abrasion of face Qualifiers: Encounter type: initial encounter Qualified Code(s): S00.81XA - Abrasion of other part of head, initial encounter Cervical strain Qualifiers: Encounter type: initial encounter Qualified Code(s): S16.1XXA - Strain of muscle, fascia and tendon at neck level, initial encounter Condition: Stable Disposition: HOME, SELF-CARE Additional Instructions: Abrasions of the Face A scraping injury of the face can result in scarring. While not as prone to infection as abrasions elsewhere, a facial abrasion requires careful care to minimize scar. Usually the abrasions cannot be dressed. Standard treatment is to apply a thin coating of an antibiotic ointment to the scrapes frequently (two or three times a day) until the abrasions are healed. Wash the wound daily with a mild soap (like Phisoderm) to remove excess crusting and debris. Stay away from dirt and irritating chemicals. Complete healing may take anywhere from ten days to a month. The healing time depends on the depth of the abrasion and on the amount of crushing of underlying tissues which occurred. Once healing is complete, use a sunscreen on the area for about six months. If any signs of infection occur (swelling, redness, increasing tenderness, red streaks, profuse purulent drainage from the abrasion, tender lumps in the n [place] on the side of the abrasion, or fever), see the doctor immediately. Neck Injury (Cervical Strain) You have a neck strain. This is an injury to the muscles and ligaments in the neck. There is no evidence of a fracture of the neck bones. Also, no injury to the spinal cord or nerve roots was detected. Usually, stiffness and pain INCREASE for the first 24-48 hours after the injury. The pain will gradually resolve and the neck will become more mobile. Most patients are back at work or school within a few days. Typically, complete healing takes about two or three weeks. The usual initial treatment is rest and cold packs. A neck collar may be placed to keep the muscles of the neck at rest. Antiinflammatory and muscle relaxing medication are often used to reduce the spasm and irritation. You should call the doctor, or go to the hospital, if you develop numbness or weakness in any extremity, problems with your bladder or bowel, or pain radiating down the arms. Your x-rays and CT scans did not show any fractures or other acute abnormaliti es. Your bleeding time INR was 3.73, you should not take your Coumadin dose this evening. Use Neosporin or bacitracin on the abrasions to your forehead and nose. Use ice packs on all the sore areas. You may increase your [place] pain pill dosing and take 2 pills every 4-6 hours as needed for pain for the next 1 to 2 days. Follow-up with your primary care provider this week to recheck your INR. RETURN TO THE EMERGENCY ROOM IF ANY NEW OR WORSENING SYMPTOMS. Prescriptions: Metaxalone [Skelaxin 800 mg Tablet] 800 mg PO Q8 PRN #15 tablet PRN Reason: Referrals: JANA WHITEHEAD MD [Primary Care Provider] - I personally performed the services described in the documentation, reviewed and edited the documentation which was dictated to the scribe in my presence, and it accurately records my words and actions.
--- NOTE | 2019-11-16 12:08 | RADIOLOGY REPORT (SQ) ---
EXAM DESCRIPTION: CT CERVICAL SPINE WITHOUT; CT HEAD WITHOUT IMAGES COMPLETED DATE/TIME: 11/16/2019 11:53 am REASON FOR STUDY: Fall head injury, neck injury, on blood thinners COMPARISON: See below. TECHNIQUE: Axial images acquired through the brain and cervical spine without intravenous contrast. Images reviewed with brain, subdural, lung, soft tissue and bone windows. Reconstructed coronal and sagittal MPR images reviewed. Images stored on PACS. All CT scanners at this facility use dose modulation, iterative reconstruction, and/or weight based d osing when appropriate to reduce radiation dose to as low as reasonably achievable (ALARA). [facility]: Dose Right [facility]: CareDose [facility]: Dose Right [facility]: Teradose 4D [facility]: [employer] RADIATION DOSE: CT Rad equipment meets quality standard of care and radiation dose reduction techniq ues were employed. CTDIvol: 5.9 - 11.4 mGy. DLP: 174 mGy-cm.; CT Rad equipment meets quality standard of care and radiation dose reduction techniques were employed. CTDIvol: 53.2 mGy. DLP: 991 mGy-cm. m Gy. LIMITATIONS: None. FINDINGS: Brain 2019 comparison. Bilateral maxillary mucosal thickening and mild fluid. No hemorrhage or mass or sh ift or hydrocephalus or fracture. Orbits intact. Cervical spine 2017 comparison. Minimal chronic degenerative listhesis at C7 -T1. No fracture or worrisome bone le capri. Multilevel mild facet arthropathy. C5-6 and C6-7 fusion across the discs. No soft tissue pat hology. IMPRESSION: 1. Maxillary sinus disease. No facial fracture or acute intracranial abnormality identified. 2. Cervical spine chronic degenerative changes without fracture. TECHNICAL DOCUMENTATION: JOB ID: [id number] Quality ID # [id number]: Final reports with documentation of one or more dose reduction techniques (e.g., Au tomated exposure control, adjustment of the mA and/or kV according to patient size, use of iterative reconstruction technique) 2010 [employer]- All Rights Reserved Reading location - IP/workstation name: [email or web address]
--- NOTE | 2019-11-16 12:17 | RADIOLOGY REPORT (SQ) ---
EXAM DESCRIPTION: SHOULDER RIGHT 2 OR MORE VIEWS IMAGES COMPLETED DATE/TIME: 11/16/2019 10:48 am REASON FOR STUDY: right shoulder clavicle pain COMPARISON: None. NUMBER OF VIEWS: Three views. TECHNIQUE: Internal rotation, external rotation, and Y view images acquired of the right shoulder. LIMITATIONS: None. FINDINGS: MINERALIZATION: Normal. BONES: No acute fracture. No worrisome bone lesions. JOINTS: No dislocation. VISUALIZED LUNGS AND RIBS: No pneumothorax. No rib fracture. SOFT TISSUES: No radiopaque foreign body. OTHER: No other significant finding. IMPRESSION: No radiographic abnormality of the right shoulder. TECHNICAL DOCUMENTATION: JOB ID: [id number] 2010 [employer]- All Rights Reserved Reading location - IP/workstation name: [email or web address]
[2019-11-16] MEDS ORDERED: DIPH/PERTUSS(ACELL)/TETANUS VAC/PF 0.5 ML SYR (>=10YO) IM ONE (12:35)
[2019-11-16 12:38] LABS: ABSOLUTE EOSINOPHILS # (AUTO) 0.1 10^3/uL (0.0-0.6); ABSOLUTE LYMPHOCYTES (AUTO) 1.4 10^3/uL (0.5-4.7); ABSOLUTE MONOCYTES (AUTO) 0.6 10^3/uL (0.1-1.4); ABSOLUTE NEUT (AUTO) 4.3 10^3/uL (1.7-8.2); BASOPHILS % (AUTO) 0.5 % (0-2); EOSINOPHILS % (AUTO) 1.4 % (0-6); HEMATOCRIT 37.1 % (36.0-47.0); HEMOGLOBIN 12.9 g/dL (12.0-15.5); LYMPHOCYTES % (AUTO) 21.4 % (13-45); MEAN CORPUSCULAR HGB CONC 34.9 g/dL (32.0-36.0); MEAN CORPUSCULAR VOLUME 95 fl (80-97); MONOCYTES % (AUTO) 9.2 % (3-13); PLATELET COUNT 290 10^3/uL (150-450); RED BLOOD COUNT 3.92 10^6/uL (3.72-5.28); RED CELL DISTRIBUTION WIDTH 13.9 % (11.5-14.0); SEGMENTED NEUTROPHILS % (AUTO) 67.5 % (42-78); TOTAL CELLS COUNTED % (AUTO) 100 %; WHITE BLOOD COUNT 6.4 10^3/uL (4.0-10.5)
[2019-11-16 12:55] LABS: ALBUMIN 3.2 g/dL (3.5-5.0); ALKALINE PHOSPHATASE 74 U/L (38-126); ASPARTATE AMINO TRANSFERASE 39 U/L (14-36); BILIRUBIN,TOTAL 0.4 mg/dL (0.2-1.3); BLOOD UREA NITROGEN 9 mg/dL (7-20); CALCIUM 9.3 mg/dL (8.4-10.2); GLUCOSE 89 mg/dL (75-110); POTASSIUM 3.8 mmol/L (3.6-5.0); TOTAL PROTEIN 5.6 g/dL (6.3-8.2)
[2019-11-16 13:00] LABS: CARBON DIOXIDE 32 mmol/L (22-30); CHLORIDE 103 mmol/L (98-107)
[2019-11-16 13:05] LABS: ANION GAP 2 (5-19); INTERNATIONAL RATION (INR) 3.73
[2019-11-16 13:06] LABS: PROTHROMBIN TIME 37.8 SEC (11.4-15.4)
[2019-11-16 14:00] VITALS: BP 142/88
--- NOTE | 2019-11-17 07:13 | EKG REPORT ---
SEVERITY:- ABNORMAL ECG - ATRIAL-PACED COMPLEXES : Confirmed by: Kranthi Barbour MD 17-Nov-2019 07:12:23
== END 2019-11-16 13:58 | disposition home or self-care (01) ==
LOC: ER 11:13
DX: S00.31XA Abrasion of nose, initial encounter (principal); S00.81XA Abrasion of other part of head, initial encounter; T14.8XXA Other injury of unspecified body region, initial encounter; M54.2 Cervicalgia; M25.511 Pain in right shoulder; R51 Headache; W18.39XA Other fall on same level, initial encounter; Y93.89 Activity, other specified; Y92.009 Unspecified place in unspecified non-institutional (private) residence as the place of occurrence of the external cause; M47.812 Spondylosis without myelopathy or radiculopathy, cervical region; J32.0 Chronic maxillary sinusitis; R42 Dizziness and giddiness; I10 Essential (primary) hypertension; I48.91 Unspecified atrial fibrillation; Z79.01 Long term (current) use of anticoagulants; Z98.84 Bariatric surgery status; Z88.0 Allergy status to penicillin; Z87.892 Personal history of anaphylaxis; Z91.041 Radiographic dye allergy status; Z91.030 Bee allergy status; Z23 Encounter for immunization
CPT/HCPCS: 36415; 70450; 72125; 80053; 84484; 85025; 85610; 90471; 90715; 93005; 93010; 99284

== ENCOUNTER → 2019-11-25 | Outpatient (CLI) | payer MEDICARE, OTHER ==
--- NOTE | 2019-11-25 09:56 | RADIOLOGY REPORT (SQ) ---
EXAM DESCRIPTION: CT CHEST WITHOUT IMAGES COMPLETED DATE/TIME: 11/25/2019 9:10 am REASON FOR STUDY: J41.1 MUCOPURULENT CHRONIC BRONCHITIS J41.1 MUCOPURULENT CHRONIC BRONCHITIS COMPARISON: None. TECHNIQUE: CT scan performed of the chest without intravenous contrast. Images reviewed with lung, soft tissue and bone windows. Reconstructed coronal and sagittal MPR images reviewed. All images st ored on PACS. All CT scanners at this facility use dose modulation, iterative reconstruction, and/or weight based d osing when appropriate to reduce radiation dose to as low as reasonably achievable (ALARA). [facility]: Dose Right [facility]: CareDose [facility]: Dose Right [facility]: Teradose 4D [facility]: [employer] RADIATION DOSE: CT Rad equipment meets quality standard of care and radiation dose reduction techniq ues were employed. CTDIvol: 4.3 mGy. DLP: 178 mGy-cm. mGy. LIMITATIONS: No technical limitations. FINDINGS: LUNGS AND PLEURA: Focal right lower lobe atelectasis and/or scar along with pleural thicke pablito best demonstrated on series 2, image 58. Lung groves are otherwise clear. No suspicious pulmon [place] nodules. No effusions. HILAR AND MEDIASTINAL STRUCTURES: No identified masses or abnormal nodes. No obvious aneurysm. HEART AND VASCULAR STRUCTURES: No aneurysm. No pericardial effusion. UPPER ABDOMEN: No significant findings. Limited exam. THYROID AND OTHER SOFT TISSUES: No masses. No adenopathy. BONES: No significant finding. HARDWARE: None in the chest. OTHER: No other significant findings. IMPRESSION: Minimal right basilar airspace disease as described. This probably represents scar or a telectasis. No other significant findings. TECHNICAL DOCUMENTATION: JOB ID: [id number] Quality ID # [id number]: Final reports with documentation of one or more dose reduction techniques (e.g., Au tomated exposure control, adjustment of the mA and/or kV according to patient size, use of iterative reconstruction technique) 2010 [employer]- All Rights Reserved Reading location - IP/workstation name: [email or web address]
== END ==
LOC: RAD 08:54
PROVIDERS: ATTEND Family Medicine
DX: J41.1 Mucopurulent chronic bronchitis (principal)
CPT/HCPCS: 71250

== ENCOUNTER → 2019-11-25 | Outpatient (CLI) | payer MEDICARE, OTHER ==
[2019-11-25 09:44] LABS: INTERNATIONAL RATION (INR) 2.12; PROTHROMBIN TIME 24.1 SEC (11.4-15.4)
== END ==
LOC: OD 08:30
PROVIDERS: ATTEND Family Medicine
DX: D68.9 Coagulation defect, unspecified (principal); Z79.01 Long term (current) use of anticoagulants
CPT/HCPCS: 36415; 85610

== ENCOUNTER → 2019-12-17 | Outpatient (CLI) | payer MEDICARE, OTHER ==
[2019-12-17 10:17] LABS: ANION GAP 8 (5-19); BLOOD UREA NITROGEN 19 mg/dL (7-20); CARBON DIOXIDE 28 mmol/L (22-30); CHLORIDE 100 mmol/L (98-107); GLUCOSE 95 mg/dL (75-110); POTASSIUM 4.2 mmol/L (3.6-5.0)
== END ==
LOC: OD 09:06
PROVIDERS: ATTEND Family Medicine
DX: Z51.81 Encounter for therapeutic drug level monitoring (principal); Z79.899 Other long term (current) drug therapy
CPT/HCPCS: 36415; 80048

== ENCOUNTER → 2020-01-28 | Outpatient (CLI) | payer MEDICARE, OTHER ==
[2020-01-28 15:30] LABS: INTERNATIONAL RATION (INR) 4.16; PROTHROMBIN TIME 41.3 SEC (11.4-15.4)
== END ==
LOC: OD 14:08
PROVIDERS: ATTEND Family Medicine
DX: R79.1 Abnormal coagulation profile (principal)
CPT/HCPCS: 36415; 85610

== ENCOUNTER 2020-02-02 19:36 | Emergency (ER) | payer MEDICARE, OTHER ==
[2020-02-02] MEDS ORDERED: HYDROCODONE/ACETAMINOPHEN 5-325 MG TABLET PO ONE (20:43)
--- NOTE | 2020-02-02 20:46 | ER Document Report ---
ED Medical Screen (RME) - General Chief Complaint: Fall Stated Complaint: FALL-RIGHT ARM AND HIP PAIN Time Seen by Provider: 02/02/20 20:37 Primary Care Provider: JANA WHITEHEAD MD [Primary Care Provider] - Follow up as needed Mode of Arrival: Wheelchair Information source: Patient Notes: HPI; 64-year-old female presents the emergency room after a slip and fall at [place]. Patient states she slipped in water injuring her right hip, her right elbow, her right forearm, and her low back. Has any head trauma or head injury. States is unable to walk secondary to pain. History of previous L2 vertebral fracture history of kyphoplasty with no meds for pain prior to arrival. PE: Alert and oriented x3. Moderate distress noted. Tenderness on palpation from L5-S1, tenderness over the right sciatic notch. Tenderness over the right lateral hip. Tenderness on palpation to the right lateral epicondyle. Tenderness on palpation to the mid right forearm. No obvious deformities noted. Unable full exam in triage. I have greeted and performed a rapid initial assessment of this patient. A comprehensive ED assessment and evaluation of the patient, analysis of test results and completion of the medical decision making process will be conducted by additional ED providers. I have specifically instructed the patient or family members with the patient to immediately return to any nursing staff should anything change in the patient's condition or with their chief complaint. TRAVEL OUTSIDE OF THE [place] IN LAST 30 DAYS: No - Related Data Allergies/Adverse Reactions: Penicillins Allergy (Severe, Verified 02/02/20 20:36) hives,throat swellling Iodinated Contrast Media [IV Dye, Iodine Containing] Allergy (Unknown, Verified 02/02/20 20:36) Anaphylaxis bee venom protein (honey bee) Allergy (Verified 02/02/20 20:36) adhesive tape Adverse Reaction (Intermediate, Verified 02/02/20 20:36) Generalized rash Past Medical History - Social History Chew tobacco use (# tins/day): Yes Frequency of alcohol use: None - Past Medical History Cardiac Medical History: Reports: Hx Atrial Fibrillation, Hx Hypercholesterolemia, Hx Hypertension Denies: Hx Congestive Heart Failure, Hx Coronary Artery Disease, Hx Heart Attack Pulmonary Medical History: Reports: Hx Bronchitis Denies: Hx Asthma, Hx COPD, Hx Pneumonia, Hx Tuberculosis Neurological Medical History: Denies: Hx Cerebrovascular Accident, Hx Seizures, Hx Parkinson's Disease Endocrine Medical History: Reports: Hx Hypothyroidism Renal/ Medical History: Reports: Hx Ovarian Cysts. Denies: Hx End Stage Renal Disease, Hx Kidney Stones, Hx Peritoneal Dialysis GI Medical History: Reports: Hx Gastroesophageal Reflux Disease, Hx Colonoscopy. Denies: Hx Hiatal Hernia, Hx Ulcer Musculoskeltal Medical History: Reports Hx Arthritis, Reports Hx Fibromyalgia, Reports Hx Musculoskeletal Deformity, Reports Hx Musculoskeletal Trauma, Denies Hx Systemic Lupus Erythematosus Skin Medical History: Reports Hx Cellulitis, Reports Hx MRSA Psychiatric Medical History: Reports: Hx Anxiety, Hx Depression Denies: Hx Bipolar Disorder, Hx Schizophrenia Traumatic Medical History: Reports: Hx Fractures - right wrist/right elbow r/t fall Infectious Medical History: Reports: Hx MRSA Past Surgical History: Reports: Hx Abdominal Surgery, Hx Breast Surgery, Hx Cardiac Surgery - pacemaker, Hx Cholecystectomy, Hx Dilation and Curettage, Hx Gastric Bypass Surgery, Hx Gynecologic Surgery, Hx Hysterectomy, Hx Nose Surgery, Hx Orthopedic Surgery - back, Hx Pacemaker, Hx Umbilical Hernia - Umbilical and incisional hernia. Denies: Hx Appendectomy, Hx Bowel Surgery, Hx Section, Hx Mastectomy, Hx Tonsillectomy, Hx Tubal Ligation - Immunizations Hx Diphtheria, Pertussis, Tetanus Vaccination: Yes Physical Exam - Vital signs Vitals: Temp Pulse Resp BP Pulse Ox 97.4 F 71 16 153/86 H 100 02/02/20 19:36 02/02/20 19:36 02/02/20 19:36 02/02/20 19:36 02/02/20 19:36 Course - Vital Signs Vital signs: Temp Pulse Resp BP Pulse Ox 97.4 F 71 16 153/86 H 100 02/02/20 19:36 02/02/20 19:36 02/02/20 19:36 02/02/20 19:36 02/02/20 19:36 Doctor's Discharge - Discharge Referrals: JANA WHITEHEAD MD [Primary Care Provider] - Follow up as needed
--- NOTE | 2020-02-02 21:45 | RADIOLOGY REPORT (SQ) ---
4 VIEWS OF RIGHT ELBOW 2 VIEWS OF RIGHT FOREARM HISTORY: Arm injury. COMPARISON: None. FINDINGS: There is a small elbow joint effusion but no discrete fracture line is seen. No dislocation. Mild overlying soft tissue swelling. IMPRESSION: Small elbow joint effusion is present; this may indicate an occult fracture in the setting of trauma, although none is seen on this study. Consider splinting and short term follow up radiographs.
--- NOTE | 2020-02-02 21:51 | RADIOLOGY REPORT (SQ) ---
EXAM DESCRIPTION: X-ray, three views of the pelvis and right hip CLINICAL HISTORY: 64 years Female, injury COMPARISON: Radiographs the pelvis and right hip 11/18/2018 FINDINGS: The hips are located bilaterally. The pelvic ring is intact. The sacrum is obscured by air in the bowel. Pubic symphysis is normal. Radiographs of the right hip demonstrate axial joint space narrowing. No definitive acute fracture is seen. The appearance of the femur is stable. IMPRESSION: No fracture.
--- NOTE | 2020-02-02 21:55 | RADIOLOGY REPORT (SQ) ---
EXAM DESCRIPTION: XR LUMBAR SPINE ANTEROPOSTERIOR, LATERAL, AND OBLIQUES CLINICAL HISTORY: 64 years, Female, injury COMPARISON: CT abdomen pelvis 10/17/2019. TECHNIQUE: Five views of the lumbar spine. FINDINGS: Grade 1 anterior spondylolisthesis at L4-5 unchanged. Previous vertebroplasty of L2. No suspicious acute fracture dislocation. IMPRESSION: Chronic findings in the lumbar spine. No new findings.
[2020-02-03] MEDS ORDERED: HYDROCODONE/ACETAMINOPHEN 5-325 MG (6 TAB/ER DISP) PO PRN (00:06)
--- NOTE | 2020-02-03 00:07 | ER Document Report ---
Entered by FAUZIA UGALDE SCRIBE 02/02/20 9421 Acting as scribe for:KIMMY LUCERO DO ED Fall - General Chief Complaint: Fall Stated Complaint: FALL-RIGHT ARM AND HIP PAIN Time Seen by Provider: 02/02/20 20:37 Primary Care Provider: JANA WHITEHEAD MD [Primary Care Provider] - Follow up as needed MICHAELA AVILA MD [ACTIVE STAFF] - 02/03/20 Mode of Arrival: Wheelchair Information source: Patient Notes: This 64 year old female patient presents to the ED today with complaints of fall that occurred at a [employer] around 1915 this evening. Patient states that there was water on the floor and she slipped, falling onto her right side. She reports pain to her right hip, right arm, and lower back. Denies hitting her head or LOC. Patient is on blood thinners. TRAVEL OUTSIDE OF THE [place] IN LAST 30 DAYS: No - Related data Allergies/Adverse Reactions: Penicillins Allergy (Severe, Verified 02/02/20 20:36) hives,throat swellling Iodinated Contrast Media [IV Dye, Iodine Containing] Allergy (Unknown, Verified 02/02/20 20:36) Anaphylaxis bee venom protein (honey bee) Allergy (Verified 02/02/20 20:36) adhesive tape Adverse Reaction (Intermediate, Verified 02/02/20 20:36) Generalized rash Past Medical History - General Information source: Patient - Social History Smoking Status: Never Smoker Cigarette use (# per day): No Chew tobacco use (# tins/day): Yes Smoking Education Provided: No Frequency of alcohol use: None Lives with: Spouse/Significant other Family History: Reviewed & Not Pertinent, Arthritis, CAD, Hyperlipidemia, Hypertension, Malignancy, Thyroid Disfunction Patient has suicidal ideation: No Patient has homicidal ideation: No - Past Medical History Cardiac Medical History: Reports: Hx Atrial Fibrillation, Hx Hypercholesterolemia, Hx Hypertension Pulmonary Medical History: Reports: Hx Bronchitis Endocrine Medical History: Reports: Hx Hypothyroidism Renal/ Medical History: Reports: Hx Ovarian Cysts GI Medical History: Reports: Hx Gastroesophageal Reflux Disease, Hx Colonoscopy Musculoskeletal Medical History: Reports Hx Arthritis, Reports Hx Fibromyalgia, Reports Hx Musculoskeletal Deformity, Reports Hx Musculoskeletal Trauma Skin Medical History: Reports Hx Cellulitis, Reports Hx MRSA Psychiatric Medical History: Reports: Hx Anxiety, Hx Depression Traumatic Medical History: Reports: Hx Fractures - right wrist/right elbow r/t fall Infectious Medical History: Reports: Hx MRSA Past Surgical History: Reports: Hx Abdominal Surgery, Hx Breast Surgery, Hx Cholecystectomy, Hx Dilation and Curettage, Hx Gastric Bypass Surgery, Hx Gynecologic Surgery, Hx Hysterectomy, Hx Nose Surgery, Hx Orthopedic Surgery - knee, back, Hx Pacemaker, Hx Umbilical Hernia - Umbilical and incisional hernia - Immunizations Hx Diphtheria, Pertussis, Tetanus Vaccination: Yes Hx Pneumococcal Vaccination: 07/16/16 Review of Systems - Review of Systems Constitutional: No symptoms reported EENT: No symptoms reported Cardiovascular: No symptoms reported Respiratory: No symptoms reported Gastrointestinal: No symptoms reported Genitourinary: No symptoms reported Female Genitourinary: No symptoms reported Musculoskeletal: See HPI, Back pain, Joint pain, Muscle pain Skin: No symptoms reported Hematologic/Lymphatic: No symptoms reported Neurological/Psychological: See HPI. denies: Lost consciousness, Headaches -: Yes All other systems reviewed and negative Physical Exam - Vital signs Vitals: Temp Pulse Resp BP Pulse Ox 97.4 F 71 16 153/86 H 100 02/02/20 19:36 02/02/20 19:36 02/02/20 19:36 02/02/20 19:36 02/02/20 19:36 - General General appearance: Alert In distress: None - HEENT Head: Normocephalic, Atraumatic Eyes: Normal Extraocular movements intact: Yes Pupils: PERRL - Respiratory Respiratory status: No respiratory distress Chest status: Nontender Breath sounds: Normal Chest palpation: Normal - Cardiovascular Rhythm: Regular Heart sounds: Normal auscultation Murmur: No Friction rub: No Gallop: None auscultated - Abdominal Inspection: Normal Distension: No distension Bowel sounds: Normal Tenderness: Nontender - Abdomen soft Organomegaly: No organomegaly - Back Back: Tender - Paraspinal tenderness to palpation in lumbar region on the right, No midline tenderness Notes: Tenderness to palpation of sacral iliac joint and iliac crest on the right - Extremities Elbow: Joint effusion - Right elbow Forearm: Ecchymosis Notes: External and internal rotation of lower extremity illicits some pain. Pain with pronation and supination of RUE. - Neurological Neuro grossly intact: Yes Orientation: AAOx4 [place] Coma Scale Eye Opening: Spontaneous [place] Coma Scale Verbal: Oriented [place] Coma Scale Motor: Obeys Commands Lida Coma Scale Total: 15 - Psychological Associated symptoms: Normal affect, Normal mood - Skin Skin irregularity: other - Ecchymosis to lower extremities Course - Re-evaluation Re-evalutation: 02/03/20 02:08 MDM 64 year old female fell at [employer] earlier today and injured right side. Xrays show a right elbow effusion but ow negative. Procedure splint applied to keep right elbow at 90 degrees and offer some protection and sling applied. Pt has normal cap refill after placement. She has seen Dr. Avila in the past and wants to follow up wiht him. - Vital Signs Vital signs: Temp Pulse Resp BP Pulse Ox 97.9 F 68 18 159/91 H 99 02/03/20 01:00 02/03/20 01:00 02/03/20 01:00 02/03/20 01:00 02/03/20 01:00 - Diagnostic Test Radiology reviewed: Reports reviewed Discharge - Discharge Clinical Impression: Effusion, right elbow Fall Qualifiers: Encounter type: initial encounter Qualified Code(s): W19.XXXA - Unspecified fall, initial encounter Condition: Stable Disposition: HOME, SELF-CARE Instructions: Contusion ([facility]), Elbow Effusion ([facility]) Additional Instructions: Rest, ice and elevate right elbow. Use ice to the right low back too. Please return here for increased pain, weakness or other problems or concerns. Referrals: JANA WHITEHEAD MD [Primary Care Provider] - Follow up as needed MICHAELA AVILA MD [ACTIVE STAFF] - 02/03/20 I personally performed the services described in the documentation, reviewed and edited the documentation which was dictated to the scribe in my presence, and it accurately records my words and actions.
[2020-02-03 01:05] VITALS: BP 159/91
== END 2020-02-03 01:10 | disposition home or self-care (01) ==
LOC: ER 19:36
DX: M25.421 Effusion, right elbow (principal); M79.601 Pain in right arm; M25.551 Pain in right hip; M54.5 Low back pain; W01.0XXA Fall on same level from slipping, tripping and stumbling without subsequent striking against object, initial encounter; Z88.0 Allergy status to penicillin; I10 Essential (primary) hypertension
CPT/HCPCS: 99283; 73080; 73090; 73502; 72110; A9270 ×2

== ENCOUNTER → 2020-02-05 | Outpatient (CLI) | payer MEDICARE, OTHER ==
--- NOTE | 2020-02-05 15:04 | RADIOLOGY REPORT (SQ) ---
EXAM DESCRIPTION: CT RT UPPER EXTREMITY WITHOUT IMAGES COMPLETED DATE/TIME: 02/05/2020 1:41 pm REASON FOR STUDY: M25.521 PAIN IN RIGHT ELBOW COMPARISON: None. TECHNIQUE: Axial imaging performed through the Right elbow with reformatted coronal and sagittal imaging windowed for bone and soft tissues. Images saved to PAC S. 3D IMAGING: Were 3D images as MIP, SSD, or volume rendering performed at the work station? Yes LIMITATIONS: Motion artifact. FINDINGS: SOFT TISSUES: No obvious swelling or foreign body. BONY STRUCTURES: No acute fracture. No dislocation. MINERALIZATION: Normal. OTHER: No other significant finding. IMPRESSION: NO ACUTE OR SIGNIFICANT FINDING. Reading location - IP/workstation name: [email or web address]
== END ==
LOC: RAD 13:21
PROVIDERS: ATTEND Orthopaedic Surgery
DX: M25.521 Pain in right elbow (principal)

== ENCOUNTER 2020-02-24 12:57 | Emergency (ER) | payer MEDICARE, OTHER ==
[2020-02-24 13:01] VITALS: BP 138/78
--- NOTE | 2020-02-24 13:10 | ER Document Report ---
ED Extremity Problem, Upper - General Chief Complaint: Arm Pain Stated Complaint: ARM PAIN Time Seen by Provider: 02/24/20 13:01 Primary Care Provider: JANA WHITEHEAD MD [Primary Care Provider] - Follow up in 3-5 days Mode of Arrival: Ambulatory Information source: Patient Notes: 64-year-old female presents to ED for 2 skin tear/lacerations that happened a couple days ago. She her dog scratched her 2 days ago and she states that it is getting worse. She states is continuing to bleed because she is on blood thinners. She states her tetanus is up-to-date. She did have it on 11/15/2018. She is alert oriented respirations regular nonlabored speaking in full sentences. There is no obvious infections noted. TRAVEL OUTSIDE OF THE [place] IN LAST 30 DAYS: No - HPI Patient complains to provider of: Right, Forearm Onset: Other Recent injury: Yes - 2 days ago Where: Home, Indoors Quality of pain: No pain Pain Level: Denies Context: Other - Scratch Associated symptoms: None Exacerbated by: Movement, Exertion Relieved by: Nothing Similar symptoms previously: Yes Recently seen / treated by doctor: No - Related Data Allergies/Adverse Reactions: Penicillins Allergy (Severe, Verified 02/24/20 13:01) hives,throat swellling Iodinated Contrast Media [IV Dye, Iodine Containing] Allergy (Unknown, Verified 02/24/20 13:01) Anaphylaxis bee venom protein (honey bee) Allergy (Verified 02/24/20 13:01) adhesive tape Adverse Reaction (Intermediate, Verified 02/24/20 13:01) Generalized rash Past Medical History - General Information source: Patient - Social History Smoking Status: Never Smoker Frequency of alcohol use: None Drug Abuse: None Lives with: Family Family History: Reviewed & Not Pertinent, Arthritis, CAD, Hyperlipidemia, Hypertension, Malignancy, Thyroid Disfunction Patient has suicidal ideation: No Patient has homicidal ideation: No - Past Medical History Cardiac Medical History: Reports: Hx Atrial Fibrillation, Hx Hypercholesterolemia, Hx Hypertension Pulmonary Medical History: Reports: Hx Bronchitis EENT Medical History: Reports: None Neurological Medical History: Reports: None Endocrine Medical History: Reports: Hx Hypothyroidism Renal/ Medical History: Reports: Hx Ovarian Cysts Malignancy Medical History: Reports: None GI Medical History: Reports: Hx Gastroesophageal Reflux Disease, Hx Colonoscopy Musculoskeletal Medical History: Reports Hx Arthritis, Reports Hx Fibromyalgia, Reports Hx Musculoskeletal Deformity, Reports Hx Musculoskeletal Trauma Skin Medical History: Reports Hx Cellulitis, Reports Hx MRSA Psychiatric Medical History: Reports: Hx Anxiety, Hx Depression Traumatic Medical History: Reports: Hx Fractures - right wrist/right elbow r/t fall Infectious Medical History: Reports: Hx MRSA Past Surgical History: Reports: Hx Abdominal Surgery, Hx Breast Surgery, Hx Cardiac Surgery - pacemaker, Hx Cholecystectomy, Hx Dilation and Curettage, Hx Gastric Bypass Surgery, Hx Gynecologic Surgery, Hx Hysterectomy, Hx Nose Surgery, Hx Orthopedic Surgery - knee, back, Hx Pacemaker, Hx Umbilical Hernia - Umbilical and incisional hernia - Immunizations Immunizations up to date: Yes Hx Diphtheria, Pertussis, Tetanus Vaccination: Yes - 11/15/2018 Hx Pneumococcal Vaccination: 07/16/16 Review of Systems - Review of Systems Constitutional: No symptoms reported EENT: No symptoms reported Cardiovascular: No symptoms reported Respiratory: No symptoms reported Gastrointestinal: No symptoms reported Genitourinary: No symptoms reported Female Genitourinary: No symptoms reported Musculoskeletal: No symptoms reported Skin: Other - Superficial skin tears to the right forearm x2 from a dog scratch 2 days ago Hematologic/Lymphatic: No symptoms reported Neurological/Psychological: No symptoms reported -: Yes All other systems reviewed and negative Physical Exam - Vital signs Vitals: Temp Pulse Resp BP Pulse Ox 97.8 F 72 16 138/78 H 100 02/24/20 13:00 02/24/20 13:00 02/24/20 13:00 02/24/20 13:00 02/24/20 13:00 Interpretation: Normal - General General appearance: Appears well, Alert - HEENT Head: Normocephalic, Atraumatic Eyes: Normal Pupils: PERRL - Respiratory Respiratory status: No respiratory distress Chest status: Nontender Breath sounds: Normal Chest palpation: Normal - Cardiovascular Rhythm: Regular Heart sounds: Normal auscultation Murmur: No - Abdominal Inspection: Normal Distension: No distension Bowel sounds: Normal Tenderness: Nontender Organomegaly: No organomegaly - Back Back: Normal, Nontender - Extremities General upper extremity: Normal inspection, Nontender, Normal color, Normal ROM, Normal temperature General lower extremity: Normal inspection, Nontender, Normal color, Normal ROM, Normal temperature, Normal weight bearing. No: Gem's sign - Neurological Neuro grossly intact: Yes Cognition: Normal Orientation: AAOx4 [place] Coma Scale Eye Opening: Spontaneous [place] Coma Scale Verbal: Oriented [place] Coma Scale Motor: Obeys Commands [place] Coma Scale Total: 15 Speech: Normal Motor strength normal: LUE, RUE, LLE, RLE Sensory: Normal - Psychological Associated symptoms: Normal affect, Normal mood - Skin Skin Temperature: Warm Skin Moisture: Dry Skin Color: Normal Skin irregularity: Laceration - 2 supra facial lacerations/skin tears to the r ight forearm from a dog scratch 2 days ago. It does continue to bleed. Wound was cleaned with soap rinsed with saline and Steri-Strips applied Location of irregularity: Extremities Course - Vital Signs Vital signs: Temp Pulse Resp BP Pulse Ox 97.8 F 72 16 138/78 H 100 02/24/20 13:00 02/24/20 13:00 02/24/20 13:00 02/24/20 13:00 02/24/20 13:00 Procedures - Laceration/Wound Repair Right Arm Time completed: 13:16 Wound length (cm): 2 Wound's Depth, Shape: Superficial - Laceration/skin tear Laceration pre-procedure: Other - Soap and rinsed with saline Anesthetic type: Other - 0 Volume Anesthetic (mLs): 0 Wound explored: Contaminated Irrigated w/ Saline (mLs): 40 Wound Repaired With: Steri-strips Post-procedure wound care: Sterile dressing applied Post-procedure NV exam normal: Yes Complications: No Discharge - Discharge Clinical Impression: Dog scratch, Skin tears right lower arm Condition: Stable Disposition: HOME, SELF-CARE Additional Instructions: NON-SUTURED LACERATION: Your laceration did not require suturing. Some lacerations cannot be sutured because of increased infection risk, while others simply don't need stitches because they are shallow or very short. Your injury should be protected while it heals. Usually complete healing takes 10 to 14 days. Keep the dressing clean and dry, and change it every day. If you notice increasing pain, redness, swelling, drainage, or tender lumps in the armpit or groin above the injury, infection may be present. You should call the doctor at once. SOAP CLEANSING: Gently wash the wound daily using a mild soap (like Ivory, Phisoderm, Neutrogena). Use warm water, rubbing gently until all debris, ooze, and crusting have been washed from the wound. Allow to dry briefly (about 10 minutes) after cleaning. Repeat this cleansing at least three times a day for the first two days and then once or twice a day. Care of Steri-Strip Closure Your cut has been closed up with a special surgical tape. For this type of cut, it can replace stitches. You must protect the wound just as you would with stitches, however. For the first few days, keep the wound area completely dry. This also means you should avoid activity which makes you sweat. Do not move the area if motion stretches or wrinkles the strips. Don't allow the area to be bumped -- if bleeding occurs, the blood can make the strips loosen. The strips are somewhat waterproof. After a few days, the physician may allow you to shower. Be sure to ask if it's OK. Do not remove the tape until it peels off by itself. At that time, the wound should be healed. Cephalexin The antibiotic you've been prescribed is a member of the cephalosporin class. This type of antibiotic covers a wide variety of infections, including those of the skin, lungs, and urinary tract. It's useful for staph infections. This antibiotic is slightly similar to the penicillin family. In rare cases, a person who is allergic to penicillin will also be allergic to this medication. If you have had a severe allergic reaction to penicillin, and have not taken this antibiotic since that time, notify your doctor. Antibiotics which cover many germs ("broad spectrum" antibiotics) are more likely to cause diarrhea or "yeast" infections. Women prone to vaginal yeast problems may suffer an attack after taking this antibiotic. In infants, oral thrush (white spots "stuck" on the cheek) or yeast diaper rash may result. See your doctor if these problems occur. Call at once if you develop itching, hives, shortness of breath, or lightheadedness. FOLLOW-UP CARE: Please return in __3___ days for an infection check and dressing change. If you have been referred to another physician for follow-up care, call that physicians office for an appointment as you were instructed. If you experience a significant change in your laceration, or if you are concerned there may be an infection (swelling, redness, drainage, increasing tenderness, red streaks, tender lumps in the armpit or groin above the laceration, or fever), return to the Emergency Department immediately re-evaluation. Prescriptions: Cephalexin Monohydrate [Keflex 500 mg Capsule] 500 mg PO Q6H 5 Days #20 capsule Forms: Elevated Blood Pressure Referrals: JANA WHITEHEAD MD [Primary Care Provider] - Follow up in 3-5 days
== END 2020-02-24 13:16 | disposition home or self-care (01) ==
LOC: ER 12:57
PROC: 0HQDXZZ Repair Right Lower Arm Skin, External Approach (ICD-10-PCS; principal; 2020-02-24)
DX: S51.811A Laceration without foreign body of right forearm, initial encounter (principal); M79.601 Pain in right arm; W54.8XXA Other contact with dog, initial encounter; Z88.0 Allergy status to penicillin; I10 Essential (primary) hypertension
CPT/HCPCS: 99283

== ENCOUNTER → 2020-04-08 | Outpatient (CLI) | payer MEDICARE, OTHER ==
--- NOTE | 2020-04-08 09:10 | WOMENS IMAGING REPORT ---
EXAM DESCRIPTION: 3D SCREENING MAMMO BILAT IMAGES COMPLETED DATE/TIME: 04/08/2020 8:29 am REASON FOR STUDY: Z12.31 ENCNTR SCREEN MAMMOGRAM FOR MALIGNANT NEOPLASM OF BREAST Z12.31 ENCNTR SCR EEN MAMMOGRAM FOR MALIGNANT NEOPLASM OF VICKY COMPARISON: Priors dating back to 2015. EXAM PARAMETERS: Views: Standard craniocaudal and mediolateral oblique views of each breast recorded using digital acquisition and breast tomosynthesis. Read with the assistance of CAD. .[facility] - [place] [facility] Version 9.2 LIMITATIONS: Left battery pack. FINDINGS: No suspicious masses, suspicious calcifications or architectural distortion. No areas of c oncern. IMPRESSION: NEGATIVE MAMMOGRAM. BIRADS 1. BREAST DENSITY: b. There are scattered areas of fibroglandular density. BIRAD: ASSESSMENT: 1 NEGATIVE RECOMMENDATION: ROUTINE SCREENING COMMENT: The patient has been notified of the results by letter per MQSA requirements. Additional no tification policies are in place for contacting patient with suspicious or incomplete findings. Quality ID #[id number]: The [employer] recommends an annual screening mammogram for women aged 40 years or over. This facility utilizes a reminder system to ensure that all patients receive reminder letters, and/or direct phone calls for appointments. This includes reminders for routine scr eening mammograms, diagnostic mammograms, or other Breast Imaging Interventions when appropriate. Th is patient will be placed in the appropriate reminder system. TECHNICAL DOCUMENTATION: FINDING NUMBER: (1) ASSESSMENT: (1) JOB ID: [id number] 2010 [employer]- All Rights Reserved Reading location - IP/workstation name: [email or web address]
== END ==
LOC: WI 08:10
PROVIDERS: ATTEND Family Medicine
DX: Z12.31 Encounter for screening mammogram for malignant neoplasm of breast (principal)
CPT/HCPCS: 77063; 77067

== ENCOUNTER 2020-04-17 14:27 | Emergency (ER) | payer MEDICARE, OTHER ==
--- NOTE | 2020-04-17 14:59 | ER Document Report ---
ED Medical Screen (RME) - General Chief Complaint: Numbness of Arm Stated Complaint: LEFT ARM PAIN/NUMBNESS Time Seen by Provider: 04/17/20 14:51 Primary Care Provider: JANA WHITEHEAD MD [Primary Care Provider] - Follow up as needed Mode of Arrival: Wheelchair Information source: Patient, Relative Notes: HPI; 64-year-old female past medical history significant for A. fib with a pacemaker presents emergency room with sudden onset of left arm numbness and tingling which started approximately 25 minutes prior to arrival. She denies chest pain or shortness of breath. No slurred speech. No weakness. PE: Alert and oriented x3. Negative fast exam. Lungs: Clear to auscultation without rales, rhonchi, wheezes. Heart: Irregular rate rhythm without murmurs, rubs, gallops. I have greeted and performed a rapid initial assessment of this patient. A comprehensive ED assessment and evaluation of the patient, analysis of test results and completion of the medical decision making process will be conducted by additional ED providers. I have specifically instructed the patient or family members with the patient to immediately return to any nursing staff namita uld anything change in the patient's condition or with their chief complaint. TRAVEL OUTSIDE OF THE [place] IN LAST 30 DAYS: No - Related Data Allergies/Adverse Reactions: Penicillins Allergy (Severe, Verified 02/24/20 13:01) hives,throat swellling Iodinated Contrast Media [IV Dye, Iodine Containing] Allergy (Unknown, Verified 02/24/20 13:01) Anaphylaxis bee venom protein (honey bee) Allergy (Verified 02/24/20 13:01) adhesive tape Adverse Reaction (Intermediate, Verified 02/24/20 13:01) Generalized rash Past Medical History - Past Medical History Cardiac Medical History: Reports: Hx Atrial Fibrillation, Hx Hypercholesterolemia, Hx Hypertension Denies: Hx Congestive Heart Failure, Hx Coronary Artery Disease, Hx Heart Attack Pulmonary Medical History: Reports: Hx Bronchitis Denies: Hx Asthma, Hx COPD, Hx Pneumonia, Hx Tuberculosis Neurological Medical History: Denies: Hx Cerebrovascular Accident, Hx Seizures, Hx Parkinson's Disease Endocrine Medical History: Reports: Hx Hypothyroidism Renal/ Medical History: Reports: Hx Ovarian Cysts. Denies: Hx End Stage Renal Disease, Hx Kidney Stones, Hx Peritoneal Dialysis GI Medical History: Reports: Hx Gastroesophageal Reflux Disease, Hx Colonoscopy. Denies: Hx Hiatal Hernia, Hx Ulcer Musculoskeltal Medical History: Reports Hx Arthritis, Reports Hx Fibromyalgia, Reports Hx Musculoskeletal Deformity, Reports Hx Musculoskeletal Trauma, Denies Hx Systemic Lupus Erythematosus Skin Medical History: Reports Hx Cellulitis, Reports Hx MRSA Psychiatric Medical History: Reports: Hx Anxiety, Hx Depression Denies: Hx Bipolar Disorder, Hx Schizophrenia Traumatic Medical History: Reports: Hx Fractures - right wrist/right elbow r/t fall Infectious Medical History: Reports: Hx MRSA Past Surgical History: Reports: Hx Abdominal Surgery, Hx Breast Surgery, Hx Cardiac Surgery - pacemaker, Hx Cholecystectomy, Hx Dilation and Curettage, Hx Gastric Bypass Surgery, Hx Gynecologic Surgery, Hx Hysterectomy, Hx Nose Surgery, Hx Orthopedic Surgery - knee, back, Hx Pacemaker, Hx Umbilical Hernia - Umbilical and incisional hernia. Denies: Hx Appendectomy, Hx Bowel Surgery, Hx Section, Hx Mastectomy, Hx Tonsillectomy, Hx Tubal Ligation - Immunizations Hx Diphtheria, Pertussis, Tetanus Vaccination: Yes Physical Exam - Vital signs Vitals: Temp Pulse Resp BP Pulse Ox 97.5 F 68 16 163/88 H 98 04/17/20 14:44 04/17/20 14:44 04/17/20 14:44 04/17/20 14:44 04/17/20 14:44 Course - Vital Signs Vital signs: Temp Pulse Resp BP Pulse Ox 97.5 F 68 16 163/88 H 98 04/17/20 14:44 04/17/20 14:44 04/17/20 14:44 04/17/20 14:44 04/17/20 14:44 Doctor's Discharge - Discharge Referrals: JANA WHITEHEAD MD [Primary Care Provider] - Follow up as needed
--- NOTE | 2020-04-17 15:31 | RADIOLOGY REPORT (SQ) ---
EXAM DESCRIPTION: CT HEAD WITHOUT IMAGES COMPLETED DATE/TIME: 04/17/2020 3:14 pm REASON FOR STUDY: left arm numbness COMPARISON: None. TECHNIQUE: Axial images acquired through the brain without intravenous contrast. Images reviewed wi th bone, brain and subdural windows. Additional sagittal and coronal reconstructions were generated. Images stored on PACS. All CT scanners at this facility use dose modulation, iterative reconstruction, and/or weight based d osing when appropriate to reduce radiation dose to as low as reasonably achievable (ALARA). [facility]: Dose Right [facility]: CareDose [facility]: Dose Right [facility]: Teradose 4D [facility]: [employer] RADIATION DOSE: CT Rad equipment meets quality standard of care and radiation dose reduction techniq ues were employed. CTDIvol: 53.2 mGy. DLP: 884 mGy-cm. mGy. LIMITATIONS: None. FINDINGS: VENTRICLES: Normal size and contour. CEREBRUM: No masses. No hemorrhage. No midline shift. No evidence for acute infarction. Normal gra y/white matter differentiation. No areas of low density in the white matter. CEREBELLUM: No masses. No hemorrhage. No alteration of density. No evidence for acute infarction. EXTRAAXIAL SPACES: No fluid collections. No masses. ORBITS AND GLOBE: No intra- or extraconal masses. Normal contour of globe without masses. CALVARIUM: No fracture. PARANASAL SINUSES: Mucosal thickening in the maxillary sinuses. No fluid levels. SOFT TISSUES: No mass or hematoma. OTHER: No other significant finding. IMPRESSION: 1. No acute intracranial abnormality. 2. Chronic sinus disease. Pertinent findings on the imaging study called as a CRITICAL RESULT to charge nurse at15:23 on 2019. Category of Critical Result: Stroke alert EVIDENCE OF ACUTE STROKE: NO. COMMENT: Quality ID # [id number]: Final reports with documentation of one or more dose reduction techniques (e.g., Automated exposure control, adjustment of the mA and/or kV according to patient size, use of iterative reconstruction technique) TECHNICAL DOCUMENTATION: JOB ID: [id number] 2010 [employer]- All Rights Reserved Reading location - IP/workstation name: [email or web address]
--- NOTE | 2020-04-17 15:37 | RADIOLOGY REPORT (SQ) ---
EXAM DESCRIPTION: CHEST SINGLE VIEW IMAGES COMPLETED DATE/TIME: 04/17/2020 2:11 pm REASON FOR STUDY: Paresthesia COMPARISON: CT chest, 11/25/2019. EXAM PARAMETERS: NUMBER OF VIEWS: One view. TECHNIQUE: Single frontal radiographic view of the chest acquired. RADIATION DOSE: NA LIMITATIONS: None. FINDINGS: LUNGS AND PLEURA: No opacities, masses or pneumothorax. No pleural effusion. MEDIASTINUM AND HILAR STRUCTURES: No masses. Contour normal. HEART AND VASCULAR STRUCTURES: Heart normal in size. Normal vasculature. BONES: No acute findings. HARDWARE: Left infraclavicular pacemaker with intact lead wires. OTHER: No other significant finding. IMPRESSION: NO ACUTE RADIOGRAPHIC FINDING IN THE CHEST. TECHNICAL DOCUMENTATION: JOB ID: [id number] 2010 [employer]- All Rights Reserved Reading location - IP/workstation name: [email or web address]
[2020-04-17 16:16] LABS: ALBUMIN 3.9 g/dL (3.5-5.0); ALKALINE PHOSPHATASE 55 U/L (38-126); ANION GAP 8 (5-19); ASPARTATE AMINO TRANSFERASE 25 U/L (14-36); BILIRUBIN,DIRECT 0.2 mg/dL (0.0-0.4); BILIRUBIN,TOTAL 0.5 mg/dL (0.2-1.3); BLOOD UREA NITROGEN 8 mg/dL (7-20); CALCIUM 9.4 mg/dL (8.4-10.2); CARBON DIOXIDE 26 mmol/L (22-30); CHLORIDE 105 mmol/L (98-107); CREATINE KINASE 55 U/L (30-135); POTASSIUM 3.7 mmol/L (3.6-5.0); TOTAL PROTEIN 6.2 g/dL (6.3-8.2)
[2020-04-17 16:19] LABS: GLUCOSE 43 mg/dL (75-110)
[2020-04-17 16:27] LABS: CREATINE KINASE MB 0.42 ng/mL (<4.55)
[2020-04-17 16:28] LABS: ABSOLUTE EOSINOPHILS # (AUTO) 0.1 10^3/uL (0.0-0.6); ABSOLUTE LYMPHOCYTES (AUTO) 1.3 10^3/uL (0.5-4.7); ABSOLUTE MONOCYTES (AUTO) 0.8 10^3/uL (0.1-1.4); ABSOLUTE NEUT (AUTO) 3.4 10^3/uL (1.7-8.2); BASOPHILS % (AUTO) 0.8 % (0-2); EOSINOPHILS % (AUTO) 1.5 % (0-6); HEMATOCRIT 35.5 % (36.0-47.0); HEMOGLOBIN 12.4 g/dL (12.0-15.5); LYMPHOCYTES % (AUTO) 23.7 % (13-45); MEAN CORPUSCULAR HEMOGLOBIN 32.6 pg (27.0-33.4); MEAN CORPUSCULAR VOLUME 93 fl (80-97); PLATELET COUNT 248 10^3/uL (150-450); RED BLOOD COUNT 3.81 10^6/uL (3.72-5.28); RED CELL DISTRIBUTION WIDTH 13.7 % (11.5-14.0); TOTAL CELLS COUNTED % (AUTO) 100 %; WHITE BLOOD COUNT 5.6 10^3/uL (4.0-10.5)
[2020-04-17 16:28] LABS: TROPONIN I < 0.012 ng/mL
[2020-04-17] MEDS ORDERED: DEXTROSE 50%-WATER 25 GM/50 ML DISP.SYRIN IV ONE (16:47)
[2020-04-17] MEDS ORDERED: DEXTROSE 40% GEL 15 GM TUBE ONE (16:47)
[2020-04-17] MEDS ORDERED: DEXTROSE 40% GEL 15 GM TUBE PO ONE (16:53)
[2020-04-17 16:59] VITALS: BP 141/77
--- NOTE | 2020-04-17 17:15 | ER Document Report ---
ED General - General Chief Complaint: Numbness of Arm Stated Complaint: LEFT ARM PAIN/NUMBNESS Time Seen by Provider: 04/17/20 14:51 Primary Care Provider: JANA WHITEHEAD MD [Primary Care Provider] - Follow up as needed Mode of Arrival: Wheelchair Notes: HPI: 64-year-old female who presents today stating that she was walking when she felt a "spasm" to her left hand. She states it felt slightly numb. She states her index finger flexion was stuck in that position. She then felt some pain radiate up her forearm. She denies any headache, neck pain, chest pain, palpitations, or any lower extremity symptoms. It resolved without intervention. Patient denies any recent trauma or change in medications. No recent fevers, vomiting, or shortness of breath. ROS: See HPI All other review of systems reviewed and otherwise negative Reviewed vital signs and nursing note as charted by RN. PHYSICAL EXAM: CONSTITUTIONAL: Alert and oriented and responds appropriately to questions. W ell-appearing; well-nourished HEAD: Normocephalic; atraumatic EYES: PERRL; full extraocular range of motion; no nystagmus ENT: Normal nose; no rhinorrhea; moist mucous membranes; pharynx without lesions noted NECK: Supple without meningismus; non-tender; no cervical lymphadenopathy, no masses CARD: Regular rate and rhythm; no murmurs; symmetric distal pulses RESP: Normal chest excursion without splinting or tachypnea; breath sounds clear and equal bilaterally ABD/GI: Normal bowel sounds; non-distended; soft, non-tender BACK: The back appears normal and is non-tender to palpation EXT: Normal ROM in all joints; non-tender to palpation; no edema SKIN: No acute lesions noted NEURO: CN 2-12 intact; 5/5 bilateral upper and lower extremity strength with sensation intact to light touch PSYCH: The patient's mood and manner are appropriate. Grooming and personal hygiene are appropriate. TRAVEL OUTSIDE OF THE [place] IN LAST 30 DAYS: No - Related Data Allergies/Adverse Reactions: Penicillins Allergy (Severe, Verified 02/24/20 13:01) hives,throat swellling Iodinated Contrast Media [IV Dye, Iodine Containing] Allergy (Unknown, Verified 02/24/20 13:01) Anaphylaxis bee venom protein (honey bee) Allergy (Verified 02/24/20 13:01) adhesive tape Adverse Reaction (Intermediate, Verified 02/24/20 13:01) Generalized rash Past Medical History - General Information source: Patient, Relative - Social History Smoking Status: Never Smoker Chew tobacco use (# tins/day): No Frequency of alcohol use: None Drug Abuse: None Family History: Reviewed & Not Pertinent, Arthritis, CAD, Hyperlipidemia, Hypertension, Malignancy, Thyroid Disfunction - Past Medical History Cardiac Medical History: Reports: Hx Atrial Fibrillation, Hx Hypercholesterolemia, Hx Hypertension Denies: Hx Congestive Heart Failure, Hx Coronary Artery Disease, Hx Heart Attack Pulmonary Medical History: Reports: Hx Bronchitis Denies: Hx Asthma, Hx COPD, Hx Pneumonia, Hx Tuberculosis Neurological Medical History: Denies: Hx Cerebrovascular Accident, Hx Seizures, Hx Parkinson's Disease Endocrine Medical History: Reports: Hx Hypothyroidism Renal/ Medical History: Reports: Hx Ovarian Cysts. Denies: Hx End Stage Renal Disease, Hx Kidney Stones, Hx Peritoneal Dialysis GI Medical History: Reports: Hx Gastroesophageal Reflux Disease, Hx Colonoscopy. Denies: Hx Hiatal Hernia, Hx Ulcer Musculoskeletal Medical History: Reports Hx Arthritis, Reports Hx Fibromyalgia, Reports Hx Musculoskeletal Deformity, Reports Hx Musculoskeletal Trauma, Denies Hx Systemic Lupus Erythematosus Skin Medical History: Reports Hx Cellulitis, Reports Hx MRSA Psychiatric Medical History: Reports: Hx Anxiety, Hx Depression Denies: Hx Bipolar Disorder, Hx Schizophrenia Traumatic Medical History: Reports: Hx Fractures - right wrist/right elbow r/t fall Infectious Medical History: Reports: Hx MRSA Past Surgical History: Reports: Hx Abdominal Surgery, Hx Breast Surgery, Hx Cardiac Surgery - pacemaker, Hx Cholecystectomy, Hx Dilation and Curettage, Hx Gastric Bypass Surgery, Hx Gynecologic Surgery, Hx Hysterectomy, Hx Nose Surgery, Hx Orthopedic Surgery - knee, back, Hx Pacemaker, Hx Umbilical Hernia - Umbilical and incisional hernia. Denies: Hx Appendectomy, Hx Bowel Surgery, Hx Section, Hx Mastectomy, Hx Tonsillectomy, Hx Tubal Ligation - Immunizations Hx Diphtheria, Pertussis, Tetanus Vaccination: Yes Hx Pneumococcal Vaccination: 07/16/16 Physical Exam - Vital signs Vitals: Pulse Resp BP Pulse Ox 66 12 141/57 H 98 04/17/20 14:27 04/17/20 14:27 04/17/20 14:27 04/17/20 14:27 Course - Re-evaluation Re-evalutation: Given the history and physical examination in this well-appearing female in no acute distress, with a left hand spasm with radiation up to the forearm that lasted transiently, with no weakness or numbness to the legs, no headache, double or blurry vision, chest pain or palpitations, I do believe CVA to be unlikely. We will obtain a CT scan of the head and basic labs including an EKG and reassess. EKG shows a heart rate of 60, atrial paced rhythm, no ST elevation or depression. 04/17/20 17:09 Patient did miss lunch and her glucose was 43. We did provide oral glucose. Patient denies any and all symptoms at this time. No change in neurologic exam. 04/17/20 17:19 Imaging as recorded. No change in exam. Patient still looks excellent. Patient does not have a history of diabetes. She did miss lunch. She is eating and drinking without trouble. Given the above history and physical I do believe acute intracranial cardiac pathology to be unlikely. Patient has no swelling or redness to the arm. Excellent left shift production associate strength and distal pulses. Patient looks excellent. Patient will be discharged home with strict return precautions and follow-up with the primary provider. - Vital Signs Vital signs: Temp Pulse Resp BP Pulse Ox 97.8 F 68 15 141/77 H 100 04/17/20 15:37 04/17/20 14:44 04/17/20 16:15 04/17/20 16:15 04/17/20 16:15 - Laboratory Result Diagrams: 04/17/20 16:10 04/17/20 15:25 Laboratory results interpreted by me: 04/17/20 04/17/20 04/17/20 15:25 15:25 16:10 Hct 35.5 L Hidalgo % (Auto) 14.0 H PT 27.0 H Glucose 43 L Total Protein 6.2 L Discharge - Discharge Clinical Impression: Left arm pain Condition: Good Disposition: HOME, SELF-CARE Additional Instructions: Come back immediately for any repeat spasms, weakness or numbness, chest pain, fevers, vomiting, or any other acute problems. Please follow-up with your primary care physician as discussed. Referrals: JANA WHITEHEAD MD [Primary Care Provider] - Follow up as needed
--- NOTE | 2020-04-18 08:47 | EKG REPORT ---
SEVERITY:- ABNORMAL ECG - ATRIAL-PACED RHYTHM : Confirmed by: Kranthi Barbour MD 18-Apr-2020 08:46:31
== END 2020-04-17 18:31 | disposition home or self-care (01) ==
LOC: ER 14:27
DX: R20.0 Anesthesia of skin (principal); M79.602 Pain in left arm; I48.91 Unspecified atrial fibrillation; E78.00 Pure hypercholesterolemia, unspecified; I10 Essential (primary) hypertension; Z88.0 Allergy status to penicillin; Z86.14 Personal history of Methicillin resistant Staphylococcus aureus infection
CPT/HCPCS: 36415; 70450; 71045; 80053; 82550; 82553; 82962; 84484; 85025; 85610; 93005; 93010; 99285

== ENCOUNTER → 2020-06-22 | Outpatient (CLI) | payer MEDICARE, OTHER ==
[2020-06-22 08:40] LABS: ALBUMIN 3.8 g/dL (3.5-5.0); ALKALINE PHOSPHATASE 58 U/L (38-126); ASPARTATE AMINO TRANSFERASE 34 U/L (14-36); BILIRUBIN,DIRECT 0.1 mg/dL (0.0-0.4); BILIRUBIN,TOTAL 0.4 mg/dL (0.2-1.3); BLOOD UREA NITROGEN 9 mg/dL (7-20); CALCIUM 9.5 mg/dL (8.4-10.2); CHOLESTEROL 163.81 mg/dL (0-200); GLUCOSE 85 mg/dL (75-110); POTASSIUM 4.4 mmol/L (3.6-5.0); TOTAL PROTEIN 6.3 g/dL (6.3-8.2); TRIGLYCERIDES 96 mg/dL (<150)
[2020-06-22 08:45] LABS: CARBON DIOXIDE 33 mmol/L (22-30); CHLORIDE 102 mmol/L (98-107)
[2020-06-22 08:50] LABS: DIRECT LDL 79 mg/dL (<100)
[2020-06-22 09:02] LABS: VLDL CHOLESTEROL 19.2 mg/dL (10-31)
[2020-06-22 09:30] LABS: ANION GAP 2 (5-19)
== END ==
LOC: OD 07:17
PROVIDERS: ATTEND Family Medicine
DX: E78.5 Hyperlipidemia, unspecified (principal); N28.9 Disorder of kidney and ureter, unspecified; E03.9 Hypothyroidism, unspecified
CPT/HCPCS: 36415; 80053; 80061; 84443

== ENCOUNTER 2020-07-03 23:43 | Emergency (ER) | payer MEDICARE, OTHER ==
--- NOTE | 2020-07-04 01:49 | RADIOLOGY REPORT (SQ) ---
EXAM DESCRIPTION: Site: CT HEAD WITHOUT RP: CT HEAD WITHOUT IV CONTRAST CLINICAL HISTORY: 64 years Female; fall; TECHNIQUE: Noncontrast CT head. All CT scans at this facility use dose modulation, iterative reconstruction, and/or weight based dosing when appropriate to reduce radiation dose to as low as reasonably achievable. COMPARISON: 04/17/2020 FINDINGS: Brain: Thompson matter, white matter, ventricles, and cisterns are within normal limits. No acute hemorrhage or mass effect. Sinuses: Chronic sinus mucosal thickening in both maxillary sinuses. No mastoid effusion. Calvarium: No acute calvarial fractures or focal lesion. IMPRESSION: 1. No acute intracranial findings.
--- NOTE | 2020-07-04 01:53 | RADIOLOGY REPORT (SQ) ---
EXAM DESCRIPTION: FOREARM LEFT RadLex: XR FOREARM 2 VIEWS Views: 2 CLINICAL HISTORY: 64 years Female; fall; COMPARISON: None. FINDINGS: Negative for acute fracture, dislocation, or radiopaque foreign body. IMPRESSION: 1. No acute findings.
--- NOTE | 2020-07-04 01:55 | RADIOLOGY REPORT (SQ) ---
EXAM DESCRIPTION: FOREARM RIGHT RadLex: XR FOREARM 2 VIEWS Views: 2 CLINICAL HISTORY: 64 years Female; fall; COMPARISON: None. FINDINGS: Negative for acute fracture, dislocation, or radiopaque foreign body. IMPRESSION: 1. No acute findings.
--- NOTE | 2020-07-04 01:55 | RADIOLOGY REPORT (SQ) ---
EXAM DESCRIPTION: HUMERUS RIGHT RadLex: XR HUMERUS Views: 2 CLINICAL HISTORY: 64 years Female; fall; COMPARISON: None. FINDINGS: Negative for acute fracture, dislocation, or radiopaque foreign body. IMPRESSION: 1. No acute findings.
--- NOTE | 2020-07-04 01:56 | RADIOLOGY REPORT (SQ) ---
EXAM DESCRIPTION: X-ray right shoulder 3 views COMPLETED DATE/TME: 07/04/2020 01:03 CLINICAL HISTORY: 64 years, Female, fall COMPARISON: None. NUMBER OF VIEWS: TECHNIQUE: LIMITATIONS: None. FINDINGS: No fracture or dislocation. The acromioclavicular joint appears intact. IMPRESSION: No fracture or dislocation. copyright 2010 [employer]- All Rights Reserved
--- NOTE | 2020-07-04 01:58 | RADIOLOGY REPORT (SQ) ---
EXAM DESCRIPTION: CERV SP 3 VIEW OR LESS RadLex: XR CERVICAL SPINE 2 - 3 VIEWS Views: 2 CLINICAL HISTORY: 64 years Female; fall; COMPARISON: CT 11/16/2019 FINDINGS: There is interbody fusion at C5-C7. C7-T1: 3 mm anterior subluxation. This is similar to the CT on 11/16/2019. Facet arthropathy. No prevertebral edema. IMPRESSION: 1. No acute fracture 2. Previous C5-C7 anterior fusion 3. C7-T1 subluxation, similar to a CT from 11/16/2019
[2020-07-04] MEDS ORDERED: HYDROCODONE/ACETAMINOPHEN 5-325 MG TABLET PO ONE (03:14)
[2020-07-04] MEDS ORDERED: ONDANSETRON 4 MG TAB.RAPDIS PO ONE (03:14)
[2020-07-04] MEDS ORDERED: HYDROCODONE/ACETAMINOPHEN 5-325 MG (6 TAB/ER DISP) PO PRN (03:38)
--- NOTE | 2020-07-04 03:38 | ER Document Report ---
ED General - General Chief Complaint: Fall Injury Stated Complaint: FALL/INJURY TO ABOVE EYE/NECK/BACK LEG PAIN Primary Care Provider: JANA WHITEHEAD MD [Primary Care Provider] - Follow up as needed TRAVEL OUTSIDE OF THE [place] IN LAST 30 DAYS: No - HPI Notes: Chief Complaint: Fall, multiple complaints Historian: History obtained from patient and HPI: This is a 64-year-old female presents to the ED after rolling out of bed and falling to the floor. Patient fell in the space between the wall and the bed. She has a superficial abrasion/forehead. Superior orbit. She denies loss of consciousness, vision changes. She had some nausea upon arrival to the ED but no vomiting. says she is acting at her baseline mental status. Patient also complains of right shoulder and upper arm pain as well as bilateral forearm pain. Patient has diffuse neck pain as well. She had a prior fusion to the neck years ago. She denies any new numbness or tingling to the upper extremities. No mid or low back pain, pelvic pain, chest pain, shortness of breath. Tetanus is up-to-date. She is on blood thinner she takes Coumadin. ROS: Constitutional: no fevers. HEENT: Left orbit contusion/abrasion, headache CV: no chest pain or palpitations. Resp: no cough or SOB. GI: no abdominal pain, or n/v/d. : no dysuria, hematuria, or incont. MSK: Neck pain, right shoulder pain, bilateral forearm pain Skin: no rashes or itching. Neuro: no seizures, weakness, numbness, or confusion. Hematological: no ecchymosis or easy bleeding. Endocrine: no polyuria/polydipsia, no heat/cold intolerance. Psych: no SI/HI, AH/VH or memory loss. PMHx: Reviewed and agree as charted by RN. PSHx: Reviewed and agree as charted by RN. SOCHx: Reviewed and agree as charted by RN. FHX: No significant familial comorbid conditions directly related to patient complaint Current Medications: Reviewed and agree with the patient medications as charted by the RN. Allergies: Reviewed and agree with the listed allergies as charted by the RN Physical Exam: Vitals: Reviewed in chart as documented by RN. General: Alert and in NAD. Head: Normocephalic; 2 cm superficial abrasion to the left lateral orbit. Nongaping no active bleeding. No step-off or deformity. contusion to the left forehead. neg battles/racoon signs Eyes: PERRLA, Conjunctivae clear sclerae non-icteric bilat ENT: no soft palate swelling or uvular deviation. neg hemotympanum bilat. no otorrhea Neck: trachea midline, no unilateral swelling/tenderness/lymphadenopathy CV: RRR, no M/R/G; symmetric distal pulses Resp: respirations even and unlabored, CTA bilat. GI: abd soft and nondistended. NTTP. normal BS. no masses/HSM. no CVAT bilat MSK: diffuse midline cervical tenderness- no step off or swelling. mild dec in rom due to pain diffuse tenderness to right shoulder and upper arm. no deformity to shoulder, clavicle, or humerus. pt will not attempt rom for me due to pain. no elbow swelling/tenderness. mild wrist tenderness- no deformity radial pulse 2+. cap refill < 3 sec sensory intact distally. Skin: warm, moist, good turgor. no rash/lesions Neuro: Alert and oriented X 4. following CN 2-12 intact. no unilateral weakness/numbness Psych: No SI/HI or AH/VH. Medical Decision-Making: Medical Decision-making/Differential Diagnosis: Consider various etiologies including but not limited to ICH, TBI, cervical strain, disc herniation, skin/soft tissue structure injury, MSK injury, strain/sprain, fracture, dislocation, bursitis, tendonitis, contusion, ect Plan- triage ordered CT head, cT c spine, xr right shoulder , xr bilat forearms. po pain control an antiemetics given. wound care to left orbit abrasion. will give pt sling for right shoulder pain- will give her ortho referral for f/u if no improvement in the next week, im unable to fully evaluate the pts shoulder due to her not wanting to attempt rom due to pain. imaging reviewed- no acute findings on any imaging. will d/c home, RICE, supportive care, 6 pills of norco. home wound care discussed. pcp f/u in 2-3 days for recheck. This course of action was discussed with the patient and/or family. They were amenable to this, verbalized understanding, and were without further questions. - Related Data Allergies/Adverse Reactions: Penicillins Allergy (Severe, Verified 02/24/20 13:01) hives,throat swellling Iodinated Contrast Media [IV Dye, Iodine Containing] Allergy (Unknown, Verified 02/24/20 13:01) Anaphylaxis bee venom protein (honey bee) Allergy (Verified 02/24/20 13:01) adhesive tape Adverse Reaction (Intermediate, Verified 02/24/20 13:01) Generalized rash Past Medical History - Social History Smoking Status: Never Smoker Chew tobacco use (# tins/day): No Frequency of alcohol use: None Drug Abuse: None Family History: Reviewed & Not Pertinent, Arthritis, CAD, Hyperlipidemia, Hypertension, Malignancy, Thyroid Disfunction Patient has homicidal ideation: No - Past Medical History Cardiac Medical History: Reports: Hx Atrial Fibrillation, Hx Hypercholesterolemia, Hx Hypertension Denies: Hx Congestive Heart Failure, Hx Coronary Artery Disease, Hx Heart Attack Pulmonary Medical History: Reports: Hx Bronchitis Denies: Hx Asthma, Hx COPD, Hx Pneumonia, Hx Tuberculosis Neurological Medical History: Denies: Hx Cerebrovascular Accident, Hx Seizures, Hx Parkinson's Disease Endocrine Medical History: Reports: Hx Hypothyroidism Renal/ Medical History: Reports: Hx Ovarian Cysts. Denies: Hx End Stage Renal Disease, Hx Kidney Stones, Hx Peritoneal Dialysis GI Medical History: Reports: Hx Gastroesophageal Reflux Disease, Hx Colonoscopy. Denies: Hx Hiatal Hernia, Hx Ulcer Musculoskeletal Medical History: Reports Hx Arthritis, Reports Hx Fibromyalgia, Reports Hx Musculoskeletal Deformity, Reports Hx Musculoskeletal Trauma, Denies Hx Systemic Lupus Erythematosus Skin Medical History: Reports Hx Cellulitis, Reports Hx MRSA Psychiatric Medical History: Reports: Hx Anxiety, Hx Depression Denies: Hx Bipolar Disorder, Hx Schizophrenia Traumatic Medical History: Reports: Hx Fractures - right wrist/right elbow r/t fall Infectious Medical History: Reports: Hx MRSA Past Surgical History: Reports: Hx Abdominal Surgery, Hx Breast Surgery, Hx Cardiac Surgery - pacemaker, Hx Cholecystectomy, Hx Dilation and Curettage, Hx Gastric Bypass Surgery, Hx Gynecologic Surgery, Hx Hysterectomy, Hx Nose Surgery, Hx Orthopedic Surgery - knee, back, Hx Pacemaker, Hx Umbilical Hernia - Umbilical and incisional hernia. Denies: Hx Appendectomy, Hx Bowel Surgery, Hx Section, Hx Mastectomy, Hx Tonsillectomy, Hx Tubal Ligation - Immunizations Hx Diphtheria, Pertussis, Tetanus Vaccination: Yes Hx Pneumococcal Vaccination: 07/16/16 Physical Exam - Vital signs Vitals: Temp Pulse BP Pulse Ox 97.7 F 78 107/65 96 07/03/20 23:50 07/03/20 23:50 07/03/20 23:50 07/03/20 23:50 Course - Vital Signs Vital signs: Temp Pulse Resp BP Pulse Ox 97.7 F 78 107/65 96 07/04/20 00:09 07/03/20 23:50 07/03/20 23:50 07/03/20 23:50 - Laboratory Results Critical Laboratory Results Reviewed: No Critical Results - Radiology Results Critical Radiology Results Reviewed: No Critical Results Discharge - Discharge Clinical Impression: Fall Qualifiers: Encounter type: initial encounter Qualified Code(s): W19.XXXA - Unspecified fall, initial encounter Closed head injury Qualifiers: Encounter type: initial encounter Qualified Code(s): S09.90XA - Unspecified injury of head, initial encounter Contusion of left orbit Qualifiers: Encounter type: initial encounter Qualified Code(s): S05.12XA - Contusion of eyeball and orbital tissues, left eye, initial encounter Right shoulder injury Qualifiers: Encounter type: initial encounter Qualified Code(s): S49.91XA - Unspecified injury of right shoulder and upper arm, initial encounter Cervical strain, acute Qualifiers: Encounter type: initial encounter Qualified Code(s): S16.1XXA - Strain of muscle, fascia and tendon at neck level, initial encounter Condition: Stable Disposition: HOME, SELF-CARE Instructions: Abrasions of the Face ([facility]), Shoulder Injury ([facility]), Head Injury Precautions ([facility]) Additional Instructions: may take motrin for pain. no driving on pain medication. rest, ice, and elevate injured areas. do range of motion with right shoulder out of sling multiple times a day. follow up with orthopedics for your shoulder pain. return to the ER if your condition worsens. Referrals: JANA WHITEHEAD MD [Primary Care Provider] - Follow up as needed BETH LERMA MD [ACTIVE STAFF] - Follow up as needed
[2020-07-04 04:03] VITALS: BP 137/72
== END 2020-07-04 04:01 | disposition home or self-care (01) ==
LOC: ER 23:43
DX: S05.12XA Contusion of eyeball and orbital tissues, left eye, initial encounter (principal); S16.1XXA Strain of muscle, fascia and tendon at neck level, initial encounter; S49.91XA Unspecified injury of right shoulder and upper arm, initial encounter; M25.511 Pain in right shoulder; M79.621 Pain in right upper arm; M79.632 Pain in left forearm; M79.631 Pain in right forearm; M54.2 Cervicalgia; W06.XXXA Fall from bed, initial encounter; Y93.89 Activity, other specified; I48.91 Unspecified atrial fibrillation; I10 Essential (primary) hypertension; Z79.01 Long term (current) use of anticoagulants; Z98.1 Arthrodesis status; Z88.0 Allergy status to penicillin; Z87.892 Personal history of anaphylaxis; Z91.041 Radiographic dye allergy status; Z91.030 Bee allergy status
CPT/HCPCS: 99284; 72040; 73090 ×2; 73060; 73020; 70450; A9270 ×2; S0119